=== PATIENT | male | born 1950 | race Caucasian/White ===

== ENCOUNTER 2017-04-13 22:51 | Emergency (ER) | payer MEDICARE ==
[~2017-04-13] VITALS: Ht 177.8 cm; Wt 70.3 kg
[~2017-04-13 22:51] MED LIST: DILAUDID4 MG PO; METHADONE HCL5 MG PO
[2017-04-13] MEDS ORDERED: METHADONE HCL10 MG PO (23:08)
[2017-04-13] MEDS ORDERED: LORAZEPAM2 MG PO (23:10)
[2017-04-13] MEDS ORDERED: ASPIRIN325 MG PO (23:10)
== END 2017-04-14 02:00 | disposition home or self-care (01) ==
LOC: ED 22:51
DX: N13.2 Hydronephrosis with renal and ureteral calculous obstruction (principal); I25.2 Old myocardial infarction; F17.200 Nicotine dependence, unspecified, uncomplicated; Z79.899 Other long term (current) drug therapy; Z79.82 Long term (current) use of aspirin; Z87.442 Personal history of urinary calculi
CPT/HCPCS: 74176; 80053; 81001; 83690; 85025; 96374; 96375; 99284; J1170; J1885; J2405; J7030

== ENCOUNTER 2017-10-28 09:00 | Day surgery (SDC) | payer MEDICARE ==
[~2017-10-28] VITALS: Ht 177.8 cm; Wt 63.5 kg
[~2017-10-28 09:00] MED LIST changes: +ASPIRIN325 MG PO; +LORAZEPAM2 MG PO; +METHADONE HCL10 MG PO; +OXYCODONE HCL10 MG PO; +ZOFRAN4 MG PO
--- NOTE | 2017-10-28 13:01 | NUR ---
PATIENT TO SURGERY.
--- NOTE | 2017-10-28 14:31 | NUR ---
10/28/17 1431 Jaquelin Meraz 1427-PATIENT ARRIVED TO PACU ON 6L MASK O2 SAT 100% REACTVE. RR EVEN. 3 LAP SITES TO ABDOMEN CDI. ICE APPLIED. SR.
--- NOTE | 2017-10-28 15:32 | NUR ---
PT ARRIVED FROM THE PACU AT APPROXIMATELY 1515. NO DISTRESS. PT STATES HE HAS BEEN "FUZZY" LATELY IN COGNITION, AND HAS HAD PROBLEMS WITH HIS VISION. SURGICAL SITE IS DRESSED, CDI. PT DENIES SOB, HAS HAD INTERMITTENT NAUSEA. WILL CONTINUE TO MONITOR.
--- NOTE | 2017-10-28 16:15 | NUR ---
PT VS DONE, DRESSING CDI, DENIES NAUSEA.
--- NOTE | 2017-10-28 17:33 | NUR ---
PT RESTING AT BEDSIDE, DRESSING CDI, VSS. NO DISTRESS, PAIN LEVEL DECREASING.
--- NOTE | 2017-10-28 18:01 | NUR ---
PT HAS ARRIVED FROM A LAP YAMIL THIS AFTERNOON. DRESSINGS CDI, PT DENIES NAUSEA, HAS SOME SURGICAL PAIN AND WAS GIVEN PRN PAIN MANAGEMENT WHICH HAS BEEN HELPFUL. PT HAS TOLERATED FULL LIQUIDS. VITALS STABLE.
--- NOTE | 2017-10-28 18:31 | NUR ---
PT POST PACU VS STABLE, DRESSINGS CDI. NO DISTRESS, DENIES NAUSEA, PAIN LEVELS GOING DOWN.
--- NOTE | 2017-10-28 19:20 | NUR ---
BEDSIDE REPORT RECEIVED FROM TEODORO JUNG. PT AWAKE, SITTING UP IN BED. PT HAS NOT VOIDED AT THIS TIME, RN OLGA TO BLADDER SCAN PT. PT TOLERATING FULL LIQUID DIET WELL, NO NAUSEA. RATES PAIN 6/10 AT THIS TIME, DRESSINGS C/D/I. IVF INFUSING WNL. CALL LIGHT IN REACH. FAMILY IN ROOM.
--- NOTE | 2017-10-28 21:14 | NUR ---
PT ASSESSMENT COMPLETE.SBA TO RESTROOM, PT UNABLE TO VOID. BLADDER SCANNED 530 ML, MD NOTIFIED. TELEPHONE ORDER FOR STRAIGHT CATHETER AT THIS TIME, ORDERS TO PLACE B[place] IF PT UNABLE TO VOID ADDITIONAL TIME, ORDERS REPEATED BACK TO [facility]. LUNGS CLEAR THROUGHOUT ALL LOBES, INCISION SITES CDI WITH GAUZE SMALL AMT SHADOWING NOTED ON RIGHT LAP SITE. BOWEL TONES ACTIVE X 4. ABD SOFT. PT STATES PAIN 7/10 "CRAMPING". PRN PAIN MEDICATION ADMINISTERED. CALL LIGHT IN REACH.
--- NOTE | 2017-10-28 21:59 | NUR ---
tried to straight cath pt, resistance noted, no return in catherer. tried Pt refused to continue to be cathed. Pt instructed it is his right to refuse tx , complications of unable to urinate afte surgery explained to him, stated understanding and still stated that he was refusing to be cathed. Wet towel to mae area and dripping water faucet on, to help urinate. Primary RN Elizabeth notified.
--- NOTE | 2017-10-28 23:30 | NUR ---
PT ABLE TO VOID 375 ML AT THIS TIME, CONCENTRATED URINE. PT CONTINUES TO RATE PAIN "CRAMPING" /, STATES "FEELS LIKE I WAS PUNCHED IN THE GUT". PT GIVEN NEW ICE PACK FOR ABD. NEW BAG IVF INFUSING. PT ENCOURAGED TO DRINK PO FLUIDS, ICE WATER GIVEN TO PT. CALL LIGHT IN REACH, LIGHTS OFF IN ROOM.
--- NOTE | 2017-10-29 02:20 | NUR ---
PT ASSESSMENT COMPLETE. PT ABLE TO VOID 375 ML IN URINAL, URINAL EMPTIED. LUNGS CLEAR THROUGHOUT ALL LOBES. ABD DRESSING CLEAN DRY AND INTACT W SOME SHADOWING ON LEFT ABD LAP SITE GAUZE. BOWEL TONES ACTIVE, ABD SOFT. PT RATES PAIN 7-8/10 IN ABD, PRN PAIN MEDICATION ADMINISTERED. ICE WATER AND CALL LIGHT IN REACH. SCDS ON. IVF INFUSING WNL.
--- NOTE | 2017-10-29 04:46 | NUR ---
CHECKED ON PT, LYING ON RIGHT SIDE, BREATHING NON-LABORED. IVF INFUSING. LIGHTS OFF IN ROOM.
--- NOTE | 2017-10-29 05:30 | NUR ---
PT VOIDING QUANTITY SUFFICIENT. PRN OXYCODONE 10 MG FOR PAIN CONTROL. DRESSINGS CDI, BOWEL TONES ACTIVE, ABD SOFT. PT C/O "CRAMPING" PAIN THROUGHOUT SHIFT. ICE PACK TO ABD. IVF INFUSING WNL. AFEBRILE. SBA TO RESTROOM.
--- NOTE | 2017-10-29 05:54 | OR ---
[facility] [address] [place], [place] [address] Signed DATE OF OPERATION: 10/28/2017 SURGEON: Anup Burris MD PREOPERATIVE DIAGNOSIS: Chronic cholecystitis with cholelithiasis (sludge). POSTOPERATIVE DIAGNOSIS: Chronic cholecystitis with cholelithiasis (sludge) with yellow cholesterol crystals/small stones. PROCEDURE: Laparoscopic cholecystectomy with intraoperative cholangiogram. ESTIMATED BLOOD LOSS: None. FINDINGS: Abel had a very friable gallbladder wall. It came apart very easily like wet tissue paper, inside was an enormous amount of very thick bile/sludge, full of tiny yellow cholesterol crystals/stones. The intraoperative cholangiogram was unremarkable. INDICATIONS: Abel is a 67-year-old gentleman, who was asked to see me initially with left upper quadrant abdominal pain, but as I questioned it became clear he was having some right upper quadrant abdominal pain as well. It was worse after meals. He has had a number of CT scans for kidney stones. He is known to have a very elongated gallbladder around 15 cm. His symptoms have been worsening and he is down to eating just once a day. He said it has been miserable. He dropped from 175 pounds down to 145 pounds to the point that he is cachectic. He also has a generalized anxiety disorder and was quite worried about surgery. We sent him for an ultrasound of the gallbladder. He has a very long gallbladder measuring 15 x 6 x 9 cm. It contained an extensive amount of sludge and debris. The wall was irregular, but not particularly thickened. The common bile duct was unremarkable. He had finally come back to the office and after discussing this with him, he explained to me how his symptoms have been significantly worse, he was down to one meal a day. I had already given him a [employer] brochure on the gallbladder. He is well aware of the location and function of the gallbladder. We have already discussed laparoscopic versus open cholecystectomy. He understands expected intraop and postop course. There is risk of surgery including, but not limited to bleeding, infection, scarring, change in contour of the skin, damage to bowel, damage to the main bile duct, Electronically Signed By: ANUP BURRIS MD 10/29/17 0554 PATIENT NAME: ABEL BA OPERATIVE REPORT DATE OF : 50 REPORT #: [id number] PHYSICIAN: ANUP BURRIS MD PCP: ASHLY CONNER MD REPORT IS CONFIDENTIAL AND NOT TO BE RELEASED WITHOUT AUTHORIZATION [facility] [address] [place] [id number] Signed incisional hernias, and other unforeseen comorbidities. He had expressed understanding and wished to proceed. PROCEDURE NOTE: Abel was taken into the operating room and placed in a supine position under general endotracheal tube anesthesia. He was telling myself and the staff how he has been hardly able to eat and drink this week, he has been dizzy, he has apparently passed out a couple times and fallen down. He is very cachectic. He was given preoperative antibiotics along with subcutaneous heparin. SCDs were utilized. He was then prepped and draped in the usual sterile fashion. He has an extremely scaphoid abdomen. Our trocars were then placed in usual positions under direct visualization of camera without difficulty. He had an unbelievably elongated gallbladder extending well below his liver edge. The gallbladder was carefully elevated in the right upper quadrant. The color was more of yellow and green rather than a true coral color. It looked quite unhealthy. He had inflammatory changes of the omentum to the gallbladder and it took me a few minutes to get those down with our cautery and blunt dissection. Eventually, the top of the gallbladder had come open, so we suctioned out an enormous amount of this thick sludge, full of yellow, small, cholesterol crystals. We eventually worked our way down and dissected out the triangle of Calot. Two clips have been placed on the cystic artery and it had been divided. As we worked, the bottom of the gallbladder came open because the wall was so thin and friable and we suctioned out the rest of the thick bile. The cholangiocatheter was then inserted into the cystic duct. The intraoperative cholangiogram was then performed. This was unremarkable. The cystic duct stump was secured with a PDS Endoloop and 2 clips were placed across the cystic duct stump to ashly its location. After this, the gallbladder was carefully removed from the gallbladder fossa with the help of the cautery and placed into an EndoCatch bag. Again, we were very impressed at the chronicity and the friability of his gallbladder wall. After this, we used a large amount of irrigation and cleaned the right upper quadrant and suctioned it out until it was completely clear. We had taken pictures throughout for photodocumentation. After this, we used our laparoscopic suturing device to close the fascia of the subxiphoid trocar site. The gas was then allowed to escape and all the remaining trocars were removed. The fascia of the supraumbilical trocar site was closed with interrupted [id number] and simple 0 Vicryl sutures. Local anesthetic was injected in all trocar sites. Each trocar site was irrigated and suctioned out until clear. The skin and dermis of each trocar site was then closed with interrupted 3-0 subcuticular Monocryl sutures. Dry gauze and tape were then applied to all incisions. Abel was then awakened from his anesthesia, extubated in the OR, and taken to recovery room in stable condition. Electronically Signed By: ANUP BURRIS MD 10/29/17 0554 PATIENT NAME: ABEL BA OPERATIVE REPORT DATE OF : 50 REPORT #: [id number] PHYSICIAN: ANUP BURRIS MD PCP: ASHLY CONNER MD REPORT IS CONFIDENTIAL AND NOT TO BE RELEASED WITHOUT AUTHORIZATION [address] [address] Signed Anup Burris MD [facility] /[id number] cc: MD Dr. Ashly Mat[facility] Copies: ANUP BURRIS MD ~ Electronically Signed By: ANUP BURRIS MD 10/29/17 0554 PATIENT NAME: ABEL BA OPERATIVE REPORT DATE OF : 50 REPORT #: [id number] PHYSICIAN: ANUP BURRIS MD PCP: ASHLY CONNER MD REPORT IS CONFIDENTIAL AND NOT TO BE RELEASED WITHOUT AUTHORIZATION
--- NOTE | 2017-10-29 06:44 | NUR ---
PRN PAIN MEDICATION ADMINISTERED FOR 7-8/10 PAIN IN ABD, "CRAMPING". SBA TO RESTROOM FOR VOID AND BACK TO BED. IVF INFUSING, SCDS ON. PT ORDERING BREAKFAST. CALL LIGHT IN REACH.
--- NOTE | 2017-10-29 07:53 | NUR ---
PATIENT REFUSED SHOWER BECAUSE HE IS GOING HOME TODAY. HE IS LAYING IN HIS BED GETTING READY TO EAT HIS BREAKFAST.
--- NOTE | 2017-10-29 08:01 | DS ---
[facility] [address] [place], [place] [address] Signed ADMISSION DATE: 10/28/2017 DISCHARGE DATE: 10/29/2017 RE-DICTATION FINAL DIAGNOSIS: Chronic cholecystitis with cholelithiasis (sludge). PROCEDURE: Laparoscopic cholecystectomy with intraoperative cholangiogram. HISTORY OF PRESENT ILLNESS: Abel is a 67-year-old gentleman, who has had a lot of trouble with left upper quadrant and right upper quadrant abdominal pain. It was worse with meals. He was down to one meal a day. He was losing weight, went from 175 pounds down to 145 pounds. He finally was sent over as a referral. He is known to have a very long gallbladder on CT scans for his kidney stones. His gallbladder is about 15 cm in length. We did an ultrasound in the office and found that his gallbladder was full of very thick sludge with lots of debris. As his symptoms continued, he eventually decided to go ahead and have surgery. In fact, he called the office and had us moving up on a schedule. HOSPITAL COURSE: Abel was taken to the operating room 10/28/2017 for laparoscopic cholecystectomy with intraoperative cholangiogram. The intraoperative cholangiogram was unremarkable. His gallbladder wall was very friable like wet tissue paper. He was weak after surgery and we kept him and he was having some trouble with urinary hesitancy. He finally had some urine last night and some this morning. He said that is common for him. However, he is not mentioned it to his urologist. He has only talked to the urologist about his kidney stones. This morning, he is doing better. He is tolerating his clear liquids. He is ambulating. He is doing well on his oxycodone 5 mg tablets. Consequently, we are going to be discharging him to home. DISCHARGE PLANS AND MEDICATIONS: Abel is going to be discharged home with a prescription for oxycodone immediate release 5 mg 1-2 tablets p.o. q.4-6 hours p.r.n. pain, dispense 45 tablets with no refills. We will give him Phenergan 25 mg one tablet p.o. q.4-6 hours p.r.n. nausea and vomiting. We will dispense 10 tablets with one refill. He can increase his diet as tolerated. He should not do any heavy pushing, pulling, or lifting over 25 pounds. He is welcome to perform his activities of daily living including walking up and down stairs and showering and bathing as usual. I am going to see him back in my office in a week or so for Electronically Signed By: ANUP BURRIS MD 10/29/17 0801 PATIENT NAME: ABEL BA DISCHARGE SUMMARY DATE OF : 50 REPORT #: [id number] PHYSICIAN: ANUP BURRIS MD PCP: LOYD CONNER MD REPORT IS CONFIDENTIAL AND NOT TO BE RELEASED WITHOUT AUTHORIZATION [address] [address] Signed followup. He can follow up with his urologist regarding his urinary symptoms. Anup Burris MD [facility] /[id number] cc: MD Dr. Loyd Matson MD Copies: ANUP BURRIS MD, AIMEE MD ~ Electronically Signed By: ANUP BURRIS MD 10/29/17 0801 PATIENT NAME: ABEL BA DISCHARGE SUMMARY DATE OF : 50 REPORT #: [id number] PHYSICIAN: ANUP BURRIS MD PCP: LOYD CONNER MD REPORT IS CONFIDENTIAL AND NOT TO BE RELEASED WITHOUT AUTHORIZATION
--- NOTE | 2017-10-29 08:01 | DS ---
[facility] [address] [place], [place] [address] Signed ADMISSION DATE: 10/28/2017 DISCHARGE DATE: 10/29/2017 FINAL DIAGNOSIS: Chronic cholecystitis with cholelithiasis (sludge). PROCEDURE: Laparoscopic cholecystectomy with intraoperative cholangiogram. HISTORY OF PRESENT ILLNESS: Abel is a 67-year-old gentleman, who has been having trouble with left upper quadrant and right upper quadrant abdominal pain. He is known to have a very long gallbladder around 15 cm. It was worse after meals. He is down to eating one meal a day. He lost weight from 175 pounds down to 145 pounds. He to the point is being cachectic. He finally came for us as a referral and we sent him for an ultrasound. It showed his gallbladder full of very thick sludge. Initially, Abel was hesitant to have surgery, but finally decided his symptoms that he was not going to escape the symptoms. He then called the office and asked that we move the surgery up on our schedule. HOSPITAL COURSE: Abel was taken to the operating room on 10/28/2017, for a laparoscopic cholecystectomy with an unremarkable intraoperative cholangiogram. His gallbladder wall was friable like wet tissue paper and obviously consistent with chronic cholecystitis. He was full of very dark thick sludge like bile with tiny little small yellow cholesterol crystals and stones. He was weak after surgery. We did not feel comfortable sending him home as he lives alone. Overnight, he has done fine except he did have some urinary hesitancy. In talking with him, it sounds like that is a chronic issue. He was finally able to urinate some last night and this morning. He is tolerating his clear liquids by mouth at this point. He told me that he has had a lot of different medications in the past and he thought he could handle oxycodone 10, which he did yesterday. At this point, he feels comfortable going home. DISCHARGE PLANS AND MEDICATIONS: Abel is going to be discharged to home with a prescription for oxycodone immediate release 5 mg 1-2 tablets p.o. q.4 hours p.r.n. pain, dispense 45 tablets with no refills. Anup Goins MD Electronically Signed By: ANUP GOINS MD 10/29/17 0801 PATIENT NAME: ABEL BA DISCHARGE SUMMARY DATE OF : 50 REPORT #: [id number] PHYSICIAN: ANUP GOINS MD PCP: LOYD CONNER MD REPORT IS CONFIDENTIAL AND NOT TO BE RELEASED WITHOUT AUTHORIZATION [facility] [address] [place] [address] [place], [place] [address] Signed [facility] /[id number] Copies: ~ Electronically Signed By: ANUP GOINS MD 10/29/17 0801 PATIENT NAME: ABEL AB DISCHARGE SUMMARY DATE OF : 50 REPORT #: [id number] PHYSICIAN: ANUP GOINS MD PCP: LOYD CONNER MD REPORT IS CONFIDENTIAL AND NOT TO BE RELEASED WITHOUT AUTHORIZATION
--- NOTE | 2017-10-29 08:32 | NUR ---
PT RESTING AT BEDSIDE, DENIES NAUSEA, NO DISTRESS. PT STATES THAT PAIN MANAGEMENT IS NOT EFFECTIVE HAS HE HAS TAKEN NARCOTICS FOR MANY YEARS AT HIGH LEVELS. PT IS COMPLAINT WITH CARE. NO DRAINAGE TO THREE LAT SITES THIS AM. VSS, PREPARING FOR DISCHARGE.
--- NOTE | 2017-10-29 08:58 | NUR ---
LIVES INDEPENDENTLY WITH HIS PETS. IS ABLE TO DRIVE AND DRIVES SELF TO PCP IN [facility]. HAS DAUGHTER IN AREA THAT CAN HELP AT HOME POST-OP. NO BARRIERS TO DISCHARGE HOME AT THIS TIME.
--- NOTE | 2017-10-29 09:28 | NUR ---
MED REC COMPLETE
[2017-10-29] MEDS ORDERED: OXYCODONE HCL5 MG PO (10:23)
[2017-10-29] MEDS ORDERED: PROMETHAZINE HC25 M1 PO (10:25)
== END 2017-10-29 11:15 | disposition home or self-care (01) ==
LOC: DS 09:00 → MS 15:07 → DS 10-29 11:15
PROVIDERS: Colon & Rectal Surgery
PROC: BF13YZZ Fluoroscopy of Gallbladder and Bile Ducts using Other Contrast (ICD-10-PCS; 2017-10-28)
PROC: 0FT44ZZ Resection of Gallbladder, Percutaneous Endoscopic Approach (ICD-10-PCS; principal; 2017-10-28 09:30)
DX: K81.1 Chronic cholecystitis (principal); F17.210 Nicotine dependence, cigarettes, uncomplicated; M54.2 Cervicalgia; M54.9 Dorsalgia, unspecified; I25.2 Old myocardial infarction; I25.10 Atherosclerotic heart disease of native coronary artery without angina pectoris
CPT/HCPCS: 74300; J0690; J1100; J1170; J1644; J1885; J2250; J2405; J2704; J3010; J7120; Q9967

== ENCOUNTER 2017-11-15 00:22 | Inpatient (IN) | payer MEDICARE ==
[~2017-11-15] VITALS: Ht 175.3 cm; Wt 64.9 kg
[~2017-11-15 00:22] MED LIST changes: +OXYCODONE HCL5 MG PO; +PROMETHAZINE HC25 M1 PO
[2017-11-15] MEDS ORDERED: COLACE100 MG PO (01:20)
--- NOTE | 2017-11-15 06:40 | NUR ---
ADMITTED TO CCU FROM PACU. IS RESTFUL. ZOFRAN GIVEN FOR NAUSEA. IVF PATENT.
--- NOTE | 2017-11-15 06:43 | NUR ---
11/15/17 0643 METZ,MALGORZATA Crandall 0610: IV LEFT TOP OF WRIST. PLACED IN OR. IV SITE WNL. 0619: ORAL AIRWAY OUT. O2 MASK ON. 0622: O2 MASK OFF. PATIENT ON ROOM AIR. 0625: PATIENT AWAKENS TO VOICE. STATES "A LITTLE PAIN" FALLS BACK TO SLEEP QUICKLY. 0638: REPORT GIVEN TO CCU RN.
--- NOTE | 2017-11-15 07:30 | NUR ---
REPORT RECIEVED, ADMISSION PROCESS STARTED. IS COOPERATIVE WITH QUESTIONS ASKED. C/O PAIN IN LLQ RATE 01/11. TO HAVE CT OF CHEST THIS AM.
--- NOTE | 2017-11-15 08:20 | NUR ---
DILAUDID 1 MG IV GIVEN FOR PAIN. THEN TO CT VIA BED.
--- NOTE | 2017-11-15 08:50 | NUR ---
RETURN TO CCU. TOLERATED CT WELL. MORE COMFORTALBE AFTER DILAUDID
--- NOTE | 2017-11-15 10:15 | NUR ---
DR. HAYNES HERE TO SEE PATIENT.
--- NOTE | 2017-11-15 12:10 | NUR ---
c/o pain 9/10 IN LLQ OF ABD AND BACK WITH GENERALIZED PAIN. DILAUDID 1 MG IV GIVEN AND NORCO 2 TABS GIVEN. C/O SLIGHT NAUSEA. REFUING CLEAR LIQUIDS AT THIS TIME. ASESSMENT COMPLETE.
--- NOTE | 2017-11-15 13:10 | NUR ---
[facility]
--- NOTE | 2017-11-15 14:03 | EKG ---
[facility] [address] [facility] [place] [address] Signed Sinus rhythm with marked sinus arrhythmia Otherwise normal ECG When compared with ECG of 27-OCT-2017 10:16, Nonspecific T wave abnormality no longer evident in Lateral leads Confirmed by ELYSSA HAYNES MD ([id number]) on 11/15/2017 2:03:15 PM Electronically Signed By: ELYSSA HAYNES MD 11/15/17 1403 PATIENT NAME: ABEL BA Electrocardiogram DATE OF : 50 PHYSICIAN: ELYSSA HAYNES MD REPORT #: [id number] REPORT IS CONFIDENTIAL AND NOT TO BE RELEASED WITHOUT AUTHORIZATION
--- NOTE | 2017-11-15 15:10 | NUR ---
DR. GOMEZ HERE TO SEE PATIENT, PATIENT WILL HAVE STENT PLACEMENT TOMORROW.
--- NOTE | 2017-11-15 18:05 | NUR ---
DENIES NAUSA. CONTINUE TO C/O PAIN IN LLQ. DENEIS NAUSEA.
--- NOTE | 2017-11-15 18:28 | NUR ---
dilaudid 1 MG IV GIVEN AND NORCO 2 TABS GIVEN FOR LLQ PAIN.
--- NOTE | 2017-11-15 19:20 | NUR ---
SHIFT REPORT RECEIVED FROM TEODORO MANN. PT CURRENTLY RESTING IN BED WITH EYES CLOSED. RA, RESPIRATIONS EVEN AND UNLABORED. WILL CONTINUE TO MONITOR.
--- NOTE | 2017-11-15 20:30 | NUR ---
ASSESSMENT COMPLETED. PT IS ALERT/ORIENTED, REPORTS 9/10 LLQ/GENERALZED PAIN, 1.5MG IV DILAUDID ADMINISTERED. LUNGS CLEAR, RA. HR REGULAR. BOWEL TONES HYPOACTIVE, ABDOMEN TENDER, REPORTS NAUSEA, 8MG IV ZOFRAN ADMINISTERED. OLD LAP SITES TO ABDOMEN APPEAR TO BE HEALING WELL, SKIN OTHERWISE APPEARS GROSSLY INTACT. NO EDEMA NOTED, SCD'S IN PLACE, PT REPORTS TINGLING IN BILATERAL FEET WHICH HE STATES IS BASELINE. DISCUSSED PLAN TO BECOME NPO AT 2300 FOR PROCEDURE TOMORROW, PT STATES UNDERSTANDING. IV SITES PATENT, IVF INFUSING WNL. PT HAS CALL LIGHT WITHIN REACH, DENIES FURTHER REQUESTS AT THIS TIME.
--- NOTE | 2017-11-15 22:20 | NUR ---
CHECKED IN ON PT WHO WOKE WHEN I ENTERED ROOM. REPORTS THAT LLQ PAIN REMAINS AT 9/10. 2 TABS NORCO GIVEN AT THIS TIME. PT DENIES FURTHER REQUESTS AT THIS TIME, WILL CONTINUE TO MONITOR.
--- NOTE | 2017-11-15 23:15 | NUR ---
PT'S WATER REMOVED FROM BEDSIDE TABLE, PT NOW NPO. PT APPEARS UNCOMFORTABLE, GIMACING. REPORTS HIS LLQ PAIN REMAINS 9/10. MEDICATED AT THIS TIME WITH 1.5MG IV DILAUDID. WILL CONTINUE TO MONITOR.
--- NOTE | 2017-11-16 00:55 | NUR ---
PT UP TO BATHROOM WITH SBA, VOIDED 650ML AND THEN RETURED TO BED. ASSESSMENT COMPLETED. 1.5MG IV DILAUDID GIVEN FOR 9/10 LLQ PAIN. 12.5MG IV PHENERGAN GIVEN FOR NAUSEA. LUNGS REMAIN CLEAR, RA. HR REMAINS REGULAR. BOWEL TONES REMAIN HYPOACTIVE. SCD'S ON. IVF INFUSING WNL. CALL LIGHT WITHIN REACH, WILL CONTINUE TO MONITOR.
--- NOTE | 2017-11-16 02:07 | NUR ---
PT APPEARS TO BE SLEEPING AT THIS TIME. NO APPARENT DISTRESS. RESPIRATIONS EVEN AND UNLABORED. RR:16, SPO2:98% ON RA, HR:64. WILL ALLOW FOR REST AND CONTINUE TO MONITOR.
--- NOTE | 2017-11-16 04:15 | NUR ---
PT SLEEPING SOUNDLY, LIGHTLY SNORING. NO APPARENT DISTRESS. RESPIRATIONS ARE EVEN AND UNLABORED, RR:16, SPO2:98% ON RA. HR:57. IVF INFUSING WNL. WILL ALLOW FOR REST AND CONTINUE TO MONITOR.
--- NOTE | 2017-11-16 05:30 | NUR ---
PT REPORTS 9/10 LLQ PAIN, MEDICATED AT THIS TIME WITH 1.5MG IV DILAUDID. DISCUSSED WITH PT PLAN FOR SURGERY TODAY FOR URETER STENT PLACEMENT. STARTED PRE-OP CHECK LIST AND PLACED LR WITH STRAIGHT TUBING IN ROOM. DISCUSSED PLAN FOR PRE-PROCEDURE WIPE DOWN LATER THIS MORNING. PT DENIES FURTHER REQUESTS AT THIS TIME, CALL LIGHT IS WITHIN REACH.
--- NOTE | 2017-11-16 06:52 | NUR ---
PT UP TO BATHROOM WITH SBA, VOIDED 225ML AND THEN RETURNED TO BED. PT WASHED FACE AND RINSED MOUTH WITH MOUTHWASH. SCD'S BACK ON. PT STATES HIS PAIN IS SLIGHLY IMPROVED. CALL LIGHT WITHIN REACH.
--- NOTE | 2017-11-16 07:01 | NUR ---
CB, TITRATED INSULIN DRIP TO 1 UNIT/HR, VERIFIED WITH TEODORO POP.
--- NOTE | 2017-11-16 07:07 | CONS ---
[facility] [address], [place] [address] Signed DATE OF CONSULTATION: 11/15/2017 CHIEF COMPLAINT: Upper abdominal pain and hematemesis. HISTORY OF PRESENT ILLNESS: Abel is a 67-year-old gentleman, who came to us 18 days ago for an uncomplicated laparoscopic cholecystectomy with intraoperative cholangiogram. He had a very friable gallbladder like wet tissue paper. He had tremendous amount of black sludge and small yellow cholesterol stones. He had done well with that and I had seen him back in the office. He said overall he felt a little better, was able to eat little more than usual, but still having some left upper quadrant abdominal pain, which has been bothering him for several months now. He has had ulcers in the past. We have him on our schedule for an outpatient upper endoscopy. I recommended he start on Prilosec, but he was afraid of side effects that he saw on TV. He said he had Zantac at home. I had asked him to take that twice a day and he told me just today that he ran out. In general, he was doing fine, but yesterday, he started having worsening upper abdominal pain, mostly left upper quadrant and finally today, he asked his family to bring him into the emergency room. They think maybe he vomited some blood, but the nurse thought maybe it was chocolate milk. Nevertheless, he is certainly not feeling good. His white count 11.7 and his liver function tests are fine. He then had a CT scan of the abdomen and pelvis with just IV contrast. He does have quite a bit of air in the abdomen, of course more in the upper abdomen than lower abdomen. He has a 15 mm large obstructing UPJ stone in his left kidney, but no other obvious area of perforation specifically around the stomach or duodenum and no evidence of any diverticular disease that might be causing this free air. Consequently, I was asked to see him as a general surgeon, so I came soon as I was called. In the meantime, he has received some IV fluids and some pain medication and his antibiotics. PAST MEDICAL HISTORY: 1. Kidney stones. 2. Chronic back pain. PAST SURGICAL HISTORY: 1. Laparoscopic cholecystectomy on 10/28/2017. 2. Spinal bone graft at T8-T9 in 1984 through a large left thoracotomy incision and he has had kidney stones extracted twice. SOCIAL HISTORY: He smokes about a 3rd pack of cigarettes a day. He does like a little marijuana. He does not use alcohol. 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 He is now disabled. He is and has 4 children. His primary care provider is Dr. Loyd Conner in [place], [place]. Electronically Signed By: ANUP BURRSI MD 11/16/17 0707 PATIENT NAME: ABEL BA CONSULTATION DATE OF : 50 REPORT #: [id number] PHYSICIAN: ANUP BURRIS MD PCP: LOYD CONNER MD REPORT IS CONFIDENTIAL AND NOT TO BE RELEASED WITHOUT AUTHORIZATION [address] [address] Signed ALLERGIES: None. FAMILY HISTORY: His dad had pancreatic cancer. Mom had colon cancer and heart disease. REVIEW OF SYSTEMS: He had 10 systems reviewed and really he was not able to add much today other than he seemed to feel the pain got worse yesterday and it has persisted, so he came to the emergency room. PHYSICAL EXAMINATION: VITAL SIGNS: His blood pressure is 160/79, his heart rate 62, respirations are 18, his temperature is 97.9, and he is 100% on room air. GENERAL: On exam, he is clearly in some distress, but able to concentrated up to answer questions and his daughter and his friend is here as well. LUNGS: Clear to auscultation. HEART: Regular rate and rhythm. ABDOMEN: Scaphoid and he seems to be a little tender in upper abdomen, but he is fairly stoic. If he has peritonitis, he is hiding it awfully well. LABORATORY DATA: His white blood count is 11.7, his hemoglobin is 14, neutrophils are 77. His BUN is 12, creatinine is 1.0, and glucose 147. His liver function tests are negative. His albumin is 4.4 and his lipase is 17. RADIOGRAPHIC STUDIES: A CT scan of the abdomen and pelvis is reviewed and he does have free air in the upper abdomen, more so than the lower. I see a large 15 mm stone obstructing his UPJ with some hydronephrosis. ASSESSMENT AND PLAN: Abel is a 67-year-old chronically debilitated gentleman, who underwent an uncomplicated laparoscopic cholecystectomy about 18 days ago. He certainly in more pain than he was before and it is all upper abdomen that seems to have started yesterday and he apparently has more air in his abdomen than one would expect this time after surgery. Nevertheless, his white count is borderline and his exam is not as impressive as one would think with a perforated ulcer. There is some concern that maybe he vomited blood, but maybe it was chocolate milk we are not sure. It sounds like he had a chocolate bar earlier in the day. I think at this point, we are going to quickly run the gastroscope down and we will look into his stomach to see what we find and if that is uneventful, we are going to take him directly from there over to the OR for a laparotomy. I have explained this to Abel that and his family of course there is risk to the procedures Electronically Signed By: ANUP BURRIS MD 11/16/17 0707 PATIENT NAME: ABEL BA CONSULTATION DATE OF : 50 REPORT #: [id number] PHYSICIAN: ANUP BURRIS MD PCP: LOYD CONNER MD REPORT IS CONFIDENTIAL AND NOT TO BE RELEASED WITHOUT AUTHORIZATION [facility] [address], [place] [address] Signed including, but not limited to gas bloating, crampy abdominal pain, bleeding, perforation, requiring surgery, and missed diagnosis as well as the need to repair a perforated ulcer and/or a perforated viscus. They have expressed understanding and agreed the above plan. Anup Burris MD ALB/MODL /[id number] cc: MD Loyd Matson MD Copies: ANUP BURRIS MD ~ Electronically Signed By: ANUP BURRIS MD 11/16/17 0707 PATIENT NAME: ABEL BA CONSULTATION DATE OF : 50 REPORT #: [id number] PHYSICIAN: ANUP BURRIS MD PCP: LOYD CONNER MD REPORT IS CONFIDENTIAL AND NOT TO BE RELEASED WITHOUT AUTHORIZATION
--- NOTE | 2017-11-16 07:07 | OR ---
[facility] [address] [place], [place] [address] Signed DATE OF OPERATION: 11/15/2017 SURGEON: Anup Burris MD PREOPERATIVE DIAGNOSES: 1. Upper abdominal pain. 2. Laparoscopic cholecystectomy with negative intraoperative cholangiogram 18 days ago. 3. Retained free air. 4. History of peptic ulcer disease. 5. Left 15 mm obstructing stone at ureteropelvic junction with hydronephrosis. POSTOPERATIVE DIAGNOSES: 1. Minimal distal patchy gastritis. 2. Small hiatal hernia. PROCEDURES PERFORMED: Esophagogastroduodenoscopy with CLOtest and biopsies of the pyloric bulb and antrum. ESTIMATED BLOOD LOSS: None. FINDINGS: Abel had no evidence of any ulcers, perforation, or bleeding in his duodenum, pyloric bulb, entire stomach, or esophagus. INDICATIONS FOR PROCEDURE: Abel is a 67-year-old gentleman, I have known now for several months. He was having a lot of trouble with left upper quadrant abdominal pain. He had been working with his primary care provider. His laboratory work and his x-rays had all been unrevealing and he continued to have pain and when he ate, it was worse. Consequently, he made his way to me as a general surgeon. We did his HIDA scan and it had reproduced his symptoms. He has a very long gallbladder on his x-rays. Even then, Abel was a little hesitant to approach doctors and/or surgery. He told me he had ulcers in the past and he was afraid to take Prilosec because of the side effects he had seen on TV. He had Zantac at home and he had been taking that twice a day and not making any improvements. When he failed his HIDA scan, he initially hesitated for surgery, but after a week or so, given us a call and we took him to the OR on October 28, 2017. He had an uncomplicated laparoscopic cholecystectomy with intraoperative cholangiogram. His gallbladder was friable, came apart like wet tissue paper. It was full of very dark, almost black sludge, and very tiny yellow cholesterol stones. The intraoperative cholangiogram had been unremarkable. Electronically Signed By: ANUP BURRIS MD 11/16/17 0707 PATIENT NAME: ABEL BA OPERATIVE REPORT DATE OF : 50 REPORT #: [id number] PHYSICIAN: ANUP BURRIS MD PCP: LOYD CONNER MD REPORT IS CONFIDENTIAL AND NOT TO BE RELEASED WITHOUT AUTHORIZATION [facility] [address] [place], [place] [address] Signed His surgery had gone quite well. He then came and saw me in the office afterwards and overall he looked better and said he was feeling better, eating a little better as well. We went back and reviewed this idea that he might have an ulcer. He was still quite concerned in that regard and wanted to continue on his Zantac. We went ahead and scheduled him for an outpatient upper endoscopy. Day prior to this admission, he seemed to have an increase in his upper abdominal pain and finally his family brought him to the emergency room for evaluation. In the emergency room, he is cachectic and he always looks a little ill and pale. His vital signs were fine. He is a little hypertensive. His abdominal exam seemed to suggest some upper abdominal pain. His white count was borderline at 11.7 with neutrophils of 77. Electrolytes were fine. BUN and creatinine were fine with a creatinine of 1.0 and his liver function tests were all negative. Albumin was good at 4.4 and his lipase was good at 17. Consequently, he underwent a CT scan of the abdomen and pelvis with IV contrast and he certainly has free air in his upper abdomen, some in his lower abdomen. The radiologist was a little concerned, it might be more than usual. However, he had been in this situation before 3-4 weeks after gallbladder surgeries and is not completely uncommon. We could not specifically find any area of bowel that would be perforated, that we could ascertain on the CT scan, particularly in the area of the stomach, the duodenum, or in the colon. He does have a large 15 mm obstructing stone at his left UPJ with some hydronephrosis, which had limited his nephrogram on the delayed images. Consequently, the ER doctor called me and I came straight to the emergency room to see Abel and his family. In the emergency room, Abel told me he was not feeling well, although his abdominal exam was not particularly impressive at that time, all the incisions were healing well. I had a long discussion with Abel and his daughter and his friend, and I was a little hesitant to take him straight to the OR with his history, so we decided we would perform an upper endoscopy first, look for an ulcer in the stomach. Of course, if we found that, we will have to open him for surgery. I reviewed upper endoscopy with them along with its risks including, but not limited to gas bloating, crampy abdominal pain, bleeding, perforation, requiring surgery, and missed diagnosis. They had expressed understanding and wished to proceed with the possibility for laparotomy. PROCEDURE NOTE: Abel was taken into our operating room and we placed him in the supine position under general endotracheal tube anesthesia. After this, I was able to pass the gastroscope down the esophagus without any trouble whatsoever and all the way out into the duodenum itself. The duodenum had nice clear green bile, was quite healthy. The pyloric channel was quite healthy. Back in the antrum, he had a couple of patches of erythematous changes, but quite mild in that regard. There were no ulcerations in the bulb or anywhere in the stomach including the incisura and antrum. We have taken biopsies of the pyloric bulb as well as the antrum for pathologic review. We also took a biopsy at his antrum for CLOtest. Upon retroflexion of the scope, the body and fundus of the stomach were fine. I could see that he has a small hiatal hernia. He did have a little Electronically Signed By: ANUP BURRIS MD 11/16/17 0707 PATIENT NAME: ABEL BA OPERATIVE REPORT DATE OF : 50 REPORT #: [id number] PHYSICIAN: ANUP BURRIS MD PCP: LOYD CONNER MD REPORT IS CONFIDENTIAL AND NOT TO BE RELEASED WITHOUT AUTHORIZATION [facility] [address] [place], [place] [address] Signed bit of food particles on the top and I could not quite suction all those out, but more or less, we had good visualization of the cardia. We saw no blood in his stomach whatsoever. I had withdrew the scope up through the area of the GE junction, which was compliant without stricture. There was no evidence of any gastric or esophageal varices. I saw no evidence of a Nallely-Ashby tear or Boerhaave syndrome. The middle and upper esophagus were completely unremarkable. After this, we had kept track of his abdominal cavity, when I removed the air from his stomach, he was scaphoid once again. After this, the gastroscope was removed, we weaned from his anesthesia, extubated him in the OR and took him down to our ICU in stable condition. Anup Burris MD ALB/MODL /[id number] cc: MD Loyd Matson MD Patient's Chart Copies: ANUP BURRIS MD ~ Electronically Signed By: ANUP BURRIS MD 11/16/17 0707 PATIENT NAME: ABEL BA OPERATIVE REPORT DATE OF : 50 REPORT #: [id number] PHYSICIAN: ANUP BURRIS MD PCP: LOYD CONNER MD REPORT IS CONFIDENTIAL AND NOT TO BE RELEASED WITHOUT AUTHORIZATION
--- NOTE | 2017-11-16 09:33 | NUR ---
PATIENT TO SURGERY, VERABL REPORT HANDOFF TO DUNIA VALERIO. PATIENT TELE SR, VS STABLE.
--- NOTE | 2017-11-16 11:42 | NUR ---
11/16/17 1142 Maya Calvo 1133 PT ARRIVED TO PACU WITH ORAL AIRWAY IN PLACE ON 6L VIA MASK. PT ABLE TO MAINTAIN AIRWAY. PT NONAROUSABLE TO PAINFUL STIMULI.
--- NOTE | 2017-11-16 12:23 | NUR ---
PATIENT RETURNED FROM PACU AND STATES HE IS FEELING BETTER ALREADY AND HIS PAIN IS LESS. CLEAR LIQUID TRAY ORDERED FOR PATIENT. PT RATING HIS PAIN A 5 OR 6/10. HEART RATE IN THE 90-100s, SINUS AT THIS TIME. PT IS DUE TO VOID. BP AT THIS TIME 125/84 (93) WITH SP02 OF 96% ON ROOM AIR.
--- NOTE | 2017-11-16 13:07 | NUR ---
PATIENT ABLE TO EAT SOME CLEAR LIQUIDS AND TOLERATING WELL. PT NOW IN BATHROOM VOIDING. HR NOTED TO ELEVATE TO 130 WHILE UP. PT VOIDED 500 ML PINK TINGED URINE. HR UP TO 140S WHEN AMBULATING BACK FROM BATHROOM. PT ALSO STATES HE IS FEELING COLD. CONTINUE TO MONITOR.
[2017-11-16] MEDS ORDERED: FLOMAX0.4 MG PO (13:41)
[2017-11-16] MEDS ORDERED: OXYCODONE HCL10 MG PO (13:42)
[2017-11-16] MEDS ORDERED: CIPRO500 MG PO (13:42)
--- NOTE | 2017-11-16 15:08 | NUR ---
OUTSIDE SALES ACCOUNT EXECUTIVE PROVIDER CALLED TO GIVE UPDATE ON PT'S HEART RATE AND OVERALL CONDITION.
--- NOTE | 2017-11-16 15:17 | NUR ---
PATIENT NAUESOUS AND GIVEN 4 MG IV ZOFRAN. PT ALSO SHIVERING. TEMPORAL TEMP NOTED TO 100.1 AND 99.9. HEART RATE SUSTAINING IN THE 110s WHILE RESTING, UP TO THE 160s WHEN STANDING TO VOID. LAST BP 143/83 (97). CONTINUE TO MONITOR CLOSE.
--- NOTE | 2017-11-16 16:20 | NUR ---
TOOK OVER CARE OF THIS PT AT THIS TIME. PT IS RESTING IN BED AND CONTINUES TO BE TACHYCARDIC. PT STATES HE IS SHAKY. PT FEVER INCREASING. 99.9 ORAL. MD STUBBS IN TO SEE PT. NEW ORDERS PLACED. UPDATED MD BURRIS ON PT STATUS AND INCREASING HEART RATE. PER START FLAGYL 500 PO TID AND LEVAQUIN 500MG DAILY IV. PER MD BURRIS UPDATE MD GARCIA OF PATIENTS CONDITION AND SEE IF SHE HAS ANY FURTHER RECOMENDATIONS. ALSO SEND NEW UA. WILL CONTINUE TO CLOSELY MONITOR.
--- NOTE | 2017-11-16 17:00 | NUR ---
UPDATED MD FATUMA GARCIA RECOMMENDATIONS ON ANTIBIOTICS. PER MD FATUMA ECHEVARRIA LEVAQUIN AND START ZOSYN. WILL CONTINUE TO CLOSELY MONITOR. UPDATED MD STUBBS THAT LABS WERE LAB. SUSPECTTED LABS TO BE DILUTED. REDRAWN PER .
--- NOTE | 2017-11-16 18:19 | NUR ---
CALLED MD TO UPDATE THAT PT HR REMAINS ELEVATED AT 120'S AND 160'S WITH SITTING ON EDGE OF BED. PER RASCH GIVE ADDITIONAL 500ML BOLUS OVER 1 HOUR AND RE-EVALUATE HR AND BP.
--- NOTE | 2017-11-16 19:56 | NUR ---
SHIFT REPORT WAS RECEIVED FROM TEODORO MASON. PT IS CURRENTLY RESTING IN BED, ALERT/ORIENTED. REPORTS 6/10 HEADACHE PAIN, TYLENOL GIVEN. PT AFEBRILE. LUNGS CLEAR, RA. HR REGULAR, TACHY IN 120'S. BOWEL TONES HYPOACTIVE, SLIGHTLY TENDER TO PALPATION, DENIES NAUSEA. SKIN APPEARS GROSSLY INTACT, SCATTERED BRUISES, OLD LAP SITES TO ABDOMEN APPEAR TO BE HEALING WELL. SCD'S IN PLACE, NO EDEMA NOTED. IVF INFUSING WNL, IV SITES PATENT. PT HAS CALL LIGHT WITHIN REACH, WILL CONTINUE TO MONITOR.
--- NOTE | 2017-11-16 20:16 | NUR ---
PT UP TO SIDE OF BED TO USE URINAL, WHILE STANDING HR INCREASES TO 150. PT DENIES FEELING DIZZY OR SOB. VOIDED 525ML AND THEN RETURNED TO BED. NO FURTHER REQUESTS AT THIS TIME.
--- NOTE | 2017-11-16 20:31 | NUR ---
CALLED AND SPOKE TO DR. STUBBS REGARDING PT'S HEARTRATE AT REST AND WHILE STANDING. ORDER RECEIVED FOR 500ML NS BOLUS. ALSO ASKED IF SHE WANTED LACTIC REPEATED TONIGHT AND SHE STATED THAT IT WAS OK TO WAIT AND HAVE IT RECHECKED IN THE MORNING. BOLUS STARTED AT THIS TIME.
--- NOTE | 2017-11-16 22:13 | NUR ---
CHECKED IN ON PT WHO IS AWAKE, WATCHING TV. STATES HIS HEADACHE FEELS A LITTLE BIT BETTER, STATES HIS SINUSES FEEL CONGESTED DUE TO THE AIR CONDITIONING. PT DENIES NEED FOR DECONGESTANT AT THIS TIME. NO REQUESTS AT THIS TIME, WILL CONTINUE TO MONITOR.
--- NOTE | 2017-11-16 23:39 | NUR ---
PT CALLED, UP TO BEDSIDE WITH SBA, VOIDED 500ML. WHILE STANDING HR INCREASED TO 140 AND ONCE HE RETURNED TO BED, HR QUICKLY RETURNED TO 105. AFTER A MINUTE HR 95-97 THOUGH HE DID HAVE AN 11-BEAT RUN OF SVT WITH HR:152 WHILE RESTING IN BED. ASSESSMENT COMPLETED. PT DENIES PAIN, STATES HEADACHE IS RESOLVED, THOUGH HIS SINUSES DO REMAIN CONGESTED. HR REGULAR. BOWEL TONES HYPOACTIVE, DENIES NAUSEA. SCD'S IN PLACE. IVF INFUSING WNL. ZOSYN INFUSION STARTED. CALL LIGHT IN REACH, NO FURTHER REQUESTS AT THIS TIME.
--- NOTE | 2017-11-17 01:43 | NUR ---
PT APPEARS TO BE SLEEPING, NO APPARENT DISTRESS. RESPIRATIONS EVEN AND UNLABORED, RR:20, SPO2:96% ON RA. HR:90. WILL ALLOW FOR REST AND CONTINUE TO MONITOR.
--- NOTE | 2017-11-17 03:51 | NUR ---
ASSESSMENT COMPLETED. PT WOKE WHEN I ENTERED ROOM, REMAINS ORIENTED, DENIES PAIN. LUNGS CLEAR, RA. HR REGULAR, HR:80-90'S. BOWEL TONES ACTIVE NOW, NO TENDERNESS TO ABDOMEN, DENIES NAUSEA. SCD'S REMAIN IN PLACE. IVF INFUSING WNL. PT DENIES NEEDS AT HIS TIME, STATES "I MUST BE FEELING BETTER, I'VE SLEPT REALLY WELL." CALL LIGHT WITHIN REACH, WILL CONTINUE TO MONITOR.
--- NOTE | 2017-11-17 05:11 | NUR ---
PT CALLED, UP TO BATHROOM WITH SBA, APPEARS TO BE MORE STEADY ON FEET THIS MORNING. THOUGHT HE MAY HAVE BM, BUT WAS UNABLE, VOIDED 450ML AND THEN RETURNED TO BED. URINE APPEARS TO ONLY HAVE SLIGHT PINK TINGE THIS MORNING. WITH ACTIVITY HR INCREASED TO 113 AND RETURNED TO 80'S ONCE HE WAS BACK IN BED. PT DENIES PAIN AND NAUSEA. STATES HE'D LIKE A SHOWER TODAY. OFFERED HIM A WASH CLOTH AND HE DECLINED AT THIS TIME. CALL LIGHT WITHIN REACH, NO FUTHER REQUESTS AT THIS TIME.
--- NOTE | 2017-11-17 07:44 | NUR ---
DR. STUBBS IN ROOM AT THIS TIME SEEING PATIENT. PT ABLE TO STAND TO VOID 600 ML OF URINE AT THIS TIME. PT SEEMS VERY DEPRESSED AND DOESN'T WANT TO EAT. PT ENCOURAGED TO GET SOME NUTRITION IN HIS BODY TODAY BEFORE WE CAN SEND HIM HOME. ASSESSMENT COMPLETE.
--- NOTE | 2017-11-17 08:12 | DS ---
[facility] [facility] [address] [place], [place] [address] Signed ADMISSION DATE: 11/15/2017 DISCHARGE DATE: 11/17/2017 FINAL DIAGNOSIS: Left ureteropelvic junction kidney stone. PROCEDURES NUMBER: 1. Left ureteral stent. 2. Upper endoscopy with biopsy. 3. CT scan of abdomen and pelvis. HISTORY OF PRESENT ILLNESS: Abel is a 67-year-old gentleman, who 18 days prior to admission underwent an uncomplicated laparoscopic cholecystectomy with myself. I had seen him. He done well and I had seen him back in the office and he was doing well in the office. He is also aware that he has a 15 mm stone in his left kidney that was going to be dealt with electively here in a few weeks, but he became acutely worse and came to emergency room for evaluation. Of course, he received a CT scan and there was free air in his abdomen from his surgery. The stone in the left kidney had dropped down into the left UPJ and it was obstructing the ureter. White count was borderline at 11.7. Liver function tests were fine. No obvious complication from his gallbladder surgery. Nevertheless, I was asked to see him as a general surgeon on-call for fear of a perforated viscus. HOSPITAL COURSE: Abel was admitted as above and I took him straight down from the ER to the endoscopy suite where we carefully examined the full extent of the stomach. He had very minimal if any inflammatory changes in the stomach. Certainly no ulcer and no perforation in the blood in the stomach. Consequently, I admitted him to the ICU and I had contacted my hospitalist and the urologist as well. By the following day, his white count was starting to climb and he had some red blood cells and white blood cells in the urine. A CT scan of his chest was fine. His laboratory work was coming back negative. He had a scrotal ultrasound done because of the pain radiating down to the scrotum and it was also negative. By the next day, he underwent placement of his left ureteral stent. After the procedure, he was tachycardic, so we kept him in the hospital throughout the afternoon and night. This morning, heart rates back down to normal. His temperatures returned to normal and the white blood cell count is coming down nicely. He did receive Zosyn and Flagyl. At this point, he is doing well. He does not have much of an appetite, but his abdominal exam is completely benign. DISCHARGE PLANS AND MEDICATIONS: Abel is going to be discharged to home with Cipro and Flomax per urologist. He is also Electronically Signed By: ANUP BURRIS MD 11/17/17 0812 PATIENT NAME: ABEL BA DISCHARGE SUMMARY DATE OF : 50 REPORT #: [id number] PHYSICIAN: ANUP BURRIS MD PCP: LOYD CONNER MD REPORT IS CONFIDENTIAL AND NOT TO BE RELEASED WITHOUT AUTHORIZATION [address] [address] Signed given [place] 5/325 one tablet p.o. q.6 hours p.r.n. pain, dispense 30 tablets with no refills. He will be allowed to take diet as tolerated. He can shower and bathe as usual. He can perform his activities of daily living without restrictions. He is welcome to drive when he is off the narcotics. I am going to see him back in the office in the next few weeks for consideration of an outpatient colonoscopy. He will follow up with the urologist in a few weeks for continuing evaluation and treatment of his 15 mm left renal stone. I reviewed this with Abel in detail. He has expressed understanding and agrees above plan. Anup Burris MD ALB/MODL /[id number] cc: MD Dr. Loyd Armstrong MD Copies: PRASHANT GARCIA MD, ANDREW L MD ~ Electronically Signed By: ANUP BURRIS MD 11/17/17811 PATIENT NAME: ABEL BA DISCHARGE SUMMARY DATE OF : 50 REPORT #: [id number] PHYSICIAN: ANUP BURRIS MD PCP: LOYD CONNER MD REPORT IS CONFIDENTIAL AND NOT TO BE RELEASED WITHOUT AUTHORIZATION
--- NOTE | 2017-11-17 09:08 | NUR ---
PATIENT ABLE TO EAT HIS SCRAMBLED EGGS AND BANANA FOR BREAKFAST, BUT DID NOT LIKE THE ENSURE DRINK. PT AMBULATES HALLWAY TO SHOWER ROOM WELL, HR NOTED TO ELEVATE TO AROUND 110s, BUT PT TOLERATING WELL. PLAN IS FOR PATIENT TO D/C HOME THIS AM. PT'S DAUGHTER WILL COME FOR PATIENT.
[2017-11-17] MEDS ORDERED: SENOKOT-S TABL1 EACH PO (10:59)
--- NOTE | 2017-11-17 11:45 | OR ---
[facility] [address], [place] [address] Signed DATE OF OPERATION: 11/16/2017 SURGEON: Prashant Garcia MD PREOPERATIVE DIAGNOSIS: Large left ureteropelvic junction calculus. POSTOPERATIVE DIAGNOSIS: Large left ureteropelvic junction calculus. NAMES OF PROCEDURES: 1. Diagnostic cystoscopy. 2. Insertion of left ureteral stent. ANESTHESIA: General. ESTIMATED BLOOD LOSS: None. COMPLICATIONS: None. SPECIMENS: None. DRAINS: A 6 x 28 cm contour double-J ureteral stent, inserted into the left ureter. INDICATIONS FOR PROCEDURE: Mr. Rubin is a very pleasant 67-year-old gentleman with a longstanding history of nephrolithiasis, who I initially met in July 2017. At that time, he was found to have a 15 mm left renal pelvis calculus, along with significantly enlarged gallbladder. At that time, he deferred any additional medical workup for either medical issue. He recently underwent cholecystectomy after becoming symptomatic due to a grossly enlarged and dysfunctional gallbladder. About a week or so thereafter, he began to experience significant amount of abdominal pain. He underwent a CAT scan, which revealed free air within the abdomen, which ultimately was determined to be due to his recent laparoscopic cholecystectomy. Also noted on the CAT scan was that an 18 mm left ureteropelvic junction calculus with delayed nephrogram. Dr. Yanes contacted me yesterday and Electronically Signed By: PRASHANT GARCIA MD 11/17/17 1145 PATIENT NAME: ABEL RUBIN OPERATIVE REPORT DATE OF : 50 REPORT #: [id number] PHYSICIAN: PRASHANT GARCIA MD PCP: LOYD CONNER MD REPORT IS CONFIDENTIAL AND NOT TO BE RELEASED WITHOUT AUTHORIZATION [facility] [address] [place] [id number] Signed requested evaluation of the patient. Upon evaluation of CAT scan, it was determined that the patient needed to undergo relatively urgent cystoscopy with left ureteral stent insertion for decompression of his left collecting system. OPERATIVE FINDINGS: 1. On cystoscopy, there was no evidence of any suspicious masses, lesions, or stones. Bilateral ureteral orifices are in the normal anatomic location. Urethroscopy reveals no evidence of any significant prostate enlargement or elevated bladder neck. Also noted was no significant bladder wall trabeculation. 2. Left retrograde pyelogram was performed, which revealed a rather large calculus present within the left ureteropelvic junction. With placement of the ureteral stent, the stone was pushed into the left renal pelvis. I was able to place the distal coil proximal to the stone within the superior aspect of the left renal pelvis. Repeat retrograde pyelogram revealed no evidence of any contrast extravasation and confirmed adequate placement of the stent. 3. A 6 x 28 cm contour double-J ureteral stent was inserted into the left ureter without difficulty. DESCRIPTION OF PROCEDURE: After informed consent was obtained, the patient was taken back to the operating room. He was transferred from the [facility] to the operating room table where general anesthesia was induced. He was placed in the dorsal lithotomy position. His genitalia was prepped and draped in standard sterile fashion. Using a 30-degree lens on a 22-East Timorese introducer, rigid cystoscope was inserted through his urethra into his bladder under direct visualization. Panendoscopic views of the bladder were then obtained. Please see the findings. Attention was turned to the left ureteral orifice. A 0.035 Sensor wire was inserted through the ureteral orifice and into the left collecting system under fluoroscopic guidance. Adequate placement of the wire was confirmed via retrograde pyelogram. A whistle-tip ureteral catheter was used to perform the retrograde pyelogram to be sure that the proximal coil of the wire was within the left renal pelvis versus the proximal left ureter. Once I was able to ensure that the coil of the wire was in the left renal pelvis, I passed a 6 x 28 cm contour double-J ureteral stent into the left ureter under direct visualization. I did meet resistance and was able to push the stone back into the left renal pelvis. The stent coil was ultimately placed within the superior aspect of the left renal pelvis. Again, the stone was pushed into the left renal pelvis during stent placement. After pulling the wire, an adequate distal coil was seen within the bladder. The patient's bladder was then drained and the cystoscope was removed. The procedure was then terminated. The patient tolerated the procedure without any complication. He will now be transferred to the postanesthesia care unit in stable condition. DISPOSITION: Electronically Signed By: PRASHANT GARCIA MD 11/17/17 1145 PATIENT NAME: ABEL RUBIN OPERATIVE REPORT DATE OF : 50 REPORT #: [id number] PHYSICIAN: PRASHANT GARCIA MD PCP: LOYD CONNER MD REPORT IS CONFIDENTIAL AND NOT TO BE RELEASED WITHOUT AUTHORIZATION [address] [address] Signed I spoke with Abel prior to the surgery today and recommended that he undergo percutaneous nephrolithotomy for definitive management of his large left renal calculus. This would be the best way to reduce any risk of repeated procedures due to the overall size of the stone. I anticipate that he will be sent home today on oral antibiotics and pain control as needed. He will be scheduled to return to see me in clinic in mid December to discuss his options in management of his large left renal calculus once he recovers from his recent cholecystectomy and stent surgery. MD ELLA Armstrong/AFR[place] /[id number] Copies: ~ Electronically Signed By: PRASHANT GARCIA MD 11/17/17 1145 PATIENT NAME: ABEL RUBIN OPERATIVE REPORT DATE OF : 50 REPORT #: [id number] PHYSICIAN: PRASHANT GARCIA MD PCP: LOYD CONNER MD REPORT IS CONFIDENTIAL AND NOT TO BE RELEASED WITHOUT AUTHORIZATION
--- NOTE | 2017-11-17 13:06 | NUR ---
PT WAS DRESSED,READY FOR DC-JUST WAITING FOR HIS RIDE. PT SMILED AND SHOOK MY HAND AND STATED,"I'M READY TO DO WHATEVER DR GARCIA SAYS WE NEED TO DO". BIG STEP FOR PT, WHICH MEANS ANOTHER SURGERY, BUT WITH POSITIVE OUTCOME. PT REQUESTED PRAYER, WILL FOLLOW NEEDED
== END 2017-11-17 11:30 | disposition home or self-care (01) | DRG 693 ==
LOC: ED 00:22 → CCU 04:35
PROVIDERS: ADMIT Colon & Rectal Surgery
PROC: 0DB78ZX Excision of Stomach, Pylorus, Via Natural or Artificial Opening Endoscopic, Diagnostic (ICD-10-PCS; 2017-11-15)
PROC: 0T774DZ Dilation of Left Ureter with Intraluminal Device, Percutaneous Endoscopic Approach (ICD-10-PCS; principal; 2017-11-15 05:42)
DX: N20.2 Calculus of kidney with calculus of ureter (principal); E43 Unspecified severe protein-calorie malnutrition; I25.10 Atherosclerotic heart disease of native coronary artery without angina pectoris; F41.9 Anxiety disorder, unspecified; K44.9 Diaphragmatic hernia without obstruction or gangrene; K29.70 Gastritis, unspecified, without bleeding; Z87.11 Personal history of peptic ulcer disease; M54.9 Dorsalgia, unspecified; Z87.891 Personal history of nicotine dependence; F19.21 Other psychoactive substance dependence, in remission; R39.11 Hesitancy of micturition
CPT/HCPCS: 36415; 71260; 74177; 74420; 76870; 80048; 80053; 81001; 82105; 82378; 83605; 83690; 83735; 84100; 84134; 84153; 84439; 84443; 85025; 86677; 86703; 86704; 86706; 86803; 86850; 86900; 86901; 86920; 87340; 93005; 93010; 96361; 96374; 96375; 99285; C2617; J0330; J0692; J0696; J1100; J1170; J1644; J1885; J2250; J2370; J2405; J2543; J2550; J2765; J3010; J3475; J7030; J7040; J7120; Q9967

== ENCOUNTER 2019-03-31 02:06 | Emergency (ER) | payer MEDICARE ==
[~2019-03-31] VITALS: Ht 175.3 cm; Wt 64.9 kg
--- OUTSIDE RECORDS SUMMARY | ~2019-03-31 | XMS | Encounter Summary ---
Demographics + + + | Address | [address] | | | [place] [address] | + + + | Home Phone | | + + + | Preferred Language | Unknown | + + + | Marital Status | Single | + + + | Yarsanism Affiliation | Unknown | + + + | Race | Unknown | + + + | Ethnic Group | Unknown | + + + Author + + + | Author | [facility] | | | and Brianana | + + + | Organization | [facility] | | | and Brianana [...] Team Providers + +------+ + | Care Structural Layout Worker Name | Role | Phone | + +------+ + | Yocasta Lopez | PCP | | + +------+ + Encounter Details +--------+ + + + + | Date | Type | Department | Care Team | Description | +--------+ + + + + | 12/25/ | Imaging | [facility] | Provider, | | | 2018 | Exam | [facility] | [address] | | | | | IMAGING | [address] | | | | | [phone] | [place] [address] | | +--------+ + + + + Social History + +-------+ +--------+------+ | Tobacco Use | Types | Packs/Day | Years | Date | | | | | Used | | + +-------+ +--------+------+ | Current Every Day | | 0.5 | 45 | | | Smoker | | | | | + +-------+ +--------+------+ + +---+---+---+ | Smokeless Tobacco: | | | | | Never Used | | | | + +---+---+---+ + + | Comments: Started at age 12 | + + + + +---------+ + | Alcohol Use [...] | + +--------+ + + + | CT ABDOMEN PELVIS W | Routin | 11/15/2017 | | Results for this | | CONTRAST | e | 2:40 AM | | procedure are in the | | | | PDT | | results section. | + +--------+ + + + documented in this encounter Results CT Abdomen Pelvis w Contrast (11/15/2017 2:40 AM PDT) + + | Specimen | + + | | + + + + + | Narrative | Performed At | + + + | External films for comparison only | [facility] | | | | | No results will be in the chart. | | + + + + +---------+ + + | Performing | Address | City/State/Zipcode | Phone Number | | Organization | | | | + +---------+ + + | [facility] | | | | + +---------+ + + documented in this encounter Visit Diagnoses Not on filedocumented in this encounter"
--- OUTSIDE RECORDS SUMMARY | ~2019-03-31 | XMS | Encounter Summary ---
Demographics + + + | Address | [address] | | | [place] [address] | + + + | Home Phone | | + + + | Preferred Language | Unknown | + + + | Marital Status | Single | + + + | Taoist Affiliation | Unknown | + + + | Race | Unknown | + + + | Ethnic Group | Unknown | + + + Author + + + | Author | [facility] | | | and [place] | + + + | Organization | [facility] | | | and [place] [...] Team Providers + +------+ + | Care Certified Hearing Instrument Dispenser Name | Role | Phone | + +------+ + | Kyle Trevizo MD | PCP | | + +------+ + Reason for Visit +---------+ + | Reason | Comments | +---------+ + | Post Op | Cystoscopy with stent removal for nephrolithiasis | +---------+ + Encounter Details +--------+---------+ + + + | Date | Type | Department | Care Team | Description | +--------+---------+ + + + | 01/20/ | Office | [facility] | Ac Elder | Nephrolithiasis | | 2018 | Visit | [address] | MD Esteban [address] | (Primary Dx) | | | | [place] | [place], [place] | | | | | [address] | [address] | | | | | [phone] | | | +--------+---------+ + + + Social History + +-------+ +--------+ + | Tobacco Use | Types | Packs/Day | Years | Date | | | | | Used | | + +-------+ +--------+ + | Former Smoker | | 0.5 | 45 | Quit: 10/29/2017 | + +-------+ +--------+ + + +---+---+---+ | Smokeless Tobacco: | | [...] + + + | Blood Pressure | 118/78 | 01/20/2018 4:46 PM | | | | | PDT | | + + + + + | Pulse | 76 | 01/20/2018 4:46 PM | | | | | PDT | | + + + + + | Temperature | - | - | | + + + + + | Respiratory Rate | 18 | 01/20/2018 4:46 PM | | | | | PDT | | + + + + + | Oxygen Saturation | - | - | | + + + + + | Inhaled Oxygen | - | - | | | Concentration | | | | + + + + + | Weight | 70.9 kg (156 lb 4.9 | 01/20/2018 4:46 PM | | | | oz) | PDT | | + + + + + | Height | 177.8 cm (5' 10") | 01/20/2018 4:46 PM | | | | | PDT | | + + + + + | Body Mass Index | 22.43 | 01/20/2018 4:46 PM | | | | | PDT | | + + + + + documented in this encounter Patient Instructions Patient Instructions Joyce Walden RN - 01/20/2018 4:30 PM PDTPreoperative Instructi ons Your surgery with Dr. Elder has been scheduled for January 27, 2018 at 7:45 AM at [facility]. Please report to Outpatient Procedure Center no later than 6:15 AM. REMEMBER: NOTHING TO EAT OR DRINK AFTER MIDNIGHT January 26, 2018. Take all of your usual medicatio ns with a sip of water. NO ASPIRIN OR ASPIRIN PRODUCTS, NO FISH OIL OR VITAMIN E FOR ONE WEEK PRIOR TO SURGERY. Ty lenol (acetaminophen) and ibuprofen is OK. You will need someone to drive you home after surgery. Call us at [phone] with any questions. [x] Pain management booklet provided to patient. documented in this encounter Progress Notes Ac Elder MD - 01/20/2018 4:30 PM PDTFormatting of this note might be different f rom the original. Chief Complaint Patient presents with Post Op Cystoscopy with stent removal for nephrolithiasis HPI Ry Rubin is a 67 y.o. male patient of Kyle Trevizo MD here today for a Post Op Cy stoscopy with stent removal for nephrolithiasis. Left URS LL and stent placement done on 07/19. Patient continues to complain of dysuria as well as gross hematuria, frequency and urgency. He recently underwent CT scan and presents today for further discussion. Patient states he is ready to have the ureteral stent removed He denies any nausea vomiting or fever or chills. Assessment Ry was seen today for post op. Diagnoses and all orders for this visit: Nephrolithiasis Plan CT scan reveals residual stone in the lower pole of the kidney. It is unknown if this is c omposed of many small stones or if these are larger stones that the patient would have troub le passing. It was discussed with the patient that we could remove the stent today and that most likely the debris found in the lower pole would be able to pass however there is a sma ll chance that the stones could obstruct and cause a problem in the future. After giving it some thought the patient would like to have all the stone removed. We'll s chedule patient for left-sided ureteroscopy laser lithotripsy and stent placement. We again discussed that due to the overall size of the stone needing a second look ureteros copy was to be expected. We again discussed the risks including ureteral injury, ureteral stricture, renal hematoma, bladder injury, urethral stricture, infection, bleeding and need for further procedures. Past Medical History Past Medical History: Diagnosis Date Anemia Anxiety Arthritis Chronic pain syndrome 03/27/2015 Depression Encounter for blood transfusion 1984 During spinal surgery Heart attack (HCC) 1990 History of kidney stones Hyperlipidemia Kidney stones Left-sided thoracic back pain 03/27/2015 MGUS (monoclonal gammopathy of unknown significance) 04/13/2015 CA (mitral incompetence) Multiple facial bone fractures (HCC) Rheumatoid arthritis (HCC) Venereal disease Wears dentures Past Surgical History Past Surgical History: Procedure Laterality Date GALLBLADDER SURGERY 10/28/2017 Dr. Goins in [place] @ [facility] LITHOTRIPSY 2001 LITHOTRIPSY 2011 SPINE SURGERY 1984 grafted his rib and replaced disc between T8 and T9 URETEROSCOPY Left 12/31/2017 Procedure: CYSTOSCOPY URETEROSCOPY W/ LASER STENT LEFT ; Surgeon: Ac Elder MD; Location: [facility] MAIN OR Family History: Family History Problem Relation Age of Onset Lymphoma Father 80 Diabetes Mother Heart attack Mother Breast cancer Sister 70 Heart attack Sister 68 Arthritis Other unknown relation Prostate cancer Neg Hx Social History: Social History Social History Marital status: Single Spouse name: N/A Number of children: 4 Years of education: 12 Occupational History [employer]: [employer] Social History Main Topics Smoking status: Former Smoker Packs/day: 0.50 Years: 45.00 Quit date: 10/29/2017 Smokeless tobacco: Never Used Comment: Started at age 12 Alcohol use No Drug use: Yes Frequency: 3.0 times per week Types: Marijuana, Heroin, Cocaine Comment: Has a Medical Marijuana Card. Did Heroin and Cocaine from age 15 until 1990. Sexual activity: Not Asked Other Topics Concern None Social History Narrative None No Known Allergies Medications: Current Outpatient Prescriptions: acetaminophen (TYLENOL) 500 mg tablet, Take 500-1,000 mg by mouth every 6 hours as nee ded for Pain., Disp: , Rfl: nitroglycerin (NITROSTAT) 0.4 mg SL tablet, Place 0.4 mg under the tongue every 5 nilda marisa as needed for Chest pain., Disp: , Rfl: oxybutynin (DITROPAN-XL) 10 MG 24 hr tablet, Take 1 tablet by mouth Daily. (Patient no t taking: Reported on 12/29/2017), Disp: 30 tablet, Rfl: 3 phenazopyridine (PYRIDIUM) 100 mg tablet, Take 1 tablet by mouth 3 times daily as need ed for Pain. (Patient not taking: Reported on 12/29/2017), Disp: 20 tablet, Rfl: 0 tamsulosin (FLOMAX) 0.4 mg CAPS, Take 1 capsule oral daily, Disp: , Rfl: Review of Systems Constitutional: Positive for chills. Negative for fever. Respiratory: Negative for cough and wheezing. Cardiovascular: Negative for chest pain and orthopnea. Gastrointestinal: Negative for nausea and vomiting. Genitourinary: Positive for dysuria, hematuria and urgency. Neurological: Negative for dizziness and headaches. Objective BP 118/78 | Pulse 76 | Resp 18 | Ht 1.778 m (5' 10") | Wt 70.9 kg (156 lb 4.9 oz) | BM I 22.43 kg/m General Appearance: Alert, cooperative, no distress, appears stated age Head: Normocephalic, without obvious abnormality, atraumatic Eyes: conjunctiva/corneas clear, EOM's intact Throat: Lips, mucosa, and tongue normal; no gross deformities, mmm Neck: Supple, symmetrical, no adenopathy Lungs: Regular, unlabored breathing MS left CVA tenderness, no spinal tenderness, no scoliosis present Abdomen: Soft, non-tender, no masses Extremities: Extremities normal, atraumatic, no cyanosis, clubbing, or edema Lymph nodes: Cervical and supraclavicular nodes normal Neurologic: Gait normal, CN 2-12 grossly intact; Strength and sensation grossly normal in b ilateral upper and lower extremities Data: CT scan abdomen and pelvis January 2018 I personally reviewed and interpreted CT scan images. Significant for left ureteral stent in place. In the lower pole the left kidney there appears to be some debris from prior lase r lithotripsy. It is unknown if these are larger fragments or if it is composed of many sma ller pieces that would easily have passed. Results for orders placed or performed in visit on 12/29/17 Basic Metabolic Panel Result Value Ref Range NA 142 136 - 149 mmol/L K 3.8 3.5 - 5.1 mmol/L CL 108 98 - 109 mmol/L CO2 26 24 - 31 mmol/L ANION GAP 8 3 - 16 mmol/L GLUCOSE 106 70 - 109 mg/dL BUN 18 7 - 18 mg/dL Creatinine, Serum/Plasma 0.94 0.60 - 1.30 mg/dL eGFR if not >60 >=60 mL/min/1.73m2 CALCIUM 9.3 8.3 - 10.5 mg/dL BUN/CREA 19.1 CBC w/ Auto Differential Result Value Ref Range WBC 8.6 4.0 - 11.0 K/uL RBC 4.50 4.30 - 5.70 M/uL Hgb 13.9 13.5 - 18.0 g/dL Hct 40.6 40.0 - 51.0 % MCV 90.1 83.0 - 101.0 fL MCH 31.0 28.0 - 35.0 pg MCHC 34.4 32.0 - 36.0 g/dL RDW-CV 13.9 <15.0 % Platelet Count 220 140 - 440 K/uL MPV 8.4 fL % Neutrophils 61.9 45.0 - 82.0 % % Lymphocytes 30.6 20.0 - 45.0 % % Monocytes 5.9 4.0 - 12.0 % % Eosinophils 1.4 0.0 - 5.0 % % Basophils 0.2 0.0 - 1.0 % Absolute Neutrophils 5.30 1.80 - 8.50 K/uL Absolute Lymphocytes 2.60 0.60 - 3.20 K/uL Absolute Monocytes 0.50 0.00 - 1.00 K/uL Absolute Eosinophils 0.10 0.00 - 0.40 K/uL Absolute Basophils 0.00 0.00 - 0.10 K/uL ECG 12 lead Result Value Ref Range VENTRICULAR RATE EKG 86 BPM ATRIAL RATE 86 BPM P-R INTERVAL 142 ms QRS DURATION 72 ms Q-T INTERVAL 338 ms Q-T INTERVAL (CORRECTED) 404 ms P WAVE AXIS 73 degrees QRS AXIS 49 degrees T AXIS 69 degrees INTERPRETATION TEXT Normal sinus rhythm Normal ECG No previous ECGs available Confirmed by TANYA TINEO MD ([id number]) on 12/30/2017 8:34:04 AM Lab Results Component Value Date CREA 0.94 12/29/2017 Kyle Trevizo MD's notes were reviewed in clinic today. No Follow-up on file.. This document was generated in part using voice recognition software. Frequent wrong word or sound-alike substitutions may have occurred due to the inherent limitations of the voice recognition software. Although I have attempted to edit the content, I have not thoroughly proofread this note, and protection mgr errors are very likely to occur. CC: Kyle Trevizo MD documented in this encounter Plan of Treatment Not on filedocumented as of this encounter Procedures + +--------+ + + + | Procedure Name | Priori | Date/Time | Associated Diagnosis | Comments | | | ty | | | | + +--------+ + + + | IMAGING REPORT - | | 01/11/2018 | | Results for this | | EXTERNAL SCAN | | 12:00 AM | | procedure are in the | | | | PDT | | results section. | + +--------+ + + + documented in this encounter Results IMAGING REPORT - EXTERNAL SCAN (01/11/2018 12:00 AM PDT) + + + | Narrative | Performed At | + + + | Ordered by an | | | unspecified provider. | | + + + documented in this encounter Visit Diagnoses + + | Diagnosis | + + | Nephrolithiasis - Primary Calculus of kidney | + + documented in this encounter
--- OUTSIDE RECORDS SUMMARY | ~2019-03-31 | XMS | Encounter Summary ---
Demographics + + + | Address | [address] | | | [place] [address] | + + + | Home Phone | | + + + | Preferred Language | Unknown | + + + | Marital Status | Single | + + + | Methodist Affiliation | Unknown | + + + | Race | Unknown | + + + | Ethnic Group | Unknown | + + + Author + + + | Author | [facility] | | | and [place]ana | + + + | Organization | [facility] | | | and Brianana | [...] Team Providers + +------+ + | Care Teacher Dancing Name | Role | Phone | + +------+ + | Kyle Trevizo MD | PCP | | + +------+ + Encounter Details +--------+ + + + + | Date | Type | Department | Care Team | Description | +--------+ + + + + | 12/31/ | Anesthesia | [facility] | Bubba Haskins | | | 2018 | Event | [facility] | MD Flip [address] | | | | [address] | [address] [place] | | | | | [place], [place] | [place] [address] | | | | | [address] | | | | | | | | | | | | | Mitesh Conner, | | | | | | [address] | | | | | | [place], [place] | | | | | | [address] | | | | | | | | +--------+ + + + + Anesthesia Record + + + + + | Procedure Name | Responsible | Anesthesia Start | Anesthesia Stop Time | | | Anesthesiologist | Time | | + + + + + | CYSTOSCOPY | Bubba Castelan | 12/31/17741 | 12/31/17 0938 | | URETEROSCOPY W/ | MD Jozef | | | | LASER STENT LEFT | | | | | (Left Ureter) | | | | + + + + + +----+---+ + + | Da | T | Event | Comment | | te | i | | | | | m | | | | | e | | | +----+---+ + + | 08 | 0 | | | | /3 | 7 | | | | 0/ | 2 | | | | 20 | 6 | | | | 18 | | | | +----+---+ + + | | 0 | An Checkout | Pre-use anesthesia machine/equipment checkout. | | | 7 | | | | | 2 | | | | | 7 | | | +----+---+ + + | | 0 | Antibiotic | | | | 7 | Given | | | | 3 | | | | | 5 | | | +----+---+ + + | | 0 | An Start | Reassessment prior to anesthesia induction/procedure. | | | 7 | | | | | 4 | | | | | 2 | | | +----+---+ + + | | 0 | an kyle now | | | | 7 | | | | | 4 | | | | | 8 | | | +----+---+ + + | | 0 | Preoxygenat | | | | 7 | ed | | | | 4 | | | | | 9 | | | +----+---+ + + | | 0 | An | | | | 7 | Induction | | | | 5 | | | | | 1 | | | +----+---+ + + | | 0 | An | | | | 7 | Intubation | | | | 5 | | | | | 2 | | | +----+---+ + + | | 0 | [place] | | | | 7 | 43-degrees | | | | 5 | | | | | 7 | | | +----+---+ + + | | 0 | Pre-Procedu | | | | 8 | ral Timeout | | | | 0 | Completed | | | | 5 | | | +----+---+ + + | | 0 | First | | | | 8 | Inc/Proc St | | | | 0 | | | | | 6 | | | +----+---+ + + | | 0 | an kyle now | | | | 8 | | | | | 3 | | | | | 6 | | | +----+---+ + + | | 0 | Quick Note | Surgeon asking for lowered respiratory rate - will give | | | 8 | | additional opioid to slow RR Given potential lower BPs, will | | | 3 | | start phenylephrine infusion | | | 6 | | | +----+---+ + + | | 0 | [place] off | | | | 9 | | | | | 2 | | | | | 5 | | | +----+---+ + + | | 0 | Oropharynx | | | | 9 | Suctioned | | | | 2 | | | | | 8 | | | +----+---+ + + | | 0 | Breathing | | | | 9 | Spontaneous | | | | 2 | ly | | | | 9 | | | +----+---+ + + | | 0 | Extubated | | | | 9 | Awake | | | | 2 | | | | | 9 | | | +----+---+ + + | | 0 | an stop | | | | 9 | data | | | | 2 | | | | | 9 | | | +----+---+ + + | | 0 | An Stop | Patient handed off to recovery nurse. | | | 3 | | | | | 8 | | | +----+---+ + + +------+ | Meds | +------+ + + + | Name | Total | + + + | midazolam | 2 mg | + + + | fentaNYL | 200 mcg | + + + | lidocaine 2% | 80 mg | + + + | propofol (DIPRIVAN) injection | 200 mg | | (bolus) (20 mL) | | + + + | propofol | 297.08 mg | + + + | dexamethasone | 5 mg | + + + | ePHEDrine | 25 mg | + + + | Phenylephrine 100mcg/mL SYRINGE | 350 mcg | + + + | dexmedetomidine (Bolus) | 15 mcg | + + + | Phenylephrine 10mg/mL VIAL | 1,775.46 mcg | + + + | lactated ringers (LR) infusion | 1,300 mL | + + + + + | Name | + + | N2O Flow Rate (L/Min) | + + | O2 Flow Rate (L/Min) | + + | Insp O2 | + + | Exp SEV | + + | Exp DANA | + + | Air Flow Rate (L/Min) | + + + + | No blood administrations on file. | + + +--------+ + + + | Type | Details | Placement | Removal | +--------+ + + + | Periph | 12/31/17; 711; Right; Forearm; | 12/31/17 0712 by | 12/31/17 1124 by | | eral | kbxk-crn-glulbb catheter system; | Diane Castillo RN | Sebastián Sánchez RN | | IV | 20 gauge, 1 1/4 in length; 0; | | | | | distraction, tolerated well; | | | | | 12/31/17; 1124 | | | +--------+ + + + | Airway | Placement Date: 12/31/17; | 12/31/17 075 by | 12/31/17 0929 by | | | Placement Time: 751 (created via | Bubba Castelan | Bubba Castelan | | | procedure documentation); Mask | MD Jozef | MD Jozef | | | Ventilation: EZ w/OA; Attempts: | | | | | 1; Airway Type: laryngeal mask; | | | | | Size: 4; Trauma: none; Placement | | | | | Check: exhaled CO2 detection | | | | | device, bilateral chest rise, | | | | | breath sounds equal bilaterally; | | | | | Removal Date: 12/31/17; Removal | | | | | Time: 928; Additional Comments: | | | | | Atraumatic LMA placement with | | | | | quality seat and seal. | | | +--------+ + + + | Read | 12/31/17; 0814; perineum; healing | 12/31/17 0814 by | 12/31/17 1118 by | | only - | within expectations; 12/31/17; | Delicia Mathis RN | Sebastián Sánchez RN | | | 1118 | | | | Incisi | | | | | on | | | | +--------+ + + + documented in this encounter Social History + +-------+ +--------+ + | [...] | + +--------+ + + + | ANE AIRWAY NOTE | Routin | 12/31/2017 | | Results for this | | | e | 7:58 AM | | procedure are in the | | | | PDT | | results section. | + +--------+ + + + documented in this encounter Results Anesthesia Airway Note (12/31/2017 7:58 AM PDT) + + + | Narrative | Performed At | + + + | Bubba Haskins MD 12/31/2017 7:58 Anesthesia Airway | | | Placement 12/31/2017 7:52 Preprocedure check: patient identified, | | | oxygen, airway assessed, suction, airway equipment checked and | | | patient reassessment prior to induction Mask ventilation: easy with | | | oral airway Attempts: 1 Airway type: laryngeal mask Size: 4 | | | Cuffed: cuffed Route, reference point: center of mouth Tube secured | | | with: adhesive tape Trauma: none Tube placement verification: | | | bilateral chest rise, equal bilateral breath sounds and carbon | | | dioxide detection Performing provider: BUBBA HASKINS | | | Comments: Atraumatic LMA placement with quality seat and seal. | | | Electronically Signed by: Bubba Haskins MD | | | ESig date/time: 12/31/2017 7:58 | | | | | + + + + + | Procedure Note | + + | Bubba Haskins MD - 12/31/2017 7:58 AM PDT Anesthesia Airway | | Placement12/31/2017 7:52Preprocedure check: patient identified, oxygen, airway assessed, | | suction, airway equipment checked and patient reassessment prior to inductionMask | | ventilation: easy with oral airwayAttempts: 1Airway type: laryngeal maskSize: 4Cuffed: | | cuffedRoute, reference point: center of mouthTube secured with: adhesive tapeTrauma: | | noneTube placement verification: bilateral chest rise, equal bilateral breath sounds and | | carbon dioxide detectionPerforming provider: BUBBA HASKINSComments: Atraumatic | | LMA placement with quality seat and seal.Electronically Signed by: Bubba Haskins MD | | ESig date/time: 12/31/2017 7:58 | |Route, reference point: center of mouth | |Tube secured with: adhesive tape | |Trauma: none | |Tube placement verification: bilateral chest rise, equal bilateral breath sounds and carbon dioxide detection | |Performing provider: BUBBA HASKINS | | | |Comments: Atraumatic LMA placement with quality seat and seal. | | | | | |Electronically Signed by: Bubba Haskins MD ESig date/time: 7:58 | | | + + documented in this encounter Visit Diagnoses Not on filedocumented in this encounter Administered Medications + +--------+ +------+------+------+ | Medication Order | MAR | Action | Dose | Rate | Site | | | Action | Date | | | | + +--------+ +------+------+------+ | dexamethasone (PF) 10 mg/mL | Given | 01/01/20 | 5 mg | | | | injection Intravenous, PRN, | | 18 7:51 | | | | | Starting Radha 12/31/17 at 0751, | | AM PDT | | | | | Anesthesia Intra-op | | | | | | + +--------+ +------+------+------+ +---+---+ | | | +---+---+ + +-------+ +--------+---+---+ | dexmedetomidine (PRECEDEX) in | Given | 01/01/20 | 15 mcg | | | | sodium chloride bolus infusion | | 18 7:51 | | | | | Intravenous, PRN, Starting Radha | | AM PDT | | | | | 12/31/17 at 0751, Anesthesia | | | | | | | Intra-op | | | | | | + +-------+ +--------+---+---+ +---+---+ | | | +---+---+ + +-------+ +------+---+---+ | ePHEDrine (AKOVAZ) 50 mg/mL | Given | 01/01/20 | 5 mg | | | | injection Intravenous, PRN, | | 18 9:37 | | | | | Starting Rahda 12/31/17 at 0827, | | AM PDT | | | | | Anesthesia Intra-op | | | | | | + +-------+ +------+---+---+ +-------+ +-------+---+---+ | Given | 01/01/20 | 10 mg | | | | | 18 8:50 | | | | | | AM PDT | | | | +-------+ +-------+---+---+ | Given | 01/01/20 | 10 mg | | | | | 18 8:27 | | | | | | AM PDT | | | | +-------+ +-------+---+---+ +---+---+ | | | +---+---+ + +-------+ +--------+---+---+ | fentaNYL (PF) injection | Given | 01/01/20 | 25 mcg | | | | Intravenous, PRN, Pain, Starting | | 18 8:50 | | | | | Radha 12/31/17 at 0757, Anesthesia | | AM PDT | | | | | Intra-op | | | | | | + +-------+ +--------+---+---+ +-------+ +--------+---+---+ | Given | 08/30/20 | 25 mcg | | | | | 18 8:40 | | | | | | AM PDT | | | | +-------+ +--------+---+---+ | Given | 01/01/20 | 50 mcg | | | | | 18 8:36 | | | | | | AM PDT | | | | +-------+ +--------+---+---+ +---+---+ | | | +---+---+ + +---------+ +---+---+---+ | lactated ringers (LR) infusion | New Bag | 01/01/20 | | | | | at 10-100 mL/hr, Intravenous, | | 18 8:54 | | | | | CONTINUOUS, Starting Radha 12/31/17 | | AM PDT | | | | | at 0715, TKO., Pre-op | | | | | | + +---------+ +---+---+---+ +---------+ +--------+-------+---+ | New Bag | 01/01/20 | 1,000 | 100 | | | | 18 7:15 | mLs | mL/hr | | | | AM PDT | | | | +---------+ +--------+-------+---+ +---+---+ | | | +---+---+ + +-------+ +-------+---+---+ | lidocaine (PF) 2% injection | Given | 01/01/20 | 80 mg | | | | Intravenous, PRN, Starting Radha | | 18 7:51 | | | | | 12/31/17 at 0751, Anesthesia | | AM PDT | | | | | Intra-op | | | | | | + +-------+ +-------+---+---+ +---+---+ | | | +---+---+ + +-------+ +------+---+---+ | midazolam (VERSED) 1 mg/mL | Given | 01/01/20 | 2 mg | | | | injection Intravenous, PRN, | | 18 7:42 | | | | | Anxiety, Starting Radha 12/31/17 at | | AM PDT | | | | | 0742, Anesthesia Intra-op | | | | | | + +-------+ +------+---+---+ +---+---+ | | | +---+---+ + + + + +-------+---+ | phenylephrine (MALLORY-SYNEPHRINE) | Rate/Dos | 01/01/20 | 0.3 | 0.1 | | | 10 mg/mL injection Intravenous, | e Change | 18 9:19 | mcg/kg/m | mL/hr | | | CONTINUOUS PRN, Starting Radha | | AM PDT | in | | | | 12/31/17 at 0837, Anesthesia | | | | | | | Intra-op | | | | | | + + + + +-------+---+ + + + +-------+---+ | Rate/Dose Change | 01/01/20 | 0.6 | 0.3 | | | | 18 8:45 | mcg/kg/m | mL/hr | | | | AM PDT | in | | | + + + +-------+---+ | New Bag | 01/01/20 | 0.4 | 0.2 | | | | 18 8:37 | mcg/kg/m | mL/hr | | | | AM PDT | in | | | + + + +-------+---+ +---+---+ | | | +---+---+ + +-------+ +---------+---+---+ | phenylephrine (MALLORY-SYNEPHRINE) | Given | 01/01/20 | 100 mcg | | | | 100 mcg/mL injection | | 18 9:26 | | | | | Intravenous, PRN, Starting Radha | | AM PDT | | | | | 12/31/17 at 0818, Anesthesia | | | | | | | Intra-op | | | | | | + +-------+ +---------+---+---+ +-------+ +---------+---+---+ | Given | 01/01/20 | 150 mcg | | | | | 18 8:20 | | | | | | AM PDT | | | | +-------+ +---------+---+---+ | Given | 01/01/20 | 100 mcg | | | | | 18 8:18 | | | | | | AM PDT | | | | +-------+ +---------+---+---+ +---+---+ | | | +---+---+ + +-------+ +--------+---+---+ | propofol (DIPRIVAN) injection | Given | 01/01/20 | 200 mg | | | | Intravenous, PRN, Starting Radha | | 18 7:51 | | | | | 12/31/17 at 0751, Anesthesia | | AM PDT | | | | | Intra-op | | | | | | + +-------+ +--------+---+---+ +---+---+ | | | +---+---+ + +---------+ + + +---+ | propofol (DIPRIVAN) injection | New Bag | 01/01/20 | 50 | 21 mL/hr | | | Intravenous, CONTINUOUS PRN, | | 18 7:57 | mcg/kg/m | | | | Starting Radha 12/31/17 at 0757, | | AM PDT | in | | | | Anesthesia Intra-op | | | | | | + +---------+ + + +---+ +---+---+ | | | +---+---+ documented in this encounter"
--- OUTSIDE RECORDS SUMMARY | ~2019-03-31 | XMS | Encounter Summary ---
Demographics + + + | Address | [address] | | | [place] [address] | + + + | Home Phone | | + + + | Preferred Language | Unknown | + + + | Marital Status | Single | + + + | Latter Day Affiliation | Unknown | + + + | Race | Unknown | + + + | Ethnic Group | Unknown | + + + Author + + + | Author | [facility] | | | and [place] | + + + | Organization | [facility] | | | and [place] [...] Team Providers + +------+ + | Care Brickmason Apprentice Name | Role | Phone | + +------+ + | Kyle Trevizo MD | PCP | | + +------+ + Encounter Details +--------+ + + + + | Date | Type | Department | Care Team | Description | +--------+ + + + + | 12/29/ | Preadmit | [facility] | [facility] | Nephrolithiasis; | | 2017 | Visit | [facility] | MD Esteban [address] | Angina pectoris, | | | | CLINIC [address] | [place], [place] | unspecified ([facility]) | | | | [place], [place] | [address] | | | | | [address] | | | | | | [phone] | | | +--------+ + + + [...] | + +--------+ + + + | CBC W/AUTO | Routin | 12/29/2017 | Nephrolithiasis | Results for this | | DIFFERENTIAL | e | 9:14 AM | | procedure are in the | | | | PDT | | results section. | + +--------+ + + + | BASIC METABOLIC | Routin | 12/29/2017 | Nephrolithiasis | Results for this | | PANEL | e | 9:14 AM | | procedure are in the | | | | PDT | | results section. | + +--------+ + + + | ECG 12 LEAD | Routin | 12/29/2017 | Nephrolithiasis | Results for this | | | e | 9:07 AM | Angina pectoris, | procedure are in the | | | | PDT | unspecified (HCC) | results section. | + +--------+ + + + documented in this encounter Results CBC w/ Auto Differential (12/29/2017 9:14 AM PDT) + +-------+ + + + | Component | Value | Ref Range | Performed | Pathologist | | | | | At | Signature | + +-------+ + + + | WBC | 8.6 | 4.0 - 11.0 K/uL | [facility] | | | | | | [facility] | | | | | | [facility] | | | | | [facility] - | | | | | | [facility] | | + +-------+ + + + | RBC | 4.50 | 4.30 - 5.70 | [facility] | | | | | M/uL | [facility] | | | [facility] | | [facility] | | | | | | [facility] - | | | | | | LAB[facility]ATORY | | + +-------+ + + + | Hemoglobin | 13.9 | 13.5 - 18.0 | [facility] | | | | | g/dL | [facility] | | | | | | [facility] | | | | | | [facility] - | | | | | | [facility]ATORY | | + +-------+ + + + | Hematocrit | 40.6 | 40.0 - 51.0 % | [facility] | | | | | | [facility] | | | | | | [facility] | | | | | [facility] - | | | | | | [facility]ATORY | | + +-------+ + + + | MCV | 90.1 | 83.0 - 101.0 fL | [facility] | | | | | | [facility] | | | | | | [facility] | | | | | | [facility] - | | | | | | LAB[facility]ATORY | | + +-------+ + + + | MCH | 31.0 | 28.0 - 35.0 pg | [facility] | | | | | | [facility] | | | | | | [facility] | | | | | | [facility] - | | | | | | [facility] | | + +-------+ + + + | MCHC | 34.4 | 32.0 - 36.0 | [facility] | | | | | g/dL | [facility] | | | | | | [facility] | | | | | | [facility] - | | | | | | LAB[facility]ATORY | | + +-------+ + + + | RDW-CV | 13.9 | <15.0 % | [facility] | | | | | | [facility] | | | | | | [facility] | | | | | | [facility] - | | | | | | LAB[facility]ATORY | | + +-------+ + + + | Platelet | 220 | 140 - 440 K/uL | [facility] | | | Count | | | [facility] | | | | | | [facility] | | | | | | [facility] - | | | | | | [facility]ORY | | + +-------+ + + + | MPV | 8.4 | fL | [facility] | | | | | | [facility] | | | | | | [facility] | | | | | | [facility] - | | | | | | LAB[facility]ATORY | | + +-------+ + + + | % | 61.9 | 45.0 - 82.0 % | [facility] | | | Neutrophils | | | [facility] | | | | | | [facility] | | | | | | [facility] - | | | | | | LAB[facility]ATORY | | + +-------+ + + + | % | 30.6 | 20.0 - 45.0 % | [facility] | | | Lymphocytes | | | [facility] | | | | | | [facility] | | | | | | [facility] - | | | | | | LAB[facility]ATORY | | + +-------+ + + + | % Monocytes | 5.9 | 4.0 - 12.0 % | [facility] | | | | | | [facility] | | | | | | [facility] | | | | | | [facility] - | | | | | | LAB[facility]ATORY | | + +-------+ + + + | % | 1.4 | 0.0 - 5.0 % | [facility] | | | Eosinophils | | | [facility] | | | | | | [facility] | | | | | | [facility] - | | | | | | LAB[facility]ATORY | | + +-------+ + + + | % Basophils | 0.2 | 0.0 - 1.0 % | [facility] | | | | | | [facility] | | | | | | [facility] | | | | | | [facility] - | | | | | | LAB[facility]ATORY | | + +-------+ + + + | Absolute | 5.30 | 1.80 - 8.50 | [facility] | | | Neutrophils | | K/uL | [facility] | | | | | | [facility] | | | | | | [facility] - | | | | | | LABORATORY | | + +-------+ + + + | Absolute | 2.60 | 0.60 - 3.20 | [facility] | | | Lymphocytes | | K/uL | [facility] | | | | | | [facility] | | | | | | [facility] - | | | | | | LAB[facility]ATORY | | + +-------+ + + + | Absolute | 0.50 | 0.00 - 1.00 | [facility] | | | Monocytes | | K/uL | [facility] | | | | | [facility] | | | | | | [facility] - | | | | | | LAB[facility]ATORY | | + +-------+ + + + | Absolute | 0.10 | 0.00 - 0.40 | [facility] | | | Eosinophils | | K/uL | [facility] | | | | | | [facility] | | | | | | [facility] - | | | | | | LAB[facility]ATORY | | + +-------+ + + + | Absolute | 0.00 | 0.00 - 0.10 | [facility] | | | Basophils | | K/uL | [facility] | [facility] | [facility] | | | | | | [facility] - | | | | | | LAB[facility]AT[facility] | | + +-------+ + + + + + | Specimen | + + | Blood | + + + + + + + | Performing | Address | City/State/Zipcode | Phone Number | | Organization | | | | + + + + + | [facility] | [address] | [place] | [phone] | | [facility] | | [address] | | | - LABORATORY | | | | + + + + + Basic Metabolic Panel (12/29/2017 9:14 AM PDT) + + + + + + | Component | Value | Ref Range | Performed | Pathologist | | | | | At | Signature | + + + + + + | Na | 142 | 136 - 149 | [facility] | | | | | mmol/L | [facility] | [facility] | [facility] | [facility] | | | | | [facility] - | | | | | | LAB[facility]ATORY | | + + + + + + | K | 3.8 | 3.5 - 5.1 | [facility] | | | | | mmol/L | [facility] | | | | | [facility] | | | | | | [facility] - | | | | | | LAB[facility]ATORY | | + + + + + + | Cl | 108 | 98 - 109 mmol/L | [facility] | | | | | | [facility] | | | | | | [facility] | | | | | | [facility] - | | | | | | LAB[facility]ATORY | | + + + + + + | CO2 | 26 | 24 - 31 mmol/L | [facility] | | | | | | [facility] | | | | | | [facility] | | | | | | [facility] - | | | | | | LAB[facility]ATORY | | + + + + + + | Anion Gap | 8 | 3 - 16 mmol/L | [facility] | | | | | | [facility] | | | | | | [facility] | | | | | | [facility] - | | | | | | LAB[facility]ATORY | | + + + + + + | Glucose | 106 | 70 - 109 mg/dL | [facility] | | | | | | [facility] | | | | | | [facility] | | | | | | [facility] - | | | | | | LABORATORY | | + + + + + + | BUN | 18 | 7 - 18 mg/dL | [facility] | | | | | | [facility] | | | | | | [facility] | | | | | | [facility] - | | | | | | LABORATORY | | + + + + + + | Creatinine | 0.94 | 0.60 - 1.30 | [facility] | | | | | mg/dL | [facility] | | | | | | [facility] | | | | | | C[facility] - | | | | | | LABORATORY | | + + + + + + | eGFR if not | >60Comment: GLOMERULAR | >=60 | [facility] | | | | FILTRATION | mL/min/1.73m2 | [facility] | | | THAI | RATE,ESTIMATED | | MEDICAL | | | | mL/min/1.69w1Rvng than | | CENTER - | | | | 60 Chronic kidney | | LABORATORY | | | | disease,if found over a | | | | | | 3-month period.Less than | | | | | | 15 Kidney failureFor | | | | | | | | | | | | Americans,multiply the | | | | | | calculated GFR by 1.21. | | | | | | | | | | + + + + + + | Calcium | 9.3 | 8.3 - 10.5 | [facility] | | | | | mg/dL | [facility] | | | | | | MED[facility] | | | | | | CENTER - | | | | | | LABORATORY | | + + + + + + | BUN/Creatin | 19.1 | | [facility] | | | ine Ratio | | | [facility] | | | | | | MEDICAL | | | | | | CENTER - | | | | | | LABORATORY | | + + + + + + + + | Specimen | + + | Blood | + + + + + + + | Performing | Address | City/State/Zipcode | Phone Number | | Organization | | | | + + + + + | [facility] | [address] | [place] | [phone] | | [facility] | | [address] | | | - LABORATORY | | | | + + + + + ECG 12 lead (12/29/2017 9:07 AM PDT) + + + + + + | Component | Value | Ref Range | Performed | Pathologist | | | | | At | Signature | + + + + + + | VENTRICULAR | 86 | BPM | [facility] | | | RATE EKG | | | | | + + + + + + | ATRIAL RATE | 86 | BPM | [facility] | | + + + + + + | P-R | 142 | ms | [facility] | | | INTERVAL | | | | | + + + + + + | QRS | 72 | ms | [facility] | | | DURATION | | | | | + + + + + + | Q-T | 338 | ms | [facility] | | | INTERVAL | | | | | + + + + + + | Q-T | 404 | ms | [facility] | | | INTERVAL | | | | | | (CORRECTED) | | | | | + + + + + + | P WAVE AXIS | 73 | degrees | [facility] | | + + + + + + | QRS AXIS | 49 | degrees | [facility] | | + + + + + + | T AXIS | 69 | degrees | [facility] | | + + + + + + | INTERPRETAT | Normal sinus | | [facility] | | | ION TEXT | rhythmNormal ECGNo | | | | | | previous ECGs | | | | | | availableConfirmed by | | | | | | TANYA TINEO MD ([id number]) | | | | | | on 12/30/2017 8:34:04 AM | | | | + + + + + + + + | Specimen | + + | | + + + + + | Narrative | Performed At | + + + | | | + + + + +---------+ + + | Performing | Address | City/State/Zipcode | Phone Number | | Organization | | | | + +---------+ + + | [facility] | | | | + +---------+ + + documented in this encounter Visit Diagnoses + + | Diagnosis | + + | Nephrolithiasis Calculus of kidney | + + | Angina pectoris, unspecified (HCC) | + + documented in this encounter"
--- OUTSIDE RECORDS SUMMARY | ~2019-03-31 | XMS | Encounter Summary ---
Demographics + + + | Address | [address] | | | [place] [address] | + + + | Home Phone | | + + + | Preferred Language | Unknown | + + + | Marital Status | Single | + + + | Quaker Affiliation | Unknown | + + + | Race | Unknown | + + + | Ethnic Group | Unknown | + + + Author + + + | Author | [facility] | | | and [place]ana | + + + | Organization | [facility] | | | and Brianana [...] Team Providers + +------+ + | Care Pluck Trimmer Name | Role | Phone | + +------+ + | Kyle Trevizo MD | PCP | | + +------+ + Encounter Details +--------+---------+ + + + | Date | Type | Department | Care Team | Description | +--------+---------+ + + + | 01/27/ | Surgery | [facility] | Left ureteroscopy, | | 2018 | | [facility] | MD Esteban [address] | stent exchange | | | | [address] | [address] [place], [place] | | | | | [place], [place] | [address] | | | | | [address] | | | | | | [phone] | | | +--------+---------+ + + + [...] + + + | Blood Pressure | 119/76 | 01/27/2018 9:30 AM | | | | | PDT | | + + + + + | Pulse | 77 | 01/27/2018 9:30 AM | | | | | PDT | | + + + + + | Temperature | 36.8 C (98.2 F) | 01/27/2018 8:27 AM | | | | | PDT | | + + + + + | Respiratory Rate | 16 | 01/27/2018 9:30 AM | | | | | PDT | | + + + + + | Oxygen Saturation | 100% | 01/27/2018 9:30 AM | | | | | PDT | | + + + + + | Inhaled Oxygen | - | - | | | Concentration | | | | + + + + + | Weight | 71.3 kg (157 lb 3 | 01/27/2018 6:13 AM | | | | oz) | PDT | | + + + + + | Height | 177.8 cm (5' 10") | 01/27/2018 6:13 AM | | | | | PDT | | + + + + + | Body Mass Index | 22.55 | 01/27/2018 6:13 AM | | | | | PDT | | + + + + + documented in this encounter Discharge Instructions Carmella Mcpherson RN - 01/27/2018 Recovery After Procedural Sedation (Adult) You have been given medicine by vein to make you sleep during your procedure. This may have included both a pain medicine and sleeping medicine. Most of the effects have worn off. But you may still have some drowsiness for the next 6 to 8 hours. Home care Follow these guidelines when you get home: For the next 8 hours, you should be watched by a responsible adult. This person should m jolly sure your condition is not getting worse. Don't drink any alcoholfor the next [address], operate dangerous machinery,make important business or personal decisions , or sign legal documentsduring the next 24 hours. Note: Your healthcare provider may tell you not to take any medicine by mouth for pain or s leep in the next 4 hours. These medicines may react with the medicines you were given in the hospital. This could cause a much stronger response than usual. Follow-up care Follow up with your healthcare provider if you are not alert and back to your usual level o f activity within 12 hours. When to seek medical advice Call your healthcare provider right away if any of these occur: Drowsiness gets worse Weakness or dizziness gets worse Repeated vomiting You can't be awakened Date Last Reviewed: 02/19/[id number] [employer]. [address] [place] [address]. All righ ts reserved. This information is not intended as a substitute for professional medical care. Always follow your healthcare professional's instructions. Patient to pull strings and remove the stent on January 29. Patient to follow up in the office in 6 weeks. documented in this encounter Medications at Time of Discharge + + + +---------+ + + | Medication | Sig | Dispensed | Refills | Start | End Date | | | | | | Date | | + + + +---------+ + + | acetaminophen | Take 500-1,000 mg by | | 0 | | | | (TYLENOL) 500 mg | mouth every 6 hours | | | | | | tablet | as needed for Pain. | | | | | + + + +---------+ + + | | Take 1-2 tablets by | 30 | 0 | 01/28/20 | | | HYDROcodone-acetamin | mouth every 6 hours | tablet | | 18 | | | ophen (NORCO) 5-325 | as needed for Pain. | | | | | | mg per tablet | | | | | | [...] + + + +---------+ + + | oxybutynin | Take 1 tablet by | 30 | 3 | 12/29/19 | | | (DITROPAN-XL) 10 MG | mouth Daily. | tablet | | 18 | | | 24 hr tablet | | | | | | + + + +---------+ + + | tamsulosin | Take 1 capsule oral | | 0 | 07/16/19 | | | (FLOMAX) 0.4 mg CAPS | daily | | | 18 | | + + + +---------+ + + | phenazopyridine | Take 1 tablet by | 20 | 0 | 12/29/19 | | | (PYRIDIUM) 100 mg | mouth 3 times daily | tablet | | 18 | 9 | | tablet | as needed for Pain. | | | | | + + + +---------+ + + documented as of this encounter Plan of Treatment Not on filedocumented as of this encounter Procedures + +--------+ + + + | Procedure Name | Priori | Date/Time | Associated Diagnosis | Comments | | | ty | | | | + +--------+ + + + | FL PYELOGRAM | Routin | 01/27/2018 | | Results for this | | RETROGRADE | e | 8:28 AM | | procedure are in the | | | | PDT | | results section. | + +--------+ + + + | CYSTOSCOPY | | 01/27/2018 | Kidney stone on | | | URETEROSCOPY W/ | | 7:42 AM | left side (N20.0) | | | LASER | | PDT | | | + +--------+ + + + documented in this encounter Results FL Pyelogram Retrograde (01/27/2018 8:28 AM PDT) + + | Specimen | + + | | + + + + + | Narrative | Performed At | + + + | This exam has been auto-finalized and the interpretation may exist | [facility] | | elsewhere in the chart. | | + + + + +---------+ + + | Performing | Address | City/State/Zipcode | Phone Number | | Organization | | | | + +---------+ + + | [facility] | | | | + +---------+ + + documented in this encounter Visit Diagnoses Not on filedocumented in this encounter Administered Medications + +--------+---------+------+------+------+ | Medication Order | MAR | Action | Dose | Rate | Site | | | Action | Date | | | | + +--------+---------+------+------+------+ + +---+ | albuterol 2.5 mg/3 mL nebulizer | | | solution 2.5 mg 2.5 mg, | | | Nebulization, ONCE PRN, Wheezing, | | | Starting 01/27/18 at 0820, | | | For 1 dose, Notify anesthesia if | | | patient is wheezing and does not | | | have a history of asthma or COPD | | | or current smoking., | | | Recovery/Phase I | | + +---+ | | | + +---+ + +-------+ +--------+---+---+ | ciprofloxacin (CIPRO) tablet | Given | 01/28/20 | 500 mg | | | | 500 mg 500 mg, Oral, ONCE, Thu | | 18 6:27 | | | | | 01/27/18 at 0115, For 1 dose, Give | | AM PDT | | | | | 2 hours before or 6 hours after | | | | | | | antacids, dairy, calcium, iron, | | | | | | | or zinc., Pre-op, Indications: | | | | | | | Surgical Prophylaxis | | | | | | + +-------+ +--------+---+---+ + +---+ | | | + +---+ | dextrose 50% injection 12.5-25 | | | g 12.5-25 g, Intravenous, EVERY | | | 15 MIN PRN, Low Blood Sugar, Give | | | 12.5g (25 mL) IV if blood | | | glucose 50-69 mg/dL. Give 25g | | | (50 mL) IV if blood glucose < 50, | | | Starting 01/27/18 at 0620, | | | Repeat in 15 min if blood glucose | | | remains < 70 mg/dL. Repeat | | | blood glucose in 30 min once | | | blood glucose > 70., Pre-op | | + +---+ | | | + +---+ | dextrose 50% injection 12.5-25 | | | g 12.5-25 g, Intravenous, EVERY | | | 15 MIN PRN, Low Blood Sugar, For | | | hypoglycemia. Give 12.5g (25ml) | | | IV if blood glucose 50-69 | | | mg/dL. Give 25g (50ml) IV if | | | blood glucose < 50, Starting Wed | | | 01/27/18 at 0820, Give over 2 min. | | | Repeat in 15 min if blood | | | glucose remains < 70 mg/dL. | | | Repeat blood glucose in 30 min | | | once blood glucose > 70., | | | Recovery/Phase I | | + +---+ | | | + +---+ | ePHEDrine 50 mg/mL injection 5 | | | mg 5 mg, Intravenous, EVERY 5 | | | MIN PRN, if SBP <90., Starting | | | 01/27/18 at 0820, Hold if HR > | | | 100. Maximum total dose 20mg., | | | Recovery/Phase I | | + +---+ | | | + +---+ | glycopyrrolate (HUSAM) | | | injection 0.2 mg 0.2 mg, | | | Intravenous, PRN, Bradycardia, | | | For HR <50, Starting 01/27/18 | | | at 0820, For 2 doses, May repeat | | | one time after 1min, | | | Recovery/Phase I | | + +---+ | | | + +---+ | HYDROmorphone (DILAUDID) | | | injection 0.2-0.4 mg 0.2-0.4 mg, | | | Intravenous, EVERY 1 HOUR PRN, | | | Pain, Starting Thu01/27/18 at | | | 0844, If oral route not an | | | option. Slow IV push, not faster | | | than 0.3mg/minute. First dose | | | must be lowest dose, titrate to | | | effective dose by repeat of | | | lowest dose every 30 minutes prn | | | pain, may not exceed maximum dose | | | ordered per interval. Use | | | Pasero Sedation Scale., | | | Post-op/Phase II | | + +---+ | | | + +---+ | HYDROmorphone (DILAUDID) | | | injection 0.2-0.5 mg 0.2-0.5 mg, | | | Intravenous, EVERY 10 MIN PRN, | | | Pain, Starting Thu01/27/18 at | | | 0820, Maximum total dose 4 mg. | | | PACU IV Narcotic Priority: Only | | | use fentanyl for immediate | | | post-op pain (one dose) or | | | breakthrough pain when any other | | | IV narcotics ordered have been | | | ineffective (if ordered). If | | | both morphine and hydromorphone | | | are ordered, use morphine first, | | | and use hydromorphone if morphine | | | ineffective., Recovery/Phase I | | + +---+ | | | + +---+ + +-------+ +-------+---+---+ | ketorolac (TORADOL) injection | Given | 01/28/20 | 15 mg | | | | 15 mg 15 mg, Intravenous, EVERY | | 18 8:38 | | | | | 6 HOURS PRN, Pain, Starting Wed | | AM PDT | | | | | 01/27/18 at 0820, For 5 days, | | | | | | | Recovery/Phase I | | | | | | + +-------+ +-------+---+---+ + +---+ | | | + +---+ | ketorolac (TORADOL) injection | | | 15 mg 15 mg, Intravenous, EVERY | | | 6 HOURS PRN, Pain, Starting Wed | | | 01/27/18 at 0844, For 5 days, | | | Recovery/Phase I | | + +---+ | | | + +---+ | labetalol (TRANDATE) 5 mg/mL | | | injection 5 mg 5 mg, | | | Intravenous, EVERY 5 MIN PRN, For | | | SBP > 180, DBP > 100, Starting | | | Thu01/27/18 at 0820, Hold if HR < | | | 60. Maximum total dose 300mg. | | | Notify anesthesia if patient | | | requires more than 50mg., | | | Recovery/Phase I | | + +---+ | | | + +---+ + +---------+ +---+---+---+ | lactated ringers (LR) infusion | New Bag | 01/28/20 | | | | | at 10-100 mL/hr, Intravenous, | | 18 7:28 | | | | | CONTINUOUS, Starting Thu01/27/18 | | AM PDT | | | | | at 0645, TKO., Pre-op | | | | | | + +---------+ +---+---+---+ +---------+ +---+-------+---+ | New Bag | 01/28/20 | | 100 | | | | 18 6:40 | | mL/hr | | | | AM PDT | | | | +---------+ +---+-------+---+ + +---+ | | | + +---+ | ondansetron (ZOFRAN) injection | | | 4 mg 4 mg, Intravenous, ONCE | | | PRN, Nausea, Starting 01/27/18 | | | at 0820, For 1 dose, | | | Recovery/Phase I | | + +---+ | | | + +---+ + +-------+ +------+---+---+ | oxybutynin (DITROPAN) tablet 5 | Given | 01/28/20 | 5 mg | | | | mg 5 mg, Oral, EVERY 8 HOURS | | 18 8:55 | | | | | PRN, Bladder Spasms, Starting Wed | | AM PDT | | | | | 01/27/18 at 0844, Hold all | | | | | | | antispasmodics after 0200 hours., | | | | | | | Post-op/Phase II | | | | | | + +-------+ +------+---+---+ + +---+ | | | + +---+ | oxyCODONE (ROXICODONE) tablet | | | 2.5-10 mg 2.5-10 mg, Oral, EVERY | | | 3 HOURS PRN, Pain, Starting Wed | | | 01/27/18 at 0844, First dose must | | | be the lowest dose, can titrate | | | to effective dose by repeat of | | | lowest dose every 60 minutes prn | | | pain, may not exceed maximum dose | | | ordered per interval. Use Pasero | | | Sedation Scale., Post-op/Phase | | | II | | + +---+ | | | + +---+ + +-------+ +--------+---+---+ | phenazopyridine (PYRIDIUM) | Given | 01/28/20 | 200 mg | | | | tablet 200 mg 200 mg, Oral, 3 | | 18 8:55 | | | | | TIMES DAILY PRN, Urinary | | AM PDT | | | | | Symptoms, urinary burning., | | | | | | | Starting 01/27/18 at 0844, | | | | | | | Administer with meals., | | | | | | | Post-op/Phase II | | | | | | + +-------+ +--------+---+---+ + +---+ | | | + +---+ | promethazine (PHENERGAN) (IV | | | ONLY) injection 6.25 mg 6.25 mg, | | | Intravenous, EVERY 15 MIN PRN, | | | Nausea, Vomiting, Starting Wed | | | 01/27/18 at 0820, For 4 doses, | | | TAKE PRECAUTIONS WHEN | | | ADMINISTERING Dilute to 10-20mL | | | with NS. Give over 2-3 minutes | | | into large vein. Use ondansetron | | | first if both are ordered., | | | Recovery/Phase I | | + +---+ | | | + +---+ documented in this encounter
--- OUTSIDE RECORDS SUMMARY | ~2019-03-31 | XMS | Encounter Summary ---
Demographics + + + | Address | [address] | | | [place] [address] | + + + | Home Phone | | + + + | Preferred Language | Unknown | + + + | Marital Status | Single | + + + | Mu-Ism Affiliation | Unknown | + + + | Race | Unknown | + + + | Ethnic Group | Unknown | + + + Author + + + | Author | [facility] | | | and [place] | + + + | Organization | [facility] | | | and [place] [...] Team Providers + +------+ + | Care Nitroglycerin Neutralizer Name | Role | Phone | + +------+ + | Kyle Trevizo MD | PCP | | + +------+ + Reason for Visit + + + | Reason | Comments | + + + | Appointment | | + + + Encounter Details +--------+ + + + + | Date | Type | Department | Care Team | Description | +--------+ + + + + | 03/08/ | Telephone | [facility] | [facility] | Appointment | | 2018 | | [address] | MD Esteban [address] | | | | | [place], [place] | [place], [place] | | | | | [address] | [address] | | | | | [phone] | | | +--------+ + + + [...] Not on filedocumented as of this encounter Visit Diagnoses Not on filedocumented in this encounter"
--- OUTSIDE RECORDS SUMMARY | ~2019-03-31 | XMS | Encounter Summary ---
Demographics + + + | Address | [address] | | | [place] [address] | + + + | Home Phone | | + + + | Preferred Language | Unknown | + + + | Marital Status | Single | + + + | Evangelical Affiliation | Unknown | + + + | Race | Unknown | + + + | Ethnic Group | Unknown | + + + Author + + + | Author | [facility] | | | and [place] | + + + | Organization | [facility] | | | and [...] Team Providers + +------+ + | Care Bow Maker Machine Tender Name | Role | Phone | + +------+ + | Francisca Cortes MD | PCP | | + +------+ + Encounter Details +--------+ + + + + | Date | Type | Department | Care Team | Description | +--------+ + + + + | 03/16/ | Abstract | [facility] [place] | [facility] | | | 2014 | | [facility] [address] | | | | | [place], | [address] [place], [place] | | | | | [place] [address] | [address] | | | | | [phone] | | | +--------+ + + + + Social History + +-------+ +--------+------+ | Tobacco Use | Types | Packs/Day | Years | Date | | | | | Used | | + +-------+ +--------+------+ | Current Every Day | | 0.25 | 45 | | | Smoker | | | | | + +-------+ +--------+------+ + +---+---+---+ | Smokeless Tobacco: | | | | | Never Used | | | | + +---+---+---+ + + +---------+ + | Alcohol Use | Drinks/Week | oz/Week | Comments | + + +---------+ + | Yes | 0 Standard drinks | 0.0 | Rare | | | or equivalent | | [...]
--- OUTSIDE RECORDS SUMMARY | ~2019-03-31 | XMS | Encounter Summary ---
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 RATE,ESTIMATED | | MEDICAL | | | | mL/min/1.06l8Kitp than | | CENTER - | | [...] | 9.3 | 8.3 - 10.5 | [facility] | | | | | mg/dL | [facility] | [facility] | [facility] | | | | | | CENTER - | | | | | | LABORATORY | | + + + + + + | Albumin | 4.0 | 3.2 - 5.0 g/dL | [facility] | | | | | | [facility] | | | [facility] | [facility] | | | | | | CENTER - | | | | | | LABORATORY | | + + + + + + | Bilirubin | 0.6 | 0.1 - 1.5 mg/dL | [facility] | | | Total | | | [facility] | [facility] | [facility] | | | | | | CENTER - | | | | | | LABORATORY | | + + + + + + | Total | 7.2 | 6.0 - 7.8 g/dL | [facility] | | | Protein | | | [facility] | | | [facility] | [facility] | | | | | | C[facility] - | | | | | | LABORATORY | | + + + + + + | AST | 23 | 10 - 42 U/L | [facility] | | | | | | [facility] | [facility] | | | | | | CENTER - | | | | | | LABORATORY | | + + + + + + | ALT | 13 | 6 - 45 U/L | [facility] | | | | | | [facility] | [facility] | [facility] | | | | | | CENTER - | | | | | | LABORATORY | | + + + + + + | Alkaline | 95 | 40 - 110 U/L | [facility] | | | Phosphatase | | | [facility] | | | | | | [facility] | | | | | | CENTER - | | | | | | LABORATORY | | + + + + + + | Globulin | 3.2 | g/dL | [facility] | | | | | | [facility] | [facility] | [facility] | | | | | | C[facility] - | | | | | | LABORATORY | | + + + + + + | Albumin/Angelika | 1.3 | | [facility] | | | bulin Ratio | | | [facility] | [facility] | [facility] | | | | | | CENTER - | | | | | | LABORATORY | | + + + + + + | BUN/Creatin | 7.3 | | [facility] | | | ine [...] ST. | [address] | [place] | [phone] | | [facility] | | [address] | | | - LABORATORY | | | | + + + + + CBC with Differential (02/15/2015 11:15 AM PDT) + + + + + + | Component | Value | Ref Range | Performed | Pathologist | | | | | At | Signature | + + + + + + | WBC | 9.1 | 4.0 - 11.0 K/uL | [facility] | | | | | | [facility] | [facility] | | | | | | CENTER - | | | | | | LABORATORY | | + + + + + + | RBC | 3.78 (L) | 4.30 - 5.70 | [facility] | | | | | M/uL | [facility] | | | | | | MEDICAL | | | | | | CENTER - | | | | | | LABORATORY | | + + + + + + | Hemoglobin | 11.8 (L) | 13.5 - 18.0 | [facility] | | | | | g/dL | [facility] | | | [facility] | [facility] | | | | | | CENTER - | | | | | | LABORATORY | | + + + + + + | Hematocrit | 35.6 (L) | 40.0 - 51.0 % | [facility] | | | | | | [facility] | [facility] | | | | | | C[facility] - | | | | | | LABORATORY | | + + + + + + | MCV | 94.2 | 83.0 - 101.0 fL | [facility] | | | | | | [facility] | [facility] | | | | | | C[facility] - | | | | | | LABORATORY | | + + + + + + | MCH | 31.1 | 28.0 - 35.0 pg | [facility] | | | | | | [facility] | [facility] | [facility] | | | | | | C[facility] - | | | | | | LABORATORY | | + + + + + + | MCHC | 33.0 | 32.0 - 36.0 | [facility] | | | | | g/dL | [facility] | | | | | | [facility] | | | | | | CENTER - | | | | | | LABORATORY | | + + + + + + | RDW-CV | 13.0 | <15.0 % | [facility] | | | | | | [facility] | | [facility] | [facility] | | | | | | CENTER - | | | | | | LABORATORY | | + + + + + + | Platelet | 333 | 140 - 440 K/uL | [facility] | | | Count | | | [facility] | | | [facility] | [facility] | | | | | | CENTER - | | | | | | LABORATORY | | + + + + + + | MPV | 9.3 | fL | [facility] | | | | | | [facility] | [facility] | [facility] | | | | | | CENTER - | | | | | | LABORATORY | | + + + + + + | % | 65.9 | 45.0 - 82.0 % | [facility] | | | Neutrophils | | | [facility] | | | | | | [facility] | | | | | | CENTER - | | | | | | LABORATORY | | + + + + + + | % | 26.2 | 20.0 - 45.0 % | [facility] | | | Lymphocytes | | | [facility] | | | | | | [facility] | | | | | | CENTER - | | | | | | LABORATORY | | + + + + + + | % Monocytes | 6.4 | 4.0 - 12.0 % | [facility] | | | | | | [facility] | | | [facility] | | [facility] | | | | | | CENTER - | | | | | | LABORATORY | | + + + + + + | % | 0.9 | 0.0 - 5.0 % | [facility] | | | Eosinophils | | | [facility] | | | | | | [facility] | | | | | | CENTER - | | | | | | LABORATORY | | + + + + + + | % Basophils | 0.6 | 0.0 - 1.0 % | [facility] | | | | | | [facility] | | | [facility] | | [facility] | | | | | | CENTER - | | | | | | LABORATORY | | + + + + + + | Absolute | 6.00 | 1.80 - 8.50 | [facility] | | | Neutrophils | | K/uL | [facility] | | | | | | [facility]ICAL | | | | | | CENTER - | | | | | | LABORATORY | | + + + + + + | Absolute | 2.40 | 0.60 - 3.20 | [facility] | | | Lymphocytes | | K/uL | [facility] | | | [facility] | | [facility]ICAL | | | | | | CENTER - | | | | | | LABORATORY | | + + + + + + | Absolute | 0.60 | 0.00 - 1.00 | [facility] | | | Monocytes | | K/uL | [facility] | | | | | | [facility]ICAL | | | | | | CENTER - | | | | | | LABORATORY | | + + + + + + | Absolute | 0.10 | 0.00 - 0.40 | [facility] | | | Eosinophils | | K/uL | [facility] | | | | | | [facility]ICAL | | | | | | CENTER - | | | | | | LABORATORY | | + + + + + + | Absolute | 0.10 | 0.00 - 0.10 | [facility] | | | Basophils | | K/uL | [facility] | | | | [...] [address] | [place] | [phone] | | [facility] | | [address] | | | - LABORATORY | | | | + + + + + documented in this encounter Visit Diagnoses + + | Diagnosis | + + | Midline thoracic back pain - Primary | + + | Midline low back pain without sciatica | + + | Kidney stones Calculus of kidney | + + documented in this encounter
--- OUTSIDE RECORDS SUMMARY | ~2019-03-31 | XMS | Encounter Summary ---
Demographics + + + | Address | [address] | | | [place] [address] | + + + | Home Phone | | + + + | Preferred Language | Unknown | + + + | Marital Status | Single | + + + | Bahai Affiliation | Unknown | + + + | Race | Unknown | + + + | Ethnic Group | Unknown | + + + Author + + + | Author | [facility] | | | and [place] | + + + | Organization | [facility] | | | and Brianana [...] Team Providers + +------+ + | Care Brass Cutter Name | Role | Phone | + [...] [address] | | | | | [place], [place] | [place], [place] | | | | | [address] | [address] | | | | | [phone] | | | +--------+ + + + [...]
--- OUTSIDE RECORDS SUMMARY | ~2019-03-31 | XMS | Clinical Summary ---
Demographics + + + | Address | [address] | | | [place] [address] | + + + | Home Phone | | + + + | Preferred Language | Unknown | + + + | Marital Status | Single | + + + | Restoration Affiliation | Unknown | + + + | Race | Unknown | + + + | Ethnic Group | Unknown | + + + Author + + + | Author | [facility] | | | and [place] | + + + | Organization | [facility] | | | and [place] | + + + | Address | Unknown | + + + | Phone | Unavailable | + + + Support + + +---------+ + | Name | Relationship | Address | Phone | + + +---------+ + | Sary Rubin | ECON | Unknown | | + + +---------+ + | Viet Rubin | ECON | Unknown | | + + +---------+ + | Jb Bahena | ECON | Unknown | | + + +---------+ + Care Team Providers + +------+ + | Care Clay Shop Supervisor Name | Role | Phone | + +------+ + | Kyle Trevizo MD | PCP | | + +------+ + Allergies No Known Allergies Medications + + + +---------+------+------+-------+ | Medication | Sig | Dispensed | Refills | Star | End | Statu | | | | | | t | Date | s | | | | | | Date | | | + + + +---------+------+------+-------+ | nitroglycerin | Place 0.4 mg under | | 0 | | | Activ | | (NITROSTAT) 0.4 mg | the tongue every 5 | | | | | e | | SL tablet | minutes as needed | | | | | | | | for Chest pain. | | | | | | + + + +---------+------+------+-------+ | tamsulosin | Take 1 capsule oral | | 0 | 03/1 | | Activ | | (FLOMAX) 0.4 mg CAPS | daily | | | 4/20 | | e | | | | | | 18 | | | + + + +---------+------+------+-------+ | oxybutynin | Take 1 tablet by | 30 | 3 | 08/2 | | Activ | | (DITROPAN-XL) 10 MG | mouth Daily. | tablet | | 7/20 | | e | | 24 hr tablet | | | | 18 | | | + + + +---------+------+------+-------+ | acetaminophen | Take 500-1,000 mg by | | 0 | | | Activ | | (TYLENOL) 500 mg | mouth every 6 hours | | | | | e | | tablet | as needed for Pain. | | | | | | + + + +---------+------+------+-------+ | | Take 1-2 tablets by | 30 | 0 | 09/2 | | Activ | | HYDROcodone-acetamin | mouth every 6 hours | tablet | | 6/20 | | e | | ophen (NORCO) 5-325 | as needed for Pain. | | | 18 | | | | mg per tablet | | | | | | | + + + +---------+------+------+-------+ Active Problems + + + | Problem | Noted Date | + + + | H/O myocardial infarction, greater than 8 weeks | 12/31/2017 | + + + | Methadone dependence | 09/10/2017 | + + + | Dilaudid use disorder, moderate | 09/10/2017 | + + + | MGUS (monoclonal gammopathy of unknown significance) | 04/13/2015 | + + + | Chronic pain syndrome | 03/27/2015 | + + + | Backache | 03/27/2015 | + + + + + | Overview: Overview: T8-9 bone graft (from L rib) for a | | vertebral osteomyelitis ([place]) in ([place]). Last | | MRI 02/08 - mod DJD in T-spine, DD L-spine (L1-L3 bulges and L3-4 | | facet arthritis). Hi-dose Methadone since.Dx name changed by | | system update 01/23/2017 | |Dx name changed by system update 01/23/2017 | + + + + + | Anxiety state | 10/09/2009 | + + + + + | Overview: Overview: | | & depression. h/o multiple ssri's | | | | IMO Problem List Replacement - 2016_Regulatory_1 | + + + + + | Other, mixed, or unspecified nondependent drug abuse, unspecified | 08/14/2009 | + + + + + | Overview: Overview: | | H/o IV Heroin from to 1985. Cocaine as well -relapse in . | + + + + + | Functional disorder of stomach | 08/01/2009 | + + + + + | Overview: Overview: | | CT abd 03/11 - enormous GB (15x8cm!). YADIRA or u/s recommended. 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 Ca oxalate dihydrate on analysis '09 | + + + + + | Coronary atherosclerosis of [place] coronary artery | 07/19/2009 | + + + + + | Overview: Overview: [place] in ; used cocaine 8hrs earlier. | | Stable angina q 3-4mos (takes Nitro prn) | |prn) | + + + + + | Tobacco use disorder | 07/19/2009 | + + + + + | Overview: Overview: | | + THC in and . Smokes medical MJ. | + + Family History + + +--------+ + | Medical History | Relation | Name | Comments | + + +--------+ + | Lymphoma | Father | | | + + +--------+ + | Diabetes | Mother | | | + + +--------+ + | Heart attack | Mother | | | + + +--------+ + | Arthritis | Other | | unknown relation | + + +--------+ + | Breast cancer | Sister | Lindsey | | + + +--------+ + | Heart attack | Sister | Anusha | | + + +--------+ + | Prostate cancer | Neg Hx | | | + + +--------+ + + +---------+ + + | Relation | Name | Status | Comments | + +---------+ + + | Brother | lina | Alive | | + +---------+ + + | Brother | viet | Alive | | + +---------+ + + | Child | | Alive | | + +---------+ + + | Child | | Alive | | + +---------+ + + | Child | | Alive | | + +---------+ + + | Child | | Alive | | + +---------+ + + | Father | | | Lymphoma | | | | (Age | | | | | 80) | | + +---------+ + + | Mother | | | diabetes | | | | (Age | | | | | 67) | | + +---------+ + + | Other | | | | + +---------+ + + | Sister | lindsey | Alive | | + +---------+ + + | Sister | leobardo | Alive | | + +---------+ + + | Sister | anusha | Alive | | + +---------+ + + | Sister | Lindsey | | | + +---------+ + + | Sister | Anusha | | | + +---------+ + + Social History + +-------+ +--------+ [...] recent travel history available. | + + Last Filed Vital Signs + + + [...] | | + + + + + Plan of Treatment + + + + + | Health Maintenance | Due Date | Last Done | Comments | + + + + + | Hepatitis C | | | | | Screening | 1 | | | + + + + + | Vaccine: | | | | | Dtap/Tdap/Td (1 - | 0 | | | | Tdap) | | | | + + + + + | Colorectal Cancer | | | | | Screening | 1 | | | | (Colonoscopy) | | | | + + + + + | Vaccine: Zoster (1 | | | | | of 2) | 1 | | | + + + + + | Adult Annual | | | | | Wellness Visit | 5 | | | + + + + + | Statin Therapy | | | | | (optimal intensity) | 5 | | | + + + + + | Vaccine: | | | | | Pneumococcal 65+ (1 | 6 | | | | of 2 - PCV13) | | | | + + + + + | Vaccine: Influenza | | | | | (#1) | 9 | | | + + + + + | AAA Screening | Completed | 01/11/2018, 11/15/2017 | | + + + + + Implants + +-------+--------+ +--------+--------+--------+ | Implanted | Type | Area | Manufacture | Device | Shelf | Model | | | | | r | | Expira | / | | | | | | Identi | tion | Serial | | | | | | fier | Date | / Lot | + +-------+--------+ +--------+--------+--------+ | Stent Uret W/Pstnr Frm 6 | Stent | Left: | COOK | | 09/24/ | [id number] | | - Sn/AImplanted: Qty: 1 | | Ureter | [employer] | | 2020 | /N/A | | on 12/31/2017 by Jael, | | | - [place] | | | [id number] | | Ac Orellana MD at [facility] | | | | | | 30 | | LOCATED WITHIN [facility] | | | | | | | | CENTER | | | | | | | + +-------+--------+ +--------+--------+--------+ | Stent Uret W/Pstnr Frm 6 | Stent | Left: | DALE | | | [id number] | | - [id number]: | | Ureter | [employer] | | | / | | Qty: 1 on 01/27/2018 by | | | - [place] | | | /[id number] | | Ac Elder MD at | | | | | | 08 | | [facility] | | | | | | | | [facility] | | | | | | | + +-------+--------+ +--------+--------+--------+ Results Not on filefrom Last 3 Months Insurance + +--------+ +--------+ +---------+--------+ | Payer | Benefi | Subscriber | Effect | Phone | Address | Type | | | t Plan | ID | hailey | | | | | | / | | Dates | | | | | | Group | | | | | | + +--------+ +--------+ +---------+--------+ | MEDICARE | MEDICA | [id number] | 12/02/18 | [phone] | | Medica | | | RE | | 94-Pre | 5 | | re | | | PART A | | sent | | | | | | AND B | | | | | | + +--------+ +--------+ +---------+--------+ + +--------+ +--------+ + + | Guarantor Name | Accoun | Relation to | Date | Phone | Billing Address | | | t Type | Patient | of | | | | | | | | | | + +--------+ +--------+ + + | Ry Rubin | Person | Self [birth year] | [address] | | | al/Fam | | 1950 | [phone] | [place] [address] | | | shiva | | | 8 (Home) | | + +--------+ +--------+ + + Advance Directives + + + + + | Type | Date Recorded | Patient | Explanation | | | | Insecticide Expert | | + + + + + | Power of | | | | | Rouge Presser | | | | + + + + + | Advance | 12/29/2017 9:01 | | | | Directive | AM | | | + + + + + + + + + + | Code Status | Date | Date | Comments | | | Activated | Inactivated | | + + + + + | Full Code | 01/27/2018 | 01/27/2018 | | | | 8:44 AM | 12:34 PM | | + + + + + + + + +---+ | | | | | + + + +---+ | Full Code | 12/31/2017 | 12/31/2017 | | | | 10:07 AM | 1:50 PM | | + + + +---+
--- OUTSIDE RECORDS SUMMARY | ~2019-03-31 | XMS | Encounter Summary ---
Demographics + + + | Address | [address] | | | [place] [address] | + + + | Home Phone | | + + + | Preferred Language | Unknown | + + + | Marital Status | Single | + + + | Druze Affiliation | Unknown | + + + | Race | Unknown | + + + | Ethnic Group | Unknown | + + + Author + + + | Author | [facility] | | | and [place]ana | + + + | Organization | [facility] | | | and Brianana | [...] Team Providers + +------+ + | Care Dot Compliance Manager Name | Role | Phone | + [...] | +--------+ + + + + | 01/01/ | Telephone | [facility] | Ac Elder | Appointment | | 2018 | | [address] | MD Esteban [address] | | | | | [place], [place] | [place], [place] | | | | | [address] | [address] | | | | | [phone] | | | +--------+ + + + [...]
--- OUTSIDE RECORDS SUMMARY | ~2019-03-31 | XMS | Encounter Summary ---
Demographics + + + | Address | [address] | | | [place] [address] | + + + | Home Phone | | + + + | Preferred Language | Unknown | + + + | Marital Status | Single | + + + | Jain Affiliation | Unknown | + + + | Race | Unknown | + + + | Ethnic Group | Unknown | + + + Author + + + | Author | [facility] | | | and [place]ana | + + + | Organization | [facility] | | | and [...] Team Providers + +------+ + | Care Lead Setter Name | Role | Phone | + +------+ + | Kyle Trevizo MD | PCP | | + +------+ + Encounter Details +--------+ + + + + | Date | Type | Department | Care Team | Description | +--------+ + + + + | 12/31/ | Hospital | [facility] | Ac Elder | Kidney stone | | 2018 | Encounter | MED [facility] | MD Esteban [address] | (Primary Dx); | | | | [address] | [place], [place] | Calculus of kidney | | | | [place], [place] | [address] | | | | | [address] | | | | | | [phone] | | | +--------+ + + + [...] + + + | Blood Pressure | 98/82 | 12/31/2017 11:00 AM | pt mvoement | | | | PDT | | + + + + + | Pulse | 82 | 12/31/2017 11:00 AM | | | | | PDT | | + + + + + | Temperature | 36.3 C (97.3 F) | 12/31/2017 9:40 AM | | | | | PDT | | + + + + + | Respiratory Rate | 14 | 12/31/2017 10:00 AM | | | | | PDT | | + + + + + | Oxygen Saturation | 99% | 12/31/2017 11:00 AM | | | | | PDT | | + + + + + | Inhaled Oxygen | - | - | | | Concentration | | | | + + + + + | Weight | 69.9 kg (154 lb 1.6 | 12/31/2017 6:25 AM | | | | oz) | PDT | | + + + + + | Height | 177.8 cm (5' 10") | 12/31/2017 6:25 AM | | | | | PDT | | + + + + + | Body Mass Index | 22.11 | 12/31/2017 6:25 AM | | | | | PDT | | + + + + + documented in this encounter Discharge Instructions Instructions Sebastián Sánchez RN - 12/31/2017Formatting of this note might be different fr om the original. F/u in the clinic in 2 weeks for possible cysto stent removal Recovery After Procedural Sedation (Adult) You have [...] You can't be awakened Date Last Reviewed: 02/19/201619992705-5861 [employer]. [address] [place] [address]. All righ ts reserved. This information is not intended as a substitute for professional medical care. Always follow your healthcare professional's instructions. Cystoscopy Cystoscopy is a procedure that lets your doctor look directly inside your urethra and bladd er. It can be used to: Help diagnose a problem with your urethra, bladder, or kidneys. Take a sample (biopsy) of bladder or urethral tissue. Treat certain problems (such as removing kidney stones). Place a stent to bypass an obstruction. Take special X-rays of the kidneys. Based on the findings, your doctor may recommend other tests or treatments. What is a cystoscope? A cystoscope is a telescope-like instrument that contains lenses and fiberoptics (small gla ss wires that make bright light). The cystoscope may be straight and rigid, or flexible to b end around curves in the urethra. The doctor may look directly into the cystoscope, or proje ct the image onto a monitor. Getting ready Ask your doctor if you should stop taking any medicines before the procedure. Ask whether you should avoid eating or drinking anything after midnight before the proce dure. Follow any other instructions your doctor gives you. Tell yourdoctor before the exam if you: Take any medicines, such as aspirin or blood thinners Have allergies to any medicines Are The procedure Cystoscopy is done in the doctor s office, surgery center, or hospital. The doctor and a nurse are present during the procedure. It takes only a few minutes, longer if a biopsy, X-r ay, or treatment needs to be done. During the procedure: You lie on an exam table on your back, knees bent and legs apart. You are covered with a drape. Your urethra and the area around it are washed. Anesthetic jelly may be applied to numb the urethra. Other pain medicine is usually not needed. In some cases, you may be offered a mild sedative to help you relax. If a more extensive procedure is to be done, such as a biop sy or kidney stone removal, general anesthesia may be needed. The cystoscope is inserted. A sterile fluid is put into the bladder to expand it. You ma y feel pressure from this fluid. When the procedure is done, the cystoscope is removed. After the procedure If you had a sedative, general anesthesia, or spinal anesthesia, you must have someone driv e you home. Once you re home: Drink plenty of fluids. You may have burning or light bleeding when you urinate this is normal. Medicines may be prescribed to ease any discomfort or prevent infection. Take these as d irected. Call your doctor if you have heavy bleeding or blood clots, burning that lasts more than a day, a fever [id number] (38 C), or trouble urinating. Date Last Reviewed: 05/04/201619995051-9821 [employer]. [address] [place] [address], [place] [address]. All righ ts reserved. This information is not intended as a substitute for professional medical care. Always follow your healthcare professional's instructions. documented in this encounter Medications at Time [...] tablets by | 30 | 0 | 01/01/20 | | | HYDROcodone-acetamin | mouth every 4 hours | tablet | | 18 | 8 | | ophen (NORCO) 5-325 | as [...] + | FL PYELOGRAM | Routin | 12/31/2017 | | Results for this | | RETROGRADE | e | 9:39 AM | | procedure are in the | | | | PDT | | results section. | + +--------+ + + + | CYSTOSCOPY | | 12/31/2017 | Nephrolithiasis | | | URETEROSCOPY W/ | | 7:48 AM | (N20.0) | | | LASER | | PDT | | | + +--------+ + + + documented in this encounter Results FL Pyelogram Retrograde (12/31/2017 9:39 AM PDT) + + | Specimen | [...] + | Diagnosis | + + | Kidney stone - Primary Calculus of kidney | + + | Calculus of kidney | + + documented in this encounter Administered Medications + +--------+ + +------+------+ | Medication Order | MAR | Action | Dose | Rate | Site | | | Action | Date | | | | + +--------+ + +------+------+ | acetaminophen (TYLENOL) tablet | Given | 01/01/20 | 1,000 mg | | | | 1,000 mg 1,000 mg, Oral, ONCE, | | 18 7:15 | | | | | Radha 12/31/17 at 0715, For 1 dose, | | AM PDT | | | | | Pre-op | | | | | | + +--------+ + +------+------+ + +---+ | | | + +---+ | albuterol 2.5 mg/3 mL nebulizer | | | solution 2.5 mg 2.5 mg, | | | Nebulization, ONCE PRN, Wheezing, | | | Starting Radha 12/31/17 at 0924, | | | For 1 dose, Notify anesthesia if | | | patient is wheezing and does not | | | have a history of asthma or COPD | | | or current smoking., | | | Recovery/Phase I | | + +---+ | | | + +---+ | albuterol-ipratropium 2.5-0.5 | | | mg/3 mL nebulizer solution 3 mL | | | 3 mL, Nebulization, ONCE PRN, | | | Wheezing, Shortness of Breath, | | | Starting Radha 12/31/17 at 0924, For | | | 1 dose, Recovery/Phase I | | + +---+ | | | + +---+ + +-------+ +--------+---+---+ | ciprofloxacin (CIPRO) tablet | Given | 01/01/20 | 500 mg | | | | 500 mg 500 mg, Oral, ONCE, Radha | | 18 7:35 | | | | | 12/31/17 at 0800, For 1 dose, Give | | AM [...] glucose < 50, | | | Starting Radha 12/31/17 at 0656, | | | Repeat in 15 min [...] | | blood glucose < 50, Starting Radha | | | 12/31/17 at 0924, Give over 2 min. | | | [...] if SBP <90., Starting | | | Radha 12/31/17 at 0924, Hold if HR > | | | 100. Maximum total dose 20mg., | | | Recovery/Phase I | | + +---+ | | | + +---+ | fentaNYL (PF) injection 25-50 | | | mcg 25-50 mcg, Intravenous, | | | EVERY 5 MIN PRN, Pain, Starting | | | Radha 12/31/17 at 0924, Maximum | | | total dose 250 mcg. PACU IV | | | Narcotic Priority: Only use | | | fentanyl for immediate post-op | | | pain (one dose) or breakthrough | | | pain when any other IV narcotics | | | ordered have been ineffective (if | | | ordered). If both morphine and | | | hydromorphone are ordered, use | | | morphine first, and use | | | hydromorphone if morphine | | | ineffective., Recovery/Phase I | | + +---+ | | | + +---+ | hydrALAZINE (APRESOLINE) | | | injection 5 mg 5 mg, | | | Intravenous, EVERY 20 MINUTES | | | PRN, For SBP > 180, DBP > 100, | | | Starting Radha 12/31/17 at 0924, | | | Hold if HR > 100. Maximum total | | | dose 40 mg. Use labetalol first | | | if available., Recovery/Phase I | | + +---+ | | | + +---+ | HYDROmorphone (DILAUDID) | | | injection 0.2-0.4 mg 0.2-0.4 mg, | | | Intravenous, EVERY 1 HOUR PRN, | | | Pain, Starting Radha 12/31/17 at | | | 1006, If oral route not an | | [...] 0.2-0.5 mg, | | | Intravenous, EVERY 5 MIN PRN, | | | Pain, Starting Radha 12/31/17 at | | | 0924, Maximum total dose 4 mg. | | [...] DBP > 100, Starting | | | Radha 12/31/17 at 0924, Hold if HR < | | | [...] PDT | | | | +---------+ +--------+-------+---+ + +---+ | | | + +---+ | metoclopramide (REGLAN) 5 mg/mL | | | injection 10 mg 10 mg, | | | Intravenous, EVERY 6 HOURS PRN, | | | Nausea, Vomiting, Starting Radha | | | 12/31/17 at 0924, For 2 doses, | | | Protect from light., | | | Recovery/Phase I | | + +---+ | | | + +---+ + +-------+ +------+---+---+ | ondansetron (ZOFRAN ODT) | Given | 01/01/20 | 8 mg | | | | disintegrating tablet 8 mg 8 mg, | | 18 7:16 | | | | | Oral, ONCE, Radha 12/31/17 at 0715, | | AM PDT | | | | | For 1 dose, Please administer in | | | | | | | pre-op prior to procedure, | | | | | | | Pre-op | | | | | | + +-------+ +------+---+---+ + +---+ | | | + +---+ | ondansetron (ZOFRAN) injection | | | 4 mg 4 mg, Intravenous, ONCE | | | PRN, Nausea, Starting Radha 12/31/17 | | | at 0924, For 1 dose, | | | Recovery/Phase I | | + +---+ | | | + +---+ | oxyCODONE (ROXICODONE) tablet | | | 2.5-10 mg 2.5-10 mg, Oral, EVERY | | | 3 HOURS PRN, Pain, Starting Radha | | | 12/31/17 at 1006, First dose must | | | be [...] +---+ | | | + +---+ | phenazopyridine (PYRIDIUM) | | | tablet 200 mg 200 mg, Oral, 3 | | | TIMES DAILY PRN, Urinary | | | Symptoms, urinary burning., | | | Starting Radha 12/31/17 at 1006, | | | Administer with meals., | | | Post-op/Phase II | | + +---+ | | | + +---+ | promethazine (PHENERGAN) (IV | | | ONLY) injection 6.25 mg 6.25 mg, | | | Intravenous, EVERY 15 MIN PRN, | | | Nausea, Vomiting, Starting Radha | | | 12/31/17 at 0924, For 4 doses, | | | TAKE PRECAUTIONS WHEN | | | ADMINISTERING Dilute to 10-20mL | | | with NS. Give over 2-3 minutes | | | into large vein. Use ondansetron | | | first if both are ordered., | | | Recovery/Phase I | | + +---+ | | | + +---+ | tamsulosin (FLOMAX) capsule 0.4 | | | mg 0.4 mg, Oral, DAILY AFTER | | | BREAKFAST, First dose on Radha | | | 12/31/17 at 1030, May open capsule | | | and sprinkle over acidic soft | | | food (applesauce, yogurt) or in a | | | small quantity of acidic fruit | | | juice (orange, grape). Do not | | | crush, chew or dissolve | | | granules., Post-op/Phase II | | + +---+ | | | + +---+ documented in this encounter
--- OUTSIDE RECORDS SUMMARY | ~2019-03-31 | XMS | Encounter Summary ---
Demographics + + + | Address | [address] | | | [place] [address] | + + + | Home Phone | | + + + | Preferred Language | Unknown | + + + | Marital Status | Single | + + + | Advent Affiliation | Unknown | + + + | Race | Unknown | + + + | Ethnic Group | Unknown | + + + Author + + + | Author | [facility] | | | and [place] | + + + | Organization | [facility] | | | and [place]ana [...] Team Providers + +------+ + | Care Mastic Sprayer Name | Role | Phone | + [...] [address] | | | | | [phone] | [place] [address] | | +--------+ + + + + [...]
--- OUTSIDE RECORDS SUMMARY | ~2019-03-31 | XMS | Encounter Summary ---
Demographics + + + | Address | [address] | | | [place] [address] | + + + | Home Phone | | + + + | Preferred Language | Unknown | + + + | Marital Status | Single | + + + | Anabaptist Affiliation | Unknown | + + + | Race | Unknown | + + + | Ethnic Group | Unknown | + + + Author + + + | Author | [facility] | | | and [place] | + + + | Organization | [facility] | | | and Brianana [...] Team Providers + +------+ + | Care Field Representatives Director Name | Role | Phone | + +------+ + | Kyle Trevizo MD | PCP | | + +------+ + Reason for Visit + + + | Reason | Comments | + + + | Nephrolithiasis | | + + + Encounter Details +--------+ + + + + | Date | Type | Department | Care Team | Description | +--------+ + + + + | 01/13/ | Telephone | [facility] | Ac Elder | Nephrolithiasis | | 2017 | | [address] | MD Esteban [address] | | | | | [place], [place] | [place], [place] | | | | | [address] | [address] | | | | | [phone] | | | +--------+ + + + [...] Diagnosis | + + | Kidney stone on left side - Primary Calculus of kidney | + + documented in this encounter"
--- OUTSIDE RECORDS SUMMARY | ~2019-03-31 | XMS | Encounter Summary ---
Demographics + + + | Address | [address] | | | [place] [address] | + + + | Home Phone | | + + + | Preferred Language | Unknown | + + + | Marital Status | Single | + + + | Restorationist Affiliation | Unknown | + + + | Race | Unknown | + + + | Ethnic Group | Unknown | + + + Author + + + | Author | [facility] | | | and [place] | + + + | Organization | [facility] | | | and [place] [...] Team Providers + +------+ + | Care Bag Loader Name | Role | Phone | + +------+ + | No, Physician | PCP | Unavailable | + +------+ + Reason for Referral Evaluate & Treat (Urgent) +--------+ + + + + + | Status | Reason | Specialty | Diagnoses / | Referred By | Referred To | | | | | Procedures | Contact | Contact | +--------+ + + + + + | Closed | Specialty | Oncology / | Diagnoses | [facility], | [facility] | | | Services | Hematology | Pain in | Lys[place] | Oncology | | | Required | and Oncology | thoracic | Jag Medrano, | Clinic [address] | | | | spine | MD [address] [place] | | | | | [address] | [place], | | | | | | [place] | [place] [address] | | | | | | [place], [place] | Phone: | | | | | | [address] | [phone] | | | | | | Phone: | Fax: | | | | | | [phone] | [phone] | | | | | | Fax: | | | | | | | [phone] | | +--------+ + + + + + Reason for Visit +---------+ + | Reason | Comments | +---------+ + | Results | | +---------+ + Encounter Details +--------+ + + + + | Date | Type | Department | Care Team | Description | +--------+ + + + + | 02/21/ | Telephone | [facility] | Kylee Swift | Results | | 2014 | | CARE [address] | Jag Medrano MD | | | | | [place] | [address] | | | | | [address] | [place] | | | | | [phone] | [address] | | | | | | | [...] as of this encounter Plan of Treatment + + +--------+ + + | Name | Type | Priori | Associated Diagnoses | Order Schedule | | | | ty | | | + + +--------+ + + | * [facility] | Outpatient | Routin | Pain in thoracic | Ordered: 02/21/2015 | | Oncology Clinic - | Referral | e | spine | | | AMB Referral | | | | | + + +--------+ + + documented as of this encounter Visit Diagnoses + + | Diagnosis | + + | Pain in thoracic spine - Primary | + + documented in this encounter"
--- OUTSIDE RECORDS SUMMARY | ~2019-03-31 | XMS | Encounter Summary ---
Demographics + + + | Address | [address] | | | [place] [address] | + + + | Home Phone | | + + + | Preferred Language | Unknown | + + + | Marital Status | Single | + + + | Church Affiliation | Unknown | + + + | Race | Unknown | + + + | Ethnic Group | Unknown | + + + Author + + + | Author | [facility] | | | and [place] | + + + | Organization | [facility] | | | and [...] Team Providers + +------+ + | Care Patient Intake Coordinator Name | Role | Phone | + +------+ + | Francisca Cortes MD | PCP | | + +------+ + Encounter Details +--------+ + + + + | Date | Type | Department | Care Team | Description | +--------+ + + + + | 03/05/ | Hospital | [facility] | Panchito Candelaria, | Monoclonal | | 2015 | Encounter | [facility] | MD [address] | gammopathy | | | | [facility]OGY CLINIC [address] [place], | | | | | [place] | [place] [address] | | | | | [place] [address] | [phone] | | | | | [phone] | | | +--------+ + + + [...] | | | | | [place] [address] | | | | + + + [...] [address] | [place] [address] | [phone] | + + + + + Protein, [...] ST. | [address] | [place] | [phone] | | [facility] | | [address] | | | - LABORATORY | | | | + + + + + documented in this encounter Visit Diagnoses + + | Diagnosis | + + | Monoclonal gammopathy Monoclonal paraproteinemia | + + documented in this encounter"
--- OUTSIDE RECORDS SUMMARY | ~2019-03-31 | XMS | Encounter Summary ---
Demographics + + + | Address | [address] | | | [place] [address] | + + + | Home Phone | | + + + | Preferred Language | Unknown | + + + | Marital Status | Single | + + + | Sabianism Affiliation | Unknown | + + + | Race | Unknown | + + + | Ethnic Group | Unknown | + + + Author + + + | Author | [facility] | | | and [place] | + + + | Organization | [facility] | | | and [...] Team Providers + +------+ + | Care Registered Nurse Maternity Name | Role | Phone | + [...] exchange | | | | [address] | [address] [place], [place] | | | | | [place], [place] | [address] | | | | | [address] | | | | | | [phone] | | | +--------+---------+ + + + [...] You can't be awakened Date Last Reviewed: 02/19/201619993693-5180 [employer]. [address] [place] [address]. All righ ts reserved. This information is [...]
--- OUTSIDE RECORDS SUMMARY | ~2019-03-31 | XMS | Encounter Summary ---
Demographics + + + | Address | [address] | | | [place] [address] | + + + | Home Phone | | + + + | Preferred Language | Unknown | + + + | Marital Status | Single | + + + | Caodaism Affiliation | Unknown | + + + | Race | Unknown | + + + | Ethnic Group | Unknown | + + + Author + + + | Author | [facility] | | | and Brianana | + + + | Organization | [facility] | | | and Brianana [...] Team Providers + +------+ + | Care Associate Professor Of Medicine Name | Role | Phone | + +------+ + | Kyle Trevizo MD | PCP | | + +------+ + Reason for Visit + + + | Reason | Comments | + + + | Nephrolithiasis | | + + + Evaluate & Treat (Routine) +--------+--------+ + + + + | Status | Reason | Specialty | Diagnoses / | Referred By | Referred To | | | | | Procedures | Contact | Contact | +--------+--------+ + + + + | Closed | | Urology | Diagnoses | [facility] | | | | | | Indira Hemphill, | Urology [address] | | | | | Nephrolithia | [address] | [address] | | | | | sis | [place] | [place], | | | | | | [place], | [place] [address] | | | | | | [place] | Phone: | | | | | | [address] | [phone] | | | | | | Phone: | Fax: | | | | | | [phone] | [phone] | | | | | | Fax: | | | | | | | [phone] | | +--------+--------+ + + + + Encounter Details +--------+---------+ + + + | Date | Type | Department | Care Team | Description | +--------+---------+ + + + | 12/28/ | Office | [facility] | Ac Elder | Nephrolithiasis | | 2018 | Visit | [address] | MD Esteban [address] | (Primary Dx); Gross | | | | [place], [place] | [place], [place] | hematuria; | | | | [phone] | [phone] | Proteinuria, | | | | [phone] | | unspecified type; | | | | | | Pyuria; Angina | | | | | | pectoris, | | | | | | unspecified ([facility]) | +--------+---------+ + + + Social History [...] + + + | Blood Pressure | 118/84 | 12/28/2017 4:18 PM | | | | | PDT | | + + + + + | Pulse | 84 | 12/28/2017 4:18 PM | | | | | PDT | | + + + + + | Temperature | - | - | | + + + + + | Respiratory Rate | 20 | 12/28/2017 4:18 PM | | | | | PDT | | + + + + + | Oxygen Saturation | - | - | | + + + + + | Inhaled Oxygen | - | - | | | Concentration | | | | + + + + + | Weight | 69.3 kg (152 lb 12.5 | 12/28/2017 4:18 PM | | | | oz) | PDT | | + + + + + | Height | 173 cm (5' 8.11") | 12/28/2017 4:18 PM | | | | | PDT | | + + + + + | Body Mass Index | 23.15 | 12/28/2017 4:18 PM | | | | | PDT | | + + + + + documented in this encounter Patient Instructions Patient Instructions Joyce Walden RN - 12/28/2017 4:30 PM PDTPreoperative Instructi ons Your surgery with Dr. Elder has been scheduled for December 31, 2017 at 7:45 AM at [facility]. Please report to Outpatient [facility] no later than 6:15 AM. REMEMBER: NOTHING TO EAT OR DRINK AFTER MIDNIGHT December 30, 2017. Take all of your usual medications with a sip of water. NO ASPIRIN OR ASPIRIN PRODUCTS, NO FISH OIL OR VITAMIN E FOR ONE WEEK PRIOR TO SURGERY. Ty lenol (acetaminophen) and ibuprofen is OK. Pre Admissions Clinic is scheduled for tomorrow at 9 AM You will need someone to drive you home after surgery. Call us at [phone] with any questions. [x] Pain management booklet provided to patient. documented in this encounter Progress Notes Ac Elder MD - 12/28/2017 4:30 PM PDTFormatting of this note might be different f rom the original. Chief Complaint Patient presents with Nephrolithiasis HPI Ry Rubin is a 67 y.o. male patient of Kyle Trevizo MD here today for an evaluatio n for nephrolithiasis. In April 2017 presented with abdominal pain and flank pain on the right. Underwent CT s can Which showed distal right stone on the right and approx 15 mm stone in the renal pelvis on the left. Patient has subsequently passed the right kidney stone. Then had acute left flank pain and had CT scan which showed stone at the UPJ at approx 18mm . Underwent stent placement approx 6 weeks ago. Today complains of frequency, urgency, left flank pain. Takes flomax for the stent pain. Assessment Ry was seen today for nephrolithiasis. Diagnoses and all orders for this visit: Nephrolithiasis - POCT Urinalysis Dipstick Automated - Urinalysis, Microscopic Only, with Culture if Indicated Gross hematuria - POCT Urinalysis Dipstick Automated - Urinalysis, Microscopic Only, with Culture if Indicated Proteinuria, unspecified type - POCT Urinalysis Dipstick Automated - Urinalysis, Microscopic Only, with Culture if Indicated Pyuria - POCT Urinalysis Dipstick Automated - Urinalysis, Microscopic Only, with Culture if Indicated Plan We'll try and schedule patient within the next several days for left-sided ureteroscopy las er lithotripsy and stent placement. Stone was quite large however it is less than 2 cm. I feel it is a reasonable approach to treat the stone using ureteroscopy. We discussed the ri sks including ureteral perforation, ureteral stricture, urine leak, renal hematoma, pain, bl eeding, infection and need for further procedures. We also discussed that because the patie nt's stent has been in for so long it is possible that is become quite calcified. If the st ent is calcified it may take a prolonged procedure to remove the calcified stent. This woul d most likely result in multiple procedures to clear the patient from the stone. Given irritative voiding symptoms will start patient on Pyridium as well as oxybutynin. Past Medical History Past Medical History: Diagnosis Date Anemia Anxiety Arthritis Chronic pain syndrome 03/27/2015 Depression Encounter for blood transfusion 1984 During spinal surgery Heart attack (HCC) 1990 History of kidney stones Hyperlipidemia Kidney stones Left-sided thoracic back pain 03/27/2015 MGUS (monoclonal gammopathy of unknown significance) 04/13/2015 TN (mitral incompetence) Multiple facial bone fractures (HCC) Rheumatoid arthritis (HCC) Venereal disease Past Surgical History Past Surgical History: Procedure Laterality Date GALLBLADDER SURGERY 10/28/2017 Dr. Goins in [place] @ [facility] LITHOTRIPSY 2001 LITHOTRIPSY 2011 LUMBAR SPINE SURGERY 1984 SPINE SURGERY 1984 grafted his rib and replaced disc between T8 and T9 Family History: Family History Problem Relation Age of Onset Lymphoma Father 80 Diabetes Mother Heart attack Mother Breast cancer Sister 70 Heart attack Sister 68 Arthritis Other unknown relation Prostate cancer Neg Hx Social History: Social History Social History Marital status: Single Spouse name: N/A Number of children: 4 Years of education: 12 Occupational History [employer]: [employer] Social History Main Topics Smoking status: Former Smoker Packs/day: 0.50 Years: 45.00 Quit date: 10/29/2017 Smokeless tobacco: Never Used Comment: Started at age 12 Alcohol use No Drug use: Yes Types: Marijuana, Heroin, Cocaine Comment: Has a Medical Marijuana Card. Did Heroin and Cocaine from age 15 until 1990. Sexual activity: Not Asked Other Topics Concern None Social History Narrative None No Known Allergies Medications: Current Outpatient Prescriptions: nitroglycerin (NITROSTAT) 0.4 mg SL tablet, Place 0.4 mg under the tongue every 5 nilda marisa as needed for Chest pain., Disp: , Rfl: tamsulosin (FLOMAX) 0.4 mg CAPS, Take 1 capsule oral daily, Disp: , Rfl: ROS Objective BP 118/84 | Pulse 84 | Resp 20 | Ht 1.73 m (5' 8.11") | Wt 69.3 kg (152 lb 12.5 oz) | BMI 23.15 kg/m General Appearance: Alert, cooperative, no distress, appears stated age Head: Normocephalic, without obvious abnormality, atraumatic Eyes: conjunctiva/corneas clear, EOM's intact Throat: Lips, mucosa, and tongue normal; no gross deformities, mmm Neck: Supple, symmetrical, no adenopathy Lungs: Regular, unlabored breathing MS left CVA tenderness, no spinal tenderness, no scoliosis present Normal external genitalia, no erythema, edema or rash Abdomen: Soft, non-tender, no masses Extremities: Extremities normal, atraumatic, no cyanosis, clubbing, or edema Pulses: Radial pulses 2+ and symmetric Skin: Warm and dry Lymph nodes: Cervical and supraclavicular nodes normal Neurologic: Gait normal, CN 2-12 grossly intact; Strength and sensation grossly normal in b ilateral upper and lower extremities Data: CT scan the abdomen and pelvis November 2017 I personally reviewed and interpreted CT scan images. Significant for large stone in the l eft UPJ. This is approximately 18 mm in size. There is also associated periureteral fat s tranding and evidence of edema. There is no other stone seen. The right kidney appears re latively normal. There is no evidence of hydronephrosis stone or mass REVIEW OF SYSTEMS: [] Marked All Negative Constitutional Symptoms: [] Fever [] Chills [x] Headache [x] Change in appetite [x] Change in weight [x] Change in energy [] Other: Neurological: [] Tremors [x] Dizzy Spells [x] Numbness/Tingling [] Seizures [] Other: Endocrine: [x] Excessive thirst [] Too hot [] Too cold [x] Tired/Sluggish Gastrointestinal: [x] Abdominal pain [] Nausea/Vomiting [] Indigestion/heartburn [x] Change in st ool size [] Change in stool shape [] Change in stool color [] Pain with swallowi ng [] Other: Cardiovascular: [x] Chest Pain [] Rapid heart rate [] High blood pressure [] Other: Integumentary: [] Skin rash [] Boils [] Persistent itch [] Other: Musculoskeletal: [] Neck Pain [] Joint swelling/pain [x] Back pain [x] Bone pain [] Other: Respiratory: [] Wheezing [] Frequent cough [] Shortness of breath [] Other: Hematologic/Lymphatic: [] Swollen glands [] Blood clotting issues [] Prior blood transfusions []Other: Psychologic: Are you generally satisfied with your life? no Do you feel severely depressed? no Have you considered suicide? no Habits: Do you smoke? no IPSS (International Prostate Symptom Score) IPSS (INTERNATIONAL PROSTATE SYMPTOM SCORE) 12/28/2017 1. Incomplete Emptying - How often have you had the sensation of not emptying your bladder? 0 2. Frequency - How often have you had to urinate less than every two hours? 5 3. Intermittency - How often have you found you stopped and started again several times whe n you urinated? 0 4. Urgency - How often have you found it difficult to postpone urination? 5 5. Weak Stream - How often have you had a weak urinary stream? 1 6. Straining - How often have you had to strain to start urination? 0 7. Nocturia - How many times did you typically get up at night to urinate? 4 TOTAL: 15 QUALITY OF LIFE (URINARY) 12/28/2017 If you were to spend the rest of your life with your urinary condition just the way it is n ow, how would you feel about that? 6 Results for orders placed or performed in visit on 12/28/17 POCT Urinalysis Dipstick Automated Result Value Ref Range Color, UA, POC Red (A) Yellow, Light Yellow Clarity, UA, POC Turbid Glucose, UA, POC Negative Negative Bilirubin, UA, POC Small (A) Negative Ketones, UA, POC Trace (A) Negative, 100 mg/dL Specific Osgood, UA, POC 1.025 1.001 - 1.030 Blood, UA, POC Large (A) Negative pH, UA, POC 6.0 5.0, 6.0, 7.0, 8.0, 5.5, 6.5, 7.5 Protein, UA, POC 300 mg/dL (A) Negative Urobilinogen, UA, POC 1.0 E.U./dL 0.2, Negative, Normal, < 0.2 mg/dL, 1 mg/dL, < 0.2 E.U./ dl, 1.0 E.U./dL, 0.2 mg/dL Nitrite, UA, POC Negative Negative Leukocyte Esterase, UA, POC Small (A) Negative RED SUB UA ICTOTEST Negative REMARK Lab Results Component Value Date CREA 0.96 02/15/2015 Kyle Trevizo MD's notes were reviewed in clinic today. No Follow-up on file.. This document was generated in part using voice recognition software. Frequent wrong word or sound-alike substitutions may have occurred due to the inherent limitations of the voice recognition software. Although I have attempted to edit the content, I have not thoroughly proofread this note, and laundry routeman errors are very likely to occur. CC: Kyle Trevizo MD documented in this encounter Plan of Treatment Not on filedocumented as of this encounter Procedures + +--------+ + + + | Procedure Name | Priori | Date/Time | Associated Diagnosis | Comments | | | ty | | | | + +--------+ + + + | POCT URINALYSIS, | Routin | 12/28/2017 | Nephrolithiasis | Results for this | | AUTO WITH CONF | e | 4:28 PM | Gross hematuria | procedure are in the | | | | PDT | Proteinuria, | results section. | | | | | unspecified type | | | | | | Pyuria | | + +--------+ + + + | URINALYSIS, | Routin | 12/28/2017 | Nephrolithiasis | Results for this | | MICROSCOPIC ONLY, | e | 4:24 PM | Gross hematuria | procedure are in the | | WITH CULTURE IF | | PDT | Proteinuria, | results section. | | INDICATED | | | unspecified type | | | | | | Pyuria | | + +--------+ + + + | CULTURE, URINE | Routin | 12/28/2017 | Nephrolithiasis | Results for this | | | e | 4:24 PM | Gross hematuria | procedure are in the | | | | PDT | Proteinuria, | results section. | | | | | unspecified type | | | | | | Pyuria | | + +--------+ + + + [...] [facility] | | [facility] | [facility] | | | | | | [facility] - | | | | | | LABORATORY | | + +-------+ + + + | RBC | 4.50 | 4.30 - 5.70 | [facility] | | | | | M/uL | [facility] | | | | [...] | | | | | | [facility] | | | | | | MEDICAL [...] | | Neutrophils | | K/uL | [facility] | | | | | | [facility]ICAL | | | | | | CENTER - | | | | | | LABORATORY | | + +-------+ + + + | Absolute | 2.60 | 0.60 - 3.20 | [facility] | | | Lymphocytes | | K/uL | [facility] | | | | | | MEDICAL | | | | | | CENTER - | | | | | | LABORATORY | | + +-------+ + + + | Absolute | 0.50 | 0.00 - 1.00 | [facility] | | | Monocytes | | K/uL | [facility] | | | | | | MEDICAL | | | | | | CENTER - | | | | | | LABORATORY | | + +-------+ + + + | Absolute | 0.10 | 0.00 - 0.40 | [facility] | | | Eosinophils | | K/uL | [facility] | | | | | | MEDICAL | | | | | | CENTER - | | | | | | LABORATORY | | + +-------+ + + + | Absolute | 0.00 | 0.00 - 0.10 | [facility] | | | Basophils | | K/uL | [facility] | | | | [...] [address] | [place] | [phone] | | [facility] | | [address] | | | - LABORATORY | | [...] | | | | mmol/L | [facility] | | | | | | MEDICAL | | | | | | CENTER - | | | | | | LABORATORY | | + + + + + + | K | 3.8 | 3.5 - 5.1 | [facility] | | | | | mmol/L | [facility] | | | | [...] 18 | 7 - 18 mg/dL | [facility] | | | | | | [facility] | | | | | | MEDICAL | | | | | | CENTER - | | | | | | LABORATORY | | + + + + + + | Creatinine | 0.94 | 0.60 - 1.30 | [facility] | | | | | mg/dL | [facility] | | | | | | MEDICAL | | | | | | CENTER - | | | | | | LABORATORY | | + + + + + + | eGFR if not | >60Comment: GLOMERULAR | >=60 | [facility] | | | | FILTRATION | mL/min/1.73m2 | [facility] | | | MONGOLIAN | RATE,ESTIMATED | | MEDICAL | | | | mL/min/1.34e2Utwh than | | CENTER - | | [...] | [address] | [address] | [place] | [phone] | | [facility] | | [address] | | | - LABORATORY | | [...] | | | | TANYA TINEO MD ([id number]) | | | | | | on [...] | | | + +---------+ + + POCT Urinalysis Dipstick Automated (12/28/2017 4:28 PM PDT) + + + + + + | Component | Value | Ref Range | Performed | Pathologist | | | | | At | Signature | + + + + + + | Color, UA, | Red (A) | Yellow, Light | | | | POC | | Yellow | | | + + + + + + | Clarity, | Turbid | | | | | UA, POC | | | | | + + + + + + | Glucose, | Negative | Negative | | | | UA, POC | | | | | + + + + + + | Bilirubin, | Small (A) | Negative | | | | UA, POC | | | | | + + + + + + | Ketones, | Trace (A) | Negative, 100 | | | | UA, POC | | mg/dL | | | + + + + + + | Specific | 1.025 | 1.001 - 1.030 | | | | Osgood, | | | | | | UA, POC | | | | | + + + + + + | Blood, UA, | Large (A) | Negative | | | | POC | | | | | + + + + + + | pH, UA, POC | 6.0 | 5.0, 6.0, 7.0, | | | | | | 8.0, 5.5, 6.5, | | | | | | 7.5 | | | + + + + + + | Protein, | 300 mg/dL (A) | Negative | | | | UA, POC | | | | | + + + + + + | Urobilinoge | 1.0 E.U./dL | 0.2, Negative, | | | | n, UA, POC | | Normal, < 0.2 | | | | | | mg/dL, 1 mg/dL, | | | | | | < 0.2 E.U./dl, | | | | | | 1.0 E.U./dL, | | | | | | 0.2 mg/dL | | | + + + + + + | Nitrite, | Negative | Negative | | | | UA, POC | | | | | + + + + + + | Leukocyte | Small (A) | Negative | | | | Esterase, [...] + + | Urine | + + Culture, Urine (12/28/2017 4:24 PM PDT) + + + + + + | Component | Value | Ref Range | Performed | Pathologist | | | | | At | Signature | + + + + + + | Culture | No Growth | | [facility] | | | | | | [facility] | | | | | | MEDICAL | | | | | | CENTER - | | | | | | LABORATORY | | + + + + + + + + | Specimen | + + | Urine - Urine | | specimen obtained by | | clean catch | | procedure (specimen) | + + + + + + + | Performing | Address | City/State/Zipcode | Phone Number | | Organization | | | | + + + + + | [facility] | [address] | [place] | [phone] | | [facility] | | [address] | | | - LABORATORY | | | | + + + + + Urinalysis, Microscopic Only, with Culture if Indicated (12/28/2017 4:24 PM PDT) + + + + + + | Component | Value | Ref Range | Performed | Pathologist | | | | | At | Signature | + + + + + + | WBC UA | >100 (A) | 0 - 2 /HPF | [facility] | | | | | | [facility] | | | | | | MEDICAL | | | | | | CENTER - | | | | | | LABORATORY | | + + + + + + | RBC UA | >100 (A) | 0 - 2 /HPF | [facility] | | | | | | [facility] | | | | | | MEDICAL | | | | | | CENTER - | | | | | | LABORATORY | | + + + + + + | SQUAMOUS | 0-2 | 0 - 2 /LPF | [facility] | | | EPITHELIAL | | | [facility] | | | UA | | | MEDICAL | | | | | | CENTER - | | | | | | LABORATORY | | + + + + + + | BACTERIA UA | 1+ (A) | Negative /HPF | [facility] | | | | | | [facility] | | | | | | MEDICAL | | | | | | CENTER - | | | | | | LABORATORY | | + + + + + + | URINE | Urine Culture Set Up | | [facility] | | | COMMENT | | | [facility] | | | | | | MEDICAL | | | | | | CENTER - | | | | | | LABORATORY | | + + + + + + + + | Specimen | + + | Urine - Urine | | specimen obtained by | | clean catch | | procedure (specimen) | + + + + + + + | Performing | Address | City/State/Zipcode | Phone Number | | Organization | | | | + + + + + | [facility] | [address] | [place] | [phone] | | [facility] | | [address] | | | - LABORATORY | | | | + + + + + documented in this encounter Visit Diagnoses + + | Diagnosis | + + | Nephrolithiasis - Primary Calculus of kidney | + + | Gross hematuria | + + | Proteinuria, unspecified type | + + | Pyuria Other nonspecific finding on examination of urine | + + | Angina pectoris, unspecified (HCC) | + + documented in this encounter
--- OUTSIDE RECORDS SUMMARY | ~2019-03-31 | XMS | Encounter Summary ---
Demographics + + + | Address | [address] | | | [place] [address] | + + + | Home Phone | | + + + | Preferred Language | Unknown | + + + | Marital Status | Single | + + + | Rastafari Affiliation | Unknown | + + + | Race | Unknown | + + + | Ethnic Group | Unknown | + + + Author + + + | Author | [facility] | | | and [place] | + + + | Organization | [facility] | | | and [place] [...] Team Providers + +------+ + | Care Catapult And Arresting Gear Officer Name | Role | Phone | + +------+ + | Francisca Cortes MD | PCP | | + +------+ + Reason for Visit +--------+ + | Reason | Comments | +--------+ + | Other | | +--------+ + Encounter Details +--------+ + + + + | Date | Type | Department | Care Team | Description | +--------+ + + + + | 03/09/ | Telephone | [facility] | Panchito Candelaria, | Other | | 2015 | | [facility] | [address] [place] | | | | | [facility] [address] | [place], | | | | | [address] [place] | [place] [address] | | | | | [place] [address] | [phone] | | | | | [phone] | | | +--------+ + + + [...]
--- OUTSIDE RECORDS SUMMARY | ~2019-03-31 | XMS | Encounter Summary ---
Demographics + + + | Address | [address] | | | [place] [address] | + + + | Home Phone [...] Author + + + | Author | [facility] | | | and Brianana | + + + | Organization | [facility] | | | and [...] Team Providers + +------+ + | Care Forest Ranger Name | Role | Phone | + +------+ + | Yocasta Lopez | PCP | | + +------+ + Reason for Visit + + + | Reason | Comments | + + + | Establish Care | Patient is here to Establish Care, former patient of Francisca | Robel | Sebastian in [place]. | + + + | Nephrolithiasis | Patient states he went to the ER in [place] at [facility] | [facility] and was told he had 3mm kidney stone on the right, which | | | has since passed. He currently has a 13mm kidney stone in his | | | left kidney, has pain in his left side, and cloudy urine. | + + + | Flank Pain | Patient has pain in his left side rated 12/10 today. He states he | | | was to have gall bladder surgery on July 27, but was feeling | | | sick, so he did not have surgery. He has not rescheduled. 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 [address] | ([facility]); Dilaudid use | | | | [address] | [place] | disorder, moderate | | | | [place] | [address] | ([facility]) | | | | [address] | | | | | | [phone] | | | +--------+---------+ + + + [...] + + + | Blood Pressure | 122/82 | 09/10/2017 5:04 PM | | | | | PDT | | + + + + + | Pulse | 65 | 09/10/2017 5:04 PM | | | | | PDT | | + + + + + | Temperature | 37.1 C (98.8 F) | 09/10/2017 5:04 PM | | | | | PDT | | + + + + + | Respiratory Rate | 18 | 09/10/2017 5:04 PM | | | | | PDT | | + + + + + | Oxygen Saturation | 96% | 09/10/2017 5:04 PM | | | | | PDT | | + + + + + | Inhaled Oxygen | - | - | | | Concentration | | | | + + + + + | Weight | 68.6 kg (151 lb 3.8 | 09/10/2017 5:04 PM | | | | oz) | PDT | | + + + + + | Height | 173 cm (5' 8.11") | 09/10/2017 5:04 PM | | | | | PDT | | + + + + + | Body Mass Index | 22.92 | 09/10/2017 5:04 PM | | | | | PDT | | + + + + + documented in this encounter Progress Notes Yocasta Lopez ARNP - 09/10/2017 4:30 PM PDTGeneral Anxiety Disorder (RIMMA-7): Total Sco re 15 (09/10/171699) (From RIMMA or Chronic Pain tab; printable questionnaires in Portuguese ) Interpretation of Total Score: 8-9 = consistent with Generalized anxiety disorder, >15 = se cony 1. Feeling nervous, anxious, or on edge?: Nearly every day (09/10/171699) 2. Not being able to stop or control worrying: Nearly every day (09/10/171699) 3. Worrying too much about different things?: Nearly every day (09/10/171699) 4. Trouble relaxing?: Nearly every day (09/10/171699) 5. Being so restless that it is hard to sit still?: Several Days (09/10/171699) 6. Becoming easily annoyed or irritable?: More than half the days (09/10/171699) 7. Feeling afraid as if something awful might happen?: Not at all (09/10/171699) PHQ9 Depression scale: Date of Last Screening Total Score 4 (09/10/171699) (Printable questionnaires in Portuguese ) Interpretation of Total Score: 1-4 = Minimal depression, 5-9 = Mild depression, 10-14 = Mod erate depression, 15-19 = Moderately severe depression, 20-27 = Severe depression 1. Little interest or pleasure in doing things?: Not at all (09/10/171699) 2. Feeling down, depressed, or hopeless: Not at all (09/10/171699) 3. Trouble falling or staying asleep, or sleeping too much?: Several days (09/10/171699 ) 4. Feeling tired or having little energy?: Not at all (09/10/171699) 5. Poor appetite or overeating: Nearly every day (09/10/171699) 6. Feeling bad about yourself - or that you are a failure or have let yourself or your f amily down?: Not at all (09/10/171699) 7. Trouble concentrating on things, such as reading the newspaper or watching television : Not at all (09/10/171699) 8. Moving or speaking so slowly that other people could have noticed. Or the opposite - being so fidgety or restless that you have been moving around a lot more than usual?: Not at all (09/10/171699) 9. Thoughts that you would be better off , or of hurting yourself in some way?: Not at all (09/10/171699) 10. If you checked off any problems, how difficult have these problems made it for you to do your work, take care of things at home, or get along with other people?: Not difficult at all (09/10/171699) ineath, ELLA Rucker TEXTILE COLORIST FORMULATOR - 09/10/2017 4:30 PM PDT Subjective: Patient ID: Ry Rubin is a 66 y.o. male. Chief Complaint Patient presents with Establish Care Patient is here to Establish Care, former patient of Francisca Cortes in [place]. Nephrolithiasis Patient states he went to the ER in [place] at [facility] and was told he had 3mm kidney stone on the right, which has since passed. He currently has a 13mm kidney stone in his left kidney, has pain in his left side, and cloudy urine. Flank Pain Patient has pain in his left side rated 12/10 today. He states he was to have gall bladde r surgery on July 27, but was feeling sick, so he did not have surgery. He has not resche duled. HPI Ry came presumably to establish care. From the minute I walked into the room her was dispa raging all medical providers and stating that he puts no trust in them. He listed on his medical history CAD, Kidney disease, Anxiety, STD, arthritis and has had b lood transfusion in the past. He had a spinae surgery in the past. He has a history of heroin and other substance abuse. He has been on methadone and states t hat he takes methadone 10 mg tablets: 40 mg every 12 hours. Says he took one dose today but has been out of it for 5 days. Later in the visit he contradicted himself and stated that he had 5 tablets left. He has not experienced any withdrawal symptoms. Recently he had kidney stone and was prescribed per his report Hydromorphone. He rsports t aking 2 mg in the Am and 4 mg in the pm. He says he also takes lorazepam 2 mg 1/2 tab in the morning and 1 Tab at bedtime. He states he is not really interested in any medical care other than getting refills of the se medications. He listed Crestor 10 mg and nitrostat 0.4 mg as other medications but states he does not ne ed any refill because he usually does not take them. He was last seen by Dr. Francisca Cortes in [place], [place]. He brought in a letter she hand wrote on a prescription pad. A copy of this letter is to be scanned to Media in [employer] In it she apologized but stated th at she had given him 2 months of methadone and other pain medication and urged him to find a pain or methadone clinic to manage his medications. He refused to sign a medical information release today. I discussed with him the fact that he is on extraordinarily high doses of these medications and anyone who prescribed by law would have to wean him down. I explained that I don't pres cribe methadone to any patients and I have not seen any patients in my 20 years of practice that took hydromorphone or Dilaudid on a routine basis. I told him that I would be happy to take care of his other medical needs but that he must f ind a methadone clinic or I could refer him to the [facility] for his chronic opioid us e. He was very argumentative and abrupt. He began using inappropriate language and got up and walked out stating he would not be back. Past Medical History: Diagnosis Date Anemia Anxiety Arthritis Chronic pain syndrome 03/27/2015 Depression Encounter for blood transfusion 1984 During spinal surgery Heart attack (HCC) 1990 History of kidney stones Hyperlipidemia Kidney stones Left-sided thoracic back pain 03/27/2015 MGUS (monoclonal gammopathy of unknown significance) 04/13/2015 SC (mitral incompetence) Multiple facial bone fractures (HCC) Rheumatoid arthritis (HCC) Past Surgical History: Procedure Laterality Date LITHOTRIPSY 2001 LITHOTRIPSY 2011 LUMBAR SPINE SURGERY 1984 SPINE SURGERY 1984 grafted his rib and replaced disc between T8 and T9 Family History Problem Relation Age of Onset Lymphoma Father 80 Prostate cancer Father Diabetes Mother Heart attack Mother Breast cancer Sister 70 Heart attack Sister 68 Arthritis Other unknown relation Social History Social History Marital status: Single Spouse name: N/A Number of children: 4 Years of education: 12 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 Did Heroin and Cocaine from age 15 until 1990. Sexual activity: Not Asked Other Topics Concern None Social History Narrative None Current Outpatient Prescriptions Medication Sig Dispense Refill HYDROmorphone (DILAUDID) 4 MG tablet Take 4 mg by mouth Daily. LORazepam (ATIVAN) 2 MG tablet Take 2 mg by mouth 2 times daily. methadone 10 mg tablet Take 40 mg by mouth Daily. nitroglycerin (NITROSTAT) 0.[address] 0.4 mg under the tongue every 5 minute s as needed for Chest pain. tamsulosin (FLOMAX) 0.4 mg CAPS Take 1 capsule oral daily No current facility-administered medications for this visit. Allergies No active allergies Intolerance No active intolerances/contraindications Review of Systems Constitutional: Positive for diaphoresis. Negative for chills, fever, malaise/fatigue and w eight loss. HENT: Negative for congestion, ear discharge, ear pain, hearing loss, nosebleeds, sinus dejah n, sore throat and tinnitus. Eyes: Negative for blurred vision, double vision, photophobia, pain, discharge and redness. Respiratory: Negative for cough, hemoptysis, sputum production, shortness of breath, wheezi ng and stridor. Cardiovascular: Negative for chest pain, palpitations, orthopnea, claudication, leg swellin g and PND. Gastrointestinal: Positive for nausea and vomiting. Negative for abdominal pain, blood in s tool, constipation, diarrhea, heartburn and melena. Genitourinary: Negative for dysuria, flank pain, frequency, hematuria and urgency. Musculoskeletal: Positive for joint pain. Negative for back pain, falls, myalgias and neck pain. Skin: Negative for itching and rash. Neurological: Negative for dizziness, tingling, tremors, sensory change, speech change, foc al weakness, seizures, loss of consciousness, weakness and headaches. Endo/Heme/Allergies: Negative for environmental allergies and polydipsia. Does not bruise/b leed easily. Psychiatric/Behavioral: Positive for memory loss. Negative for depression, hallucinations, substance abuse and suicidal ideas. The patient is not nervous/anxious and does not have ins omnia. Objective: BP 122/82 | Pulse 65 | Temp 37.1 C (98.8 F) (Temporal) | Resp 18 | Ht 1.73 m (5' 8. 11") | Wt 68.6 kg (151 lb 3.8 oz) | SpO2 96% | BMI 22.92 kg/m Physical Exam Constitutional: He is oriented to person, place, and time. HENT: Head: Normocephalic. Eyes: No scleral icterus. Cardiovascular: Normal rate. Pulmonary/Chest: Effort normal. No respiratory distress. Neurological: He is alert and oriented to person, place, and time. Gait normal. Skin: Skin is warm and dry. Psychiatric: Mood, memory, affect and judgment normal. Vitals reviewed. Assessment/Plan: 1. Methadone dependence (HCC) 2. Dilaudid use disorder, moderate (HCC) He wanted to establish care only to get opioid prescriptions. He does not appear to be in physical withdrawal of any of the medications he listed as taki ng daily at high doses but that he had only had 1 dose of methadone this morning after runni ng out 5 days ago. As he left I encouraged him to find a methadone clinic to provide care for him. He said "Fuck you." No Follow-up on file. Patient understands, accepts, and agrees with this plan. Greater than 30 minutes spent with patient regarding the above mentioned diagnoses in couns eling and coordination of care. Portions of this report were transcribed using [employer] voice recognition soft palmer. Although effort was made in correcting the errors; grammatical and sound alike errors may still be present. documented in this encounter Plan of Treatment Not on filedocumented as of this encounter Visit Diagnoses + + | Diagnosis | + + | Methadone dependence (HCC) Opioid type dependence, unspecified | + + | Dilaudid use disorder, moderate (HCC) | + + documented in this encounter
--- OUTSIDE RECORDS SUMMARY | ~2019-03-31 | XMS | Encounter Summary ---
Demographics + + + | Address | [address] | | | [place] [address] | + + + | Home Phone | | + + + | Preferred Language | Unknown | + + + | Marital Status | Single | + + + | Orthodox Affiliation | Unknown | + + + | Race | Unknown | + + + | Ethnic Group | Unknown | + + + Author + + + | Author | [facility] | | | and Brianana | + + + | Organization | [facility] | | | and Brianana [...] Team Providers + +------+ + | Care Rope Tow Operator Name | Role | Phone | + [...] | | | [facility] [address] | [place], | | | | | [place] | [place] [address] | | | | | [place] [address] | [phone] | | | | | [phone] | | | +--------+ + + + [...]
--- OUTSIDE RECORDS SUMMARY | ~2019-03-31 | XMS | Encounter Summary ---
Demographics + + + | Address | [address] | | | [place] [address] | + + + | Home Phone | | + + + | Preferred Language | Unknown | + + + | Marital Status | Single | + + + | Mormon Affiliation | Unknown | + + + | Race | Unknown | + + + | Ethnic Group | Unknown | + + + Author + + + | Author | [facility] | | | and Brianana | + + + | Organization | [facility] | | | and Brianana [...] Team Providers + +------+ + | Care Tornado Chaser Name | Role | Phone | + +------+ + | Kyle Trevizo MD | PCP | | + +------+ + Encounter Details +--------+ + + + + | Date | Type | Department | Care Team | Description | +--------+ + + + + | 01/27/ | Hospital | [facility] | Ac Elder | Nephrolithiasis | | 2018 | Encounter | MED CTR OR INTRA OP | MD Esteb[address] | | | | | [address] | [place], [place] | | | | | [place], [place] | [address] | | | | | [address] | | | | | | [phone] | | | +--------+ + + + [...] You can't be awakened Date Last Reviewed: 02/19/201619995433-7890 [employer]. [address] [place] [address]. All righ ts reserved. This information is [...]
--- OUTSIDE RECORDS SUMMARY | ~2019-03-31 | XMS | Encounter Summary ---
Demographics + + + | Address | [address] | | | [place] [address] | + + + | Home Phone | | + + + | Preferred Language | Unknown | + + + | Marital Status | Single | + + + | Uatsdin Affiliation | Unknown | + + + | Race | Unknown | + + + | Ethnic Group | Unknown | + + + Author + + + | Author | [facility] | | | and Brianana | + + + | Organization | [facility] | [...] Team Providers + +------+ + | Care Stone Polisher Name | Role | Phone | + [...] | | back pain | [place] | [address] Phone: | | | | | without | [place] | [phone] | | | | | sciatica | [address] | Fax: | | | | | | Phone: | [phone] | | | | | | [phone] | | | | | | | Fax: | | | | | | | [phone] | | +--------+ + + + + + Encounter Details +--------+---------+ + + + | Date | Type | Department | Care Team | Description | +--------+---------+ + + + | 03/20/ | Office | [facility] | Aldo Schultz | Chronic pain | | 2014 | Visit | PHYSIATRY [address] | [address] | syndrome (Primary | | | | [place], | [place], [place] | Dx); Left-sided | | | | [place] [address] | [address] | thoracic back pain | | | | [phone] | | | +--------+---------+ + + + [...] 03/20/2015 9:07 AM PST Aldo Schultz MD [address] [place] [address], [address] [place] [address] FAX: 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 He has appropriate fund of knowledge [...]
--- OUTSIDE RECORDS SUMMARY | ~2019-03-31 | XMS | Encounter Summary ---
Demographics + + + | Address | [address] | | | [place] [address] | + + + | Home Phone | | + + + | Preferred Language | Unknown | + + + | Marital Status | Single | + + + | Lutheran Affiliation | Unknown | + + + | Race | Unknown | + + + | Ethnic Group | Unknown | + + + Author + + + | Author | [facility] | | | and [place]ana | + + + | Organization | [facility] | | | and [...] Team Providers + +------+ + | Care Director Staffing Name | Role | Phone | + +------+ + | Kyle Trevizo MD | PCP | | + +------+ + Encounter Details +--------+ + + + + | Date | Type | Department | Care Team | Description | +--------+ + + + + | 12/31/ | Hospital | [facility] | Ac Elder | Kidney stone | | 2018 | Encounter | MED CTR OR INTRA OP | MD [address]eb[address] | (Primary Dx); | | | | [address] | [place], [place] | Calculus of kidney | | | | [place], [place] | [address] | | | | | [address] | | | | | | [phone] | | | +--------+ + + + [...] You can't be awakened Date Last Reviewed: 02/19/201619996334-7560 [employer]. [address] [place] [address]. All righ ts reserved. This information is [...] lasts more than a day, a fever [id number] (38 C), or trouble urinating. Date Last Reviewed: 05/04/201619993260-5462 [employer]. [address] [place] [address], [place] [address]. All righ ts reserved. This information is [...]
--- OUTSIDE RECORDS SUMMARY | ~2019-03-31 | XMS | Encounter Summary ---
Demographics + + + | Address | [address] | | | [place] [address] | + + + | Home Phone | | + + + | Preferred Language | Unknown | + + + | Marital Status | Single | + + + | Mormon Affiliation | Unknown | + + + | Race | Unknown | + + + | Ethnic Group | Unknown | + + + Author + + + | Author | [facility] | | | and [place] | + + + | Organization | [facility] | | | and [...] Team Providers + +------+ + | Care All Terrain Vehicle Technician Name | Role | Phone | [...] | | | | | [address] | [place], [place] | | | | | [place], [place] | [address] | | | | | [address] | | | | | | [phone] | Kyle Dyer MD | | | | | | [address] | | | | | | [place], [place] | | | | | | [address] | | | | | | | [...] +----+---+ + + | | 0 | [place] | | | | 7 | 43-degrees [...] | 01/27/18929 by | | eral | [id number] catheter system; | Xiao Wong RN | Carmella Cabrales RN | | IV | 20 gauge, [...] At | + + + | Benton Borden DO 01/27/2018 7:55 Anesthesia | | | [...]
--- OUTSIDE RECORDS SUMMARY | ~2019-03-31 | XMS | Encounter Summary ---
Demographics + + + | Address | [address] | | | [place] [address] | + + + | Home Phone | | + + + | Preferred Language | Unknown | + + + | Marital Status | Single | + + + | Yazidi Affiliation | Unknown | + + + | Race | Unknown | + + + | Ethnic Group | Unknown | + + + Author + + + | Author | [facility] | | | and Brianana | + + + | Organization | [facility] | | [...] Team Providers + +------+ + | Care Collar Band Creaser Name | Role | Phone | + [...] | | | | CLINIC [address] | [place], [place] | unspecified ([facility]) | | | | [place], [place] | [address] | | | | | [address] | | | | | | [phone] | | | +--------+ + + + [...] [address] | [place] | [phone] | | [facility] | | [address] | | | - LABORATORY | | [...] | 0.94 | 0.60 - 1.30 | [place] | | | | | mg/dL | [facility] | | | | | | MEDICAL | | | | | | CENTER - | | | | | | LABORATORY | | + + + + + + | eGFR if not | >60Comment: GLOMERULAR | >=60 | [place] | | | | FILTRATION | mL/min/1.73m2 | [facility] | | | [place] | RATE,ESTIMATED | | MEDICAL | | | | mL/min/1.66l1Uiau than | | CENTER - | | [...] + | [address] | [address] | [place] | [phone] | | [facility] | | [address] | | | - LABORATORY | | [...] | | | | TANYA TINEO MD ([id number]) | | | | | | on [...]
--- OUTSIDE RECORDS SUMMARY | ~2019-03-31 | XMS | Encounter Summary ---
Demographics + + + | Address | [address] | | | [place] [address] | + + + | Home Phone [...] + | Author | [facility] | | | and Brianana | + + + | Organization | [facility] | | | and [...] Team Providers + +------+ + | Care Flight Crew Scheduler Name | Role | Phone | + [...] | | spine | MD [address] | [place] | | | | | [address] | [place], | | | | | | [place] | [place] [address] | | | | | | [place], [place] | Phone: | | | | | | [address] | [phone] | | | | | | Phone: | Fax: | | | | | | [phone] | [phone] | | | | | | Fax: | | | | | | | [phone] | | +--------+ + + + + + Reason for Visit +---------+ + | Reason | Comments | +---------+ + | Results | | +---------+ + Encounter Details +--------+ + + + + | Date | Type | Department | Care Team | Description | +--------+ + + + + | 02/21/ | Telephone | [facility] | Kylee Swift | Results | | 2014 | | CARE [address] | Jag Medrano MD | | | | | [place] | [address] | | | | | [address] | [place] | | | | | [phone] | [address] | | | | | | | [...]
--- OUTSIDE RECORDS SUMMARY | ~2019-03-31 | XMS | Encounter Summary ---
Demographics + + + | Address | [address] | | | [place] [address] | + + + | Home Phone | | + + + | Preferred Language | Unknown | + + + | Marital Status | Single | + + + | Yazdanism Affiliation | Unknown | + + + | Race | Unknown | + + + | Ethnic Group | Unknown | + + + Author + + + | Author | [facility] | | | and Brianana | + + + | Organization | [facility] | | | and [...] Team Providers + +------+ + | Care Road Monkey Name | Role | Phone | + +------+ + | Yocasta Lopez | PCP | | + +------+ + Reason for Visit + + + | Reason | Comments | + + + | Establish Care | Patient is here to Establish Care, former patient of Francisca | Robel | Sebastian in [place]. | + + + | Nephrolithiasis | Patient states he went to the ER in [place] at 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 [address] | ([facility]ERLY [facility]); Dilaudid use | | | | [address] | [place] | disorder, moderate | | | | [place] | [address] | (FORMERLY [facility]) | | | | [address] | | | | | | [phone] | | | +--------+---------+ + + + [...] or Chronic Pain tab; printable questionnaires in Nauruan ) Interpretation of Total Score: 8-9 = [...] Total Score 4 (09/10/171699) (Printable questionnaires in Nauruan ) Interpretation of Total Score: 1-4 = [...] difficult at all (09/10/171699) ineath, ELLA Rucker SENIOR APPLICATION SECURITY CONSULTANT - 09/10/2017 4:30 PM PDT Subjective: Patient ID: Ry Rubin is a 66 y.o. male. Chief Complaint Patient presents with Establish Care Patient is here to Establish Care, former patient of Francisca Cortes in [place]. Nephrolithiasis Patient states he went to the ER in [place] at [facility] and was told he had 3mm kidney [...] last seen by Dr. Francisca Cortes in [place], [place]. He brought in a letter she hand wrote on a prescription pad. A copy of this letter is to be scanned to Media in [employer] [place]. 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 Although effort was [...]
--- OUTSIDE RECORDS SUMMARY | ~2019-03-31 | XMS | Encounter Summary ---
Demographics + + + | Address | [address] | | | [place] [address] | + + + | Home Phone [...] | Author | [facility] | | | and Brianana | + + + | Organization | [facility] | | | and Brianana [...] Team Providers + +------+ + | Care Counter Server Name | Role | Phone | + [...] [address] | | | | | [place], | [place], [place] | | | | | [place] [address] | [address] | | | | | [phone] | | | +--------+ + + + [...]
--- OUTSIDE RECORDS SUMMARY | ~2019-03-31 | XMS | Encounter Summary ---
Demographics + + + | Address | [address] | | | [place] [address] | + + + | Home Phone | | + + + | Preferred Language | Unknown | + + + | Marital Status | Single | + + + | Alevism Affiliation | Unknown | + + + | Race | Unknown | + + + | Ethnic Group | Unknown | + + + Author + + + | Author | [facility] | | | and Brianana | + + + | Organization | [facility] | | | and Brianana [...] Team Providers + +------+ + | Care Medical Instrument Cable Fabricator Name | Role | Phone | + +------+ + | Kyle Trevizo MD | PCP | | + +------+ + Encounter Details +--------+ + + + + | Date | Type | Department | Care Team | Description | +--------+ + + + + | 03/15/ | Hospital | [facility] | Panchito Candelaria, | Canceled (OTHER) | | 2015 | Encounter | [facility] | MD [address] | | | | | [facility] [address] [place], | | | | | [place] | [place] [address] | | | | | [place] [address] | [phone] | | | | | [phone] | | | +--------+ + + + [...]
--- OUTSIDE RECORDS SUMMARY | ~2019-03-31 | XMS | Encounter Summary ---
Demographics + + + | Address | [address] | | | [place] [address] | + + + | Home Phone [...] Author | [facility] | | | and Brianana | + + + | Organization | [facility] | | | and Brianana | [...] Providers + +------+ + | Care Business Instructor Name | Role | Phone | + [...] Casimiro NIEVES | | | | | [phone] | [place] [address] | | +--------+ + + + + [...]
--- OUTSIDE RECORDS SUMMARY | ~2019-03-31 | XMS | Encounter Summary ---
Demographics + + + | Address | [address] | | | [place] [address] | + + + | Home Phone [...] + + | Author | [facility] | | | and Brianana | + + + | Organization | [facility] | | | and Brianana [...] Team Providers + +------+ + | Care Curing Press Operator Name | Role | Phone | [...] | | | | [place] | [place] [address] | | | | | [place] [address] | [phone] | | | | | [phone] | | | +--------+ + + + [...]
--- OUTSIDE RECORDS SUMMARY | ~2019-03-31 | XMS | Encounter Summary ---
Demographics + + + | Address | [address] | | | [place] [address] | + + + | Home Phone [...] Author | [facility] | | | and Brianana | + + + | Organization | [facility] | | | and [...] Team Providers + +------+ + | Care Public Services Librarian Name | Role | Phone | + [...] + + | 01/20/ | Office | [facility] | Ac Elder | Nephrolithiasis | | 2018 | Visit | [address] | MD Esteban [address] | (Primary Dx) | | | | [place] | [place], [place] | | | | | [address] | [address] | | | | | [phone] | | | +--------+---------+ + + + [...] January 27, 2018 at 7:45 AM at [facility]. Please report to Outpatient Procedure Center [...] you home after surgery. Call us at [phone] with any questions. [x] Pain management booklet [...] MGUS (monoclonal gammopathy of unknown significance) 04/13/2015 [place] (mitral incompetence) Multiple facial bone fractures (HCC) Rheumatoid arthritis (HCC) Venereal disease Wears dentures Past Surgical History Past Surgical History: Procedure Laterality Date GALLBLADDER SURGERY 10/28/2017 Dr. Goins in [place] @ [facility] LITHOTRIPSY 2001 LITHOTRIPSY 2011 SPINE SURGERY 1984 grafted his rib and replaced disc between T8 and T9 URETEROSCOPY Left 12/31/2017 Procedure: CYSTOSCOPY URETEROSCOPY W/ LASER STENT LEFT ; Surgeon: Ac Elder MD; Location: [facility] MAIN OR Family History: Family History Problem Relation Age of Onset Lymphoma Father 80 Diabetes Mother Heart attack Mother Breast cancer Sister 70 Heart attack Sister 68 Arthritis Other unknown relation Prostate cancer Neg Hx Social History: Social History Social History Marital status: Single Spouse name: N/A Number of children: 4 Years of education: 12 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 CC: [...]
--- OUTSIDE RECORDS SUMMARY | ~2019-03-31 | XMS | Clinical Summary ---
Demographics + + + | Address | [address] | | | [place] [address] | + + + | Home Phone | | + + + | Preferred Language | Unknown | + + + | Marital Status | Single | + + + | Denominational Affiliation | Unknown | + + + | Race | Unknown | + + + | Ethnic Group | Unknown | + + + Author + + + | Author | [facility] (Historical as of | | | 12-18-18) | + + + | Organization | [facility] (Historical as of | | | 12-18-18) [...] +------+-------+ + | MEDICARE | MEDICA | [id number] | | | [address] | | | RE | | | | [place] [address] | | | IP-OP | | | [...] | [birth year] | Home: | [address] | | | [place] | | 1951 | [phone] | [place] [address] | | | [place]iva | | | [address] | | + +--------+ +--------+ + +"
--- OUTSIDE RECORDS SUMMARY | ~2019-03-31 | XMS | Encounter Summary ---
Demographics + + + | Address | [address] | | | [place] [address] | + + + | Home Phone [...] + | Author | [facility] | | | and Brianana | + + + | Organization | [facility] | | | and [place]ana [...] Team Providers + +------+ + | Care Life Insurance Specialist Name | Role | Phone | + +------+ + | Kyle Trevizo MD | PCP | | + +------+ + Encounter Details +--------+---------+ + + + | Date | Type | Department | Care Team | Description | +--------+---------+ + + + | 12/31/ | Surgery | [facility] | Ac Elder | CYSTOSCOPY | | 2018 | | MED CTR OR INTRA OP | MD Esteban [address] | URETEROSCOPY W/ | | | | [address] | [place], [place] | LASER STENT LEFT | | | | [place], [place] | [address] | | | | | [address] | | | | | | [phone] | | | +--------+---------+ + + + [...] You can't be awakened Date Last Reviewed: 02/19/201619999113-0184 [employer]. [address] [place] [address], [place] [address]. All righ ts reserved. This information is [...] lasts more than a day, a fever [id number] (38 C), or trouble urinating. Date Last Reviewed: 05/04/201619997868-2623 [employer]. [address] [place] [address]. All righ ts reserved. This information is [...] + + | Performing | Address | City/State/[facility] | Phone Number | | [...]
--- OUTSIDE RECORDS SUMMARY | ~2019-03-31 | XMS | Encounter Summary ---
Demographics + + + | Address | [address] | | | [place] [address] | + + + | Home Phone | | + + + | Preferred Language | Unknown | + + + | Marital Status | Single | + + + | Gnosticist Affiliation | Unknown | + + + | Race | Unknown | + + + | Ethnic Group | Unknown | + + + Author + + + | Author | [facility] | | | and Brianana | + + + | Organization | [facility] | | | [...] Team Providers + +------+ + | Care Occupational Nurse Name | Role | Phone | + +------+ + | Kyle Trevizo MD | PCP | | + +------+ + Encounter Details +--------+---------+ + + + | Date | Type | Department | Care Team | Description | +--------+---------+ + + + | 12/31/ | Surgery | [facility] | Ac Elder | CYSTOSCOPY | | 2018 | | MED CTR OR INTRA OP | MD Esteban [address] | URETEROSCOPY W/ | | | | [address] | [place], [place] | LASER STENT LEFT | | | | [place], [place] | [address] | | | | | [address] | | | | | | [phone] | | | +--------+---------+ + + + [...] You can't be awakened Date Last Reviewed: 02/19/201619994431-7426 [employer]. [address] [place] [address], [place] [address]. All righ ts reserved. This information is [...] lasts more than a day, a fever [id number] (38 C), or trouble urinating. Date Last Reviewed: 05/04/201619990929-2266 [employer]. [address] [place] [address]. All righ ts reserved. This information is [...] + + | Performing | Address | City/State/[facility] Cent[facility]ode | Phone Number | | Organization | [...]
--- OUTSIDE RECORDS SUMMARY | ~2019-03-31 | XMS | Encounter Summary ---
Demographics + + + | Address | [address] | | | [place] [address] | + + + | Home Phone | | + + + | Preferred Language | Unknown | + + + | Marital Status | Single | + + + | Judaism Affiliation | Unknown | + + + | Race | Unknown | + + + | Ethnic Group | Unknown | + + + Author + + + | Author | [facility] | | | and Brianana | + + + | Organization | [facility] | | | and [...] Team Providers + +------+ + | Care Travelift Operator Name | Role | Phone | [...] + | 11/05/ | Patient | [facility] | SineathYocasta T, | Preventive | | 2018 | Outreach | [facility] | ACCOUNTS ADJUSTABLE CLERK [address] | Screening, PHST | | | | [address] | [place] | Colon Cancer | | | | [place] | [address] | Screening | | | | [address] | | | | | | [phone] | | | +--------+ + + + [...]
--- OUTSIDE RECORDS SUMMARY | ~2019-03-31 | XMS | Encounter Summary ---
Demographics + + + | Address | [address] | | | [place] [address] | + + + | Home Phone | | + + + | Preferred Language | Unknown | + + + | Marital Status | Single | + + + | Zoroastrian Affiliation | Unknown | + + + | Race | Unknown | + + + | Ethnic Group | Unknown | + + + Author + + + | Author | [facility] | | | and Brianana | + + + | Organization | [facility] | | | and Brianana [...] Team Providers + +------+ + | Care Spike Machine Operator Name | Role | Phone [...] Casimiro NIEVES | | | | | [phone] | [place] [address] | | +--------+ + + + + [...]
--- OUTSIDE RECORDS SUMMARY | ~2019-03-31 | XMS | Encounter Summary ---
Demographics + + + | Address | [address] | | | [place] [address] | + + + | Home Phone | | + + + | Preferred Language | Unknown | + + + | Marital Status | Single | + + + | Roman Catholic Affiliation | Unknown | + + + | Race | Unknown | + + + | Ethnic Group | Unknown | + + + Author + + + | Author | [facility] | | | and [place] | + + + | Organization | [facility] [...] Team Providers + +------+ + | Care Maintenance Job Titles Name | Role | Phone | + [...] | | | | | [place], | [place] [address] | | | | | | [place] | Phone: | | | | | | [address] | [phone] | | | | | | Phone: | Fax: | | | | | | [phone] | [phone] | | | | | | Fax: | | | | | | | [phone] | | +--------+--------+ + + + + Encounter Details +--------+---------+ + + + | Date | Type | Department | Care Team | Description | +--------+---------+ + + + | 12/28/ | Office | [facility] | Ac Elder | Nephrolithiasis | | 2018 | Visit | [address] | MD Esteban [address] | (Primary Dx); Gross | | | | [place], [place] | [place], [place] | hematuria; | | | | [address] | [address] | Proteinuria, | | | | [phone] | | unspecified type; | | | | | | Pyuria; Angina | | | | | | pectoris, | | | | | | unspecified ([facility]) | +--------+---------+ + + + Social [...] December 31, 2017 at 7:[address] [facility]. Please report to Outpatient Procedure Center [...] you home after surgery. Call us at [phone] with any questions. [x] Pain management booklet [...] MGUS (monoclonal gammopathy of unknown significance) 04/13/2015 [place] (mitral incompetence) Multiple facial bone fractures (HCC) Rheumatoid arthritis (HCC) Venereal disease Past Surgical History Past Surgical History: Procedure Laterality Date GALLBLADDER SURGERY 10/28/2017 Dr. 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 CC: [...] [address] | [place] | [phone] | | [facility] | | [address] | | | - LABORATORY | | [...] 18 | 7 - 18 mg/dL | [facility] | | | | | | [facility] | | | | | | MEDICAL | | | | | | CENTER - | | | | | | LABORATORY | | + + + + + + | Creatinine | 0.94 | 0.60 - 1.30 | [place] | | | | | mg/dL | [facility] | | | | | | MEDICAL | | | | | | CENTER - | | | | | | LABORATORY | | + + + + + + | eGFR if not | >60Comment: GLOMERULAR | >=60 | [place] | | | | FILTRATION | mL/min/1.73m2 | [facility] | | | MONG[place]IAN | RATE,ESTIMATED | | MEDICAL | | | | mL/min/1.53s7Qdvl than | | CENTER - | | [...] [address] | [place] | [phone] | | [facility] | | [address] | | | - LABORATORY | | [...] | | | | TANYA TINEO MD ([id number]) | | | | | | on [...] 1.001 - 1.030 | | | | [place], | | | | | | UA, [...] [address] | [place] | [phone] | | [facility] | | [address] | | | - LABORATORY | | [...] ST. | [address] | [place] | [phone] | | [facility] | | [address] | | | - LABORATORY | | [...]
--- OUTSIDE RECORDS SUMMARY | ~2019-03-31 | XMS | Encounter Summary ---
Demographics + + + | Address | [address] | | | [place] [address] | + + + | Home Phone | | + + + | Preferred Language | Unknown | + + + | Marital Status | Single | + + + | Yazidi Affiliation | Unknown | + + + | Race | Unknown | + + + | Ethnic Group | Unknown | + + + Author + + + | Author | [facility] | | | and [place] | + + + | Organization | [facility] | [...] Team Providers + +------+ + | Care Ride Mechanic Name | Role | Phone | + [...] | | back pain | [place] | [address] Phone: | | | | | without | [place] | [phone] | | | | | sciatica | [address] | Fax: | | | | | | Phone: | [phone] | | | | | | [phone] | | | | | | | Fax: | | | | | | | [phone] | | +--------+ + + + + + Reason for Visit + + + | Reason | Comments | + + + | Back Pain | room 5/ since 1988 | + + + Encounter Details +--------+---------+ + + + | Date | Type | Department | Care Team | Description | +--------+---------+ + + + | 02/15/ | Office | [facility] | Kylee Swift | Midline thoracic | | 2014 | Visit | CARE [address] | Jag Medrano MD | back pain (Primary | | | | [place], [place] | [address] | Dx); Midline low | | | | [address] | [place], [place] | back pain without | | | | [phone] | [address] | sciatica; Kidney | | | | [...] + | [facility] | [address] | [place] | [phone] | | [facility] | | [address] | | | - LABORATORY | | [...] [facility] | | Brayan 02/16/15 | [facility] | | | - LABORATORY | + + + + + + + + | Performing | Address | City/State/Zipcode | Phone Number | | Organization | | | | + + + + + | [facility] | [address] | [place] | [phone] | | [facility] | | [address] | | | - LABORATORY | | [...] [address] | [place] | [phone] | | [facility] | | [address] | | | - LABORATORY | | [...] | | Band 1%, | | | [facility] | | | Serum | [...] gamma region. It is approximately 0.2g/dl. | [facility] | | Immunofixation will be performed for further characterization. [facility] | [facility] | | Brayan 02/16/15 | - LABORATORY | + + + + + + + + | Performing | Address | City/State/Zipcode | Phone Number | | Organization | | | | + + + + + | [facility] | [address] | [place] | [phone] | | [facility] | | [address] | | | - LABORATORY | | [...] 1.001 - 1.030 | | | | [place], | | | | | | UA, [...] [address] | [place] | [phone] | | [facility] | | [address] | | | - IMAGING | | [...] FINDINGS: There is mild spondylosis. Bone | [facility] | | mineralization is mildly [...] + + | Performing | Address | City/State/[facility] | Phone Number | | Organization | | | | + + + + + | [facility] | [address] | [place] | [phone] | | [facility] | | [address] | | | - IMAGING | | [...] + | [facility] | [address] | [place] | [phone] | | [facility] | | [address] | | | - LABORATORY | | [...] mL/min/1.73m2 | [facility] | | | [place] | RATE,ESTIMATED | | MEDICAL | | | | mL/min/1.52h3Oldp than | | CENTER - | | [...] [address] | [place] | [phone] | | [facility] | | [address] | | | - LABORATORY | | [...] [address] | [place] | [phone] | | [facility] | | [address] | | | - LABORATORY | | [...]
--- OUTSIDE RECORDS SUMMARY | ~2019-03-31 | XMS | Clinical Summary ---
Demographics + + + | Address | [address] | | | [place] [address] | + + + | Home Phone | | + + + | Preferred Language | Unknown | + + + | Marital Status | Single | + + + | Jehovah'S Witness Affiliation | Unknown | + + + | Race | Unknown | + + + | Ethnic Group | Unknown | + + + Author + + + | Author | [facility] (Historical as of | | | 12-18-18) | + + + | Organization | [facility] (Historical as of | | | 12-18-18) [...] Providers + +------+ + | Care Paper Tester Name | Role | Phone | [...] +------+-------+ + | MEDICARE | MEDICA | [id number] | | | [address] | | | RE | | | | [place] [address] | | | IP-OP | | | [...] | [birth year] | Home: | [address] | | | al/[place]anny | | 1951 | [phone] | [place] [address] | | | [place]iva | | | [address] | | + +--------+ +--------+ + +"
--- OUTSIDE RECORDS SUMMARY | ~2019-03-31 | XMS | Encounter Summary ---
Demographics + + + | Address | [address] | | | [place] [address] | + + + | Home Phone [...] + + + | Author | [facility] | | | and Brianana | + + + | Organization | [facility] | | | and [place] [...] Team Providers + +------+ + | Care Fitness And Wellness Instructor Name | Role | Phone | [...] | | | | CLINIC [address] | [place], [place] | unspecified ([facility]) | | | | [place], [place] | [address] | | | | | [address] | | | | | | [phone] | | | +--------+ + + + [...] [address] | [place] | [phone] | | [facility] | | [address] | | | - LABORATORY | | [...] | 0.94 | 0.60 - 1.30 | [facility] | | | | | mg/dL | [facility] | | | | | | MEDICAL | | | | | | CENTER - | | | | | | LABORATORY | | + + + + + + | eGFR if not | >60Comment: GLOMERULAR | >=60 | [facility] | | | | FILTRATION | mL/min/1.73m2 | [facility] | | | [place] | RATE,ESTIMATED | | MEDICAL | | | | mL/min/1.28k5Sxwb than | | CENTER - | | [...] + | [facility] | [address] | [place] | [phone] | | [facility] | | [address] | | | - LABORATORY | | [...] | | | | TANYA TINEO MD ([id number]) | | | | | | on [...]
--- OUTSIDE RECORDS SUMMARY | ~2019-03-31 | XMS | Encounter Summary ---
Demographics + + + | Address | [address] | | | [place] [address] | + + + | Home Phone [...] Author | [facility] | | | and Brianana | + + + | Organization | [facility] | | | and Brianana [...] Team Providers + +------+ + | Care Territory Outside Sales Manager Name | Role | Phone | [...] + + | 01/13/ | Telephone | [facility] | Ac Elder | Nephrolithiasis | | 2017 | | [address] | MD Esteban [address] | | | | | [place], [place] | [place], [place] | | | | | [address] | [address] | | | | | [phone] | | | +--------+ + + + [...]
--- OUTSIDE RECORDS SUMMARY | ~2019-03-31 | XMS | Encounter Summary ---
Demographics + + + | Address | [address] | | | [place] [address] | + + + | Home Phone | | + + + | Preferred Language | Unknown | + + + | Marital Status | Single | + + + | Sikhism Affiliation | Unknown | + + + | Race | Unknown | + + + | Ethnic Group | Unknown | + + + Author + + + | Author | [facility] | | | and Brianana | + + + | Organization | [facility] | | | and [...] Providers + +------+ + | Care Purchasing Officer Name | Role | Phone | + +------+ + | Kyle Trevizo MD | PCP | | + +------+ + Encounter Details +--------+ + + + + | Date | Type | Department | Care Team | Description | +--------+ + + + + | 12/31/ | Hospital | [facility] | Ac Elder | Kidney stone | | 2018 | Encounter | MED CTR OR INTRA OP | MD Esteban [address] | (Primary Dx); | | | | [address] | [place], [place] | Calculus of kidney | | | | [place], [place] | [address] | | | | | [address] | | | | | | [phone] | | | +--------+ + + + [...] You can't be awakened Date Last Reviewed: 02/19/201619997833-2881 [employer]. [address] [place] [address]. All righ ts reserved. This information is [...] lasts more than a day, a fever [id number] (38 C), or trouble urinating. Date Last Reviewed: 05/04/201619992562-0002 [employer]. [address] [place] [address], [place] [address]. All righ ts reserved. This information is [...]
--- OUTSIDE RECORDS SUMMARY | ~2019-03-31 | XMS | Encounter Summary ---
Demographics + + + | Address | [address] | | | [place] [address] | + + + | Home Phone [...] + + + | Author | [facility] | | | and Brianana | + + + | Organization | [facility] | | | and [...] Team Providers + +------+ + | Care Rubber Goods Tester Name | Role | Phone | + +------+ + | Francisca Cortes MD | PCP | | + +------+ + Reason for Visit + + + | Reason | Comments | + + + | Advice Only | | + + + Evaluate & Treat (Urgent) +--------+ + + [...] | | spine | MD [address] | | | | | [address] | [place], | | | | | | [place] | [place] [address] | | | | | | [place], [place] | Phone: | | | | | | [address] | [phone] | | | | | | Phone: | Fax: | | | | | | [phone] | [phone] | | | | | | Fax: | | | | | | | [phone] | | +--------+ + + + + + Encounter Details +--------+ + + + + | Date | Type | Department | Care Team | Description | +--------+ + + + + | 03/01/ | Hospital | [facility] | Panchito Candelaria, | Monoclonal | | 2015 | Encounter | MED CTR MEDICAL | MD Mercedes [place] | gammopathy (Primary | | | | [facility] CLINIC [address] [place], | Dx); Back pain, | | | | [address] [place] | [place] [address] | unspecified back | | | | [place] [address] | [phone] | pain laterality, | | | | [phone] | | unspecified | | | | | | location; Anemia, | | | | | | unspecified anemia | | | | | | type | +--------+ + + + + Social [...] + + + | Blood Pressure | 116/71 | 03/01/2015 2:45 PM | | | | | PDT | | + + + + + | Pulse | 70 | 03/01/2015 2:45 PM | | | | | PDT | | + + + + + | Temperature | 37.2 C (99 F) | 03/01/2015 2:45 PM | | | | | PDT | | + + + + + | Respiratory Rate | 18 | 03/01/2015 2:45 PM | | | | | PDT | | + + + + + | Oxygen Saturation | 97% | 03/01/2015 2:45 PM | | | | | PDT | | + + + + + | Inhaled Oxygen | - | - | | | Concentration | | | | + + + + + | Weight | 72.1 kg (158 lb 15.2 | 03/01/2015 2:45 PM | | | | oz) | PDT | | + + + + + | Height | 177 cm (5' 9.69") | 03/01/2015 2:45 PM | | | | | PDT | | + + + + + | Body Mass Index | 23.01 | 03/01/2015 2:45 PM | | | [...] of this encounter Plan of Treatment + +------+--------+ + + | Name | Type | Priori | Associated Diagnoses | Order Schedule | | | | ty | | | + +------+--------+ + + | Beta 2 Microglobulin | Lab | STAT | Monoclonal | 10 Occurrences | | | | | gammopathy | starting 03/01/2015 | | | | | | until 03/01/2016, 1 | | | | | | completed | + +------+--------+ + + | Electrophoresis Ur24 | Lab | Routin | Monoclonal | 10 Occurrences | | | | e | gammopathy | starting 03/01/2015 | | | | | | until 03/01/2016, 1 | | | | | | completed | + +------+--------+ + + | Immunoglobulin, | Lab | STAT | Monoclonal | 10 Occurrences | | Panel, IgG and IgM | | | gammopathy | starting 03/01/2015 | | and IgA | | | | until 03/01/2016, 1 | | | | | | completed | + +------+--------+ + + | [place] and Lambda | Lab | STAT | Monoclonal | 10 Occurrences | | Light Chain Ratio | | | gammopathy | starting 03/01/2015 | | | | | | until 03/01/2016, 1 | | | | | | completed | + +------+--------+ + + documented as of this encounter Procedures + +--------+ + + + | Procedure Name | Priori | Date/Time | Associated Diagnosis | Comments | | | ty | | | | + +--------+ + + + | KAPPA AND LAMBDA | STAT | 03/01/2015 | Monoclonal | Results for this | | LIGHT CHAIN RATIO | | 3:41 PM | gammopathy | procedure are in the | | | | PDT | | results section. | + +--------+ + + + | BETA 2 MICROGLOBULIN | STAT | 03/01/2015 | Monoclonal | Results for this | | | | 3:41 PM | gammopathy | procedure are in the | | | | PDT | | results section. | + +--------+ + + + | IMMUNOGLOBULIN, | STAT | 03/01/2015 | Monoclonal | Results for this | | PANEL, IGG AND IGM | | 3:41 PM | gammopathy | procedure are in the | | AND IGA | | PDT | | results section. [...] | | | + +---------+ + + Protein, Urine, 24Hr (03/05/2015 9:42 [...] | | Volume | | | [facility] | | [...] + | [facility] | [address] | [place] | [phone] | | [facility] | | [address] | | | - LABORATORY | | | | + + + + + Electrophoresis Ur24 (03/05/2015 9:42 AM PST) + [...] | | | | | [place] [address] | | | | + + + [...] [address] | [place] [address] | [phone] | + + + + + [place] and Lambda Light Chain Ratio (03/01/2015 3:41 PM PDT) + + + + + + | Component | Value | Ref Range | Performed | Pathologist | | | | | At | Signature | + + + + + + | KAPPA LIGHT | 241 | 170 - 370 mg/dL | REFERENCE | | | CHAIN | | | [facility] | | + + + + + + | KAPPA/LAMBD | 1.62Comment: Testing | 1.35 - 2.65 | REFERENCE | | | A RATIO | Performed: [facility], [address] | | [facility] | | | | [address], [place] | | | | | | [address] | | | | + + + + + + | LAMBDA | 149 | 90 - 210 mg/dL | REFERENCE | | | LIGHT CHAIN | | | [facility] | | + + + + + + + + | Specimen | + + | Blood specimen | | (specimen) | + + + + + + + | Performing | Address | City/State/Zipcode | Phone Number | | Organization | | | | + + + + + | [facility] | [address] | [place] [address] | [phone] | + + + + + Immunoglobulin, Panel, IgG and IgM and IgA (03/01/2015 3:41 PM PDT) + + + + + + | Component | Value | Ref Range | Performed | Pathologist | | | | | At | Signature | + + + + + + | Immunoglobu | 1040 | 758 - 1612 | REFERENCE | | | lisa IgG | | mg/dL | [facility] | | + + + + + + | Immunoglobu | 196 | 71 - 397 mg/dL | REFERENCE | | | lisa IgA | | | [facility] | | + + + + + + | Immunoglobu | 222Comment: Testing | 40 - 230 mg/dL | REFERENCE | | | lisa IgM | Performed: [facility], [address] | | [facility] | | | | [place] | | | | | | [address] | | | | + + + + + + + + | Specimen | + + | Blood specimen | | (specimen) | + + + + + + + | Performing | Address | City/State/Zipcode | Phone Number | | Organization | | | | + + + + + | [facility] | [address] | [place] [address] | [phone] | + + + + + Beta 2 Microglobulin (03/01/2015 3:41 PM PDT) + + + + + + | Component | Value | Ref Range | Performed | Pathologist | | | | | At | Signature | + + + + + + | BETA 2 | 2167.0 (H)Comment: | 1010 - 1730 | REFERENCE | | | MICROGLOBUL | Testing Performed: [facility], | ug/L | [facility] | | | [place] | [address] [place], | | | | | | [place] [address] | | | | + + + + + + + + | Specimen | + + | Blood specimen | | (specimen) | + + + + + + + | Performing | Address | City/State/Zipcode | Phone Number | | Organization | | | | + + + + + | [facility] | [address] | [place] [address] | [phone] | + + + + + documented in this encounter Visit Diagnoses + + | Diagnosis | + + | Monoclonal gammopathy - Primary Monoclonal paraproteinemia | + + | Back pain, unspecified back pain laterality, unspecified location | + + | Anemia, unspecified anemia type | + + documented in this encounter
--- OUTSIDE RECORDS SUMMARY | ~2019-03-31 | XMS | Encounter Summary ---
Demographics + + + | Address | [address] | | | [place] [address] | + + + | Home Phone [...] [facility] | | | and Brianana | + + + | Organization | [facility] | | | and [...] Team Providers + +------+ + | Care Lanolin Plant Operator Name | Role | Phone | [...] [address] | | | | | [phone] | [place] [address] | | +--------+ + + + + [...]
--- OUTSIDE RECORDS SUMMARY | ~2019-03-31 | XMS | Encounter Summary ---
Demographics + + + | Address | [address] | | | [place] [address] | + + + | Home Phone [...] + + + | Author | [facility] | | | and Brianana | + + + | Organization | [facility] | | | and [...] Team Providers + +------+ + | Care Die Reamer Name | Role | Phone | + [...] [address] | | | | | [place], | [place], [place] | | | | | [place] [address] | [address] | | | | | [phone] | | | +--------+ + + + [...]
--- OUTSIDE RECORDS SUMMARY | ~2019-03-31 | XMS | Encounter Summary ---
Demographics + + + | Address | [address] | | | [place] [address] | + + + | Home Phone [...] + | Author | [facility] | | | and Brianana | + + + | Organization | [facility] | | [...] Team Providers + +------+ + | Care Equipment Records Supervisor Name | Role | Phone | + +------+ + | No, Physician | PCP | Unavailable | + +------+ + Encounter Details +--------+ + + + + | Date | Type | Department | Care Team | Description | +--------+ + + + + | 02/15/ | Hospital | [facility] | Kylee Swift | | | 2015 | Encounter | MED CTR GIO XRAY | Jag Medrano MD | | | | | [address] [place] | [address] | | | | | [place], [place] | [place], [place] | | | | | [address] | [address] | | | | | [phone] | | | +--------+ + + + [...] present. There is mild wedging of multiple [facility] | | thoracic vertebral bodies that [...] + | [facility] | [address] | [place] | [phone] | | [facility] | | [address] | | | - IMAGING | | [...] + | [facility] | [address] | [place], [place] | [phone] | | [facility] | | [address] | | | - IMAGING | | | | + + + + + documented in this encounter Visit Diagnoses Not on filedocumented in this encounter"
--- OUTSIDE RECORDS SUMMARY | ~2019-03-31 | XMS | Encounter Summary ---
Demographics + + + | Address | [address] | | | [place] [address] | + + + | Home Phone | | + + + | Preferred Language | Unknown | + + + | Marital Status | Single | + + + | Restorationist Affiliation | Unknown | + + + | Race | Unknown | + + + | Ethnic Group | Unknown | + + + Author + + + | Author | [facility] | | | and [place] | + + + | Organization | [facility] | | [...] Team Providers + +------+ + | Care Pipeline Welder Name | Role | Phone | + [...] [address] | | | | | [phone] | [place] [address] | | +--------+ + + + + [...]
--- OUTSIDE RECORDS SUMMARY | ~2019-03-31 | XMS | Encounter Summary ---
Demographics + + + | Address | [address] | | | [place] [address] | + + + | Home Phone [...] [facility] | | | and [place]ana | + + + | Organization | [facility] [...] Team Providers + +------+ + | Care Upholstery Handler Name | Role | Phone | + [...] [address] | | | | | [phone] | [place] [address] | | +--------+ + + + + [...]
--- OUTSIDE RECORDS SUMMARY | ~2019-03-31 | XMS | Encounter Summary ---
Demographics + + + | Address | [address] | | | [place] [address] | + + + | Home Phone [...] | Author | [facility] | | | and [place] | + + + | Organization | [facility] | | | and [place] [...] Team Providers + +------+ + | Care Security Attendant Name | Role | Phone | + +------+ + | No, Physician | PCP | Unavailable | + +------+ + Encounter Details +--------+ + + + + | Date | Type | Department | Care Team | Description | +--------+ + + + + | 02/15/ | Hospital | [facility] | Kylee Swift | | | 2015 | Encounter | MED CTR GIO XRAY | Jag Medrano MD | | | | | [address] [place] | [address] | | | | | [place], [place] | [place], [place] | | | | | [address] | [address] | | | | | [phone] | | | +--------+ + + + [...] present. There is mild wedging of multiple [facility] | | thoracic vertebral bodies that could [...] + | [facility] | [address] | [place] | [phone] | | [facility] | | [address] | | | - IMAGING | | [...] + | [facility] | [address] | [place], [place] | [phone] | | [facility] | | [address] | | | - IMAGING | | | | + + + + + documented in this encounter Visit Diagnoses Not on filedocumented in this encounter"
--- OUTSIDE RECORDS SUMMARY | ~2019-03-31 | XMS | Encounter Summary ---
Demographics + + + | Address | [address] | | | [place] [address] | + + + | Home Phone | | + + + | Preferred Language | Unknown | + + + | Marital Status | Single | + + + | Islam Affiliation | Unknown | + + + | Race | Unknown | + + + | Ethnic Group | Unknown | + + + Author + + + | Author | [facility] | | | and [place] | + + + | Organization | [facility] | | | and [...] Team Providers + +------+ + | Care Unix Administrator Name | Role | Phone | + [...] + + | 01/20/ | Office | [facility] | Ac Elder | Nephrolithiasis | | 2018 | Visit | [address] | MD Esteban [address] | (Primary Dx) | | | | [place] | [place], [place] | | | | | [address] | [address] | | | | | [phone] | | | +--------+---------+ + + + [...] January 27, 2018 at 7:45 AM at [facility]. Please report to Outpatient Procedure [...] you home after surgery. Call us at [phone] with any questions. [x] Pain management booklet [...] MGUS (monoclonal gammopathy of unknown significance) 04/13/2015 NE (mitral incompetence) Multiple facial bone fractures (HCC) Rheumatoid arthritis (HCC) Venereal disease Wears dentures Past Surgical History Past Surgical History: Procedure Laterality Date GALLBLADDER SURGERY 10/28/2017 Dr. Goins in [place] @ [facility] LITHOTRIPSY 2001 LITHOTRIPSY 2011 SPINE SURGERY 1984 grafted his rib and replaced disc between T8 and T9 URETEROSCOPY Left 12/31/2017 Procedure: CYSTOSCOPY URETEROSCOPY W/ LASER STENT LEFT ; Surgeon: Ac Elder MD; Location: [facility] MAIN OR Family History: Family History Problem Relation Age of Onset Lymphoma Father 80 Diabetes Mother Heart attack Mother Breast cancer Sister 70 Heart attack Sister 68 Arthritis Other unknown relation Prostate cancer Neg Hx Social History: Social History Social History Marital status: Single Spouse name: N/A Number of children: 4 Years of education: 12 Occupational History [employer]: [employer] Social History Main Topics Smoking status: Former [...] ECGs available Confirmed by TANYA TINEO MD ([id number]) on 12/30/2017 8:34:04 AM Lab Results Component [...] have not thoroughly proofread this note, and shirt maker errors are very likely to occur. CC: [...]
--- OUTSIDE RECORDS SUMMARY | ~2019-03-31 | XMS | Clinical Summary ---
Demographics + + + | Address | [address] | | | [place] [address] | + + + | Home Phone [...] + | Author | [facility] (Historical as of | | | 12-18-18) | + + + | Organization | [facility] (Historical as of | | | 12-18-18) [...] Team Providers + +------+ + | Care Reference Test Clerk Name | Role | Phone | + [...] +------+-------+ + | MEDICARE | MEDICA | [id number] | | | [address] | | | RE | | | | [place] [address] | | | IP-OP | | | [...] | [birth year] | Home: | [address] | | | al/Danny | | 1951 | [phone] | [place] [address] | | | shiva | | | [address] | | + +--------+ +--------+ + +"
--- OUTSIDE RECORDS SUMMARY | ~2019-03-31 | XMS | Encounter Summary ---
Demographics + + + | Address | [address] | | | [place] [address] | + + + | Home Phone | | + + + | Preferred Language | Unknown | + + + | Marital Status | Single | + + + | Taoism Affiliation | Unknown | + + + | Race | Unknown | + + + | Ethnic Group | Unknown | + + + Author + + + | Author | [facility] | | | and [place] | + + + | Organization | [facility] | | | and [...] Team Providers + +------+ + | Care Senior Mechanical Design Engineer Name | Role | Phone | + +------+ + | Francisca Cortes MD | PCP | | + +------+ + Encounter Details +--------+ + + + + | Date | Type | Department | Care Team | Description | +--------+ + + + + | 03/05/ | Hospital | [facility] | Panchito Candelaria, | Monoclonal | | 2015 | Encounter | MED CTR XRAY [address] | MD [address] | gammopathy | | | | [place] | [address] [place], | | | | | [place] [address] | [place] [address] | | | | | [phone] | [phone] | | | | | | | [...]
--- OUTSIDE RECORDS SUMMARY | ~2019-03-31 | XMS | Encounter Summary ---
Demographics + + + | Address | [address] | | | [place] [address] | + + + | Home Phone | | + + + | Preferred Language | Unknown | + + + | Marital Status | Single | + + + | Adventist Affiliation | Unknown | + + + | Race | Unknown | + + + | Ethnic Group | Unknown | + + + Author + + + | Author | [facility] | | | and [place] | + + + | Organization | [facility] | | | and [place] | [...] Team Providers + +------+ + | Care Chef Name | Role | Phone | + [...] [address] | MD Esteban [address] | | | | | [place], [place] | [place], [place] | | | | | [address] | [address] | | | | | [phone] | | | +--------+ + + + [...]
--- OUTSIDE RECORDS SUMMARY | ~2019-03-31 | XMS | Encounter Summary ---
Demographics + + + | Address | [address] | | | [place] [address] | + + + | Home Phone [...] + + | Author | [facility] | | | and [place] | + + + | Organization | [facility] | | | and [...] + +------+ + | Care Sales And Service Consultant Name | Role | Phone | + +------+ + | Francisca Cortes MD | PCP | | + +------+ + Encounter Details +--------+ + + + + | Date | Type | Department | Care Team | Description | +--------+ + + + + | 03/05/ | Hospital | [facility] | Panchito Candelaria, | Monoclonal | | 2015 | Encounter | MED CTR MEDICAL | MD [address] | gammopathy | | | | [facility] CLIN[facility] [address] [place], | | | | | [place] | [place] [address] | | | | | [place] [address] | [phone] | | | | | [phone] | | | +--------+ + + + [...] | | | | | [place] [address] | | | | + + + [...] [address] | [place] [address] | [phone] | + + + + + Protein, [...] ST. | [address] | [place] | [phone] | | [facility] | | [address] | | | - LABORATORY | | | | + + + + + documented in this encounter Visit Diagnoses + + | Diagnosis | + + | Monoclonal gammopathy Monoclonal paraproteinemia | + + documented in this encounter"
--- OUTSIDE RECORDS SUMMARY | ~2019-03-31 | XMS | Encounter Summary ---
Demographics + + + | Address | [address] | | | [place] [address] | + + + | Home Phone | | + + + | Preferred Language | Unknown | + + + | Marital Status | Single | + + + | Samaritan Affiliation | Unknown | + + + | Race | Unknown | + + + | Ethnic Group | Unknown | + + + Author + + + | Author | [facility] | | | and [place] | + + + | Organization | [facility] | | [...] Team Providers + +------+ + | Care Black Top Spreader Machine Operator Name | Role | Phone [...] | | 2018 | Outreach | MEDICINE [place] | NETWORK PROJECT MANAGER [address] | Screening, [facility] | | | | [address] | [place] | Colon Cancer | | | | [place] | [address] | Screening | | | | [address] | | | | | | [phone] | | | +--------+ + + + [...]
--- OUTSIDE RECORDS SUMMARY | ~2019-03-31 | XMS | Encounter Summary ---
Demographics + + + | Address | [address] | | | [place] [address] | + + + | Home Phone | | + + + | Preferred Language | Unknown | + + + | Marital Status | Single | + + + | Adventism Affiliation | Unknown | + + + | Race | Unknown | + + + | Ethnic Group | Unknown | + + + Author + + + | Author | [facility] | | | and [place] | + + + | Organization | [facility] | [...] Team Providers + +------+ + | Care Staple Shear Operator Name | Role | Phone | + +------+ + | Francisca Cortes MD | PCP | | + +------+ + Encounter Details +--------+ + + + + | Date | Type | Department | Care Team | Description | +--------+ + + + + | 03/05/ | Hospital | [facility] | Panchito Candelaria, | Monoclonal | | 2015 | Encounter | MED CTR MEDICAL | MD [address] | gammopathy | | | | [facility]OG[facility] CLINIC [address] [place], | | | | | [place] | [place] [address] | | | | | [place] [address] | [phone] | | | | | [phone] | | | +--------+ + + + [...] | | | | | [place] [address] | | | | + + + [...] [address] | [place] [address] | [phone] | + + + + + Protein, [...] ST. | [address] | [place] | [phone] | | [facility] | | [address] | | | - LABORATORY | | | | + + + + + documented in this encounter Visit Diagnoses + + | Diagnosis | + + | Monoclonal gammopathy Monoclonal paraproteinemia | + + documented in this encounter"
--- OUTSIDE RECORDS SUMMARY | ~2019-03-31 | XMS | Encounter Summary ---
Demographics + + + | Address | [address] | | | [place] [address] | + + + | Home Phone [...] + | Author | [facility] | | | and [place] | + + + | Organization | [facility] [...] Team Providers + +------+ + | Care Hoop Riveter Name | Role | Phone | + [...] Casimiro NIEVES | | | | | [phone] | [place] [address] | | +--------+ + + + + [...]
--- OUTSIDE RECORDS SUMMARY | ~2019-03-31 | XMS | Encounter Summary ---
Demographics + + + | Address | [address] | | | [place] [address] | + + + | Home Phone [...] + | Author | [facility] | | | and [place] | + + + | Organization | [facility] | | | and [...] Team Providers + +------+ + | Care Rn Bone Marrow Transplant Name | Role | Phone | + [...] + + | 03/14/ | Hospital | [facility] | Panchito Candelaria, | MGUS (monoclonal | | 2015 | Encounter | [facility] CTR MED[facility] | [address] [place] | gammopathy of | | | | ONCOLOGY CLINIC [address] [place] [place], | unknown | | | | [address] [place] | [place] [address] | significance) | | | | [place] [address] | [phone] | (Primary Dx) | | | | [phone] | | | +--------+ + + + [...] fr om the original. Hematology-Oncology Progress Note [facility] Pt. Name/Age/: Ry Rubin 64 y.o. 1950 CSN: [id number] Date of service: 03/14/2015 Provider: Panchito Candelaria [...] Past Medical History Diagnosis Date Kidney stones [place] (mitral incompetence) Multiple facial bone fractures (HCC) [...] this chart may have been created with [employer] voice recognition software. Occasi onal wrong-word or [...]
--- OUTSIDE RECORDS SUMMARY | ~2019-03-31 | XMS | Encounter Summary ---
Demographics + + + | Address | [address] | | | [place] [address] | + + + | Home Phone [...] | Author | [facility] | | | and [place] | + + + | Organization | [facility] | | | and [place] | [...] Team Providers + +------+ + | Care [employer] Hazmat Tanker Driver Name | Role | Phone | [...] Casimiro NIEVES | | | | | [phone] | [place] [address] | | +--------+ + + + + [...]
--- OUTSIDE RECORDS SUMMARY | ~2019-03-31 | XMS | Encounter Summary ---
Demographics + + + | Address | [address] | | | [place] [address] | + + + | Home Phone [...] | Author | [facility] | | | and [place] | + + + | Organization | [facility] | | | and [place] [...] Team Providers + +------+ + | Care Data Reviewer Name | Role | Phone | + [...] | | | | | [address] | [address] [place] | | | | | [place], [place] | [place] [address] | | | | | [address] | | | | | | | | | | | | | Mitesh Conner, | | | | | | [address] | | | | | | [place], [place] | | | | | | [address] | | | | | | | [...] +----+---+ + + | | 0 | [place] | | | | 7 | 43-degrees [...] +----+---+ + + | | 0 | [place] off | | | | 9 | [...] 12/31/17 1124 by | | eral | [id number] catheter system; | Diane Castillo RN | [...]
--- OUTSIDE RECORDS SUMMARY | ~2019-03-31 | XMS | Encounter Summary ---
Demographics + + + | Address | [address] | | | [place] [address] | + + + | Home Phone | | + + + | Preferred Language | Unknown | + + + | Marital Status | Single | + + + | Hinduism Affiliation | Unknown | + + + | Race | Unknown | + + + | Ethnic Group | Unknown | + + + Author + + + | Author | [facility] | | | and [place] | + + + | Organization | [facility] | | [...] Team Providers + +------+ + | Care Drying Room Operator Name | Role | Phone | [...] | | back pain | [place] | [address] Phone: | | | | | without | [place] | [phone] | | | | | sciatica | [address] | Fax: | | | | | | Phone: | [phone] | | | | | | [phone] | | | | | | | Fax: | | | | | | | [phone] | | +--------+ + + + + + Encounter Details +--------+---------+ + + + | Date | Type | Department | Care Team | Description | +--------+---------+ + + + | 03/20/ | Office | [facility] | Aldo Schultz | Chronic pain | | 2014 | Visit | PHYSIATRY [address] | [address], [address] | syndrome (Primary | | | | [place], | [place] | Dx); Left-sided | | | | [place] [address] | [address] | thoracic back pain | | | | [phone] | | | +--------+---------+ + + + [...] 03/20/2015 9:07 AM PST Aldo Schultz MD [address] [place] [address], [address] [place] [address] FAX: PHYSICAL MEDICINE AND REHABILITATION H&P CHIEF [...] Past Medical History Diagnosis Date Kidney stones [place] (mitral incompetence) Multiple facial bone fractures (HCC) [...] has no apparent deficits with short or intermediate memory. He has appropriate fund of knowledge [...]
--- OUTSIDE RECORDS SUMMARY | ~2019-03-31 | XMS | Encounter Summary ---
Demographics + + + | Address | [address] | | | [place] [address] | + + + | Home Phone | | + + + | Preferred Language | Unknown | + + + | Marital Status | Single | + + + | Baptist Affiliation | Unknown | + + + | Race | Unknown | + + + | Ethnic Group | Unknown | + + + Author + + + | Author | [facility] | | | and [place] | + + + | Organization | [facility] | | | and [place] [...] Team Providers + +------+ + | Care Monorail Helper Name | Role | Phone | [...] | Diagnoses | Gr[facility], | Pmg Se Tx | | | | | | Indira Hemphill, | Urology [address] | | | | | Nephrolithia | [address] | [address] | | | | | sis | [place] | [place], | | | | | | [place], | [place] [address] | | | | | | [place] | Phone: | | | | | | [address] | [phone] | | | | | | Phone: | Fax: | | | | | | [phone] | [phone] | | | | | | Fax: | | | | | | | [phone] | | +--------+--------+ + + + + Encounter Details +--------+---------+ + + + | Date | Type | Department | Care Team | Description | +--------+---------+ + + + | 12/28/ | Office | [facility] | Ac Elder | Nephrolithiasis | | 2018 | Visit | [address] | MD Esteban [address] | (Primary Dx); Gross | | | | [place], [place] | [place], [place] | hematuria; | | | | [address] | [address] | Proteinuria, | | | | [phone] | | unspecified type; | | | | | | Pyuria; Angina | | | | | | pectoris, | | | | | | unspecified ([facility]) | +--------+---------+ + + + [...] December 31, 2017 at 7:45 AM at [facility]. Please report to [facility] no [...] you home after surgery. Call us at [phone] with any questions. [x] Pain management booklet [...] MGUS (monoclonal gammopathy of unknown significance) 04/13/2015 [place] (mitral incompetence) Multiple facial bone fractures (HCC) Rheumatoid arthritis (HCC) Venereal disease Past Surgical History Past Surgical History: Procedure Laterality Date GALLBLADDER SURGERY 10/28/2017 Dr. Goins in [place] @ [facility] LITHOTRIPSY 2001 LITHOTRIPSY 2011 LUMBAR SPINE [...] of education: 12 Occupational History E[employer]IPMENT [employer]: [employer] Social History Main Topics Smoking status: Former [...] POC Trace (A) Negative, 100 mg/dL Specific [place], UA, POC 1.025 1.001 - 1.030 Blood, [...] have not thoroughly proofread this note, and salon assistant errors are very likely to occur. CC: [...] [address] | [place] | [phone] | | [facility] | | [address] | | | - LABORATORY | | [...] 18 | 7 - 18 mg/dL | [facility] | | | | | | [facility] | | | | | | MEDICAL | | | | | | CENTER - | | | | | | LABORATORY | | + + + + + + | Creatinine | 0.94 | 0.60 - 1.30 | [facility] | | | | | mg/dL | [facility] | | | | | | MEDICAL | | | | | | CENTER - | | | | | | LABORATORY | | + + + + + + | eGFR if not | >60Comment: GLOMERULAR | >=60 | [facility] | | | | FILTRATION | mL/min/1.73m2 | [facility] | | | TURKISH | RATE,ESTIMATED | | MEDICAL | | | | mL/min/1.65v6Rdjj than | | CENTER - | | [...] [address] | [place] | [phone] | | [facility] | | [address] | | | - LABORATORY | | [...] | | | | TANYA TINEO MD ([id number]) | | | | | | on [...] 1.001 - 1.030 | | | | [place], | | | | | | UA, [...] [address] | [place] | [phone] | | [facility] | | [address] | | | - LABORATORY | | [...] ST. | [address] | [place] | [phone] | | [facility] | | [address] | | | - LABORATORY | | [...]
--- OUTSIDE RECORDS SUMMARY | ~2019-03-31 | XMS | Encounter Summary ---
Demographics + + + | Address | [address] | | | [place] [address] | + + + | Home Phone [...] Author | [facility] | | | and [place] | + + + | Organization | [facility] | | [...] Team Providers + +------+ + | Care Water Softener Servicer Name | Role | Phone | + [...] | | | [address] [place] | [place] [address] | | | | | [place] [address] | [phone] | | | | | [phone] | | | +--------+ + + + [...]
--- OUTSIDE RECORDS SUMMARY | ~2019-03-31 | XMS | Encounter Summary ---
Demographics + + + | Address | [address] | | | [place] [address] | + + + | Home Phone | | + + + | Preferred Language | Unknown | + + + | Marital Status | Single | + + + | Temple Affiliation | Unknown | + + + | Race | Unknown | + + + | Ethnic Group | Unknown | + + + Author + + + | Author | [facility] | | | and [place] | + + + | Organization | [facility] | | | and [place] [...] Providers + +------+ + | Care Field Gauger Name | Role | Phone | + [...] Casimiro NIEVES | | | | | [phone] | [place] [address] | | +--------+ + + + + [...]
--- OUTSIDE RECORDS SUMMARY | ~2019-03-31 | XMS | Encounter Summary ---
Demographics + + + | Address | [address] | | | [place] [address] | + + + | Home Phone [...] Author | [facility] | | | and [place] | + + + | Organization | [facility] | | | and [place] [...] Team Providers + +------+ + | Care Carton Forming Machine Helper Name | Role | Phone | + +------+ + | No, Physician | PCP | Unavailable | + +------+ + Encounter Details +--------+ + + + + | Date | Type | Department | Care Team | Description | +--------+ + + + + | 02/15/ | Hospital | [facility] | Kylee Swift | | | 2015 | Encounter | MED CTR GIO XRAY | Jag Medrano MD | | | | | [address] [place] | [address] | | | | | [place], [place] | [place], [place] | | | | | [address] | [address] | | | | | [phone] | | | +--------+ + + + [...] present. There is mild wedging of multiple [facility] | | thoracic vertebral bodies that could [...] + | [facility] | [address] | [place] | [phone] | | [facility] | | [address] | | | - IMAGING | | [...] + | [facility] | [address] | [place], [place] | [phone] | | [facility] | | [address] | | | - IMAGING | | | | + + + + + documented in this encounter Visit Diagnoses Not on filedocumented in this encounter"
--- OUTSIDE RECORDS SUMMARY | ~2019-03-31 | XMS | Encounter Summary ---
Demographics + + + | Address | [address] | | | [place] [address] | + + + | Home Phone | | + + + | Preferred Language | Unknown | + + + | Marital Status | Single | + + + | Orthodoxy Affiliation | Unknown | + + + | Race | Unknown | + + + | Ethnic Group | Unknown | + + + Author + + + | Author | [facility] | | | and [place] | + + + | Organization | [facility] | | | and [...] Team Providers + +------+ + | Care Mac Developer Name | Role | Phone | [...] | | | | [address] [place] | [place] [address] | | | | | [place] [address] | [phone] | | | | | [phone] | | | +--------+ + + + [...]
--- OUTSIDE RECORDS SUMMARY | ~2019-03-31 | XMS | Encounter Summary ---
Demographics + + + | Address | [address] | | | [place] [address] | + + + | Home Phone [...] + | Author | [facility] | | | and [place] | + + + | Organization | [facility] | | | [...] Providers + +------+ + | Care Flight Test Data Acquisition Technician Name | Role | Phone | [...] | | back pain | [place] | [address] Phone: | | | | | without | [place] | [phone] | | | | | sciatica | [address] | Fax: | | | | | | Phone: | [phone] | | | | | | [phone] | | | | | | | Fax: | | | | | | | [phone] | | +--------+ + + + + + Encounter Details +--------+---------+ + + + | Date | Type | Department | Care Team | Description | +--------+---------+ + + + | 03/20/ | Office | [facility] | Aldo Schultz | Chronic pain | | 2014 | Visit | PHYSIATRY [address] | T, [address] | syndrome (Primary | | | | [place], | [place], [place] | Dx); Left-sided | | | | [place] [address] | [address] | thoracic back pain | | | | [phone] | | | +--------+---------+ + + + [...] 03/20/2015 9:07 AM PST Aldo Schultz MD [address] [place] [address], [address] [place] [address] FAX: 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 He has appropriate fund of knowledge [...]
--- OUTSIDE RECORDS SUMMARY | ~2019-03-31 | XMS | Encounter Summary ---
Demographics + + + | Address | [address] | | | [place] [address] | + + + | Home Phone [...] | Author | [facility] | | | and [place] | + + + | Organization | [facility] | | | and [...] Team Providers + +------+ + | Care School Crossing Guard Name | Role | Phone | + [...] [place] | | | | | | [address] | | | | | | [phone] | | | +--------+ + + + [...]
--- OUTSIDE RECORDS SUMMARY | ~2019-03-31 | XMS | Encounter Summary ---
Demographics + + + | Address | [address] | | | [place] [address] | + + + | Home Phone [...] [facility] | | | and [place] | + + + | Organization | [facility] | | | and [place] | [...] Team Providers + +------+ + | Care Executive Services Administrator Name | Role | Phone | [...] | | | | | [address] | [place], [place] | | | | | [place], [place] | [address] | | | | | [address] | | | | | | [phone] | Kyle Dyer MD | | | | | | [address] | | | | | | [place], [place] | | | | | | [address] | | | | | | | [...] +----+---+ + + | | 0 | [place] | | | | 7 | 43-degrees [...] | 01/27/18929 by | | eral | [id number] catheter system; | Xiao Wong RN | [...]
--- OUTSIDE RECORDS SUMMARY | ~2019-03-31 | XMS | Encounter Summary ---
Demographics + + + | Address | [address] | | | [place] [address] | + + + | Home Phone | | + + + | Preferred Language | Unknown | + + + | Marital Status | Single | + + + | Amish Affiliation | Unknown | + + + | Race | Unknown | + + + | Ethnic Group | Unknown | + + + Author + + + | Author | [facility] | | | and [place] | + + + | Organization | [facility] | | | and [place] | [...] Team Providers + +------+ + | Care Warehouse Order Puller Name | Role | Phone | + [...] + + | 03/14/ | Hospital | [facility] | Panchito Candelaria, | MGUS (monoclonal | | 2015 | Encounter | MED CTR MEDICAL | [address] [place] | gammopathy of | | | | ONCOLOGY CLINIC [address] [place], | unknown | | | | [address] [place] | [place] [address] | significance) | | | | [place] [address] | [phone] | (Primary Dx) | | | | [phone] | | | +--------+ + + + [...] fr om the original. Hematology-Oncology Progress Note [facility] Pt. Name/Age/: Ry Rubin 64 y.o. 1950 CSN: [id number] Date of service: 03/14/2015 Provider: Panchito Candelaria [...] Past Medical History Diagnosis Date Kidney stones [place] (mitral incompetence) Multiple facial bone fractures (HCC) [...] this chart may have been created with [employer] voice recognition software. Occasi onal wrong-word or [...]
--- OUTSIDE RECORDS SUMMARY | ~2019-03-31 | XMS | Encounter Summary ---
Demographics + + + | Address | [address] | | | [place] [address] | + + + | Home Phone [...] | Author | [facility] | | | and [place] | + + + | Organization | [facility] | | [...] Team Providers + +------+ + | Care Chopper Gun Operator Name | Role | Phone | [...] Casimiro [place]ES | | | | | [phone] | [place] [address] | | +--------+ + + + + [...]
--- OUTSIDE RECORDS SUMMARY | ~2019-03-31 | XMS | Encounter Summary ---
Demographics + + + | Address | [address] | | | [place] [address] | + + + | Home Phone [...] | Author | [facility] | | | and [place] | + + + | Organization | [facility] | | | and [place] | [...] Team Providers + +------+ + | Care Electroplating Sales Representative Name | Role | Phone | + [...] | | | | | [address] | [address] [place] | | | | | [place], [place] | [place] [address] | | | | | [address] | | | | | | | | | | | | | Mitesh Con[place], | | | | | | [address] | | | | | | [place], [place] | | | | | | [address] | | | | | | | [...] +----+---+ + + | | 0 | [place] | | | | 7 | 43-degrees [...] +----+---+ + + | | 0 | [place] off | | | | 9 | [...] 12/31/17 1124 by | | eral | [id number] catheter system; | Diane Castillo RN | [...]
--- OUTSIDE RECORDS SUMMARY | ~2019-03-31 | XMS | Encounter Summary ---
Demographics + + + | Address | [address] | | | [place] [address] | + + + | Home Phone [...] + | Author | [facility] | | | and [place] | + + + | Organization | [facility] | | | and [place] [...] Team Providers + +------+ + | Care Benefits Clerk Name | Role | Phone | [...] | | | | [place] | [place] [address] | | | | | [place] [address] | [phone] | | | | | [phone] | | | +--------+ + + + [...]
--- OUTSIDE RECORDS SUMMARY | ~2019-03-31 | XMS | Encounter Summary ---
Demographics + + + | Address | [address] | | | [place] [address] | + + + | Home Phone [...] | Author | [facility] | | | and [place] | + + + | Organization | [facility] | [...] Team Providers + +------+ + | Care Trimmer Climber Name | Role | Phone | + +------+ + | Yocasta Lopez | PCP | | + +------+ + Encounter Details +--------+ + + + + | Date | Type | Department | Care Team | Description | +--------+ + + + + | 12/25/ | Imaging | [facility] | Provider, | | | 2018 | Exam | MED CTR EXTERNAL | [address] | | | | | IMAGING | [place] | | | | | [phone] | [place] [address] | | +--------+ + + + + [...]
--- OUTSIDE RECORDS SUMMARY | ~2019-03-31 | XMS | Encounter Summary ---
Demographics + + + | Address | [address] | | | [place] [address] | + + + | Home Phone | | + + + | Preferred Language | Unknown | + + + | Marital Status | Single | + + + | Sikhism Affiliation | Unknown | + + + | Race | Unknown | + + + | Ethnic Group | Unknown | + + + Author + + + | Author | [facility] | | | and [place] | + + + | Organization | [facility] | | [...] Team Providers + +------+ + | Care Replanting Machine Crew Name | Role | Phone | + +------+ + | Kyle Trevizo MD | PCP | | + +------+ + Encounter Details +--------+ + + + + | Date | Type | Department | Care Team | Description | +--------+ + + + + | 03/15/ | Hospital | [facility] | Panchito Candelaria, | Canceled (OTHER) | | 2015 | Encounter | MED CTR MEDICAL | MD [address] | | | | | ONCOLOGY CLINIC [address] [place], | | | | | [place] [address] [place] | [place] [address] | | | | | [place] [address] | [phone] | | | | | [phone] | | | +--------+ + + + [...]
--- OUTSIDE RECORDS SUMMARY | ~2019-03-31 | XMS | Encounter Summary ---
Demographics + + + | Address | [address] | | | [place] [address] | + + + | Home Phone | | + + + | Preferred Language | Unknown | + + + | Marital Status | Single | + + + | Uatsdin Affiliation | Unknown | + + + | Race | Unknown | + + + | Ethnic Group | Unknown | + + + Author + + + | Author | [facility] | | | and [place] | + + + | Organization | [facility] | [...] Team Providers + +------+ + | Care Hydraulic Design Engineer Name | Role | Phone [...] Casimiro [place]ES | | | | | [phone] | [place] [address] | | +--------+ + + + + [...]
--- OUTSIDE RECORDS SUMMARY | ~2019-03-31 | XMS | Encounter Summary ---
Demographics + + + | Address | [address] | | | [place] [address] | + + + | Home Phone | | + + + | Preferred Language | Unknown | + + + | Marital Status | Single | + + + | Religion Affiliation | Unknown | + + + | Race | Unknown | + + + | Ethnic Group | Unknown | + + + Author + + + | Author | [facility] | | | and [place] | + + + | Organization | [facility] | | | and [place] [...] Team Providers + +------+ + | Care Reactor Service Operator Name | Role | Phone | [...] [place]ES | | | | | [phone] | [place] [address] | | +--------+ + + + + [...]
--- OUTSIDE RECORDS SUMMARY | ~2019-03-31 | XMS | Encounter Summary ---
Demographics + + + | Address | [address] | | | [place] [address] | + + + | Home Phone [...] + | Author | [facility] | | | and [place] | + + + | Organization | [facility] | | | and [place] [...] Team Providers + +------+ + | Care Chuck Tender Name | Role | Phone | + +------+ + | Ycoasta Lopez | PCP | | + +------+ [...] [place]imiro [place]EVES | | | | | [phone] | [place] [address] | | +--------+ + + + + [...]
--- OUTSIDE RECORDS SUMMARY | ~2019-03-31 | XMS | Encounter Summary ---
Demographics + + + | Address | [address] | | | [place] [address] | + + + | Home Phone [...] + + | Author | [facility] | | | and Brianana | + + + | Organization | [facility] | | | and [...] Team Providers + +------+ + | Care Pump Attendant Name | Role | Phone | + +------+ + | Francisca Cortes MD | PCP | | + +------+ + Encounter Details +--------+ + + + + | Date | Type | Department | Care Team | Description | +--------+ + + + + | 03/05/ | Hospital | [facility] | Panchito Candelaria, | Monoclonal | | 2015 | Encounter | MED CTR XRAY [address] | MD [address] | gammopathy | | | | [address] [place] | [address] [place], | | | | | [place] [address] | [place] [address] | | | | | [phone] | [phone] | | | | | | | [...]
--- OUTSIDE RECORDS SUMMARY | ~2019-03-31 | XMS | Encounter Summary ---
Demographics + + + | Address | [address] | | | [place] [address] | + + + | Home Phone [...] Author | [facility] | | | and Brianana | + + + | Organization | [facility] | | | and Brianana [...] Team Providers + +------+ + | Care Catering Truck Operator Name | Role | Phone | [...] | | | | | [address] | [place], [place] | | | | | [place], [place] | [address] | | | | | [address] | | | | | | [phone] | Kyle Dyer MD | | | | | | [address] | | | | | | [place], [place] | | | | | | [address] | | | | | | | [...] +----+---+ + + | | 0 | [place] | | | | 7 | 43-degrees [...] | 01/27/18929 by | | eral | [id number] catheter system; | Xiao Wong RN | [...]
--- OUTSIDE RECORDS SUMMARY | ~2019-03-31 | XMS | Encounter Summary ---
Demographics + + + | Address | [address] | | | [place] [address] | + + + | Home Phone [...] | Author | [facility] | | | and Brianana | + + + | Organization | [facility] | | | and [...] Team Providers + +------+ + | Care Forensic Investigator Name | Role | Phone | + [...] [address] | | | | | [place], [place] | [place], [place] | | | | | [address] | [address] | | | | | [phone] | | | +--------+ + + + [...]
--- OUTSIDE RECORDS SUMMARY | ~2019-03-31 | XMS | Encounter Summary ---
Demographics + + + | Address | [address] | | | [place] [address] | + + + | Home Phone | | + + + | Preferred Language | Unknown | + + + | Marital Status | Single | + + + | Muslim Affiliation | Unknown | + + + | Race | Unknown | + + + | Ethnic Group | Unknown | + + + Author + + + | Author | [facility] | | | and Brianana | + + + | Organization | [facility] | | | and [...] Team Providers + +------+ + | Care Brake Repair Supervisor Name | Role | Phone | + +------+ + | Kyle Trevizo MD | PCP | | + +------+ + Encounter Details +--------+ + + + + | Date | Type | Department | Care Team | Description | +--------+ + + + + | 03/15/ | Hospital | [facility] | Panchito Candelaria, | Canceled (OTHER) | | 2015 | Encounter | MED CTR MEDICAL | MD [address] | | | | | [facility]OGY CLINIC [address] [place], | | | | | [place] [place] | [place] [address] | | | | | [place] [address] | [phone] | | | | | [phone] | | | +--------+ + + + [...]
--- OUTSIDE RECORDS SUMMARY | ~2019-03-31 | XMS | Encounter Summary ---
Demographics + + + | Address | [address] | | | [place] [address] | + + + | Home Phone [...] | Author | [facility] | | | and Brianana | + + + | Organization | [facility] | | [...] Team Providers + +------+ + | Care Commercial Baking Teacher Name | Role | Phone | + +------+ + | Kyle Trevizo MD | PCP | | + +------+ + Encounter Details +--------+ + + + + | Date | Type | Department | Care Team | Description | +--------+ + + + + | 01/27/ | Hospital | [facility] | Ac Elder | Nephrolithiasis | | 2018 | Encounter | MED CTR OR INTRA OP | MD Esteban [address] | | | | | [address] | [place], [place] | | | | | [place], [place] | [address] | | | | | [address] | | | | | | [phone] | | | +--------+ + + + [...] You can't be awakened Date Last Reviewed: 02/19/201619990642-5118 [employer]. [address] [place] [address]. All righ ts reserved. This information is [...]
--- OUTSIDE RECORDS SUMMARY | ~2019-03-31 | XMS | Encounter Summary ---
Demographics + + + | Address | [address] | | | [place] [address] | + + + | Home Phone [...] + + + | Author | [facility] | | | and Brianana | + + + | Organization | [facility] | | | and Brianana | + + + | Address | Unknown | + + + | Phone | Unavailable | + + + Support + + +---------+ + | Name | Relationship | Address | Phone | + + +---------+ + | Sary Rubin | ECON | Unknown | | + + +---------+ + | Eduard Rubni | ECON | Unknown | | + + +---------+ + | Jb Bahena | ECON | Unknown | | + + +---------+ + Care Team Providers + +------+ + | Care Microbiology Lab Analyst Name | Role | Phone | [...] [address] | | | | | [place], [place] | [place], [place] | | | | | [address] | [address] | | | | | [phone] | | | +--------+ + + + [...]
--- OUTSIDE RECORDS SUMMARY | ~2019-03-31 | XMS | Encounter Summary ---
Demographics + + + | Address | [address] | | | [place] [address] | + + + | Home Phone [...] + | Author | [facility] | | | and Brianana | + + + | Organization | [facility] | | | and [...] Team Providers + +------+ + | Care Silk Winding Machine Operator Name | Role | Phone [...] exchange | | | | [address] | [address] [place], [place] | | | | | [place], [place] | [address] | | | | | [address] | | | | | | [phone] | | | +--------+---------+ + + + [...] You can't be awakened Date Last Reviewed: 02/19/201619994482-6322 [employer]. [address] [place] [address]. All righ ts reserved. This information is [...]
--- OUTSIDE RECORDS SUMMARY | ~2019-03-31 | XMS | Encounter Summary ---
Demographics + + + | Address | [address] | | | [place] [address] | + + + | Home Phone | | + + + | Preferred Language | Unknown | + + + | Marital Status | Single | + + + | Buddhist Affiliation | Unknown | + + + | Race | Unknown | + + + | Ethnic Group | Unknown | + + + Author + + + | Author | [facility] | | | and Brianana | + + + | Organization | [facility] | | | [...] Team Providers + +------+ + | Care Ase Master Mechanic Name | Role | Phone | [...] [address] | | | | | [phone] | [place] [address] | | +--------+ + + + + [...]
--- OUTSIDE RECORDS SUMMARY | ~2019-03-31 | XMS | Encounter Summary ---
Demographics + + + | Address | [address] | | | [place] [address] | + + + | Home Phone [...] + | Author | [facility] | | | and Brianana | + + + | Organization | [facility] | | | and Brianana [...] Team Providers + +------+ + | Care Contract Negotiator Name | Role | Phone | + [...] | | spine | MD [address] | | | | | | [address] | [place], | | | | | | [place] | [place] [address] | | | | | | [place], [place] | Phone: | | | | | | [address] | [phone] | | | | | | Phone: | Fax: | | | | | | [phone] | [phone] | | | | | | Fax: | | | | | | | [phone] | | +--------+ + + + + + Encounter Details +--------+ + + + + | Date | Type | Department | Care Team | Description | +--------+ + + + + | 03/01/ | Hospital | [facility] | Panchito Candelaria, | Monoclonal | | 2015 | Encounter | MED CTR MEDICAL | MD [address] [place] | gammopathy (Primary | | | | ONCOLOGY CLINIC [address] [place], | Dx); Back pain, | | | | [address] [place] | [place] [address] | unspecified back | | | | [place] [address] | [phone] | pain laterality, | | | | [phone] | | unspecified | | | | [...] completed | + +------+--------+ + + | Wisdom and Lambda | Lab | STAT | [...] + | [address] | [address] | [place] | [phone] | | [facility] | | [address] | | | - LABORATORY | | [...] | | | | | [place] [address] | | | | + + + [...] [address] | [place] [address] | [phone] | + + + + + Wisdom and Lambda Light Chain Ratio (03/01/2015 3:41 [...] [place] | | | | | | [address] | | | | + + + [...] [address] | [place] [address] | [phone] | + + + + + Immunoglobulin, [...] [place] | | | | | | [address] | | | | + + + [...] [address] | [place] [address] | [phone] | + + + + + Beta [...] | | | | | [place] [address] | | | | + + + + + + + + | Specimen | + + | Blood specimen | | (specimen) | + + + + + + + | Performing | Address | City/State/Zipcode | Phone Number | | Organization | | | | + + + + + | [facility] | [address] | [place] [address] | [phone] | + + + + + documented in this encounter Visit Diagnoses + + | Diagnosis | + + | Monoclonal gammopathy - Primary Monoclonal paraproteinemia | + + | Back pain, unspecified back pain laterality, unspecified location | + + | Anemia, unspecified anemia type | + + documented in this encounter
--- OUTSIDE RECORDS SUMMARY | ~2019-03-31 | XMS | Encounter Summary ---
Demographics + + + | Address | [address] | | | [place] [address] | + + + | Home Phone [...] Author | [facility] | | | and Brianana | + + + | Organization | [facility] | | [...] Providers + +------+ + | Care Hydraulic Billet Maker Name | Role | Phone | [...] | | spine | MD [address] | [place] | | | | | | [address] | [place], | | | | | | [place] | [place] [address] | | | | | | [place], [place] | Phone: | | | | | | [address] | [phone] | | | | | | Phone: | Fax: | | | | | | [phone] | [phone] | | | | | | Fax: | | | | | | | [phone] | | +--------+ + + + + + Encounter Details +--------+ + + + + | Date | Type | Department | Care Team | Description | +--------+ + + + + | 03/01/ | Hospital | [facility] | Panchito Candelaria, | Monoclonal | | 2015 | Encounter | MED CTR MEDICAL | MD [address] [place] | gammopathy (Primary | | | | ONCOLOGY CLINIC [address] [place], | Dx); Back pain, | | | | [address] [place] | [place] [address] | unspecified back | | | | [place] [address] | [phone] | pain laterality, | | | | [phone] | | unspecified | | | | [...] completed | + +------+--------+ + + | Ambrose and Lambda | Lab | STAT | [...] + | [address] | [address] | [place] | [phone] | | [facility] | | [address] | | | - LABORATORY | | [...] | | | | | [place] [address] | | | | + + + [...] [address] | [place] [address] | [phone] | + + + + + Ambrose and Lambda Light Chain Ratio (03/01/2015 3:41 [...] [place] | | | | | | [address] | | | | + + + [...] [address] | [place] [address] | [phone] | + + + + + Immunoglobulin, [...] [place] | | | | | | [address] | | | | + + + [...] [address] | [place] [address] | [phone] | + + + + + Beta [...] | | | | | [place] [address] | | | | + + + + + + + + | Specimen | + + | Blood specimen | | (specimen) | + + + + + + + | Performing | Address | City/State/Zipcode | Phone Number | | Organization | | | | + + + + + | [facility] | [address] | [place] [address] | [phone] | + + + + + documented in this encounter Visit Diagnoses + + | Diagnosis | + + | Monoclonal gammopathy - Primary Monoclonal paraproteinemia | + + | Back pain, unspecified back pain laterality, unspecified location | + + | Anemia, unspecified anemia type | + + documented in this encounter
--- OUTSIDE RECORDS SUMMARY | ~2019-03-31 | XMS | Encounter Summary ---
Demographics + + + | Address | [address] | | | [place] [address] | + + + | Home Phone [...] + | Author | [facility] | | | and Brianana | + + + | Organization | [facility] | | | and Brianana [...] Team Providers + +------+ + | Care Blunger Name | Role | Phone | + [...] [address] | | | | | [phone] | [place] [address] | | +--------+ + + + + [...]
--- OUTSIDE RECORDS SUMMARY | ~2019-03-31 | XMS | Encounter Summary ---
Demographics + + + | Address | [address] | | | [place] [address] | + + + | Home Phone [...] + + + | Author | [facility] | | | and [place]ana | + + + | Organization | [facility] | [...] Team Providers + +------+ + | Care Seafood Manager Name | Role | Phone | [...] W/ | | | | [address] | [address] [place], [place] | [address]ENT LEFT | | | | [place], [place] | [address] | | | | | [address] | | | | | | [phone] | | | +--------+---------+ + + + [...] You can't be awakened Date Last Reviewed: 02/19/201619995290-6182 [employer]. [address] [place] [address], [place] [address]. All righ ts reserved. This information is [...] lasts more than a day, a fever osay372L (38 C), or trouble urinating. Date Last Reviewed: 05/04/201619995389-8363 [employer]. [address] [place] [address]. All righ ts reserved. This information is [...] + + | Performing | Address | City/State/[facility] | Phone Number | | [...]
--- OUTSIDE RECORDS SUMMARY | ~2019-03-31 | XMS | Clinical Summary ---
Demographics + + + | Address | [address] | | | [place] [address] | + + + | Home Phone | | + + + | Preferred Language | Unknown | + + + | Marital Status | Single | + + + | Mandaen Affiliation | Unknown | + + + | Race | Unknown | + + + | Ethnic Group | Unknown | + + + Author + + + | Author | [facility] | | | and [place] | + + + | Organization | [facility] | | | and [...] Team Providers + +------+ + | Care Artist'S Model Name | Role | Phone | + [...] a | | vertebral osteomyelitis (Lauren) in ([place]). Last | | MRI 02/08 - mod [...] + + + | Coronary atherosclerosis of [place] coronary artery | 07/19/2009 | + + + + + | Overview: Overview: DC in ; used cocaine 8hrs earlier. | [...] Left: | COOK | | 09/24/ | [id number] | | - Sn/AImplanted: Qty: 1 | | Ureter | [employer] | | 2020 | /N/A | | on 12/31/2017 by Jael, | | | - DALE | | | /[id number] | | Ac Orellana MD at [facility] | | | | | | 30 | | [facility] | | | | | | | | CENTER | | | | | | | + +-------+--------+ +--------+--------+--------+ | Stent Uret W/Pstnr Frm 6 | Stent | Left: | DALE | | | [id number] | | - [id number]: | | Ureter | [employer] | | | / | | Qty: 1 on 01/27/2018 by | | | - DALE | | | /[id number] | | Ac Elder MD at | | | | | | 08 | | [facility] | | | | | | | | [facility] | | | | [...] +--------+ +---------+--------+ | MEDICARE | [employer]ICA | [id number] | 12/02/18 | [phone] | | Medica [...] | 1950 | [phone] | [place] [address] | | | shiva | | | 8 (Home) | | + +--------+ +--------+ + + Advance Directives + + + + + | Type | Date Recorded | Patient | Explanation | | | | Park Interpretive Specialist | | + + + + + | Power of | | | | | Automatic Riveting Machine Operator | | | | + + + [...]
--- OUTSIDE RECORDS SUMMARY | ~2019-03-31 | XMS | Clinical Summary ---
Demographics + + + | Address | [address] | | | [place] [address] | + + + | Home Phone [...] | [facility] | | | and [place] | + + + | Organization | [facility] [...] Team Providers + +------+ + | Care Wet Mix Operator Name | Role | Phone | [...] a | | vertebral osteomyelitis (Lauren) in ([place]). Last | | MRI 02/08 - mod [...] + + + | Coronary atherosclerosis of [place] coronary artery | 07/19/2009 | + + + + + | Overview: Overview: [place] in ; used cocaine 8hrs earlier. | [...] Left: | COOK | | 09/24/ | [id number] | | - Sn/AImplanted: Qty: 1 | | Ureter | [employer] | | 2020 | /N/A | | on 12/31/2017 by Jael, | | | - DALE | | | /[id number] | | Ac Orellana MD at [facility] | | | | | | 30 | | [facility] | | | | | | | | CENTER | | | | | | | + +-------+--------+ +--------+--------+--------+ | Stent Uret W/Pstnr Frm 6 | Stent | Left: | DALE | | | [id number] | | - [id number]: | | Ureter | [employer] | | | / | | Qty: 1 on 01/27/2018 by | | | - DALE | | | /[id number] | | Ac Elder MD at | | | | | | 08 | | [facility] | | | | | | | | [facility] | | | | | | [...] +--------+ +---------+--------+ | MEDICARE | MEDICA | [id number] | 12/02/18 | [phone] | | Medica [...] | 1950 | [phone] | [place] [address] | | | shiva | | | 8 (Home) | | + +--------+ +--------+ + + Advance Directives + + + + + | Type | Date Recorded | Patient | Explanation | | | | Well Logging Captain | | + + + + + | Power of | | | | | Oven Drier Tender | | | | + + + [...]
--- OUTSIDE RECORDS SUMMARY | ~2019-03-31 | XMS | Encounter Summary ---
Demographics + + + | Address | [address] | | | [place] [address] | + + + | Home Phone [...] | Author | [facility] | | | and [place] | + + + | Organization | [facility] | | | and [...] Team Providers + +------+ + | Care Vice President Of Instruction Name | Role | Phone | + [...] [place] | | | | | | [address] | | | | | | [phone] | | | +--------+ + + + [...]
--- OUTSIDE RECORDS SUMMARY | ~2019-03-31 | XMS | Encounter Summary ---
Demographics + + + | Address | [address] | | | [place] [address] | + + + | Home Phone [...] Author | [facility] | | | and [place] | + + + | Organization | [facility] | | | and [place] [...] Team Providers + +------+ + | Care Tester Food Products Name | Role | Phone | + [...] [address]EV[address] | | | | | [phone] | [place] [address] | | +--------+ + + + + [...]
--- OUTSIDE RECORDS SUMMARY | ~2019-03-31 | XMS | Encounter Summary ---
Demographics + + + | Address | [address] | | | [place] [address] | + + + | Home Phone [...] Author | [facility] | | | and [place] | + + + | Organization | [facility] | [...] Team Providers + +------+ + | Care Snuff Container Inspector Name | Role | Phone | + +------+ + | Yocasta Lopez | PCP | | + +------+ + Reason for Visit + + + | Reason | Comments | + + + | Establish Care | Patient is here to Establish Care, former patient of Francisca | Robel | Sebastian in [place]. | + + + | Nephrolithiasis | Patient states he went to the ER in [place] at [facility] | the orthopedic specialty hospital and [...] + + | 09/10/ | Office | [facility] | Yocasta Lopez T, | Methadone dependence | | 2018 | Visit | [facility] [place] | CAREER DEVELOPMENT ASSOCIATE [address] | ([facility]); Dilaudid use | | | | [address] | [place] | disorder, moderate | | | | [place] | [address] | ([facility]) | | | | [address] | | | | | | [phone] | | | +--------+---------+ + + + [...] or Chronic Pain tab; printable questionnaires in Indonesian ) Interpretation of Total Score: 8-9 = [...] Total Score 4 (09/10/171699) (Printable questionnaires in Indonesian ) Interpretation of Total Score: 1-4 = [...] difficult at all (09/10/171699) ineath, ELLA Rucker APPRAISER PERSONAL PROPERTY - 09/10/2017 4:30 PM PDT Subjective: Patient ID: Ry Rubin is a 66 y.o. male. Chief Complaint Patient presents with Establish Care Patient is here to Establish Care, former patient of Francisca Cortes in [place]. Nephrolithiasis Patient states he went to the ER in [place] at [facility] and was told he had 3mm [...] last seen by Dr. Francisca Cortes in [place], [place]. He brought in a letter she hand wrote on a prescription pad. A copy of this letter is to be scanned to [employer] in [employer]. 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 Although effort was [...]
--- OUTSIDE RECORDS SUMMARY | ~2019-03-31 | XMS | Encounter Summary ---
Demographics + + + | Address | [address] | | | [place] [address] | + + + | Home Phone [...] | Author | [facility] | | | and [place] | + + + | Organization | [facility] | | | and [...] Team Providers + +------+ + | Care Dial Marker Name | Role | Phone | + [...] + + | 03/14/ | Hospital | [facility] | Panchito Candelaria, | MGUS (monoclonal | | 2015 | Encounter | MED CTR MEDICAL | [address] [place] | gammopathy of | | | | ONCOLOGY CLINIC [address] [place], | unknown | | | | [place] | [place] [address] | significance) | | | | [place] [address] | [phone] | (Primary Dx) | | | | [phone] | | | +--------+ + + + [...] fr om the original. Hematology-Oncology Progress Note [facility] Pt. Name/Age/: Ry Rubin 64 y.o. 1950 CSN: [id number] Date of service: 03/14/2015 Provider: Panchito Candelaria [...] this chart may have been created with [employer] voice recognition software. Occasi onal wrong-word or [...]
--- OUTSIDE RECORDS SUMMARY | ~2019-03-31 | XMS | Encounter Summary ---
Demographics + + + | Address | [address] | | | [place] [address] | + + + | Home Phone [...] | Author | [facility] | | | and [place] | + + + | Organization | [facility] | | [...] Team Providers + +------+ + | Care Dental Receptionist Name | Role | Phone | + [...] | | spine | MD [address] | [place] | | | | | | [address] | [place], | | | | | | [place] | [place] [address] | | | | | | [place], [place] | Phone: | | | | | | [address] | [phone] | | | | | | Phone: | Fax: | | | | | | [phone] | [phone] | | | | | | Fax: | | | | | | | [phone] | | +--------+ + + + + + Reason for Visit +---------+ + | Reason | Comments | +---------+ + | Results | | +---------+ + Encounter Details +--------+ + + + + | Date | Type | Department | Care Team | Description | +--------+ + + + + | 02/21/ | Telephone | [facility] | Kylee Swift | Results | | 2014 | | CARE [address] | Jag Medrano MD | | | | | [place] | [address] | | | | | [address] | [place] | | | | | [phone] | [address] | | | | | | | [...]
--- OUTSIDE RECORDS SUMMARY | ~2019-03-31 | XMS | Encounter Summary ---
Demographics + + + | Address | [address] | | | [place] [address] | + + + | Home Phone [...] + + | Author | [facility] | | | and Brianana | + + + | Organization | [facility] | | | and [...] Team Providers + +------+ + | Care Molecular Biologist Name | Role | Phone | + [...] | | back pain | [place] | [address] Phone: | | | | | without | [place] | [phone] | | | | | sciatica | [address] | Fax: | | | | | | Phone: | [phone] | | | | | | [phone] | | | | | | | Fax: | | | | | | | [phone] | | +--------+ + + + + + Reason for Visit + + + | Reason | Comments | + + + | Back Pain | room 5/ since 1988 | + + + Encounter Details +--------+---------+ + + + | Date | Type | Department | Care Team | Description | +--------+---------+ + + + | 02/15/ | Office | [facility] | Kylee Swift | Midline thoracic | | 2014 | Visit | CARE [address] | Jag Medrano MD | back pain (Primary | | | | [place], [place] | [address] | Dx); Midline low | | | | [address] | [place], [place] | back pain without | | | | [phone] | [address] | sciatica; Kidney | | | | [...] + | [facility] | [address] | [place] | [phone] | | [facility] | | [address] | | | - LABORATORY | | [...] Page CLEMENTS | | Brayan 02/16/15 | [facility] | | | - LABORATORY | + + + + + + + + | Performing | Address | City/State/Zipcode | Phone Number | | Organization | | | | + + + + + | [facility] | [address] | [place] | [phone] | | [facility] | | [address] | | | - LABORATORY | | [...] [address] | [place] | [phone] | | [facility] | | [address] | | | - LABORATORY | | [...] | | Band 1%, | | | [facility] | | | Serum | | | [...] gamma region. It is approximately 0.2g/dl. | [facility] | | Immunofixation will be performed for further characterization. [facility] | [facility] | | Brayan 02/16/15 | - LABORATORY | + + + + + + + + | Performing | Address | City/State/Zipcode | Phone Number | | Organization | | | | + + + + + | [facility] | [address] | [place] | [phone] | | [facility] | | [address] | | | - LABORATORY | | [...] 1.001 - 1.030 | | | | [place], | | | | | | [facility], [...] [address] | [place] | [phone] | | [facility] | | [address] | | | - IMAGING | | [...] FINDINGS: There is mild spondylosis. Bone | [facility] | | mineralization is mildly decreased. Vertebral [...] ST. | [address] | [place] | [phone] | | [facility] | | [address] | | | - IMAGING | | [...] + | [facility] | [address] | [place] | [phone] | | [facility] | | [address] | | | - LABORATORY | | [...] mL/min/1.73m2 | Page STARR | | | TRISTANIAN | RATE,ESTIMATED | | MEDICAL | | | | mL/min/1.28w5Azra than | | CENTER - | | [...] [address] | [place] | [phone] | | [facility] | | [address] | | | - LABORATORY | | [...] [address] | [place] | [phone] | | [facility] | | [address] | | | - LABORATORY | | [...]
--- OUTSIDE RECORDS SUMMARY | ~2019-03-31 | XMS | Encounter Summary ---
Demographics + + + | Address | [address] | | | [place] [address] | + + + | Home Phone [...] + + | Author | [facility] | | | and Brianana | + + + | Organization | [facility] | [...] Team Providers + +------+ + | Care Document Preparer Microfilming Name | Role | Phone | + +------+ + | Kyle Trevizo MD | PCP | | + +------+ + Encounter Details +--------+ + + + + | Date | Type | Department | Care Team | Description | +--------+ + + + + | 01/27/ | Hospital | [facility] | Ac Elder | Nephrolithiasis | | 2018 | Encounter | MED CTR OR INTRA OP | MD Esteban [address] | | | | | [address] | [place], [place] | | | | | [place], [place] | [address] | | | | | [address] | | | | | | [phone] | | | +--------+ + + + [...] You can't be awakened Date Last Reviewed: 02/19/[id number] [employer] [place] [address]. All righ ts reserved. This information is [...]
--- OUTSIDE RECORDS SUMMARY | ~2019-03-31 | XMS | Encounter Summary ---
Demographics + + + | Address | [address] | | | [place] [address] | + + + | Home Phone [...] | Author | [facility] | | | and Brianana | + + + | Organization | [facility] | | | [...] Team Providers + +------+ + | Care Farmworker Livestock Name | Role | Phone | + +------+ + | Francisca Cortes MD | PCP | | + +------+ + Encounter Details +--------+ + + + + | Date | Type | Department | Care Team | Description | +--------+ + + + + | 03/05/ | Hospital | [facility] | Panchito Candelaria, | Monoclonal | | 2015 | Encounter | MED CTR XRAY [address] | MD [address] | gammopathy | | | | [place] | [address] [place], | | | | | [place] [address] | [place] [address] | | | | | [phone] | [phone] | | | | | | | [...]
--- OUTSIDE RECORDS SUMMARY | ~2019-03-31 | XMS | Encounter Summary ---
Demographics + + + | Address | [address] | | | [place] [address] | + + + | Home Phone [...] | Author | [facility] | | | and Brianana | + + + | Organization | [facility] | | | and [...] Team Providers + +------+ + | Care Flooring Grader Name | Role | Phone | + [...] + | 11/05/ | Patient | [facility] | SineathYocasta T, | Preventive | | 2018 | Outreach | [facility] [place] | AGILE DEVELOPER [address] | Screening, PHST | | | | [address] | [place] | Colon Cancer | | | | [place] | [address] | Screening | | | | [address] | | | | | | [phone] | | | +--------+ + + + [...]
--- OUTSIDE RECORDS SUMMARY | ~2019-03-31 | XMS | Encounter Summary ---
Demographics + + + | Address | [address] | | | [place] [address] | + + + | Home Phone [...] + | Author | [facility] | | | and Brianana | + + + | Organization | [facility] | | | and Brianana [...] Team Providers + +------+ + | Care Cops Name | Role | Phone | + +------+ + | Kyle Trevizo MD | PCP | | + +------+ + Encounter Details +--------+ + + + + | Date | Type | Department | Care Team | Description | +--------+ + + + + | 12/29/ | Episode | [facility] | Joyec [place] | | | 2017 | Changes | [address] | | | | | [place] | | | | | | [address] | | | | | | [phone] | | | +--------+ + + + [...]
--- OUTSIDE RECORDS SUMMARY | ~2019-03-31 | XMS | Encounter Summary ---
Demographics + + + | Address | [address] | | | [place] [address] | + + + | Home Phone [...] Author | [facility] | | | and Brianana | + + + | Organization | [facility] [...] Providers + +------+ + | Care Wet Roller Name | Role | Phone | + [...] + + | 01/13/ | Telephone | [facility] | Ac Elder | Nephrolithiasis | | 2017 | | [address] | MD Esteban [address] | | | | | [place], [place] | [place], [place] | | | | | [address] | [address] | | | | | [phone] | | | +--------+ + + + [...]
[~2019-03-31 02:06] MED LIST changes: +CIPRO500 MG PO; +COLACE100 MG PO; +FLOMAX0.4 MG PO; +SENOKOT-S TABL1 EACH PO
--- OUTSIDE RECORDS SUMMARY | 2019-03-31 02:10 | XMS ---
PreManage Notification: ABEL BA Security Behavioral Health Technician Events No recent Security Events currently on file CRITERIA MET - Group Notification CARE PROVIDERS There are no care providers on record at this time. Jan has no Care Guidelines for this patient. Marija VISIT COUNT (12 MO.) 1 REGINE Goldman TOTAL 1 NOTE: Visits indicate total known visits. ED/UCC VISIT TRACKING (12 MO.) 03/31/2019 02:07 REGINE Gold OR TYPE: Emergency COMPLAINT: - LEFT RIB PAIN INPATIENT VISIT TRACKING (12 MO.) No inpatient visits to display in this time frame [email or web address]
[2019-03-31] MEDS ORDERED: NORCO 5-325 TA1 EACH PO (03:04)
[2019-04-01] MEDS ORDERED: PERCOCET 5-3251 EACH PO (20:02)
== END 2019-03-31 03:18 | disposition home or self-care (01) ==
LOC: ED 02:06 → CCU 02:08 → ED 02:08
DX: S20.212A Contusion of left front wall of thorax, initial encounter (principal); Y04.8XXA Assault by other bodily force, initial encounter; I25.2 Old myocardial infarction; Z87.891 Personal history of nicotine dependence
CPT/HCPCS: 71046; 90471; 90715; 99284-25

== ENCOUNTER 2019-04-01 17:48 | Emergency (ER) | payer MEDICARE ==
[~2019-04-01] VITALS: Ht 175.3 cm; Wt 64.9 kg
--- OUTSIDE RECORDS SUMMARY | ~2019-04-01 | XMS | Encounter Summary ---
Demographics + + + | Address | [address] | | | [place] [address] | + + + | Home Phone | | + + + | Preferred Language | Unknown | + + + | Marital Status | Single | + + + | Yazdanism Affiliation | Unknown | + + + | Race | Unknown | + + + | Ethnic Group | Unknown | + + + Author + + + | Author | [facility] | | | and Brianana | + + + | Organization | [facility] | | | and Brianana | + + + | Address | Unknown | + + + | Phone | Unavailable | + + + Support + + +---------+ + | Name | Relationship | Address | Phone | + + +---------+ + | Sary Rubin | ECON | Unknown | | + + +---------+ + | Eduard Rubin | ECON | Unknown | | + + +---------+ + | Jb Bahena | ECON | Unknown | | + + +---------+ + Care Team Providers + +------+ + | Care Irrigation Engineer Name | Role | Phone | + +------+ + | Francisca Cortes MD | PCP | | + +------+ + Reason for Visit + + + | Reason | Comments | + + + | Follow-up | | + + + Encounter Details +--------+ + + + + | Date | Type | Department | Care Team | Description | +--------+ + + + + | 03/14/ | Hospital | [facility] | Panchito Candelaria, | MGUS (monoclonal | | 2015 | Encounter | MED CTR MEDICAL | [address] | gammopathy of | | | | [facility] [address] [place], | unknown | | | | [place] | [place] [address] | significance) | | | | [place] [address] | [phone] | (Primary Dx) | | | | [phone] | | | +--------+ + + + + Social History + +-------+ +--------+------+ | Tobacco Use | Types | Packs/Day | Years | Date | | | | | Used | | + +-------+ +--------+------+ | Current Every Day | | 0.25 | 40 | | | Smoker | | | | | + +-------+ +--------+------+ + + +---------+ + | Alcohol Use | Drinks/Week | oz/Week | Comments | + + +---------+ + | No | 0 Standard drinks | 0.0 | | | | or equivalent | | | + + +---------+ + + + + | Sex Assigned at | Date Recorded | | | | + + + | Not on file | | + + + + + + + | Job Start Date | Occupation | Industry | + + + + | Not on file | Not on file | Not on file | + + + + + + + + | Travel History | Travel Start | Travel End | + + + + + + | No recent travel history available. | + + documented as of this encounter Last Filed Vital Signs + + + + + | Vital Sign | Reading | Time Taken | Comments | + + + + + | Blood Pressure | 120/72 | 03/14/2015 10:10 AM | | | | | PST | | + + + + + | Pulse | 57 | 03/14/2015 10:10 AM | | | | | PST | | + + + + + | Temperature | 35.4 C (95.7 F) | 03/14/2015 10:10 AM | | | | | PST | | + + + + + | Respiratory Rate | 20 | 03/14/2015 10:10 AM | | | | | PST | | + + + + + | Oxygen Saturation | 99% | 03/14/2015 10:10 AM | | | | | PST | | + + + + + | Inhaled Oxygen | - | - | | | Concentration | | | | + + + + + | Weight | 76 kg (167 lb 8.8 | 03/14/2015 10:10 AM | | | | oz) | PST | | + + + + + | Height | - | - | | + + + + + | Body Mass Index | 24.26 | 03/01/2015 2:45 PM | | | | | PDT | | + + + + + documented in this encounter Medications at Time of Discharge + + + +---------+ + + | Medication | Sig | Dispensed | Refills | Start | End Date | | | | | | Date | | + + + +---------+ + + | nitroglycerin | Place 0.4 mg under | | 0 | | | | (NITROSTAT) 0.4 mg | the tongue every 5 | | | | | | SL tablet | minutes as needed | | | | | | | for Chest pain. | | | | | + + + +---------+ + + | HYDROmorphone | Take 4 mg by mouth | | 0 | | | | (DILAUDID) 4 MG | Daily. | | | | 8 | | tablet | | | | | | + + + +---------+ + + | LORazepam (ATIVAN) | Take 2 mg by mouth 2 | | 0 | 02/07/20 | | | 2 MG tablet | times daily. | | | 15 | 8 | + + + +---------+ + + | methadone 10 mg | Take 40 mg by mouth | | 0 | | | | tablet | Daily. | | | | 8 | + + + +---------+ + + | Multiple | Take 1 tablet by | | 0 | | | | Vitamins-Minerals | mouth Daily. | | | | 8 | | (ADULT MULTIVITAMIN | | | | | | | WITH MINERALS/IRON) | | | | | | | TABS | | | | | | + + + +---------+ + + documented as of this encounter Progress Notes Panchito Candelaria MD - 03/14/2015 10:14 AM PSTFormatting of this note might be different fr om the original. Hematology-Oncology Progress Note [facility] Pt. Name/Age/: Ry Rubin 64 y.o. 1950 CSN: [id number] Date of service: 03/14/2015 Provider: Panchito Candelaria MD Assessment and plan: Patient's x-ray and laboratory evaluation does not reveal reveal anything particularly worr isome for either lymphoma or myeloma, in particular his total IgM is within the normal range . As such, the likelihood that this represents myeloma or lymphoma is statistically quite s mall, only way to be sure would be to perform a bone marrow biopsy. Offered this to him, wh ich he declines which I think is reasonable given the above considerations. Did review the likely diagnosis of clinical gammopathy of uncertain significance or early stage [place]str m's, both of which would not require any treatment. Did recommend ongoing follow-up of his paraprotein since if it does progress, then a diagnostic bone marrow biopsy would be appropr iate. 1. Bone marrow biopsy not strongly recommended. 2. Follow-up in 6 months with CBC, renal function, serum protein electrophoresis before lilly d. If stable, then can be monitored on an annual basis. Subjective: The patient chart and medications were reviewed in detail and the patient was seen and exam ined. Ry Rubin is a 64 y.o. male with a small IgM paraprotein, here for follow-up. Patient's back pain remains the same, seen physiatry in the near future. No new paresthesi as or visual issues. PMH: Past Medical History Diagnosis Date Kidney stones [place] (mitral incompetence) Multiple facial bone fractures (HCC) Social & Family Hx: History Social History Marital Status: Single Spouse Name: N/A Number of Children: N/A Years of Education: N/A Social History Main Topics Smoking status: Current Every Day Smoker -- 0.25 packs/day for 40 years Smokeless tobacco: Not on file Alcohol Use: No Drug Use: Not on file Sexual Activity: Not on file Other Topics Concern Not on file Social History Narrative Family History Problem Relation Age of Onset Diabetes Mother Cancer Father 80 lymphoma Cancer Sister 70 breast cancer REVIEW OF SYSTEMS Constitutional: Energy remains fair, appetite is staying poor. Sweats day and night are int ermittent. Denies high fevers, shaking chills, nausea, vomiting or weight loss. Ear, Nose, Mouth, Throat: Denies odynophagia, dysphagia, or tinnitus. Cardiovascular: Denies shortness of breath, dyspnea on exertion, chest pain, palpitations o r orthopnea. Respiratory: Denies cough, hemoptysis, or sputum production. Gastrointestinal: Left lower abdominal pain reported - see below. Denies constipation, maureen rrhea, melena, or bright red blood per rectum. Genitourinary: Weak urine stream reported. Denies hematuria or dysuria. Musculoskeletal: Generalized joint pain is minimal. Neurologic: Denies headache, visual changes, or numbness/tingling of the extremities. Endocrine: Denies peripheral edema or heat/cold intolerance. Hematologic: Denies spontaneous bruising or bleeding. Integumentary: Denies rash, wounds or other skin concerns. Pain:Left lower abdominal pain is as high as 4 and as low zero on 0 to 10 pains scale. Stephen mckeon pain is about a 2 on 0 to 10 pain scale, has decreased since stopped Crestor on 02/17/15. Goal <4. Note:Here for follow up today. My chart:declines today, does not have a computer. Medications: Current Outpatient Prescriptions Medication Sig HYDROmorphone (DILAUDID) 4 MG tablet Take by mouth. Take 2 mg in the am and 4 mg in th e pm. LORazepam (ATIVAN) 2 MG tablet 2 mg. 1/2 tab in am, one tab at HS. methadone 10 mg tablet Take 30 mg by mouth every 12 hours. Multiple Vitamins-Minerals (ADULT MULTIVITAMIN WITH MINERALS/IRON) TABS Take 1 tablet b y mouth Daily. nitroglycerin (NITROSTAT) 0.[address] 0.4 mg under the tongue every 5 minute s as needed for Chest pain. No current facility-administered medications for this encounter. Allergies: No Known Allergies Vitals: Temp: 35.4 C (95.7 F) BP: 120/72 mmHg Pulse: 57 Resp: 20 SpO2: 99 % on Temp :Temp Av.4 C (95.7 F) Min: 35.4 C (95.7 F) Max: 35.4 C (95.7 F) No intake or output data in the 24 hours ending 03/14/15 1029 Wt. Current: Weight: 76 kg (167 lb 8.8 oz) Physical Exam: Exam: General: The patient is alert and oriented. No acute distress. Psychiatric: Normal mood and affect. Appropriate. Diagnostic studies: Available data and images were reviewed personally. See reports. Significant results and findings are addressed here or in the Assessment and Plan. Component Latest Ref Rng 03/01/2015 03/01/2015 03/01/2015 1541 1541 1541 Immunoglobulin IgG 758 - 1612 mg/dL 1040 Immunoglobulin IgA 71 - 397 mg/dL 196 Immunoglobulin IgM 40 - 230 mg/dL 222 KAPPA LIGHT CHAIN 170 - 370 mg/dL 241 KAPPA/LAMBDA RATIO 1.35 - 2.65 1.62 LAMBDA LIGHT CHAIN 90 - 210 mg/dL 149 BETA 2 MICROGLOBULIN 1010 - 1730 ug/L 2167.0 (H) Component Latest Ref Rng 03/05/2015 03/05/2015 0942 0942 Urine Time 24 HR Urine Volume 640 URINE PROTEIN 10 24HR URINE PROTEIN CALCULATION 64 Protein, Urine 24hr 45 ELP Interpretation, Urine See Comments Xr Bone Survey Limited 03/05/2015 XR BONE SURVEY LIMITED 03/05/2015 10:06 AM HISTORY: r/o myeloma. COMPARISON: N one. FINDINGS: The skull and facial structures demonstrate no evidence for lesions. There i s absence of teeth. No lesions are visualized of the cervical spine. There is mild to modera te spondylosis. Mild disc narrowing are at C3-4 and C4-5. There is moderate disc narrowing a t C5-6. The chest shows no evidence for osseous lesions. Heart size is at the upper limits o f normal. There is atherosclerosis of the aorta. Volume loss with apparent lateral segment a telectasis is in the left lower lung lobe. Mild right curvature of the thoracic spine is pre sent along with moderate spondylosis. No lesions are visualized in the bilateral humeri. No lesions are seen in the pelvis. There are mild to moderate degenerative changes of the bilat eral hips. Pelvic phleboliths are noted. No lesions are observed in the bilateral lower extr emities. IMPRESSION - No evidence for osseous lesions. Volume loss with apparent lateral s egment atelectasis in left lower lung lobe. Endobronchial obstruction cannot be excluded. Fu rther characterization can be obtained with CT imaging if clinically indicated. Dictated an d Signed by: Mandeep Garrido MD Electronically signed: 03/05/2015 12:09 PM Electronically signed by: Panchito Candelaria MD 03/14/2015 10:29 Portions of this chart may have been created with [employer] voice recognition software. Occasi onal wrong-word or sound-alike substitutions may have occurred due to the inherent hutchinson itations of voice recognition software. Please read the chart carefully and recognize, using context, where these substitutions have occurred. documented in this e ncounter Plan of Treatment + +------+--------+ + + | Name | Type | Priori | Associated Diagnoses | Order Schedule | | | | ty | | | + +------+--------+ + + | Comprehensive | Lab | STAT | MGUS (monoclonal | Expected: 08/29/2015 | | Metabolic Panel | | | gammopathy of | (Approximate), | | | | | unknown | Expires: 03/14/2016 | | | | | significance) | | + +------+--------+ + + | CBC with | Lab | STAT | MGUS (monoclonal | Expected: 08/29/2015 | | Differential | | | gammopathy of | (Approximate), | | | | | unknown | Expires: 03/14/2016 | | | | | significance) | | + +------+--------+ + + | Protein | Lab | STAT | MGUS (monoclonal | Expected: 08/29/2015 | | Electrophoresis, | | | gammopathy of | (Approximate), | | Serum | | | unknown | Expires: 03/14/2016 | | | | | significance) | | + +------+--------+ + + documented as of this encounter Visit Diagnoses + + | Diagnosis | + + | MGUS (monoclonal gammopathy of unknown significance) - Primary Monoclonal | | paraproteinemia | + + documented in this encounter"
--- OUTSIDE RECORDS SUMMARY | ~2019-04-01 | XMS | Encounter Summary ---
Demographics + + + | Address | [address] | | | [place] [address] | + + + | Home Phone | | + + + | Preferred Language | Unknown | + + + | Marital Status | Single | + + + | Episcopal Affiliation | Unknown | + + + | Race | Unknown | + + + | Ethnic Group | Unknown | + + + Author + + + | Author | [facility] | | | and [place] | + + + | Organization | [facility] | | | and [...] Team Providers + +------+ + | Care Pricing Actuary Name | Role | Phone | + [...] + + | 01/20/ | Office | [facility] | Ac Elder | Nephrolithiasis | | 2018 | Visit | [address] | MD Esteban [address] | (Primary Dx) | | | | [place] | [place], [place] | | | | | [address] | [address] | | | | | [phone] | | | +--------+---------+ + + + [...] January 27, 2018 at 7:45 AM at [facility]. Please report to [facility] no [...] you home after surgery. Call us at [phone] with any questions. [x] Pain management booklet [...] MGUS (monoclonal gammopathy of unknown significance) 04/13/2015 MD (mitral incompetence) Multiple facial bone fractures (HCC) Rheumatoid arthritis (HCC) Venereal disease Wears dentures Past Surgical History Past Surgical History: Procedure Laterality Date GALLBLADDER SURGERY 10/28/2017 Dr. Goins in [place] @ [facility] LITHOTRIPSY 2001 LITHOTRIPSY 2011 SPINE SURGERY 1984 grafted his rib and replaced disc between T8 and T9 URETEROSCOPY Left 12/31/2017 Procedure: CYSTOSCOPY URETEROSCOPY W/ LASER STENT LEFT ; Surgeon: Ac Elder MD; Location: [facility] MAIN OR Family History: Family History Problem Relation Age of Onset Lymphoma Father 80 Diabetes Mother Heart attack Mother Breast cancer Sister 70 Heart attack Sister 68 Arthritis Other unknown relation Prostate cancer Neg Hx Social History: Social History Social History Marital status: Single Spouse name: N/A Number of children: 4 Years of education: 12 Occupational History [employer]MENT [employer]: [employer] Social History Main Topics Smoking status: Former [...] ECGs available Confirmed by TANYA TINEO MD ([id number]) on 12/30/2017 8:34:04 AM Lab Results Component [...] have not thoroughly proofread this note, and beef grader errors are very likely to occur. CC: [...]
--- OUTSIDE RECORDS SUMMARY | ~2019-04-01 | XMS | Encounter Summary ---
Demographics + + + | Address | [address] | | | [place] [address] | + + + | Home Phone | | + + + | Preferred Language | Unknown | + + + | Marital Status | Single | + + + | Presybeterian Affiliation | Unknown | + + + | Race | Unknown | + + + | Ethnic Group | Unknown | + + + Author + + + | Author | [facility] | | | and [place] | + + + | Organization | [facility] | | | and [...] Team Providers + +------+ + | Care Purchasing Internship Name | Role | Phone | + [...] [address] | | | | | [phone] | [place] [address] | | +--------+ + + + + [...] + | FL PYELOGRAM | Routin | 11/16/2017 | | Results for this | | RETROGRADE | e | 10:15 AM | | procedure are in the | | | | PDT | | results section. | + +--------+ + + + documented in this encounter Results FL Pyelogram Retrograde (11/16/2017 10:15 AM PDT) + + | Specimen | [...]
--- OUTSIDE RECORDS SUMMARY | ~2019-04-01 | XMS | Encounter Summary ---
Demographics + + + | Address | [address] | | | [place] [address] | + + + | Home Phone | | + + + | Preferred Language | Unknown | + + + | Marital Status | Single | + + + | Lutheran Affiliation | Unknown | + + + | Race | Unknown | + + + | Ethnic Group | Unknown | + + + Author + + + | Author | [facility] | | | and Brianana | + + + | Organization | [facility] | | | and [...] Team Providers + +------+ + | Care Telescope Repairer Name | Role | Phone | + +------+ + | Francisca Cortes MD | PCP | | + +------+ + Encounter Details +--------+ + + + + | Date | Type | Department | Care Team | Description | +--------+ + + + + | 03/05/ | Hospital | [facility] | Panchito Candelaria, | Monoclonal | | 2015 | Encounter | [facility] | MD [address] | gammopathy | | | | [facility]OGY CLINIC [address] [place], | | | | | [place] | [place] [address] | | | | | [place] [address] | [phone] | | | | | [phone] | | | +--------+ + + + [...] | + +--------+ + + + | ELECTROPHORESIS, | Routin | 03/05/2015 | Monoclonal | Results for this | | URINE 24HR | e | 9:42 AM | gammopathy | procedure are in the | | | | PST | | results section. | + +--------+ + + + | PROTEIN, URINE, 24HR | Routin | 03/05/2015 | Monoclonal | Results for this | | | e | 9:42 AM | gammopathy | procedure are in the | | | | PST | | results section. | + +--------+ + + + documented in this encounter Results Electrophoresis Ur24 (03/05/2015 9:42 AM PST) + + + + + + | Component | Value | Ref Range | Performed | Pathologist | | | | | At | Signature | + + + + + + | Protein, | 45Comment: Urine Protein | mg/24h | REFERENCE | | | Urine 24hr | Normal: 50 to 80 | | LAB [facility] | | | | mg/24h at rest. <250 | | | | | | mg/24h followingintense | | | | | | exercise. | | | | + + + + + + | ELP | See CommentsComment: A | | REFERENCE | | | Interpretat | trace of albumin is | | [facility] | | | ion, Urine | detected in the urine | | | | | | electrophoresis | | | | | | pattern.Interpreted by | | | | | | JLBTesting Performed: | | | | | | [facility], [address], | | | | | | [place] [address] | | | | + + + + + + + + | Specimen | + + | Urine specimen | | (specimen) | + + + + + + + | Performing | Address | City/State/Zipcode | Phone Number | | Organization | | | | + + + + + | [facility] | [address] | [place] [address] | [phone] | + + + + + Protein, Urine, 24Hr (03/05/2015 9:42 AM PST) + +-------+ + + + | Component | Value | Ref Range | Performed | Pathologist | | | | | At | Signature | + +-------+ + + + | Urine Time | 24 HR | | [facility] | | [facility] | [facility] | | | | | | [facility] - | | | | | | LABORATORY | | + +-------+ + + + | Urine | 640 | mL | [facility] | | | Volume | | | [facility] | | | | | | [facility] | | | | | | CENTER - | | | | | | LABORATORY | | + +-------+ + + + | Protein, | 10 | mg/dL | [facility] | | | Urine | | | [facility] | | | (mg/dL) | | | MEDICAL | | | | | | CENTER - | | | | | | LABORATORY | | + +-------+ + + + | Protein, | 64 | mg/24hrs | [facility] | | | Urine | | | [facility] | | | (mg/24hr) | | | MEDICAL | | | | | | CENTER - | | | | | | LABORATORY | | + +-------+ + + + + + | Specimen | + + | Urine - Urine | | specimen (specimen) | + + + + + + + | Performing | Address | City/State/Zipcode | Phone Number | | Organization | | | | + + + + + | [facility] | [address] | [place] | [phone] | | [facility] | | [address] | | | - LABORATORY | | | | + + + + + documented in this encounter Visit Diagnoses + + | Diagnosis | + + | Monoclonal gammopathy Monoclonal paraproteinemia | + + documented in this encounter"
--- OUTSIDE RECORDS SUMMARY | ~2019-04-01 | XMS | Encounter Summary ---
Demographics + + + | Address | [address] | | | [place] [address] | + + + | Home Phone | | + + + | Preferred Language | Unknown | + + + | Marital Status | Single | + + + | Voodoo Affiliation | Unknown | + + + | Race | Unknown | + + + | Ethnic Group | Unknown | + + + Author + + + | Author | [facility] | | | and Brianana | + + + | Organization | [facility] | | | and Brianana [...] Team Providers + +------+ + | Care Paint Spraying Machine Operator Helper Name | Role | Phone | + +------+ + | Francisca Cortes MD | PCP | | + +------+ + Reason for Visit +--------+ + | Reason | Comments | +--------+ + | Other | | +--------+ + Encounter Details +--------+ + + + + | Date | Type | Department | Care Team | Description | +--------+ + + + + | 09/10/ | Telephone | [facility] | Panchito Candelaria, | Other | | 2016 | | [facility] | [address] [place] | | | | | [facility]Y CLIN[facility] [address] | [place], | | | | | [place] | [place] [address] | | | | | [place] [address] | [phone] | | | | | [phone] | | | +--------+ + + + [...]
--- OUTSIDE RECORDS SUMMARY | ~2019-04-01 | XMS | Encounter Summary ---
Demographics + + + | Address | [address] | | | [place] [address] | + + + | Home Phone | | + + + | Preferred Language | Unknown | + + + | Marital Status | Single | + + + | Baptist Affiliation | Unknown | + + + | Race | Unknown | + + + | Ethnic Group | Unknown | + + + Author + + + | Author | [facility] | | | and Brianana | + + + | Organization | [facility] | | | and [...] Team Providers + +------+ + | Care Sales And Support Center Agent Name | Role | Phone | + [...] Casimiro NIEVES | | | | | [phone] | [place] [address] | | +--------+ + + + + [...] | + +--------+ + + + | US ABDOMEN LIMITED | Routin | 10/16/2017 | | Results for this | | | e | 9:05 AM | | procedure are in the | | | | PDT | | results section. | + +--------+ + + + documented in this encounter Results US Abdomen Limited (10/16/2017 9:05 AM PDT) + + | Specimen | [...]
--- OUTSIDE RECORDS SUMMARY | ~2019-04-01 | XMS | Encounter Summary ---
Demographics + + + | Address | [address] | | | [place] [address] | + + + | Home Phone | | + + + | Preferred Language | Unknown | + + + | Marital Status | Single | + + + | Scientology Affiliation | Unknown | + + + | Race | Unknown | + + + | Ethnic Group | Unknown | + + + Author + + + | Author | [facility] | | | and Brianana | + + + | Organization | [facility] | | | and [...] Team Providers + +------+ + | Care Edge Stitcher Name | Role | Phone | + [...] Casimiro NIEVES | | | | | [phone] | [place] [address] | | +--------+ + + + + [...]
--- OUTSIDE RECORDS SUMMARY | ~2019-04-01 | XMS | Encounter Summary ---
Demographics + + + | Address | [address] | | | [place] [address] | + + + | Home Phone | | + + + | Preferred Language | Unknown | + + + | Marital Status | Single | + + + | Orthodoxy Affiliation | Unknown | + + + | Race | Unknown | + + + | Ethnic Group | Unknown | + + + Author + + + | Author | [facility] | | | and Brianana | + + + | Organization | [facility] | | | and Brianana [...] Team Providers + +------+ + | Care Liability Claims Manager Name | Role | Phone | [...] Casimiro NIEVES | | | | | [phone] | [place] [address] | | +--------+ + + + + [...]
--- OUTSIDE RECORDS SUMMARY | ~2019-04-01 | XMS | Encounter Summary ---
Demographics + + + | Address | [address] | | | [place] [address] | + + + | Home Phone | | + + + | Preferred Language | Unknown | + + + | Marital Status | Single | + + + | Confucianism Affiliation | Unknown | + + + | Race | Unknown | + + + | Ethnic Group | Unknown | + + + Author + + + | Author | [facility] | | | and Brianana | + + + | Organization | [facility] | | | and Brianana [...] Team Providers + +------+ + | Care Hand Inspector Name | Role | Phone | [...] Casimiro NIEVES | | | | | [phone] | [place] [address] | | +--------+ + + + + [...] + +--------+ + + + | US SCROTUM AND | Routin | 11/15/2017 | | Results for this | | TESTICLES | e | 1:25 PM | | procedure are in the | | | | PDT | | results section. | + +--------+ + + + documented in this encounter Results US Scrotum And Testicles (11/15/2017 1:25 PM PDT) + + | Specimen | + [...]
--- OUTSIDE RECORDS SUMMARY | ~2019-04-01 | XMS | Encounter Summary ---
Demographics + + + | Address | [address] | | | [place] [address] | + + + | Home Phone | | + + + | Preferred Language | Unknown | + + + | Marital Status | Single | + + + | Episcopalian Affiliation | Unknown | + + + | Race | Unknown | + + + | Ethnic Group | Unknown | + + + Author + + + | Author | [facility] | | | and Brianana | + + + | Organization | [facility] | | | and Brianana [...] Team Providers + +------+ + | Care Coffin Maker Name | Role | Phone | + [...] | | | | [place] | [place] [address] | | | | | [place] [address] | [phone] | | | | | [phone] | | | +--------+ + + + [...]
--- OUTSIDE RECORDS SUMMARY | ~2019-04-01 | XMS | Encounter Summary ---
Demographics + + + | Address | [address] | | | [place] [address] | + + + | Home Phone | | + + + | Preferred Language | Unknown | + + + | Marital Status | Single | + + + | Evangelical Affiliation | Unknown | + + + | Race | Unknown | + + + | Ethnic Group | Unknown | + + + Author + + + | Author | [facility] | | | and Brianana | + + + | Organization | [facility] | | | and Brianana | [...] Team Providers + +------+ + | Care Satellite Dish Installer Name | Role | Phone | + [...] | | back pain | [place] | [address] Phone: | | | | | without | [place] | [phone] | | | | | sciatica | [address] | Fax: | | | | | | Phone: | [phone] | | | | | | [phone] | | | | | | | Fax: | | | | | | | [phone] | | +--------+ + + + + + Reason for Visit + + + | Reason | Comments | + + + | Back Pain | room 5/ since 1988 | + + + Encounter Details +--------+---------+ + + + | Date | Type | Department | Care Team | Description | +--------+---------+ + + + | 02/15/ | Office | [facility] | Kylee Swift | Midline thoracic | | 2014 | Visit | CARE [address] | Jag Medrano MD | back pain (Primary | | | | [place], [place] | [address] | Dx); Midline low | | | | [address] | [place], [place] | back pain without | | | | [phone] | [address] | sciatica; Kidney | | | | [...] + | [facility] | [address] | [place] | [phone] | | [facility] | | [address] | | | - LABORATORY | | [...] [facility] | | Brayan 02/16/15 | [facility] | | | - LABORATORY | + + + + + + + + | Performing | Address | City/State/Zipcode | Phone Number | | Organization | | | | + + + + + | [facility] | [address] | [place] | [phone] | | [facility] | | [address] | | | - LABORATORY | | [...] [address] | [place] | [phone] | | [facility] | | [address] | | | - LABORATORY | | [...] | | Band 1%, | | | [facility] | | | Serum | | | [...] gamma region. It is approximately 0.2g/dl. | [facility] | | Immunofixation will be performed for further characterization. [facility]Page | [facility] | | Brayan 02/16/15 | - LABORATORY | + + + + + + + + | Performing | Address | City/State/Zipcode | Phone Number | | Organization | | | | + + + + + | [facility] | [address] | [place] | [phone] | | [facility] | | [address] | | | - LABORATORY | | [...] 1.001 - 1.030 | | | | [place], | | | | | | [facility], [...] [address] | [place] | [phone] | | [facility] | | [address] | | | - IMAGING | | [...] FINDINGS: There is mild spondylosis. Bone | [facility] | | mineralization is mildly decreased. Vertebral [...] + + | Performing | Address | City/State[facility] | Phone Number | | Organization | | | | + + + + + | [facility] | [address] | [place] | [phone] | | [facility] | | [address] | | | - IMAGING | | [...] + | [facility] | [address] | [place] | [phone] | | [facility] | | [address] | | | - LABORATORY | | [...] mL/min/1.73m2 | [facility] | | | [place] | RATE,ESTIMATED | | MEDICAL | | | | mL/min/1.96e8Swcl than | | CENTER - | | [...] [address] | [place] | [phone] | | [facility] | | [address] | | | - LABORATORY | | [...] [address] | [place] | [phone] | | [facility] | | [address] | | | - LABORATORY | | [...]
--- OUTSIDE RECORDS SUMMARY | ~2019-04-01 | XMS | Clinical Summary ---
Demographics + + + | Address | [address] | | | [place] [address] | + + + | Home Phone [...] + + | Author | [facility] (Historical as of | | | 12-18-18) | + + + | Organization | [facility] (Historical as of | | | 12-18-18) | + + + | Address | Unknown | + + + | Phone | Unavailable | + + + Support + + +---------+ + | Name | Relationship | Address | Phone | + + +---------+ + | Listed,No One | ECON | Unknown | | + + +---------+ + Care Team Providers + +------+ + | Care Sail Repairer Name | Role | Phone | + +------+ + | Kyle Trevizo MD | PP | | + +------+ + Allergies Not on File Current Medications Not on file Active Problems Not on file Social History + +-------+ +--------+------+ | Tobacco Use | Types | Packs/Day | Years | Date | | | | | Used | | + +-------+ +--------+------+ | Never Assessed | | | | | + +-------+ +--------+------+ + + + | Sex Assigned at | Date Recorded | | | | + + + | Not on file | | + + + Plan of Treatment + [...] | | | | | Pneumococcal 65+ | 6 | | | | Low/Medium Risk (1 | | | | | of 2 - PCV13) | | | | + + + + + | Vaccine: Influenza | | | | | (#1) | 9 | | | + + + + + Results Not on filefrom Last 3 Months Insurance + +--------+ +------+-------+ + | Payer | Benefi | Subscriber | Type | Phone | Address | | | t Plan | ID | | | | | | / | | | | | | | Group | | | | | + +--------+ +------+-------+ + | MEDICARE | MEDICA | [id number] | | | [address] | | | [place] | | | | [place] [address] | | | IP-OP | | | | | + +--------+ +------+-------+ + + +--------+ +--------+ + + | Guarantor Name | Accoun | Relation to | Date | Phone | Billing Address | | | t Type | Patient | of | | | | | | | | | | + +--------+ +--------+ + + | ABEL RUBIN | Person | Self [birth year] Home: | [address] | | | al/Danny | | 1951 | [phone] | [place] [address] | | | [place]iva | | | [address] | | + +--------+ +--------+ + +"
--- OUTSIDE RECORDS SUMMARY | ~2019-04-01 | XMS | Encounter Summary ---
Demographics + + + | Address | [address] | | | [place] [address] | + + + | Home Phone | | + + + | Preferred Language | Unknown | + + + | Marital Status | Single | + + + | Latter-Day Affiliation | Unknown | + + + | Race | Unknown | + + + | Ethnic Group | Unknown | + + + Author + + + | Author | [facility] | | | and [place] | + + + | Organization | [facility] | | | and [place] [...] Team Providers + +------+ + | Care Social Work Supervisor Name | Role | Phone | + +------+ + | Kyle Trevizo MD | PCP | | + +------+ + Encounter Details +--------+ + + + + | Date | Type | Department | Care Team | Description | +--------+ + + + + | 12/31/ | Hospital | [facility] | Ac Elder | Kidney stone | | 2018 | Encounter | MED CTR OR INTRA OP | MD Esteban [address] | (Primary Dx); | | | | [address] | [place], [place] | Calculus of kidney | | | | [place], [place] | [id number] | | | | | [address] | | | | | | [phone] | | | +--------+ + + + [...] You can't be awakened Date Last Reviewed: 02/19/201619997008-6745 [employer]. [address] [place] [address]. All righ ts reserved. This information is [...] lasts more than a day, a fever [id number] (38 C), or trouble urinating. Date Last Reviewed: 05/04/201619993402-6930 [employer]. [address] [place] [address], [place] [address]. All righ ts reserved. This information is [...]
--- OUTSIDE RECORDS SUMMARY | ~2019-04-01 | XMS | Encounter Summary ---
Demographics + + + | Address | [address] | | | [place] [address] | + + + | Home Phone | | + + + | Preferred Language | Unknown | + + + | Marital Status | Single | + + + | Druze Affiliation | Unknown | + + + | Race | Unknown | + + + | Ethnic Group | Unknown | + + + Author + + + | Author | [facility] | | | and [place] | + + + | Organization | [facility] | | | and [place] [...] Team Providers + +------+ + | Care Recycle Worker Name | Role | Phone | [...] | | spine | MD [address] | [place] | | | | | [address] | [place], | | | | | | [place] | [place] [address] | | | | | | [place], [place] | Phone: | | | | | | [address] | [phone] | | | | | | Phone: | Fax: | | | | | | [phone] | [phone] | | | | | | Fax: | | | | | | | [phone] | | +--------+ + + + + + Reason for Visit +---------+ + | Reason | Comments | +---------+ + | Results | | +---------+ + Encounter Details +--------+ + + + + | Date | Type | Department | Care Team | Description | +--------+ + + + + | 02/21/ | Telephone | [facility] | Kylee Swift | Results | | 2014 | | CARE [address] | Jag Medrano MD | | | | | [place] | [address] | | | | | [address] | [place] | | | | | [phone] | [address] | | | | | | | [...]
--- OUTSIDE RECORDS SUMMARY | ~2019-04-01 | XMS | Clinical Summary ---
Demographics + + + | Address | [address] | | | [place] [address] | + + + | Home Phone | | + + + | Preferred Language | Unknown | + + + | Marital Status | Single | + + + | Scientologist Affiliation | Unknown | + + + | Race | Unknown | + + + | Ethnic Group | Unknown | + + + Author + + + | Author | [facility] | | | and [place] | + + + | Organization | [facility] | | [...] Team Providers + +------+ + | Care Deputy Assessor Name | Role | Phone | + [...] a | | vertebral osteomyelitis ([place]) in ([place]). 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 | [...] 6 | Stent | Left: | DALE HUNTER | | 09/24/ | [id number] | | - Sn/AImplanted: Qty: 1 | | Ureter | INCORPORATE | | 2020 | /N/A | | on 12/31/2017 by Jael, | | | D | | | /[id number] | | Ac Orellana MD at [facility] | | | | | | 30 | | [facility] | | | | | | | | [facility] | | | | | | | + +-------+--------+ +--------+--------+--------+ | Stent Uret W/Pstnr Frm 6 | Stent | Left: | DALE HUNTER | | | [id number] | | - [id number]: | | Ureter | INCORPORATE | | | / | | Qty: 1 on 01/27/2018 by | | | D | | | /[id number] | | Ac Elder MD at | | | | | | 08 | | [facility] | | | | | | | | [facility] | | | | | [...] +--------+ +---------+--------+ | MEDICARE | MEDICA | [id number] | 12/02/18 | [phone] | | Medica [...] [birth year] | | | al/Fam | | 1951 | [phone] | [place] [address] | | | [place]iva | | | 8 (Home) | | + +--------+ +--------+ + + Advance Directives + + + + + | Type | Date Recorded | Patient | Explanation | | | | Cashier Greeter | | + + + + + | Power of | | | | | Clay Washer | | | | + + + [...]
--- OUTSIDE RECORDS SUMMARY | ~2019-04-01 | XMS | Encounter Summary ---
Demographics + + + | Address | [address] | | | [place] [address] | + + + | Home Phone [...] + | Author | [facility] | | | and [place]ana | + + + | Organization | [facility] | [...] Team Providers + +------+ + | Care Roof Foreman Name | Role | Phone | + +------+ + | Kyle Trevizo MD | PCP | | + +------+ + Encounter Details +--------+ + + + + | Date | Type | Department | Care Team | Description | +--------+ + + + + | 03/15/ | Hospital | [facility] | Panchito Candelaria, | Canceled (OTHER) | | 2015 | Encounter | [facility] CTR MED[facility] | MD [address] | | | | | [facility] CLINIC [address] [place], | | | | | [place] | [place] [address] | | | | | [place] [address] | [phone] | | | | | [phone] | | | +--------+ + + + [...]
--- OUTSIDE RECORDS SUMMARY | ~2019-04-01 | XMS | Encounter Summary ---
Demographics + + + | Address | [address] | | | [place] [address] | + + + | Home Phone [...] + + + | Author | [facility] | | | and Brianana | + + + | Organization | [facility] | | | and Brianana | [...] Team Providers + +------+ + | Care Group Leader Semiconductor Processing Name | Role | Phone | + [...] | | back pain | [place] | [address] Phone: | | | | | without | [place] | [phone] | | | | | sciatica | [address] | Fax: | | | | | | Phone: | [phone] | | | | | | [phone] | | | | | | | Fax: | | | | | | | [phone] | | +--------+ + + + + + Encounter Details +--------+---------+ + + + | Date | Type | Department | Care Team | Description | +--------+---------+ + + + | 03/20/ | Office | [facility] | Aldo Schultz | Chronic pain | | 2014 | Visit | PHYSIATRY [address], [address] | syndrome (Primary | | | | [place], | [place] | Dx); Left-sided | | | | [place] [address] | [address] | thoracic back pain | | | | [phone] | | | +--------+---------+ + + + [...] 03/20/2015 9:07 AM PST Aldo Schultz MD [address] [place] [address], [address] [place] [address] FAX: PHYSICAL MEDICINE AND REHABILITATION H&P CHIEF [...] Past Medical History Diagnosis Date Kidney stones [place] (mitral incompetence) Multiple facial bone fractures (HCC) [...] has no apparent deficits with short or fci memory. He has appropriate fund of knowledge [...]
--- OUTSIDE RECORDS SUMMARY | ~2019-04-01 | XMS | Encounter Summary ---
Demographics + + + | Address | [address] | | | [place] [address] | + + + | Home Phone | | + + + | Preferred Language | Unknown | + + + | Marital Status | Single | + + + | Jainism Affiliation | Unknown | + + + | Race | Unknown | + + + | Ethnic Group | Unknown | + + + Author + + + | Author | [facility] | | | and [place] | + + + | Organization | [facility] | | [...] Team Providers + +------+ + | Care Angle Shear Set Up Operator Name | Role | Phone | [...] exchange | | | | [address] | [address] [place], [place] | | | | | [place], [place] | [address] | | | | | [address] | | | | | | [phone] | | | +--------+---------+ + + + [...] You can't be awakened Date Last Reviewed: 02/19/201619993364-3205 [employer]. [address] [place] [address]. All righ ts reserved. This information is [...]
--- OUTSIDE RECORDS SUMMARY | ~2019-04-01 | XMS | Encounter Summary ---
Demographics + + + | Address | [address] | | | [place] [address] | + + + | Home Phone | | + + + | Preferred Language | Unknown | + + + | Marital Status | Single | + + + | Advent Affiliation | Unknown | + + + | Race | Unknown | + + + | Ethnic Group | Unknown | + + + Author + + + | Author | [facility] | | | and Brianana | + + + | Organization | [facility] [...] Team Providers + +------+ + | Care Fire Chief'S Aide Name | Role | Phone | + [...] | | spine | MD [address] | | | | | | [address] | [place], | | | | | | [place] | [place] [address] | | | | | | [place], [place] | Phone: | | | | | | [address] | [phone] | | | | | | Phone: | Fax: | | | | | | [phone] | [phone] | | | | | | Fax: | | | | | | | [phone] | | +--------+ + + + + + Encounter Details +--------+ + + + + | Date | Type | Department | Care Team | Description | +--------+ + + + + | 03/01/ | Hospital | [facility] | Panchito Candelaria, | Monoclonal | | 2015 | Encounter | MED CTR MEDICAL | MD Mercedes [place] | gammopathy (Primary | | | | [facility] [address] [place], | Dx); Back pain, | | | | [address] [place] | [place] [address] | unspecified back | | | | [place] [address] | [phone] | pain laterality, | | | | [phone] | | unspecified | | | | [...] completed | + +------+--------+ + + | [facility] | Lab | STAT | [...] | Procedure Note | + + | Ishna, Rad Results In - 03/05/2015 12:12 PM [...] + | [address] | [address] | [place] | [phone] | | [facility] | | [address] | | | - LABORATORY | | [...] | | | | | [place] [address] | | | | + + + [...] [address] | [place] [address] | [phone] | + + + + + [facility] Light Chain Ratio (03/01/2015 3:41 [...] [place] | | | | | | [address] | | | | + + + [...] [address] | [place] [address] | [phone] | + + + + + Immunoglobulin, [...] [place] | | | | | | [address] | | | | + + + [...] [address] | [place] [address] | [phone] | + + + + + Beta [...] | | | | | [place] [address] | | | | + + + + + + + + | Specimen | + + | Blood specimen | | (specimen) | + + + + + + + | Performing | Address | City/State/Zipcode | Phone Number | | Organization | | | | + + + + + | [facility] | [address] | [place] [address] | [phone] | + + + + + documented in this encounter Visit Diagnoses + + | Diagnosis | + + | Monoclonal gammopathy - Primary Monoclonal paraproteinemia | + + | Back pain, unspecified back pain laterality, unspecified location | + + | Anemia, unspecified anemia type | + + documented in this encounter
--- OUTSIDE RECORDS SUMMARY | ~2019-04-01 | XMS | Encounter Summary ---
Demographics + + + | Address | [address] | | | [place] [address] | + + + | Home Phone | | + + + | Preferred Language | Unknown | + + + | Marital Status | Single | + + + | Gnosticist Affiliation | Unknown | + + + | Race | Unknown | + + + | Ethnic Group | Unknown | + + + Author + + + | Author | [facility] | | | and Brianana | + + + | Organization | [facility] | [...] Team Providers + +------+ + | Care Biodiesel Product Manager Name | Role | Phone | [...] [place] | | | | | | [address] | | | | | | [phone] | | | +--------+ + + + [...]
--- OUTSIDE RECORDS SUMMARY | ~2019-04-01 | XMS | Encounter Summary ---
Demographics + + + | Address | [address] | | | [place] [address] | + + + | Home Phone | | + + + | Preferred Language | Unknown | + + + | Marital Status | Single | + + + | Methodist Affiliation | Unknown | + + + | Race | Unknown | + + + | Ethnic Group | Unknown | + + + Author + + + | Author | [facility] | | | and Brianana | + + + | Organization | [facility] | [...] Team Providers + +------+ + | Care Assembly Line Leader Name | Role | Phone | + [...] | Diagnoses | Grupo, | [facility] | | | | | | Indira Hemphill, | Urology [address] | | | | | Nephrolithia | [address] | [address] | | | | | sis | [place] | [place], | | | | | | [place], | [place] [address] | | | | | | [place] | Phone: | | | | | | [address] | [phone] | | | | | | Phone: | Fax: | | | | | | [phone] | [phone] | | | | | | Fax: | | | | | | | [phone] | | +--------+--------+ + + + + Encounter Details +--------+---------+ + + + | Date | Type | Department | Care Team | Description | +--------+---------+ + + + | 12/28/ | Office | [facility] | Ac Elder | Nephrolithiasis | | 2018 | Visit | [address] | MD Esteban [address] | (Primary Dx); Gross | | | | [place], [place] | [place], [place] | hematuria; | | | | [address] | [address] | Proteinuria, | | | | [phone] | | unspecified type; | | | | | | Pyuria; Angina | | | | | | pectoris, | | | | | | unspecified ([facility]) | +--------+---------+ + + + [...] December 31, 2017 at 7:45 AM at [facility]. Please report to Outpatient Procedure Center [...] you home after surgery. Call us at [phone] with any questions. [x] Pain management booklet [...] MGUS (monoclonal gammopathy of unknown significance) 04/13/2015 [place] (mitral incompetence) Multiple facial bone fractures (HCC) Rheumatoid arthritis (HCC) Venereal disease Past Surgical History Past Surgical History: Procedure Laterality Date GALLBLADDER SURGERY 10/28/2017 Dr. 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 CC: [...] [address] | [place] | [phone] | | [facility] | | [address] | | | - LABORATORY | | [...] 18 | 7 - 18 mg/dL | [facility] | | | | | | [facility] | | | | | | MEDICAL | | | | | | CENTER - | | | | | | LABORATORY | | + + + + + + | Creatinine | 0.94 | 0.60 - 1.30 | [facility] | | | | | mg/dL | [facility] | | | | | | MEDICAL | | | | | | CENTER - | | | | | | LABORATORY | | + + + + + + | eGFR if not | >60Comment: GLOMERULAR | >=60 | [facility] | | | | FILTRATION | mL/min/1.73m2 | [facility] | | | NIGERIEN | RATE,ESTIMATED | | MEDICAL | | | | mL/min/1.91h5Cojy than | | CENTER - | | [...] [address] | [place] | [phone] | | [facility] | | [address] | | | - LABORATORY | | [...] | | | | TANYA TINEO MD ([id number]) | | | | | | on [...] 1.001 - 1.030 | | | | [place], | | | | | | UA, [...] [address] | [place] | [phone] | | [facility] | | [address] | | | - LABORATORY | | [...] ST. | [address] | [place] | [phone] | | [facility] | | [address] | | | - LABORATORY | | [...]
--- OUTSIDE RECORDS SUMMARY | ~2019-04-01 | XMS | Encounter Summary ---
Demographics + + + | Address | [address] | | | [place] [address] | + + + | Home Phone | | + + + | Preferred Language | Unknown | + + + | Marital Status | Single | + + + | Hoahaoism Affiliation | Unknown | + + + | Race | Unknown | + + + | Ethnic Group | Unknown | + + + Author + + + | Author | [facility] | | | and [place] | + + + | Organization | [facility] | | | and [place] [...] Team Providers + +------+ + | Care Local Company Flatbed Truck Driver Name | Role | Phone | + +------+ + | Francisca Cortes MD | PCP | | + +------+ + Encounter Details +--------+ + + + + | Date | Type | Department | Care Team | Description | +--------+ + + + + | 03/05/ | Hospital | [facility] | Panchito Candelaria, | Monoclonal | | 2015 | Encounter | MED CTR XRAY [address] | MD [address] | gammopathy | | | | [place] | [address] [place], | | | | | [place] [address] | [place] [address] | | | | | [phone] | [phone] | | | | | | | [...]
--- OUTSIDE RECORDS SUMMARY | ~2019-04-01 | XMS | Encounter Summary ---
Demographics + + + | Address | [address] | | | [place] [address] | + + + | Home Phone | | + + + | Preferred Language | Unknown | + + + | Marital Status | Single | + + + | Mandaeism Affiliation | Unknown | + + + | Race | Unknown | + + + | Ethnic Group | Unknown | + + + Author + + + | Author | [facility] | | | and [place] | + + + | Organization | [facility] | | | and [place] [...] Team Providers + +------+ + | Care Financial Internship Name | Role | Phone | [...] [address] | | | | | [place], [place] | [place], [place] | | | | | [address] | [address] | | | | | [phone] | | | +--------+ + + + [...]
--- OUTSIDE RECORDS SUMMARY | ~2019-04-01 | XMS | Encounter Summary ---
Demographics + + + | Address | [address] | | | [place] [address] | + + + | Home Phone | | + + + | Preferred Language | Unknown | + + + | Marital Status | Single | + + + | Christian Affiliation | Unknown | + + + | Race | Unknown | + + + | Ethnic Group | Unknown | + + + Author + + + | Author | [facility] | | | and [place] | + + + | Organization | [facility] | [...] Team Providers + +------+ + | Care Owner Consulting Engineer Name | Role | Phone | [...] [address] | | | | | [phone] | [place] [address] | | +--------+ + + + + [...]
--- OUTSIDE RECORDS SUMMARY | ~2019-04-01 | XMS | Encounter Summary ---
Demographics + + + | Address | [address] | | | [place] [address] | + + + | Home Phone [...] [facility] | | | and [place] | + + + | Organization | [facility] | | | [...] Team Providers + +------+ + | Care Corporate Strategist Name | Role | Phone | + [...] + + | 01/13/ | Telephone | [facility] | Ac Elder | Nephrolithiasis | | 2017 | | [address] | MD Esteban [address] | | | | | [place], [place] | [place], [place] | | | | | [address] | [address] | | | | | [phone] | | | +--------+ + + + [...]
--- OUTSIDE RECORDS SUMMARY | ~2019-04-01 | XMS | Encounter Summary ---
Demographics + + + | Address | [address] | | | [place] [address] | + + + | Home Phone [...] + | Author | [facility] | | | and [place] | + + + | Organization | [facility] | | | and [...] Team Providers + +------+ + | Care Test Preparer Name | Role | Phone | + [...] | | | | | [address] | [address] [place] | | | | | [place], [place] | [place] [address] | | | | | [address] | | | | | | | | | | | | | Mitesh Conner, | | | | | | [address] | | | | | | [place], [place] | | | | | | [address] | | | | | | | [...] +----+---+ + + | | 0 | [place] | | | | 7 | 43-degrees [...] +----+---+ + + | | 0 | [place] off | | | | 9 | [...] 12/31/17 1124 by | | eral | [id number] catheter system; | Diane Castillo RN | [...]
--- OUTSIDE RECORDS SUMMARY | ~2019-04-01 | XMS | Encounter Summary ---
Demographics + + + | Address | [address] | | | [place] [address] | + + + | Home Phone [...] + + + | Author | [facility] | | | and [place] | + + + | Organization | [facility] | | [...] Team Providers + +------+ + | Care Auto Dealership Porter Name | Role | Phone | + +------+ + | No, Physician | PCP | Unavailable | + +------+ + Encounter Details +--------+ + + + + | Date | Type | Department | Care Team | Description | +--------+ + + + + | 02/15/ | Hospital | [facility] | Kylee Swift | | | 2015 | Encounter | MED CTR GIO XRAY | Jag Medrano MD | | | | | [address] [place] | [address] | | | | | [place], [place] | [place], [place] | | | | | [address] | [address] | | | | | [phone] | | | +--------+ + + + [...] present. There is mild wedging of multiple [facility] | | thoracic vertebral bodies that could [...] + | [facility] | [address] | [place] | [phone] | | [facility] | | [address] | | | - IMAGING | | [...] + | [facility] | [address] | [place], [place] | [phone] | | [facility] | | [address] | | | - IMAGING | | | | + + + + + documented in this encounter Visit Diagnoses Not on filedocumented in this encounter"
--- OUTSIDE RECORDS SUMMARY | ~2019-04-01 | XMS | Encounter Summary ---
Demographics + + + | Address | [address] | | | [place] [address] | + + + | Home Phone [...] Author | [facility] | | | and [place] | + + + | Organization | [facility] | [...] Team Providers + +------+ + | Care Precision Lens Grinder Apprentice Name | Role | Phone | [...] + | 11/05/ | Patient | [facility] | SineathYocasta T, | Preventive | | 2018 | Outreach | [facility] [place] | TAKER AWAY [address] | Screening, PHST | | | | [address] | [place] | Colon Cancer | | | | [place] | [address] | Screening | | | | [address] | | | | | | [phone] | | | +--------+ + + + [...]
--- OUTSIDE RECORDS SUMMARY | ~2019-04-01 | XMS | Encounter Summary ---
Demographics + + + | Address | [address] | | | [place] [address] | + + + | Home Phone [...] | Author | [facility] | | | and [place] | + + + | Organization | [facility] | | | and [place] [...] Team Providers + +------+ + | Care Shipmaster Name | Role | Phone | + [...] [address] | | | | | [place], | [place], [place] | | | | | [place] [address] | [address] | | | | | [phone] | | | +--------+ + + + [...]
--- OUTSIDE RECORDS SUMMARY | ~2019-04-01 | XMS | Encounter Summary ---
Demographics + + + | Address | [address] | | | [place] [address] | + + + | Home Phone [...] + | Author | [facility] | | | and [place] | + + + | Organization | [facility] [...] Team Providers + +------+ + | Care Human Services Care Specialist Name | Role | Phone | [...] | | | | | [address] | [place], [place] | | | | | [place], [place] | [address] | | | | | [address] | | | | | | [phone] | Kyle Dyer MD | | | | | | [address] | | | | | | [place], [place] | | | | | | [address] | | | | | | | [...] +----+---+ + + | | 0 | [place] | | | | 7 | 43-degrees [...] | 01/27/18929 by | | eral | [id number] catheter system; | Xiao Wong RN | [...]
--- OUTSIDE RECORDS SUMMARY | ~2019-04-01 | XMS | Encounter Summary ---
Demographics + + + | Address | [address] | | | [place] [address] | + + + | Home Phone [...] + + + | Author | [facility] | | | and [place] | + + + | Organization | [facility] | [...] + +------+ + | Care Human Services Program Specialist Name | Role | Phone | + +------+ + | Yocasta Lopez | PCP | | + +------+ + Reason for Visit + + + | Reason | Comments | + + + | Establish Care | Patient is here to Establish Care, former patient of Francisca | Robel | Sebastian in [place]. | + + + | Nephrolithiasis | Patient states he went to the ER in [place] at [facility] | [facility] and was told he had 3mm [...] + + | 09/10/ | Office | [facility] | Yocasta Lopez T, | Methadone dependence | | 2018 | Visit | [facility] [place] | WATER RIGHTS SPECIALIST [address] | ([facility]); Dilaudid use | | | | [address] | [place] | disorder, moderate | | | | [place] | [address] | ([facility]) | | | | [address] | | | | | | [phone] | | | +--------+---------+ + + + [...] or Chronic Pain tab; printable questionnaires in Mongolian ) Interpretation of Total Score: 8-9 = [...] Total Score 4 (09/10/171699) (Printable questionnaires in Mongolian ) Interpretation of Total Score: 1-4 = [...] difficult at all (09/10/171699) ineath, ELLA Rucker RING STAMPER - 09/10/2017 4:30 PM PDT Subjective: Patient ID: Ry Rubin is a 66 y.o. male. Chief Complaint Patient presents with Establish Care Patient is here to Establish Care, former patient of Francisca Cortes in [place]. Nephrolithiasis Patient states he went to the ER in [place] at [facility] and was told he had 3mm kidney [...] last seen by Dr. Francisca Cortes in [place], [place]. He brought in a letter she hand wrote on a prescription pad. A copy of this letter is to be scanned to [employer] in [employer]. 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 Although effort was [...]
--- OUTSIDE RECORDS SUMMARY | ~2019-04-01 | XMS | Encounter Summary ---
Demographics + + + | Address | [address] | | | [place] [address] | + + + | Home Phone [...] + + + | Author | [facility] | | | and [place] | + + + | Organization | [facility] | [...] Team Providers + +------+ + | Care Ocean Freight Forwarder Name | Role | Phone | + [...] [address] | | | | | [place], [place] | [place], [place] | | | | | [address] | [address] | | | | | [phone] | | | +--------+ + + + [...]
--- OUTSIDE RECORDS SUMMARY | ~2019-04-01 | XMS | Encounter Summary ---
Demographics + + + | Address | [address] | | | [place] [address] | + + + | Home Phone [...] + | Author | [facility] | | | and [place] | + + + | Organization | [facility] | | [...] Team Providers + +------+ + | Care Guest Services Assistant Name | Role | Phone | [...] W/ | | | | [address] | [place], [place] | [address] | | | | [place], [place] | [address] | | | | | [address] | | | | | | [phone] | | | +--------+---------+ + + + [...] You can't be awakened Date Last Reviewed: 02/19/201619990982-4940 [employer] [place] [address], [place] [address]. All righ ts reserved. This information is [...] lasts more than a day, a fever [id number] (38 C), or trouble urinating. Date Last Reviewed: 05/04/201619998605-5190 [employer]. [address] [place] [address]. All righ ts reserved. This information is [...] + + | Performing | Address | City/State/[facility] | Phone Number | | [...]
--- OUTSIDE RECORDS SUMMARY | ~2019-04-01 | XMS | Encounter Summary ---
Demographics + + + | Address | [address] | | | [place] [address] | + + + | Home Phone [...] + + + | Author | [facility] | | | and [place] | + + + | Organization | [facility] [...] Team Providers + +------+ + | Care Fighter Pilot Name | Role | Phone | + +------+ + | Kyle Trevizo MD | PCP | | + +------+ + Encounter Details +--------+ + + + + | Date | Type | Department | Care Team | Description | +--------+ + + + + | 01/27/ | Hospital | [facility] | Ac Elder | Nephrolithiasis | | 2018 | Encounter | MED CTR OR INTRA OP | MD Esteban [address] | | | | | [address] | [place], [place] | | | | | [place], [place] | [address] | | | | | [address] | | | | | | [phone] | | | +--------+ + + + [...] You can't be awakened Date Last Reviewed: 02/19/201619997697-6563 The [facility]. [address] [place] [address]. All righ ts reserved. This information is [...]
--- OUTSIDE RECORDS SUMMARY | ~2019-04-01 | XMS | Encounter Summary ---
Demographics + + + | Address | [address] | | | [place] [address] | + + + | Home Phone [...] | Author | [facility] | | | and Brianana | + + + | Organization | [facility] | | | and [place] | [...] Team Providers + +------+ + | Care Distribution Lineman Name | Role | Phone | + [...] | | | | CLINIC [address] | [place], [place] | unspecified ([facility]) | | | | [place], [place] | [address] | | | | | [address] | | | | | | [phone] | | | +--------+ + + + [...] [address] | [place] | [phone] | | [facility] | | [address] | | | - LABORATORY | | [...] | 0.94 | 0.60 - 1.30 | [place] | | | | | mg/dL | [facility] | | | | | | MEDICAL | | | | | | CENTER - | | | | | | LABORATORY | | + + + + + + | eGFR if not | >60Comment: GLOMERULAR | >=60 | [place] | | | | FILTRATION | mL/min/1.73m2 | [facility] | | | MALDIVIAN | RATE,ESTIMATED | | MEDICAL | | | | mL/min/1.33t1Dlaj than | | CENTER - | | [...] + | [address] | [address] | [place] | [phone] | | [facility] | | [address] | | | - LABORATORY | | [...] | | | | TANYA TINEO MD ([id number]) | | | | | | on [...]
[~2019-04-01 17:48] MED LIST changes: +NORCO 5-325 TA1 EACH PO
--- OUTSIDE RECORDS SUMMARY | 2019-04-01 17:52 | XMS ---
PreManage Notification: ABEL BA Security Gravity Flow Irrigator Events No recent Security Events currently on file CRITERIA MET - [facility] - 2 Visits in 30 Days CARE PROVIDERS DALILA [facility] 04/01/2019-Current PHONE: Unknown Jan has no Care Guidelines for this patient. Marija VISIT COUNT (12 MO.) 2 [facility] TOTAL 2 NOTE: Visits indicate total known visits. ED/UCC VISIT TRACKING (12 MO.) 04/01/2019 17:49 [facility] TYPE: Emergency COMPLAINT: - FLANK PAIN 03/31/2019 02:07 [facility] TYPE: Emergency COMPLAINT: - LEFT RIB PAIN INPATIENT VISIT TRACKING (12 MO.) 03/31/2019 02:08 [facility] TYPE: Observation COMPLAINT: - LEFT RIB PAIN [email or web address]
[2019-04-01] MEDS ORDERED: PERCOCET 5-3251 EACH PO (20:02)
== END 2019-04-01 20:44 | disposition home or self-care (01) ==
LOC: ED 17:48
DX: S22.32XA Fracture of one rib, left side, initial encounter for closed fracture (principal); W01.198A Fall on same level from slipping, tripping and stumbling with subsequent striking against other object, initial encounter; I25.2 Old myocardial infarction
CPT/HCPCS: 71046; 96372; 99283-25; J1170; J1885

== ENCOUNTER 2019-04-23 09:34 | Emergency (ER) | payer MEDICARE ==
[~2019-04-23] VITALS: Ht 177.8 cm; Wt 66.2 kg
--- OUTSIDE RECORDS SUMMARY | ~2019-04-23 | XMS | Encounter Summary ---
Demographics + + + | Address | [address] | | | [place] [address] | + + + | Home Phone | | + + + | Preferred Language | Unknown | + + + | Marital Status | Single | + + + | Sabianist Affiliation | Unknown | + + + | Race | Unknown | + + + | Ethnic Group | Unknown | + + + Author + + + | Author | [facility] | | | and [place] | + + + | Organization | [facility] | | | and [place] | [...] Team Providers + +------+ + | Care Timers Inspector Name | Role | Phone | + +------+ + | Francisca Cortes MD | PCP | | + +------+ + Encounter Details +--------+ + + + + | Date | Type | Department | Care Team | Description | +--------+ + + + + | 03/05/ | Hospital | [facility] | Panchito Candelaria, | Monoclonal | | 2015 | Encounter | MED CTR XRAY [address] | MD [address] | gammopathy | | | | [place] | [address] [place], | | | | | [place] [address] | [place] [address] | | | | | [phone] | [phone] | | | | | | | | +--------+ + + + [...] + + documented as of this encounter Medications at Time of Discharge [...] + + documented as of this encounter Plan of Treatment Not on filedocumented as of this encounter Procedures + +--------+ + + + | Procedure Name | Priori | Date/Time | Associated Diagnosis | Comments | | | ty | | | | + +--------+ + + + | XR BONE SURVEY | Routin | 03/05/2015 | Monoclonal | Results for this | | LIMITED | e | 10:06 AM | gammopathy | procedure are in the | | | | PST | | results section. | + +--------+ + + + documented in this encounter Results XR Bone Survey Limited (03/05/2015 10:06 AM PST) + + | Specimen | + + | | + + + + + | Narrative | Performed At | + + + | XR BONE SURVEY LIMITED 03/05/2015 10:06 AM HISTORY: r/o myeloma. | [facility] | | COMPARISON: None. FINDINGS: The skull and facial structures | | | demonstrate no evidence for lesions. There is absence of teeth. No | | | lesions are visualized of the cervical spine. There is mild to | | | moderate spondylosis. Mild disc narrowing are at C3-4 and C4-5. There | | | is moderate disc narrowing at C5-6. The chest shows no evidence for | | | osseous lesions. Heart size is at the upper limits of normal. There | | | is atherosclerosis of the aorta. Volume loss with apparent lateral | | | segment atelectasis is in the left lower lung lobe. Mild right | | | curvature of the thoracic spine is present along with moderate | | | spondylosis. No lesions are visualized in the bilateral humeri. No | | | lesions are seen in the pelvis. There are mild to moderate | | | degenerative changes of the bilateral hips. Pelvic phleboliths are | | | noted. No lesions are observed in the bilateral lower extremities. | | | IMPRESSION - No evidence for osseous lesions. Volume loss with | | | apparent lateral segment atelectasis in left lower lung lobe. | | | Endobronchial obstruction cannot be excluded. Further characterization | | | can be obtained with CT imaging if clinically indicated. | | | Dictated and Signed by: Mandeep Garrido MD Electronically signed: | | | 03/05/2015 12:09 PM | | + + + + + | Procedure Note | + + | Ishan, Rad Results In - 03/05/2015 12:12 PM PST XR BONE SURVEY LIMITED 03/05/2015 10:06 | | AMHISTORY: r/o myeloma.COMPARISON: None.FINDINGS:The skull and facial structures | | demonstrate no evidence for lesions. There isabsence of teeth.No lesions are visualized | | of the cervical spine. There is mild to moderatespondylosis. Mild disc narrowing are at | | C3-4 and C4-5. There is moderate discnarrowing at C5-6.The chest shows no evidence for | | osseous lesions. Heart size is at the upperlimits of normal. There is atherosclerosis of | | the aorta. Volume loss withapparent lateral segment atelectasis is in the left lower | | lung lobe. Mild rightcurvature of the thoracic spine is present along with moderate | | spondylosis.No lesions are visualized in the bilateral humeri.No lesions are seen in the | | pelvis. There are mild to moderate degenerativechanges of the bilateral hips. Pelvic | | phleboliths are noted.No lesions are observed in the bilateral lower | | extremities.IMPRESSION -No evidence for osseous lesions.Volume loss with apparent | | lateral segment atelectasis in left lower lung lobe.Endobronchial obstruction cannot be | | excluded. Further characterization can beobtained with CT imaging if clinically | | indicated.Dictated and Signed by: Mandeep Garrido MD Electronically signed: 03/05/2015 | | 12:09 PM | |No lesions are visualized in the bilateral humeri. | |No lesions are seen in the pelvis. There are mild to moderate degenerative | |changes of the bilateral hips. Pelvic phleboliths are noted. | |No lesions are observed in the bilateral lower extremities. | | | |IMPRESSION - | |No evidence for osseous lesions. | | | |Volume loss with apparent lateral segment atelectasis in left lower lung lobe. | |Endobronchial obstruction cannot be excluded. Further characterization can be | |obtained with CT imaging if clinically indicated. | | | |Dictated and Signed by: Mandeep Garrido MD | | Electronically signed: 03/05/2015 12:09 PM | + + + +---------+ + + | Performing | Address | City/State/Zipcode | Phone Number | | Organization | | | | + +---------+ + + | [facility] | | | | + +---------+ + + documented in this encounter Visit Diagnoses + + | Diagnosis | + + | Monoclonal gammopathy Monoclonal paraproteinemia | + + documented in this encounter"
--- OUTSIDE RECORDS SUMMARY | ~2019-04-23 | XMS | Encounter Summary ---
Demographics + + + | Address | [address] | | | [place] [address] | + + + | Home Phone | | + + + | Preferred Language | Unknown | + + + | Marital Status | Single | + + + | Oriental Orthodox Affiliation | Unknown | + + + | Race | Unknown | + + + | Ethnic Group | Unknown | + + + Author + + + | Author | [facility] | | | and [place] | + + + | Organization | [facility] | | | and [...] Team Providers + +------+ + | Care Business Continuity Management Director Name | Role | Phone | + +------+ + | Francisca Cortes MD | PCP | | + +------+ + Encounter Details +--------+ + + + + | Date | Type | Department | Care Team | Description | +--------+ + + + + | 03/05/ | Hospital | [facility] | Panchito Candelaria, | Monoclonal | | 2015 | Encounter | MED CTR XRAY [address] | MD [address] | gammopathy | | | | [place] | [address] [place], | | | | | [place] [address] | [place] [address] | | | | | [phone] | [phone] | | | | | | | [...]
--- OUTSIDE RECORDS SUMMARY | ~2019-04-23 | XMS | Encounter Summary ---
Demographics + + + | Address | [address] | | | [place] [address] | + + + | Home Phone | | + + + | Preferred Language | Unknown | + + + | Marital Status | Single | + + + | Cheondoism Affiliation | Unknown | + + + | Race | Unknown | + + + | Ethnic Group | Unknown | + + + Author + + + | Author | [facility] | | | and [place] | + + + | Organization | [facility] | | | and [place] [...] Team Providers + +------+ + | Care Trailer Driver Name | Role | Phone | + [...] Casimiro NIEVES | | | | | [phone] | [place] [address] | | +--------+ + + + + [...] + +--------+ + + + | CT CHEST W CONTRAST | Routin | 11/15/2017 | | Results for this | | | e | 8:20 AM | | procedure are in the | | | | PDT | | results section. | + +--------+ + + + documented in this encounter Results CT Chest w Contrast (11/15/2017 8:20 AM PDT) + + | Specimen | [...]
--- OUTSIDE RECORDS SUMMARY | ~2019-04-23 | XMS | Encounter Summary ---
Demographics + + + | Address | [address] | | | [place] [address] | + + + | Home Phone | | + + + | Preferred Language | Unknown | + + + | Marital Status | Single | + + + | Gnosticist Affiliation | Unknown | + + + | Race | Unknown | + + + | Ethnic Group | Unknown | + + + Author + + + | Author | [facility] | | | and [place] | + + + | Organization | [facility] | | | and [place] [...] Team Providers + +------+ + | Care Fowl Blood Tester Name | Role | Phone | + +------+ + | Francisca Cortes MD | PCP | | + +------+ + Reason for Visit + + + | Reason | Comments | + + + | Back Pain | Mid back pain | + + + Evaluate & Treat (Routine) +--------+ + + [...] Medicine and | Midline | Lysle | Aldo Whalen MD | | | Required | Rehabilitatio | thoracic | Jag Medrano, | [address] | | | | n | back pain | [address] [place] | | | | | Midline low | [address] | [place] | | | | | back pain | [place] | [address] Phone: | | | | | without | [place] | [phone] | | | | | sciatica | [address] | Fax: | | | | | | Phone: | [phone] | | | | | | [phone] | | | | | | | Fax: | | | | | | | [phone] | | +--------+ + + + + + Encounter Details +--------+---------+ + + + | Date | Type | Department | Care Team | Description | +--------+---------+ + + + | 03/20/ | Office | [facility] | Aldo Schultz | Chronic pain | | 2014 | Visit | PHYSIATRY [address] | T, [address] | syndrome (Primary | | | | [place], | [address] [place], [place] | Dx); Left-sided | | | | [place] [address] | [address] | thoracic back pain | | | | [phone] | | | +--------+---------+ + + + [...] + + + | Blood Pressure | - | - | | + + + + + | Pulse | - | - | | + + + + + | Temperature | - | - | | + + + + + | Respiratory Rate | - | - | | + + + + + | Oxygen Saturation | - | - | | + + + + + | Inhaled Oxygen | - | - | | | Concentration | | | | + + + + + | Weight | 75.2 kg (165 lb 12.8 | 03/20/2015 9:05 AM | | | | oz) | PST | | + + + + + | Height | 180.3 cm (5' 11") | 03/20/2015 9:05 AM | | | | | PST | | + + + + + | Body Mass Index | 23.12 | 03/20/2015 9:05 AM | | | | | PST | | + + + + + documented in this encounter Progress Notes Aldo Schultz MD - 03/20/2015 9:07 AM PST Aldo Schultz MD [address] [place] [address], [address] [place] [address] FAX: PHYSICAL MEDICINE AND REHABILITATION H&P CHIEF COMPLAINT: Chief Complaint Patient presents with Back Pain Mid back pain HISTORY OF PRESENT ILLNESS: The patient is a 64 y.o. male being see today for the complain t of mid back pain that began years ago after he had surgery to remove a fungal disease in . The patient notes the pain improved for approximately 3 years after the surgery but has been gradually worsening since that time. He denies any radicular pain. He rates the pain as severe. The symptoms are daily. He describes the pain as aching and dull. The patient describes some numbness in the left side of his thorax that extends to the late ral hip. That has been present since his surgery in 1984. He does not report radicular leg pain. He does not report weakness. The patient does not report any change in bowel or bladder function or saddle anesthesia re cently. His symptoms improve with the use of medications and with rest. His symptoms worsen with increased activity. He has tried PT, TENS, NSAIDS, Steroids, Injections, Muscle relaxers, Braces and Accupunctu re. The patient is currently taking Methadone and Dilaudid for his pain. PAST MEDICAL HISTORY: Past Medical History Diagnosis Date Kidney stones MS (mitral incompetence) Multiple facial bone fractures (HCC) Anemia Anxiety Depression Heart attack (HCC) Rheumatoid arthritis (HCC) Hyperlipidemia History of kidney stones PAST SURGICAL HISTORY: Past Surgical History Procedure Laterality Date Lumbar spine surgery 1984 Lithotripsy 2001; 2011 x2 CURRENT MEDICATIONS: Current Outpatient Prescriptions Medication Sig Dispense Refill HYDROmorphone (DILAUDID) 4 MG tablet Take by mouth. Take 2 mg in the am and 4 mg in th e pm. LORazepam (ATIVAN) 2 MG tablet 2 mg. 1/2 tab in am, one tab at HS. methadone 10 mg tablet Take 40 mg by mouth every 12 hours. Multiple Vitamins-Minerals (ADULT MULTIVITAMIN WITH MINERALS/IRON) TABS Take 1 tablet b y mouth Daily. nitroglycerin (NITROSTAT) 0.[address] 0.4 mg under the tongue every 5 minute s as needed for Chest pain. rosuvastatin (CRESTOR) 10 mg tablet Take 10 mg by mouth nightly. No current facility-administered medications for this visit. ALLERGIES: No Known Allergies SOCIAL HISTORY: The patient reports that he has been smoking. He has never used smokeless tobacco. He rep orts that he drinks alcohol. He reports that he uses illicit drugs. FAMILY HISTORY: Family History Problem Relation Age of Onset Diabetes Mother Cancer Father 80 lymphoma Breast cancer Sister 70 breast cancer Heart attack Sister 68 Arthritis Other unknown relation REVIEW OF SYSTEMS: GENERALLY: No fever, no night sweats, no anemia, no fatigue, no recent profound weight ch anges. EYES: No eye problems, no use of corrective lenses, no eye injury, no double vision, no bl indness. EARS, NOSE, AND THROAT: No changes in taste or smell, no hearing difficulty, no ringing in the ears, no ear drainage, no dizziness, no voice changes, no difficulty swallowing, no sig nificant snoring, no sleep apnea, no sinus problems, + major dental work. NEUROLOGICALLY: Please see the review of systems discussed above in the history of present illness. In addition, the patient has numbness of legs, neck injury, back injury, pain in back and memory loss. PSYCHIATRIC: + depression, + sleep disorders, + anxiety, no bipolar disorder, no psychotic episodes. CARDIOVASCULAR: No heart attacks, no heart murmur, no heart fluttering, no chest pain, no ankle swelling. LUNG DISEASE: No shortness of breath, no cough, no tuberculosis, no bloody cough, no asth ma, no emphysema/COPD. GASTROINTESTINAL: No bowel disease, no nausea or vomiting, no rectal bleeding, no constipa tion, no stool incontinence, no liver disease, no gallbladder disease, no abdominal pain, no ulcers. KIDNEY DISEASE: No urinary frequency, no painful or difficult urination, no incontinence. ENDOCRINE: No diabetes, no thyroid disease, no osteopenia or osteoporosis, no breast drain age. SKIN: No breast lumps, no skin changes, no rashes, no itches. HEMATOLOGIC/LYMPHATIC: No enlarged lymph nodes, no easy or unusual bleeding, no personal h istory of cancer. RHEUMATOLOGIC: + joint arthritis, no rheumatoid arthritis. PHYSICAL EXAMINATION: Height 1.803 m (5' 11"), weight 75.206 kg (165 lb 12.8 oz). Body mass index is 23.13 kg/(m^ 2). GENERAL: The patient is well developed and well nourished. He does not appear uncomfortabl e when seated. HEENT: HEAD/FACE: EYES: Normocephalic and atraumatic. There are no areas of recent trauma. Normal sclerae without icterus. SKIN Limited skin exam shows no significant rashes or lesions. There is a large, well-heal ed scar in the thoracic region on the left. CHEST: The patient is in no acute respiratory distress with unlabored respirations. HEART: There is not lower extremity edema. ABDOMEN: The patient is not overweight. NEUROLOGIC: The patient is awake, alert, and oriented to time, place, person. He follows simple and complex commands. His speech is fluent. He comprehends speech well. He has no apparent deficits with short or senior care memory. He has appropriate fund of knowledge Cranial nerves 2-12 appear grossly intact. Sensory exam does not show diminished sensation to light touch in the upper and lower extre mities. REFLEX: RIGHT LEFT PATELLAR 2+ 2+ ACHILLES 0 0 PLANTAR Downgoing Downgoing MUSCULOSKELETAL There is major palpable deformity of the spine. Straight leg raise and slump-sit are negative. Abdoulaye's maneuver and impingement testing were negative for any groin pain. There was no tenderness to palpation over the greater tr ochanters or sacral sulci. The patient localized the majority of the pain to the region. Lumbar facet loading was negative. Strength testing showed 5/5 strength throughout the lowe r extremities. The patient was able to heel and toe walk without difficulty. There was no redness, effusion, warmth or joint line tenderness in the knees or ankles. RADIOGRAPHIC REVIEW: The patient's imaging was reviewed in detail with the patient today during the visit. The xray of the thoracic spine from 02/15/2015 shows an exaggerated kyphosis. There is mild wed ging of multiple mid thoracic vertebral bodies that could be physiologic. A fusion of two mi dthoracic vertebral bodies is also noted which fits with the patient's report of remote surg yessenia in that region. The anterior height of the fused vertebrae is considerably less than th e posterior height resulting in a wedge shape and contributing to the kyphosis. IMPRESSION: 1. Chronic pain syndrome 2. Left-sided thoracic back pain PLAN: 1. The exact source of the pain is unclear. We did discuss that the area of fusion in the mid thoracic region with the wedge shape of the fused vertebrae is likely contributing to t he pain as it does change the mechanics in that region. This is an issue that I cannot root ge with conservative measures. 2.Conservative treatments were discussed. Physical therapy was discussed as a potential opt ion as well as chiropractics or acupuncture. The patient never had benefit with PT or acupun cture and is not interested in trying these again. He is also not interested in chiropractic s. 3. Interventional procedures were discussed with the patient and he was informed that I do not perform interventional procedures on the thoracic spine and I am not sure if that would help anyway. Although this is something I do not do we could refer him to someone that does do procedures on the thoracic spine. He did not appear to be interested in that option. 4. The patient was informed that unfortunately I do not have much of anything to offer him for this chronic pain issue at this time. 5. Medications were discussed with the patient in detail today. I did not make any change s to his medication. The patient informs me that he is hoping to cut back slowly to graduall y wean himself off of the narcotic medications and I encouraged that. The patient was inform ed that I am not willing to take over prescribing these medications. ELECTRONICALLY EDITED AND SIGNED BY: Aldo Schultz MD, 03/27/2015 Scribed by: Laura Ryan MA for Dr. Aldo Schultz on 03/20/2015 documented in this encounter Plan of Treatment Not on filedocumented as of this encounter Visit Diagnoses + + | Diagnosis | + + | Chronic pain syndrome - Primary | + + | Left-sided thoracic back pain | + + documented in this encounter
--- OUTSIDE RECORDS SUMMARY | ~2019-04-23 | XMS | Encounter Summary ---
Demographics + + + | Address | [address] | | | [place] [address] | + + + | Home Phone | | + + + | Preferred Language | Unknown | + + + | Marital Status | Single | + + + | Jewish Affiliation | Unknown | + + + | Race | Unknown | + + + | Ethnic Group | Unknown | + + + Author + + + | Author | [facility] | | | and Brianana | + + + | Organization | [facility] | | | and [...] Team Providers + +------+ + | Care Immigration Lawyer Name | Role | Phone | + +------+ + | Kyle Trevizo MD | PCP | | + +------+ + Encounter Details +--------+ + + + + | Date | Type | Department | Care Team | Description | +--------+ + + + + | 01/27/ | Anesthesia | [facility] | Benton Borden, | | | 2017 | Event | MED CTR OR [facility] OP | DO [address] | | | | | [address] | [place], [place] | | | | | [place], [place] | [address] | | | | | [address] | | | | | | [phone] | Kyle Dyer MD | | | | | | [address] | | | | | | [place], [place] | | | | | | [address] | | | | | | | | +--------+ + + + + Anesthesia Record + + + + + | Procedure Name | Responsible | Anesthesia Start | Anesthesia Stop Time | | | Anesthesiologist | Time | | + + + + + | Left ureteroscopy, | Benton Borden DO | 01/27/18 0742 | 01/27/18 0830 | | stent exchange (Left | | | | | Ureter) | | | | + + + + + +----+---+ + + | Da | T | Event | Comment | | te | i | | | | | m | | | | | e | | | +----+---+ + + | 09 | 0 | | | | /2 | 7 | | | | 6/ | 3 | | | | 20 | 4 | | | | 18 | | | | +----+---+ + + | | 0 | An Checkout | Pre-use anesthesia machine/equipment checkout. | | | 7 | | | | | 3 | | | | | 8 | | | +----+---+ + + | | 0 | Antibiotic | | | | 7 | Given | | | | 4 | | | | | 1 | [...] | 4 | | | | | 3 | | | +----+---+ + + | | 0 | Pre-Procedu | | | | 7 | ral Timeout | | | | 4 | Completed | | | | 6 | | | +----+---+ + + | | 0 | An | | | | 7 | Induction | | | | 4 | | | | | 6 | | | +----+---+ + + | | 0 | An | | | | 7 | Intubation | | | | 4 | | | | | 8 | | | +----+---+ + + | | 0 | [place] | | | | 7 | 43-degrees | | | | 5 | | | | | 6 | | | +----+---+ + + | | 0 | First | | | | 8 | Inc/Proc St | | | | 0 | | | | | 1 | | | +----+---+ + + | | 0 | Breathing | | | | 8 | Spontaneous | | | | 1 | ly | | | | 4 | | | +----+---+ + + | | 0 | Oropharynx | | | | 8 | Suctioned | | | | 2 | | | | | 5 | | | +----+---+ + + | | 0 | Extubated | | | | 8 | Awake | | | | 2 | | | | | 5 | | | +----+---+ + + | | 0 | an stop | | | | 8 | data | | | | 2 | | | | | 5 | | | +----+---+ + + | | 0 | An Stop | Patient handed off to recovery nurse. | | | 3 | | | | | 0 | | | +----+---+ + + +------+ | Meds | +------+ + +---------+ | Name | Total | + +---------+ | fentaNYL injection (2 mL) | 100 mcg | + +---------+ | propofol (DIPRIVAN) injection | 150 mg | | (bolus) (20 mL) | | + +---------+ | dexamethasone | 5 mg | + +---------+ | lactated ringers (LR) infusion | 700 mL | + +---------+ + + | Name | + + | N2O Flow Rate (L/Min) | + + | O2 Flow Rate (L/Min) | + + | Insp O2 | + + | Exp SEV | + + | Air Flow Rate (L/Min) | + + + + | No blood administrations on file. | + + +--------+ + + + | Type | Details | Placement | Removal | +--------+ + + + | Periph | 01/27/18; 0639; Left; Wrist; | 01/27/18 0639 by | 01/27/18929 by | | eral | [id number] catheter system; | Xiao Wong RN | Carmella Carbales RN | | IV | 20 gauge, 1 1/2 in length; | | | | | distraction, intradermal | | | | | injection, tolerated well; no | | | | | longer indicated, removed per | | | | | policy/procedure, catheter/device | | | | | intact; healing within | | | | | expectations; 01/27/18; 929 | | | +--------+ + + + | Airway | Placement Date: 01/27/18; | 01/27/18747 by | 01/27/18 08 by | | | Placement Time: 747 (created via | Benton Borden DO | Benton Borden DO | | | procedure documentation); Mask | | | | | Ventilation: EZ; Attempts: 1; | | | | | Airway Type: laryngeal mask; | | | | | Size: 4; Trauma: none; Placement | | | | | Check: exhaled CO2 detection | | | | | device, bilateral chest rise; | | | | | Removal Date: 01/27/18; Removal | | | | | Time: 08 | | | +--------+ + + + [...] | ANE AIRWAY NOTE | Routin | 01/27/2018 | | Results for this | | | e | 7:55 AM | | procedure are in the | | | | PDT | | results section. | + +--------+ + + + documented in this encounter Results Anesthesia Airway Note (01/27/2018 7:55 AM PDT) + + + | Narrative | Performed At | + + + | Benton Boredn DO 01/27/2018 7:55 Anesthesia | | | Airway Placement 01/27/2018 7:48 Preprocedure check: patient | | | identified, oxygen, airway equipment checked, suction, airway | | | assessed and patient reassessment prior to induction Mask | | | ventilation: easy Attempts: 1 Airway type: laryngeal mask Size: 4 | | | Route, reference point: center of mouth Tube secured with: adhesive | | | tape Trauma: none Tube placement verification: bilateral chest rise | | | and carbon dioxide detection Performing provider: DANNY | | | BENTON HILLIARD Electronically Signed by: Benton Dexter | | | DO Danny ESig date/time: | | | 01/27/2018 7:55 | | + + + + + | Procedure Note | + + | Benton Borden DO - 01/27/2018 7:55 AM PDT Anesthesia Airway Placement01/27/2018 | | 7:48Preprocedure check: patient identified, oxygen, airway equipment checked, suction, | | airway assessed and patient reassessment prior to inductionMask ventilation: | | easyAttempts: 1Airway type: laryngeal maskSize: 4Route, reference point: center of | | mouthTube secured with: adhesive tapeTrauma: noneTube placement verification: bilateral | | chest rise and carbon dioxide detectionPerforming provider: BENTON BORDEN | | GABRIELElectronically Signed by: DO Vibha Barnard | | date/time: 01/27/2018 7:55 | |Route, reference point: center of mouth | |Tube secured with: adhesive tape | |Trauma: none | |Tube placement verification: bilateral chest rise and carbon dioxide detection | |Performing provider: BENTON BORDEN | | | | | |Electronically Signed by: DO Vibha Barnard date/time : 01/27/2018 7:55 | | | + + documented in this encounter Visit Diagnoses Not on filedocumented in this encounter Administered Medications + +--------+ +------+------+------+ | Medication Order | MAR | Action | Dose | Rate | Site | | | Action | Date | | | | + +--------+ +------+------+------+ | dexamethasone (PF) 10 mg/mL | Given | 01/28/20 | 5 mg | | | | injection Intravenous, PRN, | | 18 7:46 | | | | | Starting 01/27/18 at 0746, | | AM PDT | | | | | Anesthesia Intra-op | | | | | | + +--------+ +------+------+------+ +---+---+ | | | +---+---+ + +-------+ +--------+---+---+ | fentaNYL (PF) injection | Given | 01/28/20 | 50 mcg | | | | Intravenous, PRN, Pain, Starting | | 18 7:59 | | | | | 01/27/18 at 0745, Anesthesia | | AM PDT | | | | | Intra-op | | | | | | + +-------+ +--------+---+---+ +-------+ +--------+---+---+ | Given | 01/28/20 | 50 mcg | | | | | 18 7:45 | | | | | | AM PDT | | | | +-------+ +--------+---+---+ +---+---+ | | | +---+---+ + +---------+ +---+---+---+ | lactated ringers (LR) infusion | New Bag | 01/28/20 | | | | | at 10-100 mL/hr, Intravenous, | | 18 7:28 | | | | | CONTINUOUS, Starting 01/27/18 | | AM PDT | | | | | at 0645, TKO., Pre-op | | | | | | + +---------+ +---+---+---+ +---------+ +---+-------+---+ | New Bag | 01/28/20 | | 100 | | | | 18 6:40 | | mL/hr | | | | AM PDT | | | | +---------+ +---+-------+---+ +---+---+ | | | +---+---+ + +-------+ +--------+---+---+ | propofol (DIPRIVAN) injection | Given | 01/28/20 | 150 mg | | | | Intravenous, PRN, Starting Wed | | 18 7:46 | | | | | 01/27/18 at 0746, Anesthesia | | AM PDT | | | | | Intra-op | | | | | | + +-------+ +--------+---+---+ +---+---+ | | | +---+---+ documented in this encounter"
--- OUTSIDE RECORDS SUMMARY | ~2019-04-23 | XMS | Encounter Summary ---
Demographics + + + | Address | [address] | | | [place] [address] | + + + | Home Phone | | + + + | Preferred Language | Unknown | + + + | Marital Status | Single | + + + | Cheondoism Affiliation | Unknown | + + + | Race | Unknown | + + + | Ethnic Group | Unknown | + + + Author + + + | Author | [facility] | | | and Brianana | + + + | Organization | [facility] | | | and Brianana [...] Team Providers + +------+ + | Care Finishing Machine Tender Name | Role | Phone [...] [address] | | | | | [phone] | [place] [address] | | +--------+ + + + + [...]
--- OUTSIDE RECORDS SUMMARY | ~2019-04-23 | XMS | Encounter Summary ---
Demographics + + + | Address | [address] | | | [place] [address] | + + + | Home Phone | | + + + | Preferred Language | Unknown | + + + | Marital Status | Single | + + + | Sikh Affiliation | Unknown | + + + | Race | Unknown | + + + | Ethnic Group | Unknown | + + + Author + + + | Author | [facility] | | | and Brianana | + + + | Organization | [facility] | | | and [...] Team Providers + +------+ + | Care Project Planner Name | Role | Phone | + +------+ + | Kyle Trevizo MD | PCP | | + +------+ + Reason for Visit + + + | Reason | Comments | + + + | Recall For Services | | | (DMST) | | + + + | Colonoscopy | | + + + Encounter Details +--------+ + + + + | Date | Type | Department | Care Team | Description | +--------+ + + + + | 11/05/ | Patient | [facility] | SineathYocasta T, | Preventive | | 2018 | Outreach | MEDICINE [place] | BUTTER GRADER [address] | Screening, PHST | | | | [address] | [place] | Colon Cancer | | | | [place] | [address] | Screening | | | | [address] | | | | | | [phone] | | | +--------+ + + + [...]
--- OUTSIDE RECORDS SUMMARY | ~2019-04-23 | XMS | Encounter Summary ---
Demographics + + + | Address | [address] | | | [place] [address] | + + + | Home Phone | | + + + | Preferred Language | Unknown | + + + | Marital Status | Single | + + + | Jewish Affiliation | Unknown | + + + | Race | Unknown | + + + | Ethnic Group | Unknown | + + + Author + + + | Author | [facility] | | | and Brianana | + + + | Organization | [facility] | | | and [...] Team Providers + +------+ + | Care Hydroelectric Plant Technician Name | Role | Phone | + +------+ + | Kyle Trevizo MD | PCP | | + +------+ + Encounter Details +--------+ + + + + | Date | Type | Department | Care Team | Description | +--------+ + + + + | 01/27/ | Hospital | [facility] | Ac Elder | Nephrolithiasis | | 2018 | Encounter | MED CTR OR INTRA OP | MD [address]eb[address] | | | | | [address] | [place], [place] | | | | | [place], [place] | [address] | | | | | [address] | | | | | | [phone] | | | +--------+ + + + [...] You can't be awakened Date Last Reviewed: 02/19/201619991826-3771 [employer]. [address] [place] [address]. All righ ts reserved. This information is [...] Nephrolithiasis Calculus of kidney | + + documented in this encounter Administered Medications + +--------+---------+------+------+------+ | Medication Order | MAR | Action | Dose | Rate | Site | | | Action | Date | | | | + +--------+---------+------+------+------+ + +---+ | albuterol 2.5 mg/3 mL nebulizer | | | solution 2.5 mg 2.5 mg, | | | Nebulization, ONCE PRN, Wheezing, | | | Starting Thu01/27/18 at 0820, | | | For 1 [...] 500 mg, Oral, ONCE, Thu | | 6:27 | | | | | 01/27/18 [...] | | | For HR <50, Starting Thu01/27/18 | | | at 0820, For 2 [...] | | | | | | Starting Thu01/27/18 at 0844, | | | | | [...]
--- OUTSIDE RECORDS SUMMARY | ~2019-04-23 | XMS | Encounter Summary ---
Demographics + + + | Address | [address] | | | [place] [address] | + + + | Home Phone | | + + + | Preferred Language | Unknown | + + + | Marital Status | Single | + + + | Congregational Affiliation | Unknown | + + + | Race | Unknown | + + + | Ethnic Group | Unknown | + + + Author + + + | Author | [facility] | | | and Brianana | + + + | Organization | [facility] | | | and [...] Team Providers + +------+ + | Care Iron Pourer Name | Role | Phone | + [...] + + | 01/13/ | Telephone | [facility] | Ac Elder | Nephrolithiasis | | 2017 | | [address] | MD Esteban [address] | | | | | [place], [place] | [place], [place] | | | | | [address] | [address] | | | | | [phone] | | | +--------+ + + + [...]
--- OUTSIDE RECORDS SUMMARY | ~2019-04-23 | XMS | Encounter Summary ---
Demographics + + + | Address | [address] | | | [place] [address] | + + + | Home Phone | | + + + | Preferred Language | Unknown | + + + | Marital Status | Single | + + + | Mosque Affiliation | Unknown | + + + | Race | Unknown | + + + | Ethnic Group | Unknown | + + + Author + + + | Author | [facility] | | | and [place]ana | + + + | Organization | [facility] | | | and [...] Team Providers + +------+ + | Care Sugar Grinder Name | Role | Phone | + [...] | | back pain | [place] | [address] Phone: | | | | | without | [place] | [phone] | | | | | sciatica | [address] | Fax: | | | | | | Phone: | [phone] | | | | | | [phone] | | | | | | | Fax: | | | | | | | [phone] | | +--------+ + + + + + Reason for Visit + + + | Reason | Comments | + + + | Back Pain | room 5/ since 1988 | + + + Encounter Details +--------+---------+ + + + | Date | Type | Department | Care Team | Description | +--------+---------+ + + + | 02/15/ | Office | [facility] | Kylee Swift | Midline thoracic | | 2014 | Visit | CARE [address] | Jag Medrano MD | back pain (Primary | | | | [place], [place] | [address] | Dx); Midline low | | | | [address] | [place], [place] | back pain without | | | | [phone] | [address] | sciatica; Kidney | | | | [...] + | [facility] | [address] | [place] | [phone] | | [facility] | | [address] | | | - LABORATORY | | [...] [facility] | | Brayan 02/16/15 | [facility] | | | - LABORATORY | + + + + + + + + | Performing | Address | City/State/Zipcode | Phone Number | | Organization | | | | + + + + + | [facility] | [address] | [place] | [phone] | | [facility] | | [address] | | | - LABORATORY | | [...] [address] | [place] | [phone] | | [facility] | | [address] | | | - LABORATORY | | [...] | | Band 1%, | | | [facility] | | | Serum | | | [...] gamma region. It is approximately 0.2g/dl. | [facility] | | Immunofixation will be performed for further characterization. DPage | [facility] | | Brayan 02/16/15 | - LABORATORY | + + + + + + + + | Performing | Address | City/State/Zipcode | Phone Number | | Organization | | | | + + + + + | [facility] | [address] | [place] | [phone] | | [facility] | | [address] | | | - LABORATORY | | [...] 1.001 - 1.030 | | | | [place], | | | | | | UA, [...] [address] | [place] | [phone] | | [facility] | | [address] | | | - IMAGING | | [...] FINDINGS: There is mild spondylosis. Bone | [facility] | | mineralization is mildly decreased. Vertebral [...] + + | Performing | Address | City/State[facility] | Phone Number | | Organization | | | | + + + + + | [facility] | [address] | [place] | [phone] | | [facility] | | [address] | | | - IMAGING | | [...] + | [facility] | [address] | [place] | [phone] | | [facility] | | [address] | | | - LABORATORY | | [...] | | | | mg/dL | [facility] | | | | | | MEDICAL | | | | | | CENTER - | | | | | | LABORATORY | | + + + + + + | eGFR if not | >60Comment: GLOMERULAR | >=60 | [facility] | | | | FILTRATION | mL/min/1.73m2 | [facility] | | | GAMBIAN | RATE,ESTIMATED | | MEDICAL | | | | mL/min/1.43a0Uxbm than | | CENTER - | | [...] | 9.3 | 8.3 - 10.5 | [facility] | | | | | mg/dL | [...] [address] | [place] | [phone] | | [facility] | | [address] | | | - LABORATORY | | [...] [address] | [place] | [phone] | | [facility] | | [address] | | | - LABORATORY | | [...]
--- OUTSIDE RECORDS SUMMARY | ~2019-04-23 | XMS | Encounter Summary ---
Demographics + + + | Address | [address] | | | [place] [address] | + + + | Home Phone | | + + + | Preferred Language | Unknown | + + + | Marital Status | Single | + + + | Congregational Affiliation | Unknown | + + + | Race | Unknown | + + + | Ethnic Group | Unknown | + + + Author + + + | Author | [facility] | | | and [place] | + + + | Organization | [facility] | | | and Brianana | [...] Team Providers + +------+ + | Care Material Control Analyst Name | Role | Phone | + [...] | Diagnoses | [facility], | [facility] | | | | | | Indira Hem[place], | Urology [address] | | | | | Nephrolithia | [address] | [address] | | | | | sis | [place] | [place], | | | | | | [place], | [place] [address] | | | | | | [place] | Phone: | | | | | | [address] | [phone] | | | | | | Phone: | Fax: | | | | | | [phone] | [phone] | | | | | | Fax: | | | | | | | [phone] | | +--------+--------+ + + + + Encounter Details +--------+---------+ + + + | Date | Type | Department | Care Team | Description | +--------+---------+ + + + | 12/28/ | Office | [facility] | Ac Elder | Nephrolithiasis | | 2018 | Visit | [address] | MD Esteban [address] | (Primary Dx); Gross | | | | [place], [place] | [place], [place] | hematuria; | | | | [address] | [address] | Proteinuria, | | | | [phone] | | unspecified type; | | | | | | Pyuria; Angina | | | | | | pectoris, | | | | | | unspecified ([facility]) | +--------+---------+ + + + Social History [...] December 31, 2017 at 7:45 AM at [facility]. Please report to [facility] no [...] you home after surgery. Call us at [phone] with any questions. [x] Pain management booklet [...] MGUS (monoclonal gammopathy of unknown significance) 04/13/2015 [place] (mitral incompetence) Multiple facial bone fractures (HCC) Rheumatoid arthritis (HCC) Venereal disease Past Surgical History Past Surgical History: Procedure Laterality Date GALLBLADDER SURGERY 10/28/2017 Dr. Goins in [place] @ [facility] LITHOTRIPSY 2001 LITHOTRIPSY 2011 LUMBAR SPINE [...] of education: 12 Occupational History [employer]MENT [employer]: [employer] Social History Main Topics Smoking status: Former [...] POC Trace (A) Negative, 100 mg/dL Specific [place], UA, POC 1.025 1.001 - 1.030 Blood, [...] have not thoroughly proofread this note, and interventional physician errors are very likely to occur. CC: [...] [address] | [place] | [phone] | | [facility] | | [address] | | | - LABORATORY | | [...] 18 | 7 - 18 mg/dL | [facility] | | | | | | [facility] | | | | | | MEDICAL | | | | | | CENTER - | | | | | | LABORATORY | | + + + + + + | Creatinine | 0.94 | 0.60 - 1.30 | [facility] | | | | | mg/dL | [facility] | | | | | | MEDICAL | | | | | | CENTER - | | | | | | LABORATORY | | + + + + + + | eGFR if not | >60Comment: GLOMERULAR | >=60 | [facility] | | | | FILTRATION | mL/min/1.73m2 | [facility] | | | [place]OREAN | RATE,ESTIMATED | | MEDICAL | | | | mL/min/1.79r6Zujq than | | CENTER - | | [...] [address] | [place] | [phone] | | [facility] | | [address] | | | - LABORATORY | | [...] | | | | TANYA TINEO MD ([id number]) | | | | | | on [...] 1.001 - 1.030 | | | | [place], | | | | | | UA, [...] [address] | [place] | [phone] | | [facility] | | [address] | | | - LABORATORY | | [...] ST. | [address] | [place] | [phone] | | [facility] | | [address] | | | - LABORATORY | | [...]
--- OUTSIDE RECORDS SUMMARY | ~2019-04-23 | XMS | Encounter Summary ---
Demographics + + + | Address | [address] | | | [place] [address] | + + + | Home Phone [...] + + + | Author | [facility] | | | and [place]ana | + + + | Organization | [facility] | | | and [...] Team Providers + +------+ + | Care Ginner Helper Name | Role | Phone | [...] [address] | | | | | [place], | [place], [place] | | | | | [place] [address] | [address] | | | | | [phone] | | | +--------+ + + + [...]
--- OUTSIDE RECORDS SUMMARY | ~2019-04-23 | XMS | Encounter Summary ---
Demographics + + + | Address | [address] | | | [place] [address] | + + + | Home Phone | | + + + | Preferred Language | Unknown | + + + | Marital Status | Single | + + + | Taoism Affiliation | Unknown | + + + | Race | Unknown | + + + | Ethnic Group | Unknown | + + + Author + + + | Author | [facility] | | | and [place] | + + + | Organization | [facility] | | | and [place]ana [...] Team Providers + +------+ + | Care Crystal Attacher Name | Role | Phone | + +------+ + | Kyle Trevizo MD | PCP | | + +------+ + Encounter Details +--------+ + + + + | Date | Type | Department | Care Team | Description | +--------+ + + + + | 12/29/ | Episode | [facility] | Joyce Walden | | | 2017 | Changes | [address] | | | | | [place] | | | | | | [address] | | | | | | [phone] | | | +--------+ + + + [...]
--- OUTSIDE RECORDS SUMMARY | ~2019-04-23 | XMS | Encounter Summary ---
Demographics + + + | Address | [address] | | | [place] [address] | + + + | Home Phone | | + + + | Preferred Language | Unknown | + + + | Marital Status | Single | + + + | Catholic Affiliation | Unknown | + + + | Race | Unknown | + + + | Ethnic Group | Unknown | + + + Author + + + | Author | [facility] | | | and [place] | + + + | Organization | [facility] | | | and [...] Team Providers + +------+ + | Care Pressure Dispatcher Name | Role | Phone | + [...] | | | | [place] | [place] [address] | | | | | [place] [address] | [phone] | | | | | [phone] | | | +--------+ + + + [...]
--- OUTSIDE RECORDS SUMMARY | ~2019-04-23 | XMS | Encounter Summary ---
Demographics + + + | Address | [address] | | | [place] [address] | + + + | Home Phone | | + + + | Preferred Language | Unknown | + + + | Marital Status | Single | + + + | Pentecostal Affiliation | Unknown | + + + | Race | Unknown | + + + | Ethnic Group | Unknown | + + + Author + + + | Author | [facility] | | | and [place] | + + + | Organization | [facility] | | | and [...] Team Providers + +------+ + | Care Cathode Ray Tube Assembler Name | Role | Phone | + [...] [address] | | | | | [phone] | [place] [address] | | +--------+ + + + + [...]
--- OUTSIDE RECORDS SUMMARY | ~2019-04-23 | XMS | Encounter Summary ---
Demographics + + + | Address | [address] | | | [place] [address] | + + + | Home Phone | | + + + | Preferred Language | Unknown | + + + | Marital Status | Single | + + + | Baptist Affiliation | Unknown | + + + | Race | Unknown | + + + | Ethnic Group | Unknown | + + + Author + + + | Author | [facility] | | | and Brianana | + + + | Organization | [facility] | | | and [...] Team Providers + +------+ + | Care Riding Double Name | Role | Phone | + +------+ + | No, Physician | PCP | Unavailable | + +------+ + Encounter Details +--------+ + + + + | Date | Type | Department | Care Team | Description | +--------+ + + + + | 02/15/ | Hospital | [facility] | Kylee Swift | | | 2015 | Encounter | MED CTR GIO XRAY | Jag Medrano MD | | | | | [address] [place] | [address] | | | | | [place], [place] | [place], [place] | | | | | [address] | [address] | | | | | [phone] | | | +--------+ + + + [...] + documented in this encounter Results XR Thoracic Spine 3 Vw (02/15/2015 11:39 [...] present. There is mild wedging of multiple [facility] | | thoracic vertebral bodies that could [...] | + + + + + | [facility] | [address] | [place] | [phone] | | [facility] | | [address] | | | - IMAGING | | | | + + + + + XR Lumbar Spine 2 or 3 Vw (02/15/2015 11:39 AM PDT) + + | Specimen | + + | | + + + + + | Narrative | Performed At | + + + | XR LUMBAR SPINE 2 OR 3 VW 02/15/2015 11:39 AM HISTORY: pain. | [facility] | | COMPARISON: None. FINDINGS: There is mild spondylosis. Bone | [facility] | | mineralization is mildly decreased. Vertebral [...] + | [facility] | [address] | [place], [place] | [phone] | | [facility] | | [address] | | | - IMAGING | | | | + + + + + documented in this encounter Visit Diagnoses Not on filedocumented in this encounter"
--- OUTSIDE RECORDS SUMMARY | ~2019-04-23 | XMS | Encounter Summary ---
Demographics + + + | Address | [address] | | | [place] [address] | + + + | Home Phone [...] + | Author | [facility] | | | and Brianana | + + + | Organization | [facility] [...] Team Providers + +------+ + | Care Criminal Investigator Customs Name | Role | Phone | + [...] | Diagnoses | Grupo, | [facility] | | | | | | Indira Hemphill, | Urology [address] | | | | | Nephrolithia | [address] | [address] | | | | | sis | [place] | [place], | | | | | | [place], | [place] [address] | | | | | | [place] | Phone: | | | | | | [address] | [phone] | | | | | | Phone: | Fax: | | | | | | [phone] | [phone] | | | | | | Fax: | | | | | | | [phone] | | +--------+--------+ + + + + Encounter Details +--------+---------+ + + + | Date | Type | Department | Care Team | Description | +--------+---------+ + + + | 12/28/ | Office | [facility] | Ac Elder | Nephrolithiasis | | 2018 | Visit | [address] | MD Esteban [address] | (Primary Dx); Gross | | | | [place], [place] | [place], [place] | hematuria; | | | | [address] | [address] | Proteinuria, | | | | [phone] | | unspecified type; | | | | | | Pyuria; Angina | | | | | | pectoris, | | | | | | unspecified ([facility]) | +--------+---------+ + + + Social [...] December 31, 2017 at 7:[address] [facility]. Please report to [facility] no [...] you home after surgery. Call us at [phone] with any questions. [x] Pain management booklet [...] MGUS (monoclonal gammopathy of unknown significance) 04/13/2015 [place] (mitral incompetence) Multiple facial bone fractures (HCC) Rheumatoid arthritis (HCC) Venereal disease Past Surgical History Past Surgical History: Procedure Laterality Date GALLBLADDER SURGERY 10/28/2017 Dr. 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 CC: [...] [address] | [place] | [phone] | | [facility] | | [address] | | | - LABORATORY | | [...] 18 | 7 - 18 mg/dL | [facility] | | | | | | [facility] | | | | | | MEDICAL | | | | | | CENTER - | | | | | | LABORATORY | | + + + + + + | Creatinine | 0.94 | 0.60 - 1.30 | [place] | | | | | mg/dL | [facility] | | | | | | MEDICAL | | | | | | CENTER - | | | | | | LABORATORY | | + + + + + + | eGFR if not | >60Comment: GLOMERULAR | >=60 | [place] | | | | FILTRATION | mL/min/1.73m2 | [facility] | | | FINNISH | RATE,ESTIMATED | | MEDICAL | | | | mL/min/1.79y7Xsma than | | CENTER - | | [...] [address] | [place] | [phone] | | [facility] | | [address] | | | - LABORATORY | | [...] | | | | TANYA TINEO MD ([id number]) | | | | | | on [...] 1.001 - 1.030 | | | | [place], | | | | | | UA, [...] [address] | [place] | [phone] | | [facility] | | [address] | | | - LABORATORY | | [...] ST. | [address] | [place] | [phone] | | [facility] | | [address] | | | - LABORATORY | | [...]
--- OUTSIDE RECORDS SUMMARY | ~2019-04-23 | XMS | Encounter Summary ---
Demographics + + + | Address | [address] | | | [place] [address] | + + + | Home Phone | | + + + | Preferred Language | Unknown | + + + | Marital Status | Single | + + + | Moravian Affiliation | Unknown | + + + | Race | Unknown | + + + | Ethnic Group | Unknown | + + + Author + + + | Author | [facility] | | | and Brianana | + + + | Organization | [facility] | | | and Brianana | [...] Team Providers + +------+ + | Care Cyber Intelligence Analyst Name | Role | Phone | + +------+ + | Kyle Trevizo MD | PCP | | + +------+ + Encounter Details +--------+ + + + + | Date | Type | Department | Care Team | Description | +--------+ + + + + | 12/31/ | Hospital | [facility] | Ac Elder | Kidney stone | | 2018 | Encounter | MED CTR OR INTRA OP | MD Esteban [address] | (Primary Dx); | | | | [address] | [place], [place] | Calculus of kidney | | | | [place], [place] | [id number] | | | | | [address] | | | | | | [phone] | | | +--------+ + + + [...] You can't be awakened Date Last Reviewed: 02/19/201619993831-3343 The [employer]. [address] [place] [address]. All righ ts reserved. This information is [...] lasts more than a day, a fever [id number] (38 C), or trouble urinating. Date Last Reviewed: 05/04/201619997848-8582 [employer]. [address] [place] [address], [place] [address]. All righ ts reserved. This information is [...]
--- OUTSIDE RECORDS SUMMARY | ~2019-04-23 | XMS | Encounter Summary ---
Demographics + + + | Address | [address] | | | [place] [address] | + + + | Home Phone [...] + + + | Author | [facility] | | | and Brianana | + + + | Organization | [facility] | | | and Brianana [...] Team Providers + +------+ + | Care Speedboat Driver Name | Role | Phone | [...] | | | | CLINIC [address] | [place], [place] | unspecified ([facility]) | | | | [place], [place] | [address] | | | | | [address] | | | | | | [phone] | | | +--------+ + + + [...] [address] | [place] | [phone] | | [facility] | | [address] | | | - LABORATORY | | [...] 18 | 7 - 18 mg/dL | [facility] | | | | | | [facility] | | | | | | MEDICAL | | | | | | CENTER - | | | | | | LABORATORY | | + + + + + + | Creatinine | 0.94 | 0.60 - 1.30 | [facility] | | | | | mg/dL | [facility] | | | | | | MEDICAL | | | | | | CENTER - | | | | | | LABORATORY | | + + + + + + | eGFR if not | >60Comment: GLOMERULAR | >=60 | [facility] | | | | FILTRATION | mL/min/1.73m2 | [facility] | | | [place] | RATE,ESTIMATED | | MEDICAL | | | | mL/min/1.63t3Mwuv than | | CENTER - | | [...] + | [facility] | [address] | [place] | [phone] | | [facility] | | [address] | | | - LABORATORY | | [...] | | | | TANYA TINEO MD ([id number]) | | | | | | on [...]
--- OUTSIDE RECORDS SUMMARY | ~2019-04-23 | XMS | Encounter Summary ---
Demographics + + + | Address | [address] | | | [place] [address] | + + + | Home Phone [...] + + + | Author | [facility] | | | and Brianana | + + + | Organization | [facility] [...] Team Providers + +------+ + | Care Media Relations Director Name | Role | Phone | [...] | | | | | [address] | [address] [place] | | | | | [place], [place] | [place] [address] | | | | | [address] | | | | | | | | | | | | | Mitesh Conner, | | | | | | [address] | | | | | | [place], [place] | | | | | | [address] | | | | | | | [...] +----+---+ + + | | 0 | [place] | | | | 7 | 43-degrees [...] +----+---+ + + | | 0 | [place] off | | | | 9 | [...] 12/31/17 1124 by | | eral | [id number] catheter system; | Diane Castillo RN | [...] 9:37 | | | | | Starting Radha 12/31/17 at 0827, | | AM PDT [...]
--- OUTSIDE RECORDS SUMMARY | ~2019-04-23 | XMS | Encounter Summary ---
Demographics + + + | Address | [address] | | | [place] [address] | + + + | Home Phone | | + + + | Preferred Language | Unknown | + + + | Marital Status | Single | + + + | Synagogue Affiliation | Unknown | + + + | Race | Unknown | + + + | Ethnic Group | Unknown | + + + Author + + + | Author | [facility] | | | and Brianana | + + + | Organization | [facility] | | | and Brianana [...] Team Providers + +------+ + | Care Title One Kindergarten Teacher Name | Role | Phone | + [...] exchange | | | | [address] | [place], [place] | | | | | [place], [place] | [address] | | | | | [address] | | | | | | [phone] | | | +--------+---------+ + + + [...] You can't be awakened Date Last Reviewed: 02/19/201619998964-9385 The [employer]. [address] [place] [address]. All righ ts reserved. This information is [...]
--- OUTSIDE RECORDS SUMMARY | ~2019-04-23 | XMS | Encounter Summary ---
Demographics + + + | Address | [address] | | | [place] [address] | + + + | Home Phone [...] Author + + + | Author | [facility] | | | and Brianana | + + + | Organization | [facility] | | | and [...] Team Providers + +------+ + | Care Automatic Developer Name | Role | Phone | + [...] | | spine | MD [address] | | | | | [address] | [place], | | | | | | [place] | [place] [address] | | | | | | [place], [place] | Phone: | | | | | | [address] | [phone] | | | | | | Phone: | Fax: | | | | | | [phone] | [phone] | | | | | | Fax: | | | | | | | [phone] | | +--------+ + + + + + Reason for Visit +---------+ + | Reason | Comments | +---------+ + | Results | | +---------+ + Encounter Details +--------+ + + + + | Date | Type | Department | Care Team | Description | +--------+ + + + + | 02/21/ | Telephone | [facility] | Kylee Swift | Results | | 2014 | | CARE [address] | Jag Medrano MD | | | | | [place] | [address] | | | | | [address] | [place] | | | | | [phone] | [address] | | | | | | | [...]
--- OUTSIDE RECORDS SUMMARY | ~2019-04-23 | XMS | Encounter Summary ---
Demographics + + + | Address | [address] | | | [place] [address] | + + + | Home Phone [...] + | Author | [facility] | | | and Brianana | + + + | Organization | [facility] | | | and [place]ana [...] Team Providers + +------+ + | Care Ink Technician Name | Role | Phone | + +------+ + | Yocasta Lopez | PCP | | + +------+ + Reason for Visit + + + | Reason | Comments | + + + | Establish Care | Patient is here to Establish Care, former patient of Francisca | Robel | Sebastian in [place]. | + + + | Nephrolithiasis | Patient states he went to the ER in [place] at [facility] | the orthopedic specialty hospital and was told he had 3mm kidney [...] + + | 09/10/ | Office | [facility] | Yocasta Lopez T, | Methadone dependence | | 2018 | Visit | [facility] [place] | UR COORDINATOR [address] | ([facility]); Dilaudid use | | | | [address] | [place] | disorder, moderate | | | | [place] | [address] | ([facility]) | | | | [address] | | | | | | [phone] | | | +--------+---------+ + + + [...] or Chronic Pain tab; printable questionnaires in Maldivian ) Interpretation of Total Score: 8-9 = [...] Total Score 4 (09/10/171699) (Printable questionnaires in Maldivian ) Interpretation of Total Score: 1-4 = [...] difficult at all (09/10/171699) ineath, ELLA Rucker TECHNOLOGY ASSISTANT - 09/10/2017 4:30 PM PDT Subjective: Patient ID: Ry Rubin is a 66 y.o. male. Chief Complaint Patient presents with Establish Care Patient is here to Establish Care, former patient of Francisca Cortes in [place]. Nephrolithiasis Patient states he went to the ER in [place] at [facility] and was told he had 3mm kidney [...] last seen by Dr. Francisca Cortes in [place], [place]. He brought in a letter she hand wrote on a prescription pad. A copy of this letter is to be scanned to Media in [employer]. 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 Although effort was [...]
--- OUTSIDE RECORDS SUMMARY | ~2019-04-23 | XMS | Clinical Summary ---
Demographics + + + | Address | [address] | | | [place] [address] | + + + | Home Phone | | + + + | Preferred Language | Unknown | + + + | Marital Status | Single | + + + | Confucianism Affiliation | Unknown | + + + | Race | Unknown | + + + | Ethnic Group | Unknown | + + + Author + + + | Author | [facility] | | | and Brianana | + + + | Organization | [facility] | | | and [...] Team Providers + +------+ + | Care Candy Rolling Machine Operator Name | Role | Phone | [...] a | | vertebral osteomyelitis ([place]) in ([place]). 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 | [...] Left: | COOK | | 09/24/ | [id number] | | - Sn/AImplanted: Qty: 1 | | Ureter | [employer] | | 2020 | /N/A | | on 12/31/2017 by Jael, | | | - DALE | | | /[id number] | | Ac Orellana MD at [facility] | | | | | | 30 | | [facility] | | | | | | | | CENTER | | | | | | | + +-------+--------+ +--------+--------+--------+ | Stent Uret W/Pstnr Frm 6 | Stent | Left: | DALE | | | [id number] | | - [id number]: | | Ureter | [employer] | | | / | | Qty: 1 on 01/27/2018 by | | | - DALE | | | /[id number] | | Ac Elder MD at | | | | | | 08 | | [facility] | | | | | | | | [facility] | | | | | | [...] +--------+ +---------+--------+ | MEDICARE | MEDICA | [id number] | 12/02/18 | [phone] | | Medica [...] | 1950 | [phone] | [place] [address] | | | [place] | | | 8 (Home) | | + +--------+ +--------+ + + Advance Directives + + + + + | Type | Date Recorded | Patient | Explanation | | | | Experienced Truck Driver | | + + + + + | Power of | | | | | Central Office Mechanic | | | | + + + [...]
--- OUTSIDE RECORDS SUMMARY | ~2019-04-23 | XMS | Encounter Summary ---
Demographics + + + | Address | [address] | | | [place] [address] | + + + | Home Phone [...] + + + | Author | [facility] | | | and Brianana | + + + | Organization | [facility] | | | and [place] [...] Team Providers + +------+ + | Care Receiving Dock Checker Name | Role | Phone | + [...] [address] | | | | | [place], [place] | [place], [place] | | | | | [address] | [address] | | | | | [phone] | | | +--------+ + + + [...]
--- OUTSIDE RECORDS SUMMARY | ~2019-04-23 | XMS | Clinical Summary ---
Demographics + + + | Address | [address] | | | [place] [address] | + + + | Home Phone | | + + + | Preferred Language | Unknown | + + + | Marital Status | Single | + + + | Rastafarian Affiliation | Unknown | + + + | Race | Unknown | + + + | Ethnic Group | Unknown | + + + Author + + + | Author | [facility] | | | and Brianana | + + + | Organization | [facility] | | | and [place] [...] Team Providers + +------+ + | Care Paper Rewinder Operator Name | Role | Phone | [...] a | | vertebral osteomyelitis (Lauren) in ([place]). Last | | MRI 02/08 - mod [...] + + + | Coronary atherosclerosis of [place] coronary artery | 07/19/2009 | + + + + + | Overview: Overview: [place] in ; used cocaine 8hrs earlier. | [...] Left: | COOK | | 09/24/ | [id number] | | - Sn/AImplanted: Qty: 1 | | Ureter | [employer] | | 2020 | /N/A | | on 12/31/2017 by Jael, | | | - [place]ALE | | | /[id number] | | Ac Orellana MD at [facility] | | | | | | 30 | | [facility] | | | | | | | | CENTER | | | | | | | + +-------+--------+ +--------+--------+--------+ | Stent Uret W/Pstnr Frm 6 | Stent | Left: | DALE | | | [id number] | | - [id number]: | | Ureter | [employer] | | | / | | Qty: 1 on 01/27/2018 by | | | - [place] | | | /[id number] | | Ac Elder MD at | | | | | | 08 | | [facility] | | | | | | | | [facility] | | | | | [...] +--------+ +---------+--------+ | MEDICARE | MEDICA | [id number] | 12/02/18 | [phone] | | Medica [...] | 1950 | [phone] | [place] [address] | | | [place]iva | | | 8 (Home) | | + +--------+ +--------+ + + Advance Directives + + + + + | Type | Date Recorded | Patient | Explanation | | | | Bee Robber | | + + + + + | Power of | | | | | Screen Printer | | | | + + + [...]
--- OUTSIDE RECORDS SUMMARY | ~2019-04-23 | XMS | Encounter Summary ---
Demographics + + + | Address | [address] | | | [place] [address] | + + + | Home Phone | | + + + | Preferred Language | Unknown | + + + | Marital Status | Single | + + + | Congregation Affiliation | Unknown | + + + | Race | Unknown | + + + | Ethnic Group | Unknown | + + + Author + + + | Author | [facility] | | | and Brianana | + + + | Organization | [facility] | | | and Brianana | [...] + +------+ + | Care Business Continuity Analyst Name | Role | Phone | [...] [address] | | | | | [phone] | [place] [address] | | +--------+ + + + + [...]
--- OUTSIDE RECORDS SUMMARY | ~2019-04-23 | XMS | Encounter Summary ---
Demographics + + + | Address | [address] | | | [place] [address] | + + + | Home Phone | | + + + | Preferred Language | Unknown | + + + | Marital Status | Single | + + + | Christianity Affiliation | Unknown | + + + | Race | Unknown | + + + | Ethnic Group | Unknown | + + + Author + + + | Author | [facility] | | | and Brianana | + + + | Organization | [facility] | | | and Brianana [...] Team Providers + +------+ + | Care Solid Waste Truck Driver Name | Role | Phone | [...] [address] | | | | | [place], [place] | [place], [place] | | | | | [address] | [address] | | | | | [phone] | | | +--------+ + + + [...]
--- OUTSIDE RECORDS SUMMARY | ~2019-04-23 | XMS | Encounter Summary ---
Demographics + + + | Address | [address] | | | [place] [address] | + + + | Home Phone [...] + | Author | [facility] | | | and Brianana | + + + | Organization | [facility] | [...] Team Providers + +------+ + | Care Credit Administration Specialist Name | Role | Phone | + +------+ + | Francisca Cortes MD | PCP | | + +------+ + Encounter Details +--------+ + + + + | Date | Type | Department | Care Team | Description | +--------+ + + + + | 03/05/ | Hospital | [facility] | Panchito Candelaria, | Monoclonal | | 2015 | Encounter | [facility] | MD [address] | gammopathy | | | | [facility] [address] [place], | | | | | [place] | [place] [address] | | | | | [place] [address] | [phone] | | | | | [phone] | | | +--------+ + + + [...] | | | | | [place] [address] | | | | + + + [...] [address] | [place] [address] | [phone] | + + + + + Protein, [...] ST. | [address] | [place] | [phone] | | [facility] | | [address] | | | - LABORATORY | | | | + + + + + documented in this encounter Visit Diagnoses + + | Diagnosis | + + | Monoclonal gammopathy Monoclonal paraproteinemia | + + documented in this encounter"
--- OUTSIDE RECORDS SUMMARY | ~2019-04-23 | XMS | Encounter Summary ---
Demographics + + + | Address | [address] | | | [place] [address] | + + + | Home Phone | | + + + | Preferred Language | Unknown | + + + | Marital Status | Single | + + + | Faith Affiliation | Unknown | + + + | Race | Unknown | + + + | Ethnic Group | Unknown | + + + Author + + + | Author | [facility] | | | and Brianana | + + + | Organization | [facility] | | | and [...] Team Providers + +------+ + | Care Pipe Line Inspector Name | Role | Phone | [...] [address] | | | | | [place], [place] | [place], [place] | | | | | [address] | [address] | | | | | [phone] | | | +--------+ + + + [...]
--- OUTSIDE RECORDS SUMMARY | ~2019-04-23 | XMS | Encounter Summary ---
Demographics + + + | Address | [address] | | | [place] [address] | + + + | Home Phone [...] | [facility] | | | and Brianana | + + + | Organization | [facility] | | | and [...] | | + + +---------+ + | bJ Bahena | ECON | Unknown | | + + +---------+ + Care Team Providers + +------+ + | Care Comic Book Writer Name | Role | Phone | + +------+ + | Kyle Trevizo MD | PCP | | + +------+ + Encounter Details +--------+ + + + + | Date | Type | Department | Care Team | Description | +--------+ + + + + | 01/12/ | Imaging | [facility] | Provider, | | | 2017 | Exam | [facility] | MD [address] | | | | | IMAGING | [address] | | | | | [phone] | [place] [address] | | +--------+ + + + + [...] + + + | CT ABDOMEN PELVIS WO | Routin | 01/11/2018 | | Results for this | | CONTRAST | e | 10:30 AM | | procedure are in the | | | | PDT | | results section. | + +--------+ + + + documented in this encounter Results CT Abdomen Pelvis wo Contrast (01/11/2018 10:30 AM PDT) + + | Specimen | [...]
--- OUTSIDE RECORDS SUMMARY | ~2019-04-23 | XMS | Encounter Summary ---
Demographics + + + | Address | [address] | | | [place] [address] | + + + | Home Phone [...] + | Author | [facility] | | | and Brianana | + + + | Organization | [facility] | | | and Brianana [...] Team Providers + +------+ + | Care Consulting Intern Name | Role | Phone | + [...] | | | | | [address] | [address] [place] | | | | | [place], [place] | [place] [address] | | | | | [address] | | | | | | | | | | | | | Mitesh Conner, | | | | | | [address] | | | | | | [place], [place] | | | | | | [address] | | | | | | | [...] +----+---+ + + | | 0 | [place] | | | | 7 | 43-degrees [...] +----+---+ + + | | 0 | [place] off | | | | 9 | [...] 12/31/17 1124 by | | eral | [id number] catheter system; | Diane Castillo RN | [...]
--- OUTSIDE RECORDS SUMMARY | ~2019-04-23 | XMS | Encounter Summary ---
Demographics + + + | Address | [address] | | | [place] [address] | + + + | Home Phone | | + + + | Preferred Language | Unknown | + + + | Marital Status | Single | + + + | Tenriism Affiliation | Unknown | + + + | Race | Unknown | + + + | Ethnic Group | Unknown | + + + Author + + + | Author | [facility] | | | and Brianana | + + + | Organization | [facility] | | [...] Team Providers + +------+ + | Care Orthopedically Impaired Teacher Name | Role | Phone | + +------+ + | Kyle Trevizo MD | PCP | | + +------+ + Encounter Details +--------+ + + + + | Date | Type | Department | Care Team | Description | +--------+ + + + + | 03/15/ | Hospital | [facility] | Panchito Candelaria, | Canceled (OTHER) | | 2015 | Encounter | [facility] | MD [address] | | | | | [facility]OGY CLINIC [address] [place], | | | | | [place] | [place] [address] | | | | | [place] [address] | [phone] | | | | | [phone] | | | +--------+ + + + [...]
--- OUTSIDE RECORDS SUMMARY | ~2019-04-23 | XMS | Encounter Summary ---
Demographics + + + | Address | [address] | | | [place] [address] | + + + | Home Phone | | + + + | Preferred Language | Unknown | + + + | Marital Status | Single | + + + | Rastafari Affiliation | Unknown | + + + | Race | Unknown | + + + | Ethnic Group | Unknown | + + + Author + + + | Author | [facility] | | | and Brianana | + + + | Organization | [facility] | | | and Brianana [...] Team Providers + +------+ + | Care Foreign Car Mechanic Name | Role | Phone | [...] | | | | [place] | [place] [id number] | | | | | [place] [id number] | [phone] | | | | | [phone] | | | +--------+ + + + [...]
--- OUTSIDE RECORDS SUMMARY | ~2019-04-23 | XMS | Encounter Summary ---
Demographics + + + | Address | [address] | | | [place] [address] | + + + | Home Phone [...] Author | [facility] | | | and Brianana | + + + | Organization | [facility] | | [...] Team Providers + +------+ + | Care Hospice Art Therapist Name | Role | Phone | + [...] Casimiro NIEVES | | | | | [phone] | [place] [address] | | +--------+ + + + + [...]
--- OUTSIDE RECORDS SUMMARY | ~2019-04-23 | XMS | Encounter Summary ---
Demographics + + + | Address | [address] | | | [place] [address] | + + + | Home Phone | | + + + | Preferred Language | Unknown | + + + | Marital Status | Single | + + + | Restorationism Affiliation | Unknown | + + + | Race | Unknown | + + + | Ethnic Group | Unknown | + + + Author + + + | Author | [facility] | | | and Brianana | + + + | Organization | [facility] | | | and [...] Team Providers + +------+ + | Care Silviculturist Name | Role | Phone | + [...] + + | 03/14/ | Hospital | [facility] | Panchito Candelaria, | MGUS (monoclonal | | 2015 | Encounter | MED CTR MEDICAL | [address] [place] | gammopathy of | | | | ONCOLOGY CLINIC [address] [place], | unknown | | | | [place] | [place] [address] | significance) | | | | [place] [address] | [phone] | (Primary Dx) | | | | [phone] | | | +--------+ + + + [...] fr om the original. Hematology-Oncology Progress Note [facility] Pt. Name/Age/: Ry Rubin 64 y.o. 1950 CSN: [id number] Date of service: 03/14/2015 Provider: Panchito Candelaria [...] Past Medical History Diagnosis Date Kidney stones [place] (mitral incompetence) Multiple facial bone fractures (HCC) [...] this chart may have been created with RAREFORM voice recognition software. Occasi onal wrong-word or [...]
--- OUTSIDE RECORDS SUMMARY | ~2019-04-23 | XMS | Encounter Summary ---
Demographics + + + | Address | [address] | | | [place] [address] | + + + | Home Phone [...] + | Author | [facility] | | | and Brianana | + + + | Organization | [facility] | [...] Team Providers + +------+ + | Care Casting Machine Set Up Operator Name | Role | [...] W/ | | | | [address] | [address] [place], [place] | [address] | | | | [place], [place] | [address] | | | | | [address] | | | | | | [phone] | | | +--------+---------+ + + + [...] You can't be awakened Date Last Reviewed: 02/19/201619994723-4937 The [employer]. [address] [place] [address], [place] [address]. All righ ts reserved. This information is [...] lasts more than a day, a fever [id number] (38 C), or trouble urinating. Date Last Reviewed: 05/04/201619995372-2683 [employer]. [address] [place] [address]. All righ ts reserved. This information is [...] + + | Performing | Address | City/State/[facility] Cent[facility] | Phone Number | | [...]
--- OUTSIDE RECORDS SUMMARY | ~2019-04-23 | XMS | Encounter Summary ---
Demographics + + + | Address | [address] | | | [place] [address] | + + + | Home Phone | | + + + | Preferred Language | Unknown | + + + | Marital Status | Single | + + + | Tenriism Affiliation | Unknown | + + + | Race | Unknown | + + + | Ethnic Group | Unknown | + + + Author + + + | Author | [facility] | | | and Brianana | + + + | Organization | [facility] [...] Team Providers + +------+ + | Care Reeling Machine Operator Name | Role | Phone [...] | | | | [place] | [place] [address] | | | | | [place] [address] | [phone] | | | | | [phone] | | | +--------+ + + + [...]
--- OUTSIDE RECORDS SUMMARY | ~2019-04-23 | XMS | Encounter Summary ---
Demographics + + + | Address | [address] | | | [place] [address] | + + + | Home Phone | | + + + | Preferred Language | Unknown | + + + | Marital Status | Single | + + + | Jew Affiliation | Unknown | + + + | Race | Unknown | + + + | Ethnic Group | Unknown | + + + Author + + + | Author | [facility] | | | and Brianana | + + + | Organization | [facility] | | | and [...] Team Providers + +------+ + | Care Software Tools Build Engineer Name | Role | Phone | [...] | 11/05/ | Patient | [facility] | SineathYocasta T, | Preventive | | 2018 | Outreach | [facility] [place] | DIRECT CARE WORKER [address] | Screening, PHST | | | | [address] | [place] | Colon Cancer | | | | [place] | [address] | Screening | | | | [address] | | | | | | [phone] | | | +--------+ + + + [...]
--- OUTSIDE RECORDS SUMMARY | ~2019-04-23 | XMS | Encounter Summary ---
Demographics + + + | Address | [address] | | | [place] [address] | + + + | Home Phone | | + + + | Preferred Language | Unknown | + + + | Marital Status | Single | + + + | Baptism Affiliation | Unknown | + + + | Race | Unknown | + + + | Ethnic Group | Unknown | + + + Author + + + | Author | [facility] | | | and Brianana | + + + | Organization | [facility] | | | and Brianana [...] Team Providers + +------+ + | Care Hydrologist Name | Role | Phone | + [...] | | spine | MD [address] | | | | | [address] | [place], | | | | | | [place] | [place] [address] | | | | | | [place], [place] | Phone: | | | | | | [address] | [phone] | | | | | | Phone: | Fax: | | | | | | [phone] | [phone] | | | | | | Fax: | | | | | | | [phone] | | +--------+ + + + + + Reason for Visit +---------+ + | Reason | Comments | +---------+ + | Results | | +---------+ + Encounter Details +--------+ + + + + | Date | Type | Department | Care Team | Description | +--------+ + + + + | 02/21/ | Telephone | [facility] | Kylee Swift | Results | | 2014 | | CARE [address] | Jag Medrano MD | | | | | [place] | [address] | | | | | [address] | [place] | | | | | [phone] | [address] | | | | | | | [...]
--- OUTSIDE RECORDS SUMMARY | ~2019-04-23 | XMS | Encounter Summary ---
Demographics + + + | Address | [address] | | | [place] [address] | + + + | Home Phone [...] + + + | Author | [facility] | | | and Brianana | + + + | Organization | [facility] [...] Providers + +------+ + | Care Automatic Furnace Operator Name | Role | Phone | [...] Casimiro NIEVES | | | | | [phone] | [place] [address] | | +--------+ + + + + [...]
--- OUTSIDE RECORDS SUMMARY | ~2019-04-23 | XMS | Encounter Summary ---
Demographics + + + | Address | [address] | | | [place] [address] | + + + | Home Phone | | + + + | Preferred Language | Unknown | + + + | Marital Status | Single | + + + | Hindu Affiliation | Unknown | + + + | Race | Unknown | + + + | Ethnic Group | Unknown | + + + Author + + + | Author | [facility] | | | and Brianana | + + + | Organization | [facility] | | | and Brianana [...] Team Providers + +------+ + | Care Silver Plater Name | Role | Phone | + [...] + | 01/13/ | Telephone | [facility] | Ac Elder | Nephrolithiasis | | 2017 | | [address] | MD Esteban [address] | | | | | [place], [place] | [place], [place] | | | | | [address] | [address] | | | | | [phone] | | | +--------+ + + + [...]
--- OUTSIDE RECORDS SUMMARY | ~2019-04-23 | XMS | Encounter Summary ---
Demographics + + + | Address | [address] | | | [place] [address] | + + + | Home Phone | | + + + | Preferred Language | Unknown | + + + | Marital Status | Single | + + + | Druze Affiliation | Unknown | + + + | Race | Unknown | + + + | Ethnic Group | Unknown | + + + Author + + + | Author | [facility] | | | and Brianana | + + + | Organization | [facility] [...] Team Providers + +------+ + | Care Cutter And Presser Name | Role | Phone | + +------+ + | yKle Treivzo MD | PCP | | + +------+ [...] | | | | | [address] | [place], [place] | | | | | [place], [place] | [address] | | | | | [address] | | | | | | [phone] | Kyle Dyer MD | | | | | | [address] | | | | | | [place], [place] | | | | | | [address] | | | | | | | [...] +----+---+ + + | | 0 | [place] | | | | 7 | [...] | 01/27/18929 by | | eral | [id number] catheter system; | Xiao Wong RN | [...]
--- OUTSIDE RECORDS SUMMARY | ~2019-04-23 | XMS | Clinical Summary ---
Demographics + + + | Address | [address] | | | [place] [address] | + + + | Home Phone | | + + + | Preferred Language | Unknown | + + + | Marital Status | Single | + + + | Nondenominational Affiliation | Unknown | + + + | Race | Unknown | + + + | Ethnic Group | Unknown | + + + Author + + + | Author | [facility] (Historical as of | | | 12-18-18) | + + + | Organization | [facility] (Historical as of | | | 12-18-18) [...] Team Providers + +------+ + | Care Zigzag Stitcher Name | Role | Phone | [...] +------+-------+ + | MEDICARE | MEDICA | [id number] | | | [address] | | | RE | | | | [place] [address] | | | IP-OP | | | [...] | [birth year] | Home: | [address] | | | al/Danny | | 1951 | [phone] | [place] [address] | | | shiva | | | [address] | | + +--------+ +--------+ + +"
--- OUTSIDE RECORDS SUMMARY | ~2019-04-23 | XMS | Encounter Summary ---
Demographics + + + | Address | [address] | | | [place] [address] | + + + | Home Phone [...] | Author | [facility] | | | and Brianana | + + + | Organization | [facility] | | | and Brianana | [...] Team Providers + +------+ + | Care Collision Estimator Name | Role | Phone | + [...] exchange | | | | [address] | [address] [place], [place] | | | | | [place], [place] | [address] | | | | | [address] | | | | | | [phone] | | | +--------+---------+ + + + [...] You can't be awakened Date Last Reviewed: 02/19/201619994624-7058 The [employer]. [address] [place] [address]. All righ ts reserved. This information is [...]
--- OUTSIDE RECORDS SUMMARY | ~2019-04-23 | XMS | Encounter Summary ---
Demographics + + + | Address | [address] | | | [place] [address] | + + + | Home Phone [...] Author | [facility] | | | and Brianana | + + + | Organization | [facility] [...] Team Providers + +------+ + | Care Front End Web Developer Name | Role | Phone | [...] Hospital | [facility] | Panchito Candelaria, | MGUS (monoclonal | | 2015 | Encounter | MED CTR MEDICAL | [address] [place] | gammopathy of | | | | ONCOLOGY CLINIC [address] [place], | unknown | | | | [place] | [place] [address] | significance) | | | | [place] [address] | [phone] | (Primary Dx) | | | | [phone] | | | +--------+ + + + [...] fr om the original. Hematology-Oncology Progress Note [facility] Pt. Name/Age/: Ry Rubin 64 y.o. 1950 CSN: [id number] Date of service: 03/14/2015 Provider: Panchito Candelaria [...] this chart may have been created with Lingoda voice recognition software. Occasi onal wrong-word or [...]
--- OUTSIDE RECORDS SUMMARY | ~2019-04-23 | XMS | Encounter Summary ---
Demographics + + + | Address | [address] | | | [place] [address] | + + + | Home Phone [...] Author | [facility] | | | and [place] | + + + | Organization | [facility] [...] Team Providers + +------+ + | Care Sieve Maker Name | Role | Phone | + +------+ + | Yocasta Lopez | PCP | | + +------+ + Reason for Visit + + + | Reason | Comments | + + + | Establish Care | Patient is here to Establish Care, former patient of Francisca | Robel | Sebastian in [place]. | + + + | Nephrolithiasis | Patient states he went to the ER in [place] at [facility] | [facility] and was told he had 3mm kidney [...] + + | 09/10/ | Office | [facility] | Yocasta Lopez T, | Methadone dependence | | 2018 | Visit | [facility] [place] | MOLD MAKER APPRENTICE [address] | ([facility]); Dilaudid use | | | | [address] | [place] | disorder, moderate | | | | [place] | [address] | ([facility]) | | | | [address] | | | | | | [phone] | | | +--------+---------+ + + + [...] or Chronic Pain tab; printable questionnaires in Croatian ) Interpretation of Total Score: 8-9 = [...] Total Score 4 (09/10/171699) (Printable questionnaires in Croatian ) Interpretation of Total Score: 1-4 = [...] difficult at all (09/10/171699) ineath, ELLA Rucker SIGN LANGUAGE TEACHER - 09/10/2017 4:30 PM PDT Subjective: Patient ID: Ry Rubin is a 66 y.o. male. Chief Complaint Patient presents with Establish Care Patient is here to Establish Care, former patient of Francisca Cortes in [place]. Nephrolithiasis Patient states he went to the ER in [place] at [facility] and was told he had 3mm [...] last seen by Dr. Francisca Cortes in [place], [place]. He brought in a letter she hand wrote on a prescription pad. A copy of this letter is to be scanned to [employer] in [place]. In it she apologized but stated th [...] MGUS (monoclonal gammopathy of unknown significance) 04/13/2015 CT (mitral incompetence) Multiple facial bone fractures (HCC) [...] of education: 12 Occupational History [employer]: [id number] Social History Main Topics Smoking status: Current [...] Portions of this report were transcribed using Flux voice recognition soft palmer. Although effort was [...]
--- OUTSIDE RECORDS SUMMARY | ~2019-04-23 | XMS | Encounter Summary ---
Demographics + + + | Address | [address] | | | [place] [address] | + + + | Home Phone [...] Author | [facility] | | | and Brianana | + + + | Organization | [facility] | | | and [place] | [...] Team Providers + +------+ + | Care Ad Operations Intern Name | Role | Phone | + +------+ + | Kyle Trevizo MD | PCP | | + +------+ + Encounter Details +--------+ + + + + | Date | Type | Department | Care Team | Description | +--------+ + + + + | 12/31/ | Hospital | [facility] | Ac Elder | Kidney stone | | 2018 | Encounter | MED CTR OR INTRA OP | MD [address] | (Primary Dx); | | | | [address] | [place], [place] | Calculus of kidney | | | | [place], [place] | [address] | | | | | [address] | | | | | | [phone] | | | +--------+ + + + [...] You can't be awakened Date Last Reviewed: 02/19/201619993849-7251 The [employer]. [address] [place] [address]. All righ ts reserved. This information is [...] lasts more than a day, a fever [id number] (38 C), or trouble urinating. Date Last Reviewed: 05/04/201619996945-1958 [employer]. [address] [place] [address], [place] [address]. All righ ts reserved. This information is [...]
--- OUTSIDE RECORDS SUMMARY | ~2019-04-23 | XMS | Encounter Summary ---
Demographics + + + | Address | [address] | | | [place] [address] | + + + | Home Phone | | + + + | Preferred Language | Unknown | + + + | Marital Status | Single | + + + | Yarsanism Affiliation | Unknown | + + + | Race | Unknown | + + + | Ethnic Group | Unknown | + + + Author + + + | Author | [facility] | | | and [place] | + + + | Organization | [facility] | | [...] Team Providers + +------+ + | Care Fireman Helper Name | Role | Phone | [...] W/ | | | | [address] | [place], [place] | [address] | | | | [place], [place] | [address] | | | | | [address] | | | | | | [phone] | | | +--------+---------+ + + + [...] You can't be awakened Date Last Reviewed: 02/19/201619994922-9665 The [employer]. [address] [place] [address], [place] [address]. All righ ts reserved. This information is [...] lasts more than a day, a fever [id number] (38 C), or trouble urinating. Date Last Reviewed: 05/04/201619995035-1484 [employer]. [address] [place] [address]. All righ ts reserved. This information is [...] + + | Performing | Address | City/State[facility] | Phone Number | | Organization [...]
--- OUTSIDE RECORDS SUMMARY | ~2019-04-23 | XMS | Encounter Summary ---
Demographics + + + | Address | [address] | | | [place] [address] | + + + | Home Phone | | + + + | Preferred Language | Unknown | + + + | Marital Status | Single | + + + | Zoroastrianism Affiliation | Unknown | + + + | Race | Unknown | + + + | Ethnic Group | Unknown | + + + Author + + + | Author | [facility] | | | and [place] | + + + | Organization | [facility] | | [...] Providers + +------+ + | Care Water Quality Specialist Name | Role | Phone | + +------+ + | Kyle Trevizo MD | PCP | | + +------+ + Encounter Details +--------+ + + + + | Date | Type | Department | Care Team | Description | +--------+ + + + + | 01/27/ | Hospital | [facility] | Ac Elder | Nephrolithiasis | | 2018 | Encounter | MED CTR OR INTRA OP | MD [address] | | | | | [address] | [place], [place] | | | | | [place], [place] | [address] | | | | | [address] | | | | | | [phone] | | | +--------+ + + + [...] You can't be awakened Date Last Reviewed: 02/19/201619997443-8151 The [employer]. [address] [place] [address]. All righ ts reserved. This information is [...]
--- OUTSIDE RECORDS SUMMARY | ~2019-04-23 | XMS | Encounter Summary ---
Demographics + + + | Address | [address] | | | [place] [address] | + + + | Home Phone [...] | Author | [facility] | | | and Brianana | + + + | Organization | [facility] | | | and [place] | + + + | Address | Unknown | + + + | Phone | Unavailable | + + + Support + + +---------+ + | Name | Relationship | Address | Phone | + + +---------+ + | Sray Rubin | ECON | Unknown | | + + +---------+ + | Eduard Rubin | ECON | Unknown | | + + +---------+ + | Jb Bahena | ECON | Unknown | | + + +---------+ + Care Team Providers + +------+ + | Care Individual Pension Adviser Name | Role | Phone | + [...] Casimiro NIEVES | | | | | [phone] | [place] [address] | | +--------+ + + + + [...]
--- OUTSIDE RECORDS SUMMARY | ~2019-04-23 | XMS | Encounter Summary ---
Demographics + + + | Address | [address] | | | [place] [address] | + + + | Home Phone [...] Author | [facility] | | | and Brianana | + + + | Organization | [facility] | | | and [...] Team Providers + +------+ + | Care Truck Switcher Name | Role | Phone | + +------+ + | No, Physician | PCP | Unavailable | + +------+ + Encounter Details +--------+ + + + + | Date | Type | Department | Care Team | Description | +--------+ + + + + | 02/15/ | Hospital | [facility] | Kylee Swift | | | 2015 | Encounter | MED CTR GIO XRAY | Jag Medrano MD | | | | | [address] [place] | [address] | | | | | [place], [place] | [place], [place] | | | | | [address] | [address] | | | | | [phone] | | | +--------+ + + + [...] present. There is mild wedging of multiple [facility] | | thoracic vertebral bodies [...] + | [address] | [address] | [place] | [phone] | | [facility] | | [address] | | | - IMAGING | | [...] + | [facility] | [address] | [place], [place] | [phone] | | [facility] | | [address] | | | - IMAGING | | | | + + + + + documented in this encounter Visit Diagnoses Not on filedocumented in this encounter"
--- OUTSIDE RECORDS SUMMARY | ~2019-04-23 | XMS | Encounter Summary ---
Demographics + + + | Address | [address] | | | [place] [address] | + + + | Home Phone | | + + + | Preferred Language | Unknown | + + + | Marital Status | Single | + + + | Worship Affiliation | Unknown | + + + | Race | Unknown | + + + | Ethnic Group | Unknown | + + + Author + + + | Author | [facility] | | | and Brianana | + + + | Organization | [facility] | | | and Brianana [...] Team Providers + +------+ + | Care Scowman Name | Role | Phone | + [...] [address] | | | | | [place], | [place], [place] | | | | | [place] [address] | [address] | | | | | [phone] | | | +--------+ + + + [...]
--- OUTSIDE RECORDS SUMMARY | ~2019-04-23 | XMS | Encounter Summary ---
Demographics + + + | Address | [address] | | | [place] [address] | + + + | Home Phone [...] | Author | [facility] | | | and Brianana | + + + | Organization | [facility] | [...] Team Providers + +------+ + | Care Emergency Room Specialist Name | Role | Phone | [...] Casimiro NIEVES | | | | | [phone] | [place] [address] | | +--------+ + + + + [...]
--- OUTSIDE RECORDS SUMMARY | ~2019-04-23 | XMS | Encounter Summary ---
Demographics + + + | Address | [address] | | | [place] [address] | + + + | Home Phone | | + + + | Preferred Language | Unknown | + + + | Marital Status | Single | + + + | Congregational Affiliation | Unknown | + + + | Race | Unknown | + + + | Ethnic Group | Unknown | + + + Author + + + | Author | [facility] | | | and Brianana | + + + | Organization | [facility] [...] Team Providers + +------+ + | Care Mogul Operator Name | Role | Phone | [...] | | spine | MD [address] | [place] | | | | | | [address] | [place], | | | | | | [place] | [place] [address] | | | | | | [place], [place] | Phone: | | | | | | [address] | [phone] | | | | | | Phone: | Fax: | | | | | | [phone] | [phone] | | | | | | Fax: | | | | | | | [phone] | | +--------+ + + + + + Encounter Details +--------+ + + + + | Date | Type | Department | Care Team | Description | +--------+ + + + + | 03/01/ | Hospital | [facility] | Panchito Candelaria, | Monoclonal | | 2015 | Encounter | [facility] | MD Mercedes [place] | gammopathy (Primary | | | | [facility]OGY CLINIC [address] [place], | Dx); Back pain, | | | | [place] | [place] [address] | unspecified back | | | | [place] [address] | [phone] | pain laterality, | | | | [phone] | | unspecified | | | | [...] completed | + +------+--------+ + + | [place] [facility] | Lab | STAT | [...] + | [address] | [address] | [place] | [phone] | | [facility] | | [address] | | | - LABORATORY | | [...] | | | | | [place] [address] | | | | + + + [...] [address] | [place] [address] | [phone] | + + + + + [place] [facility] Light Chain Ratio (03/01/2015 3:41 [...] [place] | | | | | | [address] | | | | + + + [...] [address] | [place] [address] | [phone] | + + + + + Immunoglobulin, [...] [place] | | | | | | [address] | | | | + + + [...] [address] | [place] [address] | [phone] | + + + + + Beta [...] | | | | | [place] [address] | | | | + + + + + + + + | Specimen | + + | Blood specimen | | (specimen) | + + + + + + + | Performing | Address | City/State/Zipcode | Phone Number | | Organization | | | | + + + + + | [facility] | [address] | [place] [address] | [phone] | + + + + + documented in this encounter Visit Diagnoses + + | Diagnosis | + + | Monoclonal gammopathy - Primary Monoclonal paraproteinemia | + + | Back pain, unspecified back pain laterality, unspecified location | + + | Anemia, unspecified anemia type | + + documented in this encounter
--- OUTSIDE RECORDS SUMMARY | ~2019-04-23 | XMS | Encounter Summary ---
Demographics + + + | Address | [address] | | | [place] [address] | + + + | Home Phone | | + + + | Preferred Language | Unknown | + + + | Marital Status | Single | + + + | Scientologist Affiliation | Unknown | + + + | Race | Unknown | + + + | Ethnic Group | Unknown | + + + Author + + + | Author | [facility] | | | and Brianana | + + + | Organization | [facility] | | | and Brianana [...] Providers + +------+ + | Care Senior Manufacturing Test Engineer Name | Role | Phone | [...] + + | 01/20/ | Office | [facility] | Ac Elder | Nephrolithiasis | | 2018 | Visit | [address] | MD Esteban [address] | (Primary Dx) | | | | [place] | [place], [place] | | | | | [address] | [address] | | | | | [phone] | | | +--------+---------+ + + + [...] January 27, 2018 at 7:45 AM at [facility]. Please report to Outpatient Procedure Center [...] you home after surgery. Call us at [phone] with any questions. [x] Pain management booklet [...] MGUS (monoclonal gammopathy of unknown significance) 04/13/2015 [place] (mitral incompetence) Multiple facial bone fractures (HCC) Rheumatoid arthritis (HCC) Venereal disease Wears dentures Past Surgical History Past Surgical History: Procedure Laterality Date GALLBLADDER SURGERY 10/28/2017 Dr. Goins in [place] @ [facility] LITHOTRIPSY 2001 LITHOTRIPSY 2011 SPINE SURGERY 1984 grafted his rib and replaced disc between T8 and T9 URETEROSCOPY Left 12/31/2017 Procedure: CYSTOSCOPY URETEROSCOPY W/ LASER STENT LEFT ; Surgeon: Ac Elder MD; Location: [facility] MAIN OR Family History: Family History Problem Relation Age of Onset Lymphoma Father 80 Diabetes Mother Heart attack Mother Breast cancer Sister 70 Heart attack Sister 68 Arthritis Other unknown relation Prostate cancer Neg Hx Social History: Social History Social History Marital status: Single Spouse name: N/A Number of children: 4 Years of education: 12 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 CC: [...]
--- OUTSIDE RECORDS SUMMARY | ~2019-04-23 | XMS | Encounter Summary ---
Demographics + + + | Address | [address] | | | [place] [address] | + + + | Home Phone [...] + + + | Author | [facility] | | | and Brianana | + + + | Organization | [facility] | | | and Brianana | [...] Team Providers + +------+ + | Care Fruit I Farmworker Name | Role | Phone | + [...] | | back pain | [place] | [address] Phone: | | | | | without | [place] | [phone] | | | | | sciatica | [address] | Fax: | | | | | | Phone: | [phone] | | | | | | [phone] | | | | | | | Fax: | | | | | | | [phone] | | +--------+ + + + + + Encounter Details +--------+---------+ + + + | Date | Type | Department | Care Team | Description | +--------+---------+ + + + | 03/20/ | Office | [facility] | Aldo Schultz | Chronic pain | | 2014 | Visit | PHYSIATRY [address] | [address], [address] | syndrome (Primary | | | | [place], | [place], [place] | Dx); Left-sided | | | | [place] [address] | [address] | thoracic back pain | | | | [phone] | | | +--------+---------+ + + + [...] 03/20/2015 9:07 AM PST Aldo Schultz MD [address] [place] [address], [address] [place] [address] FAX: PHYSICAL MEDICINE AND REHABILITATION H&P CHIEF [...] Past Medical History Diagnosis Date Kidney stones [place] (mitral incompetence) Multiple facial bone fractures (HCC) [...]
--- OUTSIDE RECORDS SUMMARY | ~2019-04-23 | XMS | Encounter Summary ---
Demographics + + + | Address | [address] | | | [place] [address] | + + + | Home Phone [...] | [facility] | | | and Brianana | + + + | Organization | [facility] | | [...] Team Providers + +------+ + | Care Power Grader Operator Name | Role | Phone | [...] [address] | | | | | [place], [place] | [place], [place] | | | | | [address] | [address] | | | | | [phone] | | | +--------+ + + + [...]
--- OUTSIDE RECORDS SUMMARY | ~2019-04-23 | XMS | Encounter Summary ---
Demographics + + + | Address | [address] | | | [place] [address] | + + + | Home Phone [...] + + | Author | [facility] | | | and Brainana | + + + | Organization | [facility] | [...] Team Providers + +------+ + | Care Profiler Hand Name | Role | Phone | + [...] | | spine | MD [address] | [place] | | | | | | [address] | [place], | | | | | | [place] | [place] [address] | | | | | | [place], [place] | Phone: | | | | | | [address] | [phone] | | | | | | Phone: | Fax: | | | | | | [phone] | [phone] | | | | | | Fax: | | | | | | | [phone] | | +--------+ + + + + + Encounter Details +--------+ + + + + | Date | Type | Department | Care Team | Description | +--------+ + + + + | 03/01/ | Hospital | [facility] | Panchito Candelaria, | Monoclonal | | 2015 | Encounter | [facility] | MD Mercedes [place] | gammopathy (Primary | | | | ONCOLOGY CLINIC [address] [place], | Dx); Back pain, | | | | [address] [place] | [place] [address] | unspecified back | | | | [place] [address] | [phone] | pain laterality, | | | | [phone] | | unspecified | | | | [...] completed | + +------+--------+ + + | [place] [facility] | Lab | STAT | [...] + | [address] | [address] | [place] | [phone] | | [facility] | | [address] | | | - LABORATORY | | [...] | | | | | [place] [address] | | | | + + + [...] [address] | [place] [address] | [phone] | + + + + + [place] [facility] [place] Light Chain Ratio (03/01/2015 3:41 [...] [place] | | | | | | [address] | | | | + + + [...] [address] | [place] [address] | [phone] | + + + + + Immunoglobulin, [...] [place] | | | | | | [address] | | | | + + + [...] [address] | [place] [address] | [phone] | + + + + + Beta [...] | | | | | [place] [address] | | | | + + + + + + + + | Specimen | + + | Blood specimen | | (specimen) | + + + + + + + | Performing | Address | City/State/Zipcode | Phone Number | | Organization | | | | + + + + + | [facility] | [address] | [place] [address] | [phone] | + + + + + documented in this encounter Visit Diagnoses + + | Diagnosis | + + | Monoclonal gammopathy - Primary Monoclonal paraproteinemia | + + | Back pain, unspecified back pain laterality, unspecified location | + + | Anemia, unspecified anemia type | + + documented in this encounter
--- OUTSIDE RECORDS SUMMARY | ~2019-04-23 | XMS | Encounter Summary ---
Demographics + + + | Address | [address] | | | [place] [address] | + + + | Home Phone [...] + | Author | [facility] | | | and Brianana | + + + | Organization | [facility] | | | and [...] Team Providers + +------+ + | Care Revenue Manager Name | Role | Phone | + +------+ + | Kyle Trevizo MD | PCP | | + +------+ + Encounter Details +--------+ + + + + | Date | Type | Department | Care Team | Description | +--------+ + + + + | 03/15/ | Hospital | [facility] | Panchito Candelaria, | Canceled (OTHER) | | 2015 | Encounter | [facility] | MD [address] | | | | | ONCOLOGY CLINIC [address] [place], | | | | | [place] | [place] [address] | | | | | [place] [address] | [phone] | | | | | [phone] | | | +--------+ + + + [...]
--- OUTSIDE RECORDS SUMMARY | ~2019-04-23 | XMS | Encounter Summary ---
Demographics + + + | Address | [address] | | | [place] [address] | + + + | Home Phone [...] | [facility] | | | and Brianana | + + + | Organization | [facility] [...] Team Providers + +------+ + | Care Puppet Maker Name | Role | Phone | [...] | | | | [place] | [place] [address] | | | | | [place] [address] | [phone] | | | | | [phone] | | | +--------+ + + + [...]
--- OUTSIDE RECORDS SUMMARY | ~2019-04-23 | XMS | Encounter Summary ---
Demographics + + + | Address | [address] | | | [place] [address] | + + + | Home Phone [...] + | Author | [facility] | | | and Brianana | + + + | Organization | [facility] | | | and [place] [...] Team Providers + +------+ + | Care Alterations Sewer Name | Role | Phone | + [...] [place] | | | | | | [address] | | | | | | [phone] | | | +--------+ + + + [...]
--- OUTSIDE RECORDS SUMMARY | ~2019-04-23 | XMS | Encounter Summary ---
Demographics + + + | Address | [address] | | | [place] [address] | + + + | Home Phone [...] | Author | [facility] | | | and Brianana | + + + | Organization | [facility] | | [...] Team Providers + +------+ + | Care System Support Technician Name | Role | Phone | [...] [address]imiro [address]EVES | | | | | [phone] | [place] [address] | | +--------+ + + + + [...]
--- OUTSIDE RECORDS SUMMARY | ~2019-04-23 | XMS | Encounter Summary ---
Demographics + + + | Address | [address] | | | [place] [address] | + + + | Home Phone [...] + | Author | [facility] | | | and Brianana | + + + | Organization | [facility] | | | and Brianana [...] Team Providers + +------+ + | Care Nitric Acid Concentrator Operator Name | Role | Phone | [...] Casim[place]ES | | | | | [phone] | [place] [address] | | +--------+ + + + + [...]
--- OUTSIDE RECORDS SUMMARY | ~2019-04-23 | XMS | Encounter Summary ---
Demographics + + + | Address | [address] | | | [place] [address] | + + + | Home Phone | | + + + | Preferred Language | Unknown | + + + | Marital Status | Single | + + + | Jewish Affiliation | Unknown | + + + | Race | Unknown | + + + | Ethnic Group | Unknown | + + + Author + + + | Author | [facility] | | | and [place] | + + + | Organization | [facility] | | [...] Team Providers + +------+ + | Care Radio Officer Name | Role | Phone | [...] + + | 01/20/ | Office | [facility] | Ac Elder | Nephrolithiasis | | 2018 | Visit | [address] | MD Esteban [address] | (Primary Dx) | | | | [place] | [place], [place] | | | | | [address] | [address] | | | | | [phone] | | | +--------+---------+ + + + [...] January 27, 2018 at 7:45 AM at [facility]. Please report to Outpatient Procedure Center [...] you home after surgery. Call us at [phone] with any questions. [x] Pain management booklet [...] MGUS (monoclonal gammopathy of unknown significance) 04/13/2015 [place] (mitral incompetence) Multiple facial bone fractures (HCC) Rheumatoid arthritis (HCC) Venereal disease Wears dentures Past Surgical History Past Surgical History: Procedure Laterality Date GALLBLADDER SURGERY 10/28/2017 Dr. Goins in [place] @ [facility] LITHOTRIPSY 2001 LITHOTRIPSY 2011 SPINE SURGERY 1984 grafted his rib and replaced disc between T8 and T9 URETEROSCOPY Left 12/31/2017 Procedure: CYSTOSCOPY URETEROSCOPY W/ LASER STENT LEFT ; Surgeon: Ac Elder MD; Location: [facility] MAIN OR Family History: Family History Problem Relation Age of Onset Lymphoma Father 80 Diabetes Mother Heart attack Mother Breast cancer Sister 70 Heart attack Sister 68 Arthritis Other unknown relation Prostate cancer Neg Hx Social History: Social History Social History Marital status: Single Spouse name: N/A Number of children: 4 Years of education: 12 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 [...]
--- OUTSIDE RECORDS SUMMARY | ~2019-04-23 | XMS | Encounter Summary ---
Demographics + + + | Address | [address] | | | [place] [address] | + + + | Home Phone | | + + + | Preferred Language | Unknown | + + + | Marital Status | Single | + + + | Christianity Affiliation | Unknown | + + + | Race | Unknown | + + + | Ethnic Group | Unknown | + + + Author + + + | Author | [facility] | | | and [place] | + + + | Organization | [facility] | [...] Team Providers + +------+ + | Care Binder Lockstitch Name | Role | Phone | + [...] [address] | | | | | [phone] | [place] [address] | | +--------+ + + + + [...]
--- OUTSIDE RECORDS SUMMARY | ~2019-04-23 | XMS | Clinical Summary ---
Demographics + + + | Address | [address] | | | [place] [address] | + + + | Home Phone [...] | [facility] [employer] (Historical as of | | | 12-18-18) | + + + | Organization | [facility] [employer] (Historical as of | | | 12-18-18) [...] Team Providers + +------+ + | Care Desktop Architect Name | Role | Phone | + [...] +------+-------+ + | MEDICARE | MEDICA | [id number] | | | [address] | | | RE | | | | [place] [address] | | | IP-OP | | | [...] | [birth year] | Home: | [address] | | | al/Danny | | 1951 | [phone] | [place] [address] | | | shiva | | | [address] | | + +--------+ +--------+ + +"
--- OUTSIDE RECORDS SUMMARY | ~2019-04-23 | XMS | Encounter Summary ---
Demographics + + + | Address | [address] | | | [place] [address] | + + + | Home Phone [...] | Author | [facility] | | | and [place] | + + + | Organization | [facility] [...] Team Providers + +------+ + | Care Brilliandeer Lopper Name | Role | Phone | + [...] | | | | CLINIC [address] | [place], [place] | unspecified ([facility]) | | | | [place], [place] | [address] | | | | | [address] | | | | | | [phone] | | | +--------+ + + + [...] [address] | [place] | [phone] | | [facility] | | [address] | | | - LABORATORY | | [...] | 0.94 | 0.60 - 1.30 | [facility] | | | | | mg/dL | [facility] | | | | | | MEDICAL | | | | | | CENTER - | | | | | | LABORATORY | | + + + + + + | eGFR if not | >60Comment: GLOMERULAR | >=60 | [facility] | | | | FILTRATION | mL/min/1.73m2 | [facility] | | | UKRAINIAN | RATE,ESTIMATED | | MEDICAL | | | | mL/min/1.18t5Urco than | | CENTER - | | [...] + | [address] | [address] | [place] | [phone] | | [facility] | | [address] | | | - LABORATORY | | [...] | | | | TANYA TINEO MD ([id number]) | | | | | | on [...]
--- OUTSIDE RECORDS SUMMARY | ~2019-04-23 | XMS | Encounter Summary ---
Demographics + + + | Address | [address] | | | [place] [address] | + + + | Home Phone | | + + + | Preferred Language | Unknown | + + + | Marital Status | Single | + + + | Pentecostalism Affiliation | Unknown | + + + | Race | Unknown | + + + | Ethnic Group | Unknown | + + + Author + + + | Author | [facility] | | | and [place] | + + + | Organization | [facility] | | | and [...] Team Providers + +------+ + | Care Global Implementation Manager Name | Role | Phone | [...] | | back pain | [place] | [address] Phone: | | | | | without | [place] | [phone] | | | | | sciatica | [address] | Fax: | | | | | | Phone: | [phone] | | | | | | [phone] | | | | | | | Fax: | | | | | | | [phone] | | +--------+ + + + + [...] | Office | [facility] | Kylee Swift | Midline thoracic | | 2014 | Visit | CARE [address] | Jag Medrano MD | back pain (Primary | | | | [place], [place] | [address] | Dx); Midline low | | | | [address] | [place], [place] | back pain without | | | | [phone] | [address] | sciatica; Kidney | | | | [...] + | [facility] | [address] | [place] | [phone] | | [facility] | | [address] | | | - LABORATORY | | [...] [facility] | | Brayan 02/16/15 | [facility] | | | - LABORATORY | + + + + + + + + | Performing | Address | City/State/Zipcode | Phone Number | | Organization | | | | + + + + + | [facility] | [address] | [place] | [phone] | | [facility] | | [address] | | | - LABORATORY | | [...] [address] | [place] | [phone] | | [facility] | | [address] | | | - LABORATORY | | [...] | | Band 1%, | | | [facility] | | | Serum | [...] gamma region. It is approximately 0.2g/dl. | [facility] | | Immunofixation will be performed for further characterization. [facility] | [facility] | | Brayan 02/16/15 | - LABORATORY | + + + + + + + + | Performing | Address | City/State/Zipcode | Phone Number | | Organization | | | | + + + + + | [facility] | [address] | [place] | [phone] | | [facility] | | [address] | | | - LABORATORY | | [...] 1.001 - 1.030 | | | | [place], | | | | | | [facility], [...] [address] | [place] | [phone] | | [facility] | | [address] | | | - IMAGING | | [...] FINDINGS: There is mild spondylosis. Bone | [facility] | | mineralization is mildly [...] + + | Performing | Address | City/State/[facility] | Phone Number | | Organization | | | | + + + + + | [address] | [address] | [place] | [phone] | | [facility] | | [address] | | | - IMAGING | | [...] + | [facility] | [address] | [place] | [phone] | | [facility] | | [address] | | | - LABORATORY | | [...] mL/min/1.73m2 | [facility] | | | [place] | RATE,ESTIMATED | | MEDICAL | | | | mL/min/1.92n3Seny than | | CENTER - | | [...] [address] | [place] | [phone] | | [facility] | | [address] | | | - LABORATORY | | [...] [address] | [place] | [phone] | | [facility] | | [address] | | | - LABORATORY | | [...]
--- OUTSIDE RECORDS SUMMARY | ~2019-04-23 | XMS | Encounter Summary ---
Demographics + + + | Address | [address] | | | [place] [address] | + + + | Home Phone | | + + + | Preferred Language | Unknown | + + + | Marital Status | Single | + + + | Confucianist Affiliation | Unknown | + + + | Race | Unknown | + + + | Ethnic Group | Unknown | + + + Author + + + | Author | [facility] | | | and Brianana | + + + | Organization | [facility] | | [...] Team Providers + +------+ + | Care Micropaleontologist Name | Role | Phone | + +------+ + | Francisca Cortes MD | PCP | | + +------+ + Encounter Details +--------+ + + + + | Date | Type | Department | Care Team | Description | +--------+ + + + + | 03/05/ | Hospital | [facility] | Panchito Candelaria, | Monoclonal | | 2015 | Encounter | [facility] | MD [address] | gammopathy | | | | [facility] [address] [place], | | | | | [place] | [place] [address] | | | | | [place] [address] | [phone] | | | | | [phone] | | | +--------+ + + + [...] | | | | | [place] [address] | | | | + + + [...] [address] | [place] [address] | [phone] | + + + + + Protein, [...] | + + + + + | [facility] | [address] | [place] | [phone] | | [facility] | | [address] | | | - LABORATORY | | | | + + + + + documented in this encounter Visit Diagnoses + + | Diagnosis | + + | Monoclonal gammopathy Monoclonal paraproteinemia | + + documented in this encounter"
[~2019-04-23 09:34] MED LIST changes: +PERCOCET 5-3251 EACH PO
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
== END 2019-04-23 13:32 | disposition home or self-care (01) ==
LOC: ED 09:34
DX: S22.42XA Multiple fractures of ribs, left side, initial encounter for closed fracture (principal); X58.XXXA Exposure to other specified factors, initial encounter; I25.2 Old myocardial infarction; Z87.891 Personal history of nicotine dependence
CPT/HCPCS: 74177; 80053; 85025; 99284-25

== ENCOUNTER 2021-11-30 08:51 | Emergency (ER) | payer MEDICARE ==
[~2021-11-30] VITALS: Ht 177.8 cm; Wt 66.2 kg
[2021-11-30] MEDS ORDERED: METHADONE HCL40 MG PO (09:21)
[2021-11-30] MEDS ORDERED: PROMETHAZINE HC25 M1 PO (14:36)
[2021-11-30] MEDS ORDERED: ONDANSETRON ODT8 MG PO (14:36)
== END 2021-11-30 15:08 | disposition home or self-care (01) ==
LOC: ED 08:51
DX: N20.0 Calculus of kidney (principal); Z87.891 Personal history of nicotine dependence; Z79.899 Other long term (current) drug therapy
CPT/HCPCS: 36415; 74176; 80053; 81001; 83690; 85025; A9270; J1170; J1885; J2405; J7030

== ENCOUNTER 2024-03-25 06:46 | Emergency (ER) | payer MEDICARE, OTHER ==
[~2024-03-25] VITALS: Ht 177.8 cm; Wt 65.0 kg
[~2024-03-25 06:46] MED LIST changes: +METHADONE HCL40 MG PO; +ONDANSETRON ODT8 MG PO
[2024-03-25] MEDS ORDERED: SODIUM CHLORIDE 0.9% 1,000 ML IV ONE (07:15)
[2024-03-25] MEDS ORDERED: fentaNYL citrate 100 MCG/2 ML VIAL IV PRN (07:15)
[2024-03-25] MEDS ORDERED: METHADONE HCL 10 MG TAB PO ONE (07:15)
[2024-03-25] MEDS ORDERED: ondansetron HCL 4 MG/2 ML VIAL IV ONE (07:45)
[2024-03-25 07:47] LABS: BASOPHILS 0.6 % (0-2); EOSINOPHILS 1.5 % (0-6); HEMATOCRIT 41.8 % (35.0-50.0); HEMOGLOBIN 14.1 g/dL (12.0-18.0); LYMPHOCYTES 20.1 % (24-44); MCH 31.4 (27-36); MCHC 33.7 g/dl (30-36); MCV 93.1 fl (81-99); MONOCYTES 5.8 % (0-12); PLATELET COUNT 189 K/uL (140-440); RBC 4.49 M/ul (4.3-5.7); RDW 14.3 (10.5-15.0)
[2024-03-25 08:02] LABS: ALBUMIN 4.1 g/dL (3.4-5.0); ALBUMIN/GLOBULIN RATIO 1.11 (1.1-2.4); ANION GAP 13.3 (7-21); BILIRUBIN, TOTAL 0.3 ng/dL (0.2-1.0); BUN/CREATININE RATIO 12.31 (6.0-28.6); CALCIUM 9.2 mg/dL (8.5-10.1); CREATININE, SERUM 1.38 mg/dL (0.70-1.30); POTASSIUM 4.3 mmol/L (3.5-5.1); PROTEIN, TOTAL 7.8 g/dL (6.4-8.2)
[2024-03-25] MEDS ORDERED: METOCLOPRAMIDE HCL 10 MG/2 ML SDV IV ONE (09:00)
[2024-03-25 09:23] LABS: BILIRUBIN, URINE NEGATIVE (negative); BLOOD/HGB, URINE LARGE (Negative); KETONE, URINE NEGATIVE (Negative); LEUK ESTERASE, URINE NEGATIVE (negative); NITRITE, URINE NEGATIVE (negative); PH, URINE 7.5 (5-7)
[2024-03-25] MEDS ORDERED: KETOROLAC TROMETHAMINE 15 MG/ML VIAL IV ONE (09:30)
[2024-03-25] MEDS ORDERED: TAMSULOSIN HCL 0.4 MG CAP PO ONE (09:30)
[2024-03-25 09:32] LABS: EPITHELIAL CELLS, URINE SQUAMOUS 1+ /lpf (0-1+)
[2024-03-25 09:33] LABS: BACTERIA, URINE RARE /hpf (negative); CASTS, URINE NONE SEEN \\lpf; COLLECTION TYPE, URINE CLEAN CATCH; CRYSTALS, URINE NONE SEEN (0-1+); RED BLOOD CELLS, URINE >50 /hpf (0-5); REFLEX CULTURE, URINE No (No)
[2024-03-25] MEDS ORDERED: FLOMAX0.4 MG PO (10:38)
[2024-03-25] MEDS ORDERED: PERCOCET 7.5-31 EACH PO (10:38)
[2024-03-25 10:52] VITALS: BP 139/82
== END 2024-03-25 10:55 | disposition home or self-care (01) ==
LOC: ED 06:46
PROVIDERS: Emergency Medicine
DX: N13.2 Hydronephrosis with renal and ureteral calculous obstruction (principal); I25.2 Old myocardial infarction; Z87.891 Personal history of nicotine dependence; Z79.899 Other long term (current) drug therapy
CPT/HCPCS: 36415; 74177; 80053; 81001; 83690; 85025; 96361; 96375; 99284-25; J1885; J2765; J3010; J7030; Q9967

== ENCOUNTER 2024-04-04 20:36 | Emergency (ER) | payer MEDICARE, OTHER ==
[~2024-04-04] VITALS: Ht 177.8 cm; Wt 65.0 kg
[~2024-04-04 20:36] MED LIST changes: +PERCOCET 7.5-31 EACH PO
--- OUTSIDE RECORDS SUMMARY | 2024-04-04 20:43 | XMS ---
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 Marija VISIT COUNT (12 MO.) [address] [place] [address] TOTAL 2 NOTE: Visits indicate total known visits. 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
[2024-04-04] MEDS ORDERED: ondansetron HCL 4 MG/2 ML VIAL IV ONE (21:30)
[2024-04-04] MEDS ORDERED: KETOROLAC TROMETHAMINE 15 MG/ML VIAL IV ONE (21:30)
[2024-04-04] MEDS ORDERED: HYDROmorphone HCL 1 MG/ML SYR IV PRN (21:30)
[2024-04-04 22:03] LABS: BASOPHILS 0.4 % (0-2); EOSINOPHILS 0.1 % (0-6); HEMATOCRIT 40.1 % (35.0-50.0); HEMOGLOBIN 13.5 g/dL (12.0-18.0); MCH 31.5 (27-36); MCHC 33.7 g/dl (30-36); MCV 93.4 fl (81-99); MONOCYTES 3.8 % (0-12); NEUTROPHILS 84.7 % (39-80); PLATELET COUNT 194 K/uL (140-440); RBC 4.29 M/ul (4.3-5.7); RDW 13.4 (10.5-15.0)
[2024-04-04 22:12] LABS: ALBUMIN 4.1 g/dL (3.4-5.0); ALBUMIN/GLOBULIN RATIO 1.17 (1.1-2.4); ANION GAP 11.2 (7-21); BILIRUBIN, TOTAL 0.6 ng/dL (0.2-1.0); BUN/CREATININE RATIO 9.77 (6.0-28.6); CALCIUM 9.4 mg/dL (8.5-10.1); CREATININE, SERUM 1.33 mg/dL (0.70-1.30); POTASSIUM 4.2 mmol/L (3.5-5.1); PROTEIN, TOTAL 7.6 g/dL (6.4-8.2)
[2024-04-04] MEDS ORDERED: LACTATED RINGER'S 1,000 ML IV ONE (22:15)
[2024-04-04] MEDS ORDERED: TAMSULOSIN HCL 0.4 MG CAP PO ONE (22:30)
[2024-04-04 22:37] LABS: BILIRUBIN, URINE NEGATIVE (negative); BLOOD/HGB, URINE LARGE (Negative); KETONE, URINE TRACE (Negative); LEUK ESTERASE, URINE NEGATIVE (negative); NITRITE, URINE NEGATIVE (negative)
[2024-04-04 22:46] LABS: BACTERIA, URINE NONE SEEN /hpf (negative); CASTS, URINE NONE SEEN \\lpf; CRYSTALS, URINE NONE SEEN (0-1+); EPITHELIAL CELLS, URINE SQUAMOUS 1+ /lpf (0-1+); RED BLOOD CELLS, URINE >50 /hpf (0-5)
[2024-04-04 22:47] LABS: COLLECTION TYPE, URINE CLEAN CATCH; REFLEX CULTURE, URINE No (No)
[2024-04-04] MEDS ORDERED: FLOMAX0.4 MG PO (22:59)
[2024-04-04 23:30] VITALS: BP 149/90
== END 2024-04-04 23:31 | disposition home or self-care (01) ==
LOC: ED 20:36
PROVIDERS: Internal Medicine
DX: N13.2 Hydronephrosis with renal and ureteral calculous obstruction (principal); Z87.891 Personal history of nicotine dependence; Z79.899 Other long term (current) drug therapy
CPT/HCPCS: 36415; 74176; 80053; 81001; 85025; 96374; 96375; 96376; 99284-25; J1171; J1885; J2405; J7121

== ENCOUNTER 2024-04-14 10:23 | Day surgery (SDC) | payer MEDICARE ==
[~2024-04-14] VITALS: Ht 177.8 cm; Wt 67.1 kg
[~2024-04-14 10:23] MED LIST changes: +CEFAZOLIN SODIUM 2 GM/20 ML SYR IV SCH; +IBLOOD GLUCOSE TEST STRIP 1 EA TEST VI PRN; +IBU400 MG PO; +LACTATED RINGER'S 1,000 ML IV SCH; +LIDOCAINE HCL 1% 5 ML SDV INJ ONE; +NITROGLYCERIN0.4 MG SL
[2024-04-14] MEDS ORDERED: iopamidoL 30 ML VIAL ONE (10:28)
[2024-04-14 10:45] VITALS: BP 133/86
[2024-04-14 11:25] LABS: ANION GAP 14.6 (7-21); BUN/CREATININE RATIO 9.3 (6.0-28.6); CREATININE, SERUM 1.72 mg/dL (0.70-1.30); POTASSIUM 3.6 mmol/L (3.5-5.1)
[2024-04-14] MEDS ORDERED: CIPRO500 MG PO (11:28)
[2024-04-14] MEDS ORDERED: propofoL 200 MG/20 ML VIAL ONE (12:07)
[2024-04-14] MEDS ORDERED: fentaNYL citrate 250 MCG/5 ML VIAL ONE (12:07)
[2024-04-14] MEDS ORDERED: ondansetron HCL 4 MG/2 ML VIAL ONE (12:07)
[2024-04-14] MEDS ORDERED: LIDOCAINE HCL 2% 5 ML SDV ONE (12:07)
[2024-04-14] MEDS ORDERED: ACETAMINOPHEN 1,000 MG/100 ML VIAL ONE (12:07)
[2024-04-14] MEDS ORDERED: DEXAMETHASONE SOD PHOS 4 MG/ML VIAL ONE (12:08)
[2024-04-14] MEDS ORDERED: SEVOFLURANE 250 ML BTL INH ONE (12:27)
[2024-04-14] MEDS ORDERED: ondansetron HCL 4 MG/2 ML VIAL IV PRN ×2 (13:15→13:45)
[2024-04-14] MEDS ORDERED: PHENAZOPYRIDINE HCL 100 MG TAB PO ONE (13:15)
[2024-04-14] MEDS ORDERED: KETOROLAC TROMETHAMINE 15 MG/ML VIAL IV PRN (13:15)
[2024-04-14] MEDS ORDERED: OXYCODONE/APAP 5/325 TAB PO PRN (13:15)
[2024-04-14] MEDS ORDERED: IBLOOD GLUCOSE TEST STRIP 1 EA TEST VI PRN (13:45)
[2024-04-14] MEDS ORDERED: HYDROmorphone HCL 1 MG/ML SYR IV PRN (13:45)
[2024-04-14] MEDS ORDERED: NALOXONE HCL 0.4 MG SYR IV PRN (13:45)
[2024-04-14] MEDS ORDERED: fentaNYL citrate 50 MCG/ML SDV IV PRN (13:45)
[2024-04-14] MEDS ORDERED: droPERidol 5 MG/2 ML VIAL IV PRN (13:45)
[2024-04-14] MEDS ORDERED: PROCHLORPERAZINE EDISYLATE 10 MG/2 ML VIAL IV PRN (13:45)
[2024-04-14] MEDS ORDERED: LACTATED RINGER'S 1,000 ML IV ONE (13:46)
[2024-04-14] MEDS ORDERED: KETAMINE in NS 50 MG/5 ML SYR ONE (14:00)
[2024-04-14] MEDS ORDERED: LIDOCAINE HCL 2% 20 MG/ML VIAL INJ ONE (14:01)
--- NOTE | 2024-04-14 15:48 | NUR ---
04/14/24 1548 Sheila Crawford 1522- PT ARRIVES TO THE PACU WITH AN ORAL AIRWAY IN PLACE AND ON 6L OF O2. SLIGHT CHIN LIFT NEEDED TO MAINTAIN AIRWAY. LR INFUSING IN L FOREARM. ALL MONITORS PUT IN PLACE. VSS. PT IS LAYING IN SEMIFOWLERS AND ABDOMEN IS SOFT AND NONDISTENDED. PENIS SHOWS NO SIGNS OF DRAINAGE AFTER THE PROCEDURE. PT IS NOT REACTIVE TO VERBAL OR TACTILE STIMULI. 1528- SHORT PERIOD OF APNEA NOTED ATTEMPT TO TACTILE STIMULATE PT AND MONITORING AND EVALUATION ADVISOR USED SUCTION. PT REACTED WITH FACIAL GRIMACING AND DEEP BREATHING. PT IS NOW BREATHING EVEN AND UMLABORED, OPA AND O2 REMAIN IN PLACE. 1532- PT PUSHING OPA WITH TONGUE. PT OPENS EYES AND FOLLOWS COMMANDS TO OPEN HIS MOUTH. ORAL AIRWAY REMOVED AT THIS TIME AND O2 REMAINS IN PLACE. PT EASILY FALLS BACK TO SLEEP. WILL CONTINUE TO MONITOR. 1537- PT O2 REMOVED. PT KEEPS SATS ABOVE 94% ON ROOM AIR. PT DENIES PAIN AND NAUSEA AND WOKE TO VERBAL STIMULI.
[2024-04-14 16:05] VITALS: BP 149/81
[2024-04-14] MEDS ORDERED: PHENAZOPYRIDINE HCL 100 MG TAB ONE (16:11)
[2024-04-14] MEDS ORDERED: OXYCODONE HCL5 MG PO (16:36)
--- NOTE | 2024-04-14 16:36 | NUR ---
PT UP TO BR, SBA. VOIDED 120 ML OF RED/ORANGE URINE. BACK TO ROOM. PT PROVIDED BELONGINGS TO DRESS SELF. INSTRUCTED TO USE CALL LIGHT IF HELP IS NEEDED.
[2024-04-14] MEDS ORDERED: PYRIDIUM100 MG PO (16:37)
--- NOTE | 2024-04-14 17:00 | NUR ---
1605-PT ARRIVED BACK TO DS ON RA, AAOX3. PT IS ANSWERING QUESTIONS APPROPRIATELY AND IS ABLE TO MAKE HIS NEEDS KNOWN. VS TAKEN, STABLE. REPORT RECIEVED FROM URBAN SOCIOLOGIST. SURGICAL SITE (URETHRAL OPENING) VISULAIZED WITH URBAN SOCIOLOGIST. NO BLEEDING OR DRAINAGE SEEN. PT REPORTS PAIN 6/10 IN BLADDER AND URETHRA. PT ALSO REPORTING BLADDER SPASMS. PT DENIES NAUSEA WHEN ASKED. IV SITE ASSESSED, PATENT AND LR INFUSING PER ORDERS. PT PROVIDED ICE WATER, JELLO, AND CRACKERS. ALL QUESTIONS ANSWERED. BED IN LOW POSITION WITH WHEELS LOCKED. BILAT RAILS IN PLACE. CALL LIGHT WITHIN PT REACH. 1615-INTO PTS ROOM TO ADMINISTER PAIN MEDICATIONS FOR C/O PAIN 6/10 IN BLADDER AND URETHRA. SCHEUDLED DOSE OF PYRIDIUM GIVEN FOR BLADDER SPASMS AND ORAL PAIN MEDS ADMINISTERED PER EMAR. PT HAS EATEN JELLO AND CRACKERS, CONT TO DENY NAUSEA WHEN ASKED, AND IS TAKING FLUIDS BY MOUTH WELL. IV SL'D AT THIS TIME. 1625-PTS EX- NOTIFIED THAT PT IS OUT OF RECOVERY AND BACK IN DS. EX- REPROTS SHE IS ON HER WAY TO HOSPITAL AND WILL SIT WITH PT UNTIL DISCHARGE HOME. 1630-PT UP TO RESTROOM WITH 1 PERSON SBA FOR SAFETY. PT ABLE TO VOID 120ML OF URINE. PT AMBULATED BACK TO ROOM WITH 1 PERSON SBA. PT DRESSING FOR DISCHARGE. BED IN LOW POSITION, WHEELS LOCKED, CALL LIGHT AND PERSONAL BELONGINGS WITHIN PT REACH. 1645-INTO PTS ROOM FOR ROUTINE REASSESSMENT AND DISCHARGE EDUCATION. PTS EX- (BRENNA YING) AT BEDSIDE. RX GIVEN TO PT TO TAKE TO PHARMACY TO FILL. DISCUSSED WITH PT THAT DR. GARCIA OFFICE WILL CONTACT HIM IN THE NEXT COUPLE DAYS TO SCHEDULED FOR PT TO COME BACK IN 2-3 WEEKS TO HAVE STENT REMOVED. ENCOURAGED HIM TO CALL DR. GARCIA OFFICE TO SCHEDULE THIS IF THEY HAVE NOT CONTACTED HIM BY THURSDAY MORNING. PT VERBALIZED UNDERSTANDING. PT EDUCATED ON INCREASING FLUID INTAKE AND AVOIDING CAFFEINE CONTAINING BEVERAGES. DISCUSSED WITH PT WHEN TO TAKE NEXT DOSES OF MEDICATION. PT ALSO EDUCATED ON WHAT TO WATCH FOR AND WHEN TO CONTACT DR. GARCIA OFFICE OR COME IN AND BE SEEN. PT AND HIS EX- VERBALIZED UNDERSTANDING. ALL QUESTIONS ANSWERED. [id number] LEFT TO PULL CAR AROUND TO FRONT OF HOSPITAL FOR DISCHARGE. IV REMOVED. TIP OBSERVED TO BE INTACT. PRESSURE DRSG APPLIED WITH GAUZE AND COBAN. PT CONT TO DENY NAUSEA. PT REPORTS EFFECTIVE PAIN RELIEF WITH ORAL MEDS GIVEN EARLIER AND RATES PAIN IN URETHRA AND BLADDER AT 07/11. VS TAKEN. NO BLEEDING OR DRAINAGE OBSERVED FROM URETHRAL OPENING. PT REMAINS AAOX3 AND ANSWERS QUESTIONS APPROPRAITELY.
[2024-04-14 17:05] VITALS: BP 144/87
--- NOTE | 2024-04-14 17:05 | NUR ---
PT DISCHARGED FROM DS VIA WC TO PASSENGER SIDE OF EX-WIFES VEHICLE. ALL PERSONAL BELONGINGS TAKEN WITH PT.
--- NOTE | 2024-04-15 15:34 | EKG ---
[facility] [address] [place] [address] Signed Normal sinus rhythm Nonspecific ST and T wave abnormality Abnormal ECG When compared with ECG of 15-NOV-2017 04:31, ST now depressed in Anterior leads Nonspecific T wave abnormality now evident in Inferior leads Nonspecific T wave abnormality now evident in Lateral leads Confirmed by Gavino Andrews MD () on 04/15/2024 3:33:51 PM Electronically Signed By: GAVINO ANDREWS MD 04/15/24 1534 PATIENT NAME: ABEL BA Electrocardiogram DATE OF : 50 PHYSICIAN: GAVINO ANDREWS MD REPORT #: [id number] REPORT IS CONFIDENTIAL AND NOT TO BE RELEASED WITHOUT AUTHORIZATION
== END 2024-04-14 17:05 | disposition home or self-care (01) ==
LOC: OPS 10:23 → DS 10:23 → OPS 12:30 → DS 12:30 → OPS 17:05
PROVIDERS: ATTEND Urology
PROC: 0TC78ZZ Extirpation of Matter from Left Ureter, Via Natural or Artificial Opening Endoscopic (ICD-10-PCS; principal; 2024-04-14 12:30)
PROC: BT1FZZZ Fluoroscopy of Left Kidney, Ureter and Bladder (ICD-10-PCS; 2024-04-14 12:30)
DX: N13.2 Hydronephrosis with renal and ureteral calculous obstruction (principal); E78.00 Pure hypercholesterolemia, unspecified; I25.10 Atherosclerotic heart disease of native coronary artery without angina pectoris; G89.4 Chronic pain syndrome; Z79.899 Other long term (current) drug therapy
CPT/HCPCS: 00910; 36415; 71045; 74420; 80048; 82365; 93005; 93010; C1769; C2617; J0131; J0690; J1100; J2003; J2405; J2704; J3010; J3490; J7121; Q9967